=== PATIENT | male | born 1940 | race Caucasian/White ===

== ENCOUNTER → 2017-02-13 | Outpatient (CLI) | payer BC ==
[~2017-02-13] MED LIST: ASPCH81X PO; ASPI-205 PO; ASPI325T45 PO; CALC-323 PO; CALC500C70 PO; ENAL1TAB29 PO; MULT-506 PO; OXYC-57 PO; OXYC1TAB3 PO; WARF2TAB PO; amoxicillin PO
== END | disposition home or self-care (01) ==
LOC: C.RDSM 14:35
PROVIDERS: ATTEND Family Medicine
DX: M25.561 Pain in right knee (principal)

== ENCOUNTER → 2017-03-12 | Outpatient (CLI) | payer BC ==
--- NOTE | 2017-03-12 11:58 | DIAGNOSTIC IMAGING REPORT ---
MRI right knee RIGHT LOWER EXT JOINT WITHOUT CLINICAL HISTORY: RT KNEE PAIN Right pain TECHNIQUE: MRI multi axial acquisition COMPARISON STUDY: None FINDINGS: Severe degenerative change all major joint compartments. Medial compartment shows considerable loss of articular surface. Lateral compartment shows considerable thinning of the articular services. Anterior and posterior cruciate ligaments are intact. Joint effusion is present. Small amount of debris is present within the suprapatellar bursa. There is moderate edematous change of the infrapatellar fat pad. There are findings of mild contusions versus reactive edematous change of the medial femoral condyle and medial tibial plateau. This is seen to a minimal extent laterally. There is near-complete loss of meniscal substance involving the medial joint compartment. There is a small focal tear of the residual mid medial meniscus. Lateral meniscus is unremarkable in signal character. There is minimal maceration of the articular services. Collateral ligaments are intact. IMPRESSION: 1. Generalized degenerative change all major joint compartments. 2. Severe degenerative change medial joint compartment with virtual complete loss of the articular services the medial femoral condyle medial tibial plateau as well as considerable loss of meniscal substance of the medial meniscus. 3. Mild/moderate degenerative changes lateral joint compartment. 4. Moderate joint effusion with findings of mild chondromalacia patella. 5. Small joint effusion with a small amount of contained debris Electronically signed by: Eduardo Mak M.D. 03/12/2017 11:56 AM Dictated Date/Time: 03/12/2017 11:36 AM
== END | disposition home or self-care (01) ==
LOC: C.MRIBC 10:25
PROVIDERS: ATTEND Family Medicine
DX: S83.241A Other tear of medial meniscus, current injury, right knee, initial encounter (principal); M17.11 Unilateral primary osteoarthritis, right knee; X58.XXXA Exposure to other specified factors, initial encounter

== ENCOUNTER → 2017-05-07 | Outpatient (CLI) | payer BC ==
[~2017-05-07] MED LIST changes: -OXYC1TAB3 PO
[2017-05-07 15:41] LABS: HEMATOCRIT 45.3 % (42-52); MEAN CELL VOLUME 88.5 fL (80-100); MEAN CORPUSCULAR HEMOGLOBIN 27.5 pg (25-34); MEAN CORPUSCULAR HGB CONC 31.1 g/dl (32-36); MEAN PLATELET VOLUME 8.7 fL (7.4-10.4); PLATELET COUNT 272 K/uL (130-400); RED BLOOD COUNT 5.12 M/uL (4.7-6.1); WHITE BLOOD COUNT 9.59 K/uL (4.8-10.8)
[2017-05-07 16:15] LABS: ALT/SGPT 17 U/L (12-78); AMYLASE 100 U/L (25-115); AST/SGOT 13 U/L (15-37); BLOOD UREA NITROGEN 25 mg/dl (7-18); BUN/CREATININE RATIO 16.6 (10-20); CARBON DIOXIDE 29 mmol/L (21-32); CHLORIDE 108 mmol/L (98-107); GLUCOSE 124 mg/dl (70-99); SODIUM 143 mmol/L (136-145)
[2017-05-07 16:17] LABS: ALB/GLOB RATIO 0.8 (0.9-2); ALKALINE PHOSPHATASE 60 U/L (45-117)
== END | disposition home or self-care (01) ==
LOC: C.LAB 14:45
PROVIDERS: ATTEND Internal Medicine
DX: R63.0 Anorexia (principal)

== ENCOUNTER → 2017-05-22 | Outpatient (CLI) | payer BC ==
[~2017-05-22] MED LIST changes: +OPTIRAY 320 IV PRN
--- NOTE | 2017-05-22 16:00 | DIAGNOSTIC IMAGING REPORT ---
ABDOMEN AND PELVIS CT WITH IV AND ORAL CONTRAST CT DOSE: 616.97 mGy.cm HISTORY: Pain. Diverticulitis. DIVERTICULITIS TECHNIQUE: Multiaxial CT images of the abdomen and pelvis were performed following the use of intravenous and oral contrast. COMPARISON STUDY: None. FINDINGS: Mild dependent bibasilar atelectasis. Liver enhances uniformly. Several gallstones are present within the gallbladder lumen. Pancreas is unremarkable. 1.5 cm exophytic left renal cyst. 1 cm exophytic right renal cyst. 5.5 cm lower pole left renal cyst. Bowel pattern is remarkable for mild descending and sigmoid diverticulitis. Minimal to very mild pericolonic infiltrative change. No evidence for abscess collection or obstruction. Prostate is enlarged. Bladder is midline. The appendix is normal. IMPRESSION: 1. Mild acute diverticulitis of the descending as well as sigmoid colonic regions. 2. No evidence for abscess collection or obstruction. 3. Bilateral renal cysts. 4. Several small gallstones. 5. Prostatic enlargement. Electronically signed by: Eduardo Mak M.D. 05/22/2017 3:59 PM Dictated Date/Time: 05/22/2017 3:55 PM
== END | disposition home or self-care (01) ==
LOC: C.CTS 15:28
PROVIDERS: ATTEND Internal Medicine Gastroenterology
DX: K57.92 Diverticulitis of intestine, part unspecified, without perforation or abscess without bleeding (principal); N28.1 Cyst of kidney, acquired; N40.0 Benign prostatic hyperplasia without lower urinary tract symptoms

== ENCOUNTER → 2017-06-21 | Outpatient (CLI) | payer BC ==
[~2017-06-21] MED LIST changes: -ASPCH81X PO; -ASPI-205 PO; -OPTIRAY 320 IV PRN
--- NOTE | 2017-06-21 11:14 | DIAGNOSTIC IMAGING REPORT ---
ABD/PELVIS NO IV OR ORAL CONT CT DOSE: 484.32 mGy.cm HISTORY: Pain DIVERTICULITIS TECHNIQUE: Multiaxial CT images of the abdomen and pelvis were performed without contrast. A dose lowering technique was utilized adhering to the principles of ALARA. COMPARISON STUDY: 05/22/2017 FINDINGS: Lung bases are clear. Liver spleen and pancreas remain unremarkable. Several small gallstones are again noted. Kidneys negative for hydronephrosis. There is a nonobstructing lower pole right renal calcification. Renal cystic change has remained stable. Findings of diverticulitis are shown near complete resolution. Mild chronic diverticulosis is currently present present. Prosthetic enlargement persists. Bowel pattern throughout is nonprogressive. IMPRESSION: 1. Improved diverticulitis with mild residual colonic diverticulosis. 2. Several small gallstones. 3. Several renal cysts unchanged. The above report was generated using voice recognition software. It may contain grammatical, syntax or spelling errors. Electronically signed by: Eduardo Mak M.D. 06/21/2017 11:13 AM Dictated Date/Time: 06/21/2017 11:04 AM
== END | disposition home or self-care (01) ==
LOC: C.CTS 10:50
PROVIDERS: ATTEND Colon & Rectal Surgery
DX: K57.92 Diverticulitis of intestine, part unspecified, without perforation or abscess without bleeding (principal); K80.20 Calculus of gallbladder without cholecystitis without obstruction; N28.1 Cyst of kidney, acquired

== ENCOUNTER → 2017-07-25 | Outpatient (CLI) | payer BC, OTHER ==
[~2017-07-25] MED LIST changes: -amoxicillin PO
--- NOTE | 2017-07-25 15:14 | DIAGNOSTIC IMAGING REPORT ---
CHEST 2 VIEWS ROUTINE CLINICAL HISTORY: Preoperative evaluation. COMPARISON STUDY: Chest radiograph February 08, 2016. FINDINGS: There is no pneumothorax or pleural effusion. There is no evidence of pulmonary edema. Linear left basilar opacity is suggestive of atelectasis. Multiple lateral left upper to mid rib fractures are noted. These are mildly displaced and likely acute to subacute. There is no evidence of pulmonary edema. Cardiomediastinal silhouette is normal. IMPRESSION: 1. No acute cardiopulmonary findings. 2. Multiple left lateral fractures which are mildly displaced and likely acute to subacute. No pneumothorax. 3. Linear left basilar opacity suggestive of atelectasis. Electronically signed by: Williams Rosado M.D. 07/25/2017 3:13 PM Dictated Date/Time: 07/25/2017 3:10 PM
== END | disposition home or self-care (01) ==
LOC: C.RDSM 14:22
PROVIDERS: ATTEND Physician Assistant
DX: Z01.818 Encounter for other preprocedural examination (principal); T14.8 Other injury of unspecified body region; X58.XXXA Exposure to other specified factors, initial encounter

== ENCOUNTER → 2017-07-25 | Outpatient (CLI) | payer BC ==
[2017-07-25 15:45] LABS: BASO % 0.3 %; BASO ABS # 0.02 K/uL (0-0.2); COMPLETE YES; EOS % 0.9 %; HEMATOCRIT 48.2 % (42-52); IG% 0.4 %; LYMPH % 18.6 %; LYMPH ABS # 1.43 K/uL (1.2-3.4); MEAN CELL VOLUME 87.5 fL (80-100); MEAN CORPUSCULAR HEMOGLOBIN 27.8 pg (25-34); MEAN CORPUSCULAR HGB CONC 31.7 g/dl (32-36); MEAN PLATELET VOLUME 9.2 fL (7.4-10.4); NEUT % 68.8 %; PLATELET COUNT 237 K/uL (130-400); RED BLOOD COUNT 5.51 M/uL (4.7-6.1)
[2017-07-25 15:56] LABS: INR 0.9 (0.9-1.1); PARTIAL THROMBOPLASTIN RATIO 1.1
[2017-07-25 16:14] LABS: BLOOD UREA NITROGEN 29 mg/dl (7-18); BUN/CREATININE RATIO 20.9 (10-20); CALCIUM 9.2 mg/dl (8.5-10.1); CARBON DIOXIDE 25 mmol/L (21-32); CHLORIDE 107 mmol/L (98-107); GLUCOSE 83 mg/dl (70-99); POTASSIUM 3.9 mmol/L (3.5-5.1); SODIUM 140 mmol/L (136-145)
[2017-07-25 17:01] LABS: URINE APPEARANCE CLEAR (CLEAR); URINE BILIRUBIN NEG (NEG); URINE COLOR YELLOW; URINE EPITHELIAL CELL AUTO 0-5 /lpf (0-5); URINE NITRITE NEG (NEG); UROBILINOGEN NEG (NEG)
[2017-07-25 17:07] LABS: MANUAL MICROSCOPIC REQUIRED? NO; REVIEW REQ? NO
== END | disposition home or self-care (01) ==
LOC: C.LAB1850 14:43
PROVIDERS: ATTEND Physician Assistant
DX: Z01.812 Encounter for preprocedural laboratory examination (principal)

== ENCOUNTER 2017-08-21 06:22 | Inpatient (IN) | payer BC, OTHER ==
[2017-05-31 13:34] VITALS: BMI 26.0
--- NOTE | 2017-05-31 14:04 | PAT Medication Instructions ---
Service Date May 31, 2017. Current Home Medication List Aspirin (Aspirin), 325 MG PO Q8 PRN for Pain Calcium Citrate-Vitamin D (Citracal Maximum), 1 TAB PO QAM Calcium/Vitamin D (Os-Douglas 500 Plus D), 1 TAB PO QAM Enalapril Maleate (Vasotec), 2.5 MG PO BID Multivitamin (Multivitamin), 1 TAB PO QAM [amoxicillin], 1 TAB PO BID Medication Instructions For Your Scheduled Surgery - Instructions to be given by surgeon: Aspirin (Aspirin), 325 MG PO Q8 PRN for Pain - Hold the following medications 24 hours prior to surgery: Enalapril Maleate (Vasotec), 2.5 MG PO BID - Hold the following medications the morning of surgery: Multivitamin (Multivitamin), 1 TAB PO QAM Calcium Citrate-Vitamin D (Citracal Maximum), 1 TAB PO QAM Calcium/Vitamin D (Os-Douglas 500 Plus D), 1 TAB PO QAM Nothing to eat or drink after midnight If you have any questions please call us at [phone] or [phone] or [phone]
[2017-05-31 14:39] LABS: BASO % 0.4 %; BASO ABS # 0.03 K/uL (0-0.2); COMPLETE YES; EOS % 1.7 %; HEMATOCRIT 45.4 % (42-52); IG% 0.5 %; LYMPH % 14.9 %; MEAN CELL VOLUME 87.8 fL (80-100); MEAN CORPUSCULAR HEMOGLOBIN 28.2 pg (25-34); MEAN CORPUSCULAR HGB CONC 32.2 g/dl (32-36); MONO % 9.2 %; NEUT % 73.3 %; PLATELET COUNT 226 K/uL (130-400); RED BLOOD COUNT 5.17 M/uL (4.7-6.1); WHITE BLOOD COUNT 8.06 K/uL (4.8-10.8)
[2017-05-31 14:53] LABS: URINE APPEARANCE CLEAR (CLEAR); URINE BILIRUBIN NEG (NEG); URINE COLOR YELLOW; URINE NITRITE NEG (NEG); URINE PH 5.5 (4.5-7.5); UROBILINOGEN NEG (NEG); ZZUR CULT IF INDIC CLEAN CATCH NO
[2017-05-31 14:59] LABS: PARTIAL THROMBOPLASTIN RATIO 1.1; PROTHROMBIN TIME (PATIENT) 10.2 SECONDS (9.0-12.0)
[2017-05-31 15:07] LABS: MANUAL MICROSCOPIC REQUIRED? NO; REVIEW REQ? NO
[2017-05-31 15:12] LABS: BUN/CREATININE RATIO 17.1 (10-20); CALCIUM 9.6 mg/dl (8.5-10.1); CREATININE 1.8 mg/dl (0.60-1.40); POTASSIUM 4.3 mmol/L (3.5-5.1)
[2017-07-08 08:32] VITALS: BMI 26.0
--- NOTE | 2017-07-30 14:12 | HISTORY & PHYSICAL EXAMINATION ---
DATE OF ADMISSION: 08/21/2017 CHIEF COMPLAINT: Right knee pain. HISTORY OF PRESENT ILLNESS: This 76-year-old white male presents to the office with complaints of right knee pain that has been ongoing for over a year. He had a previous knee surgery approximately [address] Walls. The patient was previously scheduled for knee surgery in June, but had to postpone due to a bout of diverticulitis. Pain has been worse since December or early January of this year. He is a previous runner, who had a significant amount of medial joint line pain. No specific injury. Pain is constant and becomes worse with activity. It is affecting his ADLs. No numbness or tingling. No catching or locking. He has tried conservative care measures including cortisone injections and physical therapy without lasting relief. He elects to proceed with total knee arthroplasty in hopes of alleviating his pain. PAST MEDICAL HISTORY: Significant for hypertension, BPH, osteoarthritis, hiatal hernia, diverticulitis, right bundle branch block, and a history of aortic valve issue. PREVIOUS SURGERIES: Herniorrhaphy, right shoulder surgery, tibia ORIF, right knee surgery over 30 years ago, colonoscopy, and prostate biopsy. ALLERGIES: NKDA. CURRENT MEDICATIONS: Aspirin 81 mg daily, calcium daily, enalapril 2.5 mg p.o. b.i.d., multivitamin daily, and pantoprazole 20 mg p.o. daily. FAMILY HISTORY: Significant for hypertension, lung disease and stroke. SOCIAL HISTORY: No tobacco use, occasional ETOH use. . Retired. REVIEW OF SYSTEMS: Significant for above stated conditions, otherwise unremarkable. PHYSICAL EXAMINATION: GENERAL: Well-developed and well-nourished elderly white male in no acute distress. Sitting on a bed. Alert and oriented. SKIN: Warm and dry with good turgor. No rashes or lesions. No ecchymosis or erythema. HEENT: Normocephalic and atraumatic. Eyes PERRLA, EOMI. Nares patent bilaterally without turbinate enlargement. Oropharynx without erythema or exudate. No lesions noted. Uvula midline. Oral mucosa moist. Fair dentition. Dental caps and fillings are noted. HEART: RRR. No MGR. LUNGS: Clear to auscultation bilaterally. No crackles, rhonchi or wheezing. Good air movement. ABDOMEN: Bowel sounds present x4, soft and nontender. No organomegaly. No masses. MUSCULOSKELETAL: Right knee has no intraarticular effusion. Full terminal extension. Flexion to greater than 100 degrees. Strength is 5/5 with good quad tone. No defect over the patellar tendon or quadriceps tendon. Stable collateral ligaments. Focal pain with palpation over the medial joint line. No lateral joint line discomfort today. No pain in the popliteal fossa with palpation. Mildly antalgic gait. DATA: Radiographic imaging previously obtained of the right knee shows significant narrowing of the medial compartment. Periarticular osteophytes and subchondral sclerosis with subchondral cyst formation is also present. IMPRESSION: Right knee degenerative joint disease. PLAN: Informed written consent for a right total knee arthroplasty will be signed on the day of surgery. Postoperative prescriptions for Percocet and Coumadin will be provided at discharge from the hospital. Anticipate discharge to home with either 2 weeks of home health or direct outpatient PT. He already has a cane. Prescription was provided for a rolling walker. Preoperative lab work and chest x-ray have been ordered. EKG is up to date within 6 months.
[~2017-08-21] VITALS: Ht 175.3 cm; Wt 80.1 kg
[2017-08-21] VITALS (8 sets, daily range): BP systolic 103–160; BP diastolic 63–90; PULSE 65–97; TEMP 36.4–36.9; O2SAT 92–99; Ht 175.3 cm; Wt 80.1 kg
[~2017-08-21 06:22] MED LIST changes: +CEFAZOLIN 2000 MG/60 ML D5W 60 ML IV SCH; +LACTATED RINGER'S 1000ML 1,000 ML IV SCH; +LACTATED RINGER'S 1000ML 500 ML IV ONE; +LACTATED RINGER'S 1000ML IV SCH; -OXYC-57 PO; +ROPIVACAINE 5MG/ML 30 ML 150 MG, BUPIVACAINE/EPINEPHR 0.5% MPF 30 ML, KETOROLAC TROMETH... INFIL SCH; +TRANEXAMIC ACID INJ 1,000 MG in SODIUM CHLORIDE 0.9% 100ML 100 ML IV SCH; -WARF2TAB PO
--- NOTE | 2017-08-21 06:27 | History & Physical Bridge Note ---
H&P Re-Evaluation Bridge Note: I have examined the patient, reviewed the History & Physical and in the interval since the performance of the History & Physical I have noted the following changes of clinical significance:consent obtained. No changes noted
[2017-08-21] MEDS ORDERED: EpINEphrine INJ 1MG/ML AMP 1 MG/ML AMP ONE (06:31)
[2017-08-21] MEDS ORDERED: BUPIVACAINE 0.5 % 5 MG/1 ML PF 10ML VIAL ONE (06:31)
[2017-08-21] MEDS ORDERED: BUPIVACAINE 0.25% 30 ML VIAL ONE (06:31)
[2017-08-21] MEDS ORDERED: MIDAZOLAM HCL 1 MG/ML 2ML VIAL ONE ×2 (07:43→08:05)
[2017-08-21] MEDS ORDERED: ATROPINE SULFATE 0.1 MG/ML 5ML SYR IV PRN (08:45)
[2017-08-21] MEDS ORDERED: ONDANSETRON INJ 2 MG/ML 2 ML VIAL IV PRN ×2 (08:45→11:15)
[2017-08-21] MEDS ORDERED: FENTANYL CITRATE INJ 50 MCG/1 ML 2 ML VIAL IV PRN (08:45)
[2017-08-21] MEDS ORDERED: EpHEDrine SULFATE INJ 50 MG/ML AMP IV PRN (08:45)
[2017-08-21] MEDS ORDERED: FENTANYL CITRATE INJ 50 MCG/1 ML 2 ML VIAL ONE (08:47)
[2017-08-21] MEDS ORDERED: POVIDONE-IODINE OP SOLN 30 ML BTL ONE (09:07)
[2017-08-21] MEDS ORDERED: ORTHO JOINT ANESTHETIC ONE (09:07)
[2017-08-21] MEDS ORDERED: PROPOFOL IV EMULSION 10 MG/ML 20 ML VIAL IV ONE (09:46)
--- NOTE | 2017-08-21 10:57 | [facility] Post Operative Brief Note ---
Immediate Operative Summary Operative Date Aug 21, 2017. Pre-Operative Diagnosis Right Knee Degenerative Joint Disease Post-Operative Diagnosis Right Knee Degenerative Joint Disease Procedure(s) Performed Right Total Knee Arthroplasty Surgeon Dr. Zamorano Audiovisual Technician Surgeon(s) Dr. Billy (Fellow)/ENRIQUE Elaine Estimated Blood Loss 50cc Findings severe djd with flexion contracture Fluids (cc crystalloids) 1500cc Specimens A. Right Knee Bone and Tissue Drains none Anesthesia spinal/obturator block Complication(s) None Disposition Recovery Room / PACU
[2017-08-21] MEDS ORDERED: PHENYLEPHRINE 100MCG/ML 5ML SYR ONE (11:00)
[2017-08-21] MEDS ORDERED: EpHEDrine SULFATE 50MG/5ML SYR ONE (11:00)
[2017-08-21] MEDS ORDERED: MAGNESIUM HYDROXIDE SUSP 30 ML UDC PO PRN (11:15)
[2017-08-21] MEDS ORDERED: ALUMINUM/MAGNESIUM/SIMETH (MAALOX MAX) 30 ML UDC PO PRN (11:15)
[2017-08-21] MEDS ORDERED: ACETAMINOPHEN IV 100 ML IV PRN (11:15)
[2017-08-21] MEDS ORDERED: TAMSULOSIN HCL 0.4 MG CAP PO PRN (11:15)
[2017-08-21] MEDS ORDERED: MoRPHine SULFATE 4 MG/ML 1 ML CARP\\VIAL IV PRN (11:15)
[2017-08-21] MEDS ORDERED: ACETAMINOPHEN 325 MG TAB PO PRN (11:15)
[2017-08-21] MEDS ORDERED: METOCLOPRAMIDE HCL INJ 5 MG/ML 2 ML VIAL IV PRN (11:15)
[2017-08-21] MEDS ORDERED: BISACODYL 10 MG SUPP PR PRN (11:15)
[2017-08-21] MEDS ORDERED: OXYCODONE HCL IR 5 MG TAB (IMMEDIATE RELEASE) PO PRN (11:15)
[2017-08-21] MEDS ORDERED: DiphenhydrAMINE HCL 50 MG/ML VIAL IV PRN (11:15)
--- NOTE | 2017-08-21 11:29 | OPERATIVE REPORT ---
DATE OF OPERATION: 08/21/2017 PREOPERATIVE DIAGNOSIS: Osteoarthritis with flexion varus deformity, right knee. POSTOPERATIVE DIAGNOSIS: Same. OPERATION PERFORMED: Cemented right total knee replacement. SURGEON: Lai Zamorano MD RAILROAD SIGNAL OPERATOR: Wenceslao. SECOND HAND COOPER HELPER: Jayce Hinojosa MD THIRD HAND COOPER HELPER: Delfino Jones PA-C SUMMARY OF IMPLANTS: Size 3 posterior cruciate substituting femur, size 4 rotating tibial platform. Oval domed 3 pegged patella size 41, tibial insert size 3 matching the femur, 10 mm thick posterior cruciate substituting, and 2 bags of Palacos G cement. ESTIMATED BLOOD LOSS: 50 mL. CRYSTALLOID: 1500 mL. PERIOPERATIVE SITUATION: Medically cleared male with intractable knee pain. X-rays and physical exam consistent with varus flexion deformity and significant osteoarthropathy. At this point in time, he has failed conservative management and wants to proceed with treatment. PROCEDURE: The patient appropriately identified, site verified, consent verified, 2 g of Ancef confirmed as being given; the right lower extremity was prepped and draped in usual routine fashion. Tourniquet inflated to 300 mmHg after exsanguination of limb with a rubber Esmarch bandage for a total of about 60 minutes. Midline exposure utilized. Parapatellar arthrotomy performed. Synovectomy completed. Soft tissue releases medially performed. Osteophytes resected. Distal femur resected 14 mm. Proximal tibia resected 4 mm. The extension gap was excellent. The femur was measured to between a 4 and a 3, it was measured 4 cut 3. The flexion gap was excellent. The box cut was then made. The trial femur fit well. The tibia was then subluxated and the tibia broached and reamed to a size 4. Trial reduction carried out with a 10 mm spacers matching the femur size 3 and it was excellent in all ranges including mid range flexion. The patella was then sized to 41, resection made leaving 15 mm and then the seating holes made and the trial tracked well. The Orthomix was then injected into the joint. The joint was then irrigated with Betadine Pulsavac and after the cement mix was ready, the implants cemented into position. After 12 minutes, the tourniquet deflated. After 14 minutes, the knee flexed. Minor cement removal and irrigation occurred with Betadine Pulsavac and then the knee closed over the reduced implant with permanent spacer seated with #1 Ethibond, #1 Vicryl, 2-0 Vicryl and stainless steel clips. Appropriate dressing applied. The patient was then transferred to recovery room in satisfactory condition having tolerated the procedure well. DVT prophylaxis per protocol. I attest to the content of the Intraoperative Record and any orders documented therein. Any exceptions are noted below. MTDD
--- NOTE | 2017-08-21 11:38 | [facility] Operative Report ---
Operative Report Operative Date Aug 21, 2017. Pre-Operative Diagnosis Right Knee Degenerative Joint Disease Post-Operative Diagnosis Right Knee Degenerative Joint Disease Procedure(s) Performed Right Total Knee Arthroplasty Surgeon Dr. Zamorano Educational Program Director Surgeon(s) Dr. Billy (Fellow)/ENRIQUE Elaine Estimated Blood Loss 50cc Findings Right knee DJD Fluids (cc crystalloids) 1500cc Specimens A. Right Knee Bone and Tissue Drains none Complication(s) None Disposition Recovery Room / PACU Implants This 76-year-old white male presented to the office with complaints of intractable right knee pain. He had tried conservative care measures including activity modification, cortisone injections, viscous supplementation injections , oral anti-inflammatories, and oral pain medication without relief. Preoperative imaging was obtained. He elected to proceed with surgical intervention in hopes of alleviating his pain. Description of Procedure Patient was administered a spinal anesthetic and then taken to the operating room where he was given sedation. He was prepped and draped in usual sterile fashion. Please see Dr. Zamorano's operative report for specifics of the procedure. I was present for the entire case from initial patient positioning through final wound closure. Assistance was provided in tissue traction, hemostasis, trial implant placement, final implant placement, and final wound closure. Patient was taken to the recovery room in satisfactory condition. I attest to the content of the Intraoperative Record and any orders documented therein. Any exceptions are noted below.
--- NOTE | 2017-08-21 11:38 | Anesthesiology Progress Note ---
Anesthesia Post Op Note Date & Time Aug 21, 2017 at 11:38 Vital Signs Pain Intensity: 0 Vital Signs Past 12 Hours Date Time Temp Pulse Resp B/P (MAP) Pulse Ox O2 Delivery O2 Flow Rate FiO2 08/21/17 11:25 77 15 119/68 97 Nasal Cannula 2 08/21/17 11:15 74 14 117/61 98 Nasal Cannula 2 08/21/17 11:09 36.7 74 16 114/64 100 Nasal Cannula 2 08/21/17 06:56 36.9 65 18 160/90 96 Room Air Notes Mental Status: alert / awake / arousable, participated in evaluation Pt Amnestic to Procedure: Yes Nausea / Vomiting: adequately controlled Pain: adequately controlled Airway Patency, RR, SpO2: stable & adequate BP & HR: stable & adequate Hydration State: stable & adequate Neuraxial Anesthesia: was administered, sensory block is resolving Anesthetic Complications: no major complications apparent
--- NOTE | 2017-08-21 12:17 | DIAGNOSTIC IMAGING REPORT ---
RIGHT KNEE 1 OR 2 VIEWS ROUTINE CLINICAL HISTORY: AP/LATERAL IN PACU RIGHT KNEE Right COMPARISON: None. DISCUSSION: Anatomic alignment status post total right knee arthroplasty. Good contact between prosthetic and underlying bone. Expected soft tissue postoperative change IMPRESSION: Anatomic alignment status post total right knee arthroplasty. The above report was generated using voice recognition software. It may contain grammatical, syntax or spelling errors. Electronically signed by: Eduardo Mak M.D. 08/21/2017 12:15 PM Dictated Date/Time: 08/21/2017 12:15 PM
[2017-08-21] MEDS ORDERED: D5W AND 1/2NSS + 20MEQ KCL 1,000 ML IV SCH (13:00)
[2017-08-21 13:30] LABS: PROTHROMBIN TIME (PATIENT) 10.5 SECONDS (9.0-12.0)
[2017-08-21] MEDS ORDERED: INFLUENZA VACCINE HIGH DOSE 65+ 0.5 ML SYR IM. ONE (13:45)
[2017-08-21] MEDS ORDERED: INFLUENZA ADMINISTRATION CHARGE ONE (13:45)
[2017-08-21] MEDS: KETOROLAC TROMETHAMINE 15 MG/ML VIAL IV. SCH ×2 (13:49→20:31)
--- NOTE | 2017-08-21 14:06 | PROGRESS NOTE ---
DATE: 08/21/2017 Postop check status post right total knee replacement. The patient is doing well. Denies chest pain, shortness of breath, fever, chills, nausea, vomiting or headache. A spinal block is wearing off. He has some function in his feet. Still has weak thigh. Dressing clean, dry and intact. Postop x-ray looks excellent. ASSESSMENT: Doing well. Continue with care pathway. Coumadin this evening for deep venous thrombosis prophylaxis.
[2017-08-21] MEDS ORDERED: WARFARIN SOD 5 MG TAB PO ONE (16:00)
[2017-08-21] MEDS ORDERED: TRANEXAMIC ACID INJ 1,000 MG in SODIUM CHLORIDE 0.9% 100ML 100 ML IV SCH (16:00)
[2017-08-21] MEDS: FERROUS GLUCONATE 324 MG TAB PO SCH (18:32)
[2017-08-21] MEDS: CEFAZOLIN IV 2,000 MG in DEXTROSE 5% 50ML 50 ML IV SCH (18:32)
[2017-08-21] MEDS: DOCUSATE SODIUM 100 MG CAP PO SCH (20:31)
[2017-08-21] MEDS: ENALAPRIL MALEATE 5 MG TAB PO SCH (20:31)
[2017-08-22] MEDS: CEFAZOLIN IV 2,000 MG in DEXTROSE 5% 50ML 50 ML IV SCH (01:30)
[2017-08-22] MEDS: KETOROLAC TROMETHAMINE 15 MG/ML VIAL IV. SCH ×2 (01:30→07:10)
[2017-08-22 03:06] VITALS: BP 110/64; PULSE 72; TEMP 36.6; O2SAT 95
[2017-08-22 05:51] LABS: HEMATOCRIT 38.8 % (42-52); MEAN CORPUSCULAR HEMOGLOBIN 27.7 pg (25-34); MEAN CORPUSCULAR HGB CONC 31.4 g/dl (32-36); MEAN PLATELET VOLUME 8.9 fL (7.4-10.4); PLATELET COUNT 164 K/uL (130-400); RED BLOOD COUNT 4.41 M/uL (4.7-6.1); WHITE BLOOD COUNT 12.14 K/uL (4.8-10.8)
[2017-08-22 06:01] LABS: PROTHROMBIN TIME (PATIENT) 10.7 SECONDS (9.0-12.0)
[2017-08-22 06:26] LABS: BUN/CREATININE RATIO 17.4 (10-20); CALCIUM 8.2 mg/dl (8.5-10.1); CREATININE 1.7 mg/dl (0.60-1.40)
--- NOTE | 2017-08-22 06:44 | PROGRESS NOTE ---
DATE: 08/22/2017 SUBJECTIVE: Postop day #1 status post right total knee replacement. The patient denies chest pain, shortness of breath, fever, chills, nausea, vomiting or headache. He is in good spirits. He notes his pain is well managed. PHYSICAL EXAMINATION: VITAL SIGNS: Stable. He is afebrile. CHEST: Nontender. ABDOMEN: Nontender. EXTREMITIES: Calves nontender. NEUROLOGIC: Neurovascular check femoral and sciatic nerve is excellent. Can do a straight leg raise. Ankle pumps are strong. Sensation normal. LABORATORY WORK: Excellent. ASSESSMENT: Doing well. We will discharge after PT, OT today. He wants to go to [facility]. Social service assessment. Discharge on 4 mg Coumadin a day. Check INR on Saturday. Keep INR 1.8-2.2 range. MTDD
[2017-08-22] MEDS ORDERED: DEXAMETHASONE INJ 10 MG in SYRINGE 0 ML IV SCH (07:30)
--- NOTE | 2017-08-22 07:34 | DISCHARGE SUMMARY ---
CHIEF COMPLAINT: Right knee pain. HISTORY OF PRESENT ILLNESS: A 76-year-old male admitted for elective right total knee replacement. At this point in time, his hospital course has been uneventful. He is doing well. He tolerated the procedure well. His pain is well managed. PAST MEDICAL HISTORY: Remarkable for hypertension, BPH, osteoarthritis, hiatal hernia, diverticulitis, right bundle branch block, aortic valve disease. PAST SURGICAL HISTORY: Include, herniorrhaphy, right shoulder surgery, tibia ORIF, right knee surgery, colonoscopy and prostate biopsy. ALLERGIES: None. PREADMISSION MEDICATIONS: Include, aspirin 81 mg daily, calcium supplement, enalapril 2.5 mg b.i.d., multivitamins and, pantoprazole 20 mg daily. He will continue all of those and add Coumadin to keep INR 1.8-2.2. We will discharge on 4 mg and check INR on Saturday. FAMILY HISTORY: Remarkable for hypertension, lung disease and stroke. SOCIAL HISTORY: Remarkable for no tobacco or alcohol use. He is , retired. REVIEW OF SYSTEMS: Noncontributory. Denies chest pain, shortness of breath, fever, chills, nausea, vomiting or headache. ASSESSMENT: Doing well status post right total knee replacement. At this point in time, we will discharge him to [facility] following social service assessment urgent this morning. PT, OT urgent. Coumadin per nomogram today. Discharge on 4 mg thereafter. Check INR on Saturday. RAY
[2017-08-22 07:35] VITALS: BP 135/71; PULSE 72; TEMP 36.4; O2SAT 96
--- NOTE | 2017-08-22 08:06 | Anesthesiology Progress Note ---
Anesthesia Post Op Note Date & Time Aug 22, 2017 at 08:06 Vital Signs Pain Intensity: 4.0 Vital Signs Past 12 Hours Date Time Temp Pulse Resp B/P (MAP) Pulse Ox O2 Delivery O2 Flow Rate FiO2 08/22/17 07:42 Room Air 08/22/17 03:06 36.6 72 16 110/64 (79) 95 Room Air 08/21/17 23:09 36.7 90 16 103/63 (76) 93 Room Air Notes Mental Status: alert / awake / arousable, participated in evaluation Pt Amnestic to Procedure: Yes Nausea / Vomiting: adequately controlled Pain: adequately controlled Airway Patency, RR, SpO2: stable & adequate BP & HR: stable & adequate Hydration State: stable & adequate Neuraxial Anesthesia: sensory block resolved Anesthetic Complications: no major complications apparent
[2017-08-22] MEDS: DOCUSATE SODIUM 100 MG CAP PO SCH (08:19)
[2017-08-22] MEDS: ENALAPRIL MALEATE 5 MG TAB PO SCH (08:19)
[2017-08-22] MEDS: FERROUS GLUCONATE 324 MG TAB PO SCH (08:19)
[2017-08-22] MEDS ORDERED: PANTOprazole SOD 40 MG TAB PO SCH (09:00)
[2017-08-22] MEDS ORDERED: MULTIVITAMIN TAB PO SCH (09:00)
--- NOTE | 2017-08-22 10:25 | Discharge Instructions ---
Discharge Instructions Date of Service Aug 21, 2017. Admission Reason for Admission: Right Knee Degenerative Joint Disease Discharge Discharge Diagnosis / Problem: Right knee s/p total knee replacement Discharge Goals Goal(s): Decrease discomfort, Improve function, Increase independence Activity Recommendations Activity Limitations: as noted below Lifting Limitations: gradually increase as tolerated Exercise/Sports Limitations: until after follow-up appointment Shower/Bathe: keep incision dry Driving or Machine Use: No driving until cleared by Dr. Zamorano Weightbearing Status: Right weightbearing (as tolerated) . Instructions / Follow-Up Instructions / Follow-Up New Medicine: * You will likely be taking one or more of these medications: 1. Percocet - Take, as directed, when you need it, every four to six hours to control your pain. 2. Coumadin - Thins your blood to lessen the chance of forming a blood clot. The dose of this is different for each person and is based on your blood tests that are done twice a week. * The most common side effects of pain medicine and iron are nausea and constipation. If nausea or constipation is too much of a problem or if you have any questions about your new medicines or doses, call [facility] at . We will try to help you manage these issues. VERY IMPORTANT TO READ AND REVIEW" Blood Clots and Blood Thinning Medicine: * You are given Coumadin during the immediate post-operative period to lessen the risk of blood clots forming in your legs and/or lungs. Coumadin is usually given for six weeks after surgery. * The prescription is for 2 mg tablets. At discharge, you should understand your dose and take it all at the same time every day, preferably after dinner. * You need to get your blood checked 1 - 2 times per week for six weeks or as directed. * If your dose needs to change, we will call you. Do not take your medication on the day of the blood test until we call you. Pain: * The immediate post-operative period after knee replacement surgery is often quite painful. * You are given a prescription for pain medicine. You should take it, as directed, when you need it, especially before physical therapy and before going to bed. Pain that interferes with sleep is very common and can last several months. * You will likely need pain medicine for the first four to six weeks. It will not stop all of the pain. The pain will lessen and as you feel better, you may change to milder pain medicine such as Tylenol. * The most common side effects of pain medicine are nausea and constipation, so don't take more than you need. Physical Therapy: * You will have physical therapy two or three times each week for four to six weeks after your surgery in order to regain your knee range of motion and to retrain your knee to work properly. * It is just as important to make sure you are getting your knee perfectly straight as it is to regain your knee bend. * Taking a pain pill an hour before therapy can help you have a more productive and comfortable therapy session if needed. Home Exercise: * You were shown a series of exercises (heel props, heel slides, etc.) in the hospital. Do these exercises three to four times each day including the exercises you were shown in physical therapy. Walking: * Get up and walk several times each day. For the first four weeks, try not to stand or walk for more than one hour at a time. If you do stand or walk for more than one hour, you will not hurt anything, but your knee and leg will likely swell. * As you feel comfortable, you may change from the walker or crutches to a cane and then to independent walking. SELF CARE INSTRUCTIONS AFTER TOTAL KNEE REPLACEMENT A. You may need to continue a physical therapy program after discharge from the hospital. There are several options available to you. Your doctor will assist you in selecting the best one for you. 1. An out-patient facility 2 to 3 times a week for therapy or home therapy. 2. Continue working on all exercises taught to you in the hospital. Your goals should be to increase bending of your knee to 90 degrees and beyond and to fully straighten your knee. B. You may progress at your own pace from walking with a walker or crutches to a cane; then to no assistive devices. C. Make walking a part of your daily routine. Be up as much as comfortable with rest periods throughout the day. Rest with leg elevation is very important. Use the ice wrap frequently for the first 3-4 weeks. D. There are no restrictions on activities. You may ride in a car, shop, participate in survey chief and all social activities. E. Wear the long elastic stockings (JODI hose) 20 hours a day for six weeks after surgery. They can be removed several times a day for laundering and for a shower. F. Do not place a pillow behind your knee when resting. A pillow at your ankle is okay. VERY IMPORTANT TO READ AND REVIEW A. Take Coumadin, Aspirin or Lovenox (blood thinning medications) as directed by your doctor. If on Coumadin, have a pro-time (blood test) drawn according to your doctor's instructions. This will tell the doctor how well the Coumadin is thinning your blood. 1. YOU WILL BE GIVEN AN ORDER AT DISCHARGE FOR PT/INR (BLOOD WORK). PLEASE HAVE THIS DONE INSTRUCTED. PLEASE CALL OUR OFFICE AFTER YOUR BLOODWORK IS COMPLETE SO WE CAN TRACK YOUR RESULTS. IF YOU ARE GOING TO OUTPATIENT PHYSICAL THERAPY, YOU WILL NEED TO GO TO OUTPATIENT TESTING TO HAVE IT DRAWN. B. There are a few signs you need to watch for after you are home. Call [facility] if you notice any of the followin. Increased severe knee pain. Some pain is expected especially when you exercise. 2. Increased swelling in your leg or knee; pain or swelling of the calf muscle in either lower leg. 3. Any fluid drainage from the incision. 4. Shortness of breath or chest pain. C. Please call [facility] at if you have any concerns or questions about your operation or recovery. The doctor or his nurse will return your call promptly. D. You must take antibiotics before dental work, bladder, bowel or other surgery. Call the office to obtain a prescription at least 2 days prior to your appointment. * CALL IF INCREASED PAIN, REDNESS, DRAINAGE OR FEVER GREATER THAT 101. * Sutures should be removed 12-14 days after surgery unless you are on chronic steriods, then it will be 14-18 days after surgery. Call your doctor if: * Temperature above 101 degrees F. * Pain not relieved by pain medicine ordered. * Increased drainage or redness from incision. * Notify your doctor with any questions or concerns. Current Hospital Diet Patient's current hospital diet: Regular Diet Discharge Diet Recommended Diet: Regular Diet Procedures Procedures Performed: Right Total Knee Arthroplasty Pending Studies Studies pending at discharge: no Medical Emergencies . Who to Call and When: Medical Emergencies: If at any time you feel your situation is an emergency, please call 911 immediately. . Non-Emergent Contact Non-Emergency issues call your: Primary Care Provider, Surgeon Call Non-Emergent contact if: temperature is above 101, wound has increased drainage, wound has increased redness, wound has increased pain, you have any medication questions . "Provider Documentation" section prepared by Delfino Jones PA-C. . VTE Core Measure Inpt VTE Proph given/why not?: Warfarin (Coumadin), T.E.D. Stockings, SCD's [place] Drug Monitoring Program Search Results: no issues identified
[2017-08-22] MEDS ORDERED: WARF2TAB PO (10:27)
[2017-08-22] MEDS ORDERED: OXYC-57 PO (10:27)
--- NOTE | 2017-08-22 10:34 | Orthopedic Progress Note ---
Orthopedic Progress Note Date of Service Aug 22, 2017. Subjective Post OP Day: 1 Reports: feeling well, pain controlled w PO medications, Denies: complaints, chest pain, SOB, nausea / vomiting, light headedness, calf pain Additional Notes: states he feels well and ready to go home. Objective calves soft nontender, N/V intact, capillary refill less than 2 sec., dressing C /D/I, incision C/D/I, A&O x3, toes mobile, CMS intact No active drainage. Scant drainage on dressings. Date Time Temp Pulse Resp B/P (MAP) Pulse Ox O2 Delivery O2 Flow Rate FiO2 08/22/17 07:42 Room Air 08/22/17 07:35 36.4 72 16 135/71 (92) 96 Room Air 08/22/17 03:06 36.6 72 16 110/64 (79) 95 Room Air 08/21/17 23:09 36.7 90 16 103/63 (76) 93 Room Air 08/21/17 19:27 36.4 97 16 136/83 (100) 92 Room Air 08/21/17 19:20 Room Air 08/21/17 16:00 Nasal Cannula 2.0 08/21/17 15:19 36.6 84 18 137/85 (102) 95 Room Air 08/21/17 14:10 80 16 137/79 (98) 94 Room Air 08/21/17 13:10 76 16 148/88 (108) 99 Nasal Cannula 2.0 08/21/17 12:39 74 16 144/78 (100) 99 Nasal Cannula 2.0 08/21/17 12:10 36.5 72 16 122/71 (88) 95 Nasal Cannula 2.0 08/21/17 12:10 95 Nasal Cannula 2.0 08/21/17 12:10 95 Nasal Cannula 2.0 08/21/17 11:35 36.3 71 19 121/63 97 Nasal Cannula 2 08/21/17 11:25 77 15 119/68 97 Nasal Cannula 2 08/21/17 11:15 74 14 117/61 98 Nasal Cannula 2 08/21/17 11:09 36.7 74 16 114/64 100 Nasal Cannula 2 Laboratory Results 24 Hours: Test 08/21/17 13:01 08/22/17 05:23 Prothromb Time International Ratio 1.0 1.0 Prothrombin Time 10.5 SECONDS 10.7 SECONDS Hematocrit 38.8 % Hemoglobin 12.2 g/dL Assessment & Plan Assessment: RIght knee s/p total knee arthroplasty, post op day 1 Plan: PT/OT today coumadin per nomogram dressing changed this morning-wound looks very good D/C to [facility] today continue conrado knight follow up in office in 2 weeks for staple removal Discharge Planning Discharge Planning: home Pain Management: Percocet DVT Prophylaxis: TEDs, SCDs, Coumadin Therapy: Physical Therapy, Occupational Therapy
[2017-08-22 11:59] VITALS: BP 138/79; PULSE 75; TEMP 36.5; O2SAT 96
== END 2017-08-22 13:22 | DRG 470 ==
LOC: C.ACU 06:22 → C.3E 06:23 → ENRESERV 11:33
PROVIDERS: ADMIT Physical Medicine & Rehabilitation Sports Medicine; ATTEND Physical Medicine & Rehabilitation Sports Medicine
PROC: 0SRC0J9 Replacement of Right Knee Joint with Synthetic Substitute, Cemented, Open Approach (ICD-10-PCS; principal; 2017-08-21 08:45)
DX: M17.11 Unilateral primary osteoarthritis, right knee (principal); M24.561 Contracture, right knee; M21.161 Varus deformity, not elsewhere classified, right knee; I12.9 Hypertensive chronic kidney disease with stage 1 through stage 4 chronic kidney disease, or unspecified chronic kidney disease; N18.3 Chronic kidney disease, stage 3 (moderate); I45.10 Unspecified right bundle-branch block; I35.9 Nonrheumatic aortic valve disorder, unspecified; N40.0 Benign prostatic hyperplasia without lower urinary tract symptoms; Z87.891 Personal history of nicotine dependence; Z23 Encounter for immunization; Z79.2 Long term (current) use of antibiotics; Z79.82 Long term (current) use of aspirin; Z79.899 Other long term (current) drug therapy

== ENCOUNTER → 2017-08-26 | Outpatient (CLI) | payer BC, OTHER ==
[~2017-08-26] MED LIST changes: -ASPI325T45 PO; -CALC500C70 PO; -CEFAZOLIN 2000 MG/60 ML D5W 60 ML IV SCH; -LACTATED RINGER'S 1000ML 1,000 ML IV SCH; -LACTATED RINGER'S 1000ML 500 ML IV ONE; -LACTATED RINGER'S 1000ML IV SCH; +OXYC-57 PO; -ROPIVACAINE 5MG/ML 30 ML 150 MG, BUPIVACAINE/EPINEPHR 0.5% MPF 30 ML, KETOROLAC TROMETH... INFIL SCH; -TRANEXAMIC ACID INJ 1,000 MG in SODIUM CHLORIDE 0.9% 100ML 100 ML IV SCH; +WARF2TAB PO
[2017-08-26 12:35] LABS: INR 1.1 (0.9-1.1); PROTHROMBIN TIME (PATIENT) 12.3 SECONDS (9.0-12.0)
== END ==
LOC: C.LABFOXAE 12:50
PROVIDERS: ATTEND Internal Medicine
DX: Z51.81 Encounter for therapeutic drug level monitoring (principal); Z79.01 Long term (current) use of anticoagulants; Z47.1 Aftercare following joint replacement surgery

== ENCOUNTER → 2017-09-12 | Outpatient (CLI) | payer BC ==
[2017-09-12 09:43] LABS: PROTHROMBIN TIME (PATIENT) 21.6 SECONDS (9.0-12.0)
== END | disposition home or self-care (01) ==
LOC: C.LABFOXMH 09:21
PROVIDERS: ATTEND Physician Assistant
DX: Z96.651 Presence of right artificial knee joint (principal); Z51.81 Encounter for therapeutic drug level monitoring

== ENCOUNTER → 2017-09-23 | Outpatient (CLI) | payer BC ==
[2017-09-23 09:10] LABS: INR 1.2 (0.9-1.1); PROTHROMBIN TIME (PATIENT) 13.4 SECONDS (9.0-12.0)
== END | disposition home or self-care (01) ==
LOC: C.LABFOXMH 08:14
PROVIDERS: ATTEND Physician Assistant
DX: Z96.651 Presence of right artificial knee joint (principal); Z51.81 Encounter for therapeutic drug level monitoring

== ENCOUNTER → 2017-10-07 | Outpatient (CLI) | payer BC | END | disposition home or self-care (01) | LOC: C.RDSM 14:42 | PROVIDERS: ATTEND Physical Medicine & Rehabilitation Sports Medicine | DX: M17.11 Unilateral primary osteoarthritis, right knee (principal) ==

== ENCOUNTER 2018-07-09 13:18 | Emergency (ER) | payer BC ==
[~2018-07-09] VITALS: Ht 175.3 cm; Wt 92.5 kg
[~2018-07-09 13:18] MED LIST changes: -CALC-323 PO; -OXYC-57 PO; -WARF2TAB PO
[2018-07-09 13:26] VITALS: TEMP 36.4; Ht 175.3 cm; Wt 92.5 kg
[2018-07-09 13:34] VITALS: O2SAT 94
[2018-07-09] MEDS ORDERED: CALC-323 PO (13:34)
[2018-07-09] MEDS ORDERED: DIPHTHERIA/TETANUS/PERTUSSIS 0.5 ML SYR/VIAL IM. ONE (14:00)
--- NOTE | 2018-07-09 14:04 | EMERGENCY ROOM VISIT NOTE ---
ED Visit Note First contact with patient: 13:36 I have seen and examined this patient with Gold Lopez and generally agree with the treatment plan as discussed. Problem List Medical Problems: (1) Hypertension Status: Chronic Current/Historical Medications Scheduled Calcium Citrate-Vitamin D (Citracal Maximum), 1 TAB PO QAM Enalapril Maleate (Vasotec), 2.5 MG PO BID Multivitamin (Multivitamin), 1 TAB PO QAM Allergies Coded Allergies: No Known Allergies (Verified , 08/21/17) Vital Signs Date Time Temp Pulse Resp B/P (MAP) Pulse Ox O2 Delivery O2 Flow Rate FiO2 07/09/18 13:34 94 Room Air 07/09/18 13:32 98 07/09/18 13:26 36.4 101 18 140/80 94 Room Air Departure Information Referrals Warren Quintanilla M.D. (PCP) Patient Instructions [facility]
--- NOTE | 2018-07-09 14:28 | DIAGNOSTIC IMAGING REPORT ---
CT SCAN OF THE BRAIN WITHOUT IV CONTRAST CLINICAL HISTORY: Syncope. Fall. Left-sided facial injury. COMPARISON STUDY: No priors. TECHNIQUE: Unenhanced axial CT scan of the brain is performed from the vertex to the skull base. A dose lowering technique was utilized adhering to the principles of ALARA. CT DOSE: 601.98 mGy.cm FINDINGS: Brain parenchyma: There are age-related involutional changes noting moderate subcortical and periventricular microangiopathic change. There is no hemorrhage, mass effect, or evidence of acute territorial ischemia by CT criteria. Glynn-white matter is preserved. No extra-axial fluid collection is seen. Ventricles, sulci, cisterns: Prominent secondary to involutional change. Intracranial vasculature: There is atherosclerotic calcification of the cavernous carotid and vertebral arteries. Calvarium: The skeletal structures are osteopenic. No depressed calvarial fracture is seen. Soft tissues: There is a small left periorbital scalp contusion. Sinuses and mastoids: The visualized paranasal sinuses are clear. The mastoid air cells are well pneumatized. Orbits: The bony orbits are grossly intact. There are bilateral ocular lens implants. IMPRESSION: There is no hemorrhage, mass effect, or evidence of acute territorial ischemia by CT criteria. Electronically signed by: Jony Sandhu M.D. 07/09/2018 2:27 PM Dictated Date/Time: 07/09/2018 2:25 PM
[2018-07-09] MEDS ORDERED: ASPI-232 PO (14:54)
[2018-07-09 15:31] VITALS: BP 150/78; PULSE 94; O2SAT 95
--- NOTE | 2018-07-10 06:17 | EMERGENCY ROOM VISIT NOTE ---
ED Visit Note First contact with patient: 13:36 Chief Complaint: Fall. History of Present Illness: Mr. Naidu is a 77-year-old white male who is brought into the ED via ambulance accompanied by his following a fall. Historically patient reports he has a history of hypertension and vasovagal syndrome. 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 He was sitting outside for the last 4-5 hours. He reports he started feeling lightheaded and fell off a wall he was sitting on an struck his head and face. There is a reported loss of consciousness for up to 1 minute. He reports this is similar to previous episodes of his vasovagal symptoms. There was no report of seizure activity. When he fell he did strike the left side of the face on the ground. In doing so he broke his glasses and sustained a soft tissue injury. After approximate the 1 minute the patient woke up from his loss of consciousness and it was reported he was his normal self. EMS was activated and he was transported to the ED. EMS reports patient was stable and had no acute changes in route. Currently patient reports she is not having any symptoms and he denies headache , dizziness, lightheadedness, visual changes, hearing changes, difficulty speaking, difficulty swallowing, neck pain, chest pain, shortness of breath, palpitations, abdominal pain, nausea, vomiting, thoracic and lumbar back pain, hip pain, upper and lower extremity pain/numbness/tingling/weakness. Review of Systems: As noted above in history of present illness. All body systems were reviewed and found to be negative as noted above. Past Medical History: As previously noted and benign prostatic hypertrophy, osteoarthritis, hiatal hernia, diverticulitis, aortic valve disease, right bundle branch block, status post hemorrhoidectomy, unspecified right shoulder surgery, right knee arthroplasty and unspecified lower leg surgery. Current Medications: Medications Dose Route/Sig Max Daily Dose Days Date Category Aspir-81 (Aspirin) 81 Mg Tab 81 Mg PO DAILY 07/09/18 Reported Citracal Maximum (Calcium Citrate-Vitamin D) 1 Tab Tab 1 Tab PO QAM 05/31/17 Reported Multivitamin (Multivitamins) Tab 1 Tab PO QAM 12/19/15 Reported Vasotec (Enalapril Maleate) 2.5 Mg Tab 2.5 Mg PO BID 12/19/15 Reported Allergies to Medications: Patient denies. Social History: Patient is currently retired; he lives with his and feels safe in his home environment; he denies tobacco use admits to social alcohol use. Physical Examination: Vital Signs: Date Time Temp Pulse Resp B/P (MAP) Pulse Ox O2 Delivery O2 Flow Rate FiO2 07/09/18 15:31 94 20 150/78 95 07/09/18 14:39 94 162/83 100 149/79 104 140/82 07/09/18 14:39 95 18 162/83 95 Room Air 07/09/18 13:34 94 Room Air 07/09/18 13:32 98 07/09/18 13:26 36.4 101 18 140/80 94 Room Air GENERAL: 77-year-old male in no acute distress, nontoxic-appearing, afebrile and hemodynamically stable. NEUROLOGICAL: Awake, alert and oriented to person, place and time. Answering questions appropriately and following commands. Good hand eye coordination. No focal motor or sensory deficits. Cranial nerves II through XII grossly intact. Good short and long-term recall. Normal rapid alternating movements of the hands and fingers. Able to spell and count backwards. SKIN: Warm, dry and pink. Face: Patient has a superficial laceration just inferior to these middle portion of the left eye and slightly superior to the bony orbit. There is no active bleeding. Additionally patient has a skin tear just lateral to the bony orbit of the left eye measuring 2-3 cm. No active bleeding. HEENT: Skull: Atraumatic and normocephalic. No bony deformity, bony crepitus, swelling or ecchymosis. No raccoons eyes or adler signs. No drainage from the ears or the nostril; no hematin pinnae. Face: Soft tissue injuries as noted above. No bony tenderness, swelling or ecchymosis. PERRLA. EOMI without nystagmus. Sclera white and conjunctiva pink. No malocclusion. No intraoral trauma. Airway patent. Speech is normal and clear. Trachea midline. No jugular venous distention. BACK: No tenderness over the bony cervical, thoracic and lumbar spines. No tenderness throughout the paraspinous muscles. No CVA tenderness. THORAX: Lungs sounds are clear to auscultation and equal bilaterally with symmetrical chest wall. No wheezing, rales or rhonchi. No crepitus, tenderness , subcutaneous air or deformities noted. HEART: Regular rate and rhythm. Upper right chest stenotic aortic murmur is present. ABDOMEN: Flat, soft and nontender. Positive bowel sounds in all quadrants. No guarding, rigidity or organomegaly. PELVIS: Stable and nontender to compression and rock. UPPER EXTREMITIES: No gross bony deformity. Moves shoulders, elbows, forearms, wrists and hands well on command and with purpose. No tenderness over these joints. Distal neurovascular statuses are intact and equal bilaterally. LOWER EXTREMITIES: No gross bony deformity. No shortening or malrotation. Moves hips, knees, ankle, and feet well on command and with purpose. No tenderness over these joints. Distal neurovascular statuses are intact and equal bilaterally. ED Course: Patient is assessed as noted above. Patient's medication list was reviewed. An IV lock was initiated and laboratory tests were drawn. EKG: Was read by myself and reviewed with Dr. Boothe; shows normal sinus rhythm with a right bundle branch block. 99 bpm. No acute ischemic changes were noted. This was compared to a previous from 2016 and no acute changes were noted. Head CT: Was reviewed by myself and read by the radiology showing no intracranial abnormalities or skull fractures. Patient's lacerations were cleansed with antibacterial soap and water and his skin tear was stabilized with Steri-Strips. Patient was given an Adacel booster. Patient's case was reviewed with Dr. Boothe; he independently assessed the patient we agreed on diagnostic approach, treatment, disposition and plan. Patient and were educated about today's findings and instructed on his treatment plan; they verbalized understanding and agreement with this plan. Clinical Impression: Syncope. Fall. Facial soft tissue injuries. Decision-Making: Initially my differential diagnosis I considered stroke, vasovagal syncope, arrhythmia, dehydration, pulmonary embolism for the reasons of his fall. And then subsequently I considered intracranial bleed, skull fracture, facial fracture and other causes for his injuries. Disposition: Patient discharged home in stable condition accompanied by his ; prior to departure he was reassessed and continued to report that he was pain and symptom-free. Plan: Patient was encouraged to continue his current medications as prescribed. Patient was encouraged to stay well-hydrated with increased clear fluids. Patient was encouraged that he could rest for the next 48 hours and then resume normal duties as long as he is avoiding the hot weather. Patient was encouraged you 650 mg of acetaminophen every 6 hours as needed for pain. Wound care and signs of infection were discussed with the patient. Patient and are educated on signs of head injuries. Patient was encouraged to avoid alcohol for the next 48 hours. Patient was encouraged to follow-up with his PCP for recheck if no better in 3- 4 days or any signs of infection from his soft tissue injuries. Patient was encouraged return the ED immediately for any signs of head injury, signs of infection or any new/concerning symptoms.
== END 2018-07-09 15:32 | disposition home or self-care (01) ==
LOC: C.EDA 13:18 → EDBD 13:18 → C.EDA 15:32
DX: R55 Syncope and collapse (principal); T14.8XXA Other injury of unspecified body region, initial encounter; W19.XXXA Unspecified fall, initial encounter; N40.0 Benign prostatic hyperplasia without lower urinary tract symptoms; M19.90 Unspecified osteoarthritis, unspecified site; K44.9 Diaphragmatic hernia without obstruction or gangrene; K57.92 Diverticulitis of intestine, part unspecified, without perforation or abscess without bleeding; I38 Endocarditis, valve unspecified; I45.10 Unspecified right bundle-branch block; Z23 Encounter for immunization

== ENCOUNTER 2022-02-01 17:27 | Inpatient (IN) ==
[2022-02-01] MEDS ORDERED: SODIUM CHLORIDE 0.9% 1000ML 1,000 ML IV STA (17:44)
[2022-02-01] MEDS ORDERED: SODIUM CHLORIDE 0.9% 500 ML IV STA (17:44)
--- NOTE | 2022-02-01 17:56 | Emergency Department Note ---
Impression & Plan Acute renal failure, Abdominal pain, suprapubic ED Provider Note INFORMANT: Patient ED PROVIDER(S): Gold Abarca MD CHIEF COMPLAINT: Abnormal labs PLAN: Disposition: Admitted Condition: Good Outpatient prescription management: none Referral: None MEDICAL DECISION MAKING: Because of abnormal labs he had an elevated creatinine as an outpatient. The patient has not been eating or drinking well per the . He had laboratory testing performed here. His elevated creatinine was confirmed. Patient's urinalysis did not reveal any evidence of infection. He underwent CT imaging w hich showed moderate urine in the bladder and some inflammation around the left kidney. Radiology question whether he had a recently passed stone. His potassium was minimally elevated. Overall he was doing well. He was hydrated. A Mathis catheter was placed. He will need further management in the hospital. Consultation was made with Dr. Aquiles Dukes of the [facility] service. Patient was evaluated in the ER for further management. Triage Nursing notes reviewed and agree them. Vital Signs: reviewed and remarkable for borderline hypotension Differential diagnosis: Infection, dehydration, metabolic abnormality, hypo/hyperglycemia, electrolyte disturbance, anemia, hypoxia, cardiac sources, intracerebral event, toxicologic, neurologic, as well as other pathologies. Diagnostics interpreted by me: ECG: none Cardiac Monitoring: Cardiac monitoring ordered by me: The patient was placed on continuous cardiac monitoring and observed. It revealed a normal sinus rhythm at 78 beats per minute without ectopy or evidence of dysrhythmia. Imaging studies: CT scan as noted above. I gave my usual and customary discussion regarding this issue. HPI: The patient is a 81 year old male who presents to the Emergency Room with complaints of abnormal kidney function. This was found today on labs performed at [facility] and revealed a creatinine of 14. Patient's last creatinine was 1.6. The patient also notes the following associated symptoms, suprapubic abdominal pain. The was concerned that he had some transient confusion this afternoon. His appetite and fluid consumption has been off. Patient has been undergoing radiation treatment for prostate cancer. Just finished treatments. The patient has been prescribed tamsulosin for decreased urination. Current pain is rated as 6/10. Pt denies LOC, headache, fevers, chills, diaphoresis, visual changes, neck pain, chest pain, breathing difficulties, nausea, vomiting, back pain, melena, hematochezia, numbness, weakness, lymphadenopathy, rash, or other complaints. ROS: See above HPI for pertinent positives & negatives. A total of 10 systems reviewed and were otherwise negative. PAST MEDICAL HISTORY:See Below , hypertension, prostate cancer PAST SURGICAL HISTORY:See Below, FAMILY HISTORY:See Below SOCIAL HISTORY:See Below, HOME MEDICATIONS:See Below ALLERGIES:See Below VITALS:See Below PHYSICAL EXAMINATION: GENERAL: Awake, tired-appearing, in no distress HENT: Normocephalic, atraumatic. Oropharynx unremarkable. EYES: Mildly pale conjunctiva. Sclera non-icteric. NECK: Inspection normal. Non-tender. Supple. No nuchal rigidity. FROM. No jannette s. RESPIRATORY: Clear to auscultation. No wheezes. No rales. Normal respiratory effort. CARDIAC: Normal rate. Normal rhythm. No murmurs. No rubs. Extremities warm and well perfused. Pulses equal. No JVD. GI: Soft, non-distended. Suprapubic tenderness to palpation. No rebound or guarding. No masses. RECTAL: Deferred. MUSCULOSKELETAL: Atraumatic. Chest examination reveals no tenderness. The back is symmetrical on inspection without obvious abnormality. There is no CVA tenderness to palpation. No joint edema. LOWER EXTREMITIES: Calves are equal size bilaterally and non-tender. No edema. No discoloration. NEURO: Normal sensorium. No sensory or motor deficits noted. SKIN: No rash or jaundice noted. Gold Abarca MD Past Med/Surg History Medical History Diverticulitis Elevated PSA Fall Hypertension Left rib fracture Right knee DJD Surgical History H/O hernia repair History of prostate biopsy History of total right knee replacement Family History Father Hypertension Mother Lung disease COPD Social History Smoking Status: Former smoker Number of Years Since Quit: 50; Hx Alcohol Use: No Hx Substance Use: No Preferred Language: Marshallese Communication Ability: Effective Visual Impairment: No Limitations Hearing Ability: Hard of Hearing Surveillance Systems Analyst Required: No Beliefs That Will Affect Care: None marital status: Current Living Situation: Snf Current Living Situation Comment: kelsey current occupational status: retired Other Information That Helps Us Care for You: No Feels Safe at Home: Yes Safety Concerns: Feels Safe At This Time caffeine: Yes during the past year weight has: remained stable Assistive Devices: Cane Allergies Allergies Allergy/AdvReac Type Severity Reaction Status Date / Time No Known Allergies Allergy Verified 02/01/22 18:22 Home Meds Home Medications Medication Instructions Recorded Confirmed amlodipine 5 mg tablet 5 mg PO DAILY 09/19/21 02/01/22 calcium carbonate 600 mg-vitamin 1 tab PO DAILY 12/18/21 02/01/22 D3 20 mcg (800 unit) tablet (Caltrate with Vitamin D3) doxycycline hyclate 100 mg capsule 100 mg PO BID 02/01/22 02/01/22 enalapril maleate 5 mg tablet 5 mg PO BID 02/01/22 02/01/22 (Vasotec) multivitamin 1 tab PO DAILY 02/01/22 02/01/22 Results & Data (ED) Vital Signs Vital Signs - 24 hr 02/01/22 17:34 02/01/22 18:00 02/01/22 19:00 Temperature 36.3 C L Temperature Source Temporal Artery Scan Pulse Rate 84 Pulse Rate [Apical] 72 Respiratory Rate 18 17 Respiratory Effort / Characteristics Non-Labored Spontaneous Respiratory Depth Normal Blood Pressure 88/54 L Blood Pressure [Right Arm] 111/43 L Blood Pressure Mean 65 Blood Pressure Mean [Right Arm] 65 Blood Pressure Position Sitting Blood Pressure Position [Right Arm] Lying Pulse Oximetry 98 95 Oxygen Delivery Method Room Air Room Air Room Air Sepsis Recent Fever Within 48 Hours No Sepsis New/Unexplained Change in Mental Status N/A Sepsis Action Taken by Nursing No Action Required Laboratory Data Result diagrams: 02/01/22 18:19 02/01/22 20:12 Lab Results 02/01/22 02/01/22 02/01/22 Range/Units 18:19 18:19 18:50 WBC 7.14 (4.8-10.8) K/uL RBC 3.80 L (4.7-6.1) M/uL Hgb 11.0 L (14.0-18.0) g/dL Hct 33.4 L (42-52) % MCV 87.9 (80-100) fL MCH 28.9 (25-34) pg MCHC 32.9 (32-36) g/dL RDW Std Deviation 54.2 H (36.4-46.3) fL RDW Coeff of Blanca 16.8 H (11.5-14.5) % Plt Count 229 (130-400) K/uL MPV 8.7 (7.4-10.4) fL Immature Gran % (Auto) 1.7 % Neut % (Auto) 83.6 % Lymph % (Auto) 8.3 % Foster % (Auto) 5.6 % Eos % (Auto) 0.7 % Baso % (Auto) 0.1 % Neut # (Auto) 5.97 (1.4-6.5) K/uL Lymph # (Auto) 0.59 L (1.2-3.4) K/uL Foster # (Auto) 0.40 (0.11-0.59) K/uL Eos # (Auto) 0.05 (0-0.5) K/uL Baso # (Auto) 0.01 (0-0.2) K/uL Immature Gran # (Auto) 0.12 H (0.00-0.02) K/uL Sodium 134 L (136-145) mmol/L Potassium 5.2 H (3.5-5.1) mmol/L Chloride 101 (98-107) mmol/L Carbon Dioxide 14 L (21-32) mmol/L Anion Gap 19 H (3-11) BUN 140 H (6-23) mg/dl Creatinine 14.48 H* D (0.6-1.4) mg/dl Est Cr Clr Drug Dosing 3.9 ml/min Est GFR ( Amer) 3.2 ml/min Est GFR (Non-Af Amer) 2.7 ml/min BUN/Creatinine Ratio 9.7 L (10-20) Glucose 90 (70-99(Fasting)) mg/dl Lactate (0.4-2.0) mmol/L Calcium 8.4 L (8.5-10.1) mg/dl Total Bilirubin 0.3 (0.2-1.0) mg/dl AST 17 (13-39) U/L ALT 24 (7-52) U/L Alkaline Phosphatase 59 (34-104) U/L Total Protein 7.1 (6.0-8.3) gm/dl Albumin 3.5 (3.4-5.0) gm/dl Globulin 3.6 (2.5-4.0) gm/dl Albumin/Globulin Ratio 1.0 (0.9-2) Lipase 150 H (11-82) U/L Urine Color Urine Appearance (Clear) Urine pH (4.5-7.5) Ur Specific [place] (1.000-1.030) Urine Protein (Negative) Urine Glucose (UA) (Negative) Urine Ketones (Negative) Urine Blood (Negative) Urine Nitrite (Negative) Urine Bilirubin (Negative) Urine Urobilinogen (Negative) Ur Leukocyte Esterase (Negative) Urine WBC (Auto) (0-5) /hpf Urine RBC (Auto) (0-4) /hpf U Hyaline Cast (Auto) (0-5) /lpf U Epithel Cells (Auto) (0-5) /lpf Urine Bacteria (Auto) (Negative) Urine Yeast Ur Random Creatinine mg/dl Ur Random Sodium mmol/L SARS-CoV-2, RNA, NAAT NEGATIVE (NEGATIVE) 02/01/22 02/01/22 02/01/22 Range/Units 19:26 19:26 19:48 WBC (4.8-10.8) K/uL RBC (4.7-6.1) M/uL Hgb (14.0-18.0) g/dL Hct (42-52) % MCV (80-100) fL MCH (25-34) pg MCHC (32-36) g/dL RDW Std Deviation (36.4-46.3) fL RDW Coeff of Blanca (11.5-14.5) % Plt Count (130-400) K/uL MPV (7.4-10.4) fL Immature Gran % (Auto) % Neut % (Auto) % Lymph % (Auto) % Foster % (Auto) % Eos % (Auto) % Baso % (Auto) % Neut # (Auto) (1.4-6.5) K/uL Lymph # (Auto) (1.2-3.4) K/uL Foster # (Auto) (0.11-0.59) K/uL Eos # (Auto) (0-0.5) K/uL Baso # (Auto) (0-0.2) K/uL Immature Gran # (Auto) (0.00-0.02) K/uL Sodium (136-145) mmol/L Potassium (3.5-5.1) mmol/L Chloride (98-107) mmol/L Carbon Dioxide (21-32) mmol/L Anion Gap (3-11) BUN (6-23) mg/dl Creatinine (0.6-1.4) mg/dl Est Cr Clr Drug Dosing ml/min Est GFR ( Amer) ml/min Est GFR (Non-Af Amer) ml/min BUN/Creatinine Ratio (10-20) Glucose (70-99(Fasting)) mg/dl Lactate 0.5 (0.4-2.0) mmol/L Calcium (8.5-10.1) mg/dl Total Bilirubin (0.2-1.0) mg/dl AST (13-39) U/L ALT (7-52) U/L Alkaline Phosphatase (34-104) U/L Total Protein (6.0-8.3) gm/dl Albumin (3.4-5.0) gm/dl Globulin (2.5-4.0) gm/dl Albumin/Globulin Ratio (0.9-2) Lipase (11-82) U/L Urine Color Yellow Urine Appearance Clear (Clear) Urine pH 5.0 (4.5-7.5) Ur Specific [place] 1.014 (1.000-1.030) Urine Protein Trace H (Negative) Urine Glucose (UA) Negative (Negative) Urine Ketones Trace H (Negative) Urine Blood 3+ H (Negative) Urine Nitrite Negative (Negative) Urine Bilirubin Negative (Negative) Urine Urobilinogen Negative (Negative) Ur Leukocyte Esterase Negative (Negative) Urine WBC (Auto) 0 (0-5) /hpf Urine RBC (Auto) >30 H (0-4) /hpf U Hyaline Cast (Auto) 0 (0-5) /lpf U Epithel Cells (Auto) 0-5 (0-5) /lpf Urine Bacteria (Auto) Negative (Negative) Urine Yeast Not Reportable Ur Random Creatinine 114.6 mg/dl Ur Random Sodium 39 mmol/L SARS-CoV-2, RNA, NAAT (NEGATIVE) Administered Medications Sodium Chloride (Nss 1000ml) 1,000 mls @ 125 mls/hr IV .Q8H STA Stop: 02/02/22 01:43 Last Admin: 02/01/22 18:37 Dose: 125 mls/hr Documented by: [id number] Discontinued Medications Sodium Chloride (Nss) 500 mls @ 999 mls/hr IV .Q31M STA Stop: 02/01/22 18:14 Last Infusion: 02/01/22 19:15 Dose: 0 mls/hr Documented by: [id number] Admin: 02/01/22 18:37 Dose: 999 mls/hr Documented by: [id number] Sodium Bicarbonate (Sodium Bicarb 8.4% Inj 50 Meq/50 Ml Syr) 50 meq IV NOW STA Stop: 02/01/22 20:52 Last Admin: 02/01/22 21:29 Dose: 50 meq Documented by: [id number] Imaging Data Radiologist's Impression: Abdomen/Pelvis CT 02/01/22 17:44 CT abd pelvis wo con CLINICAL HISTORY: acute renal failure, Cr 1.4-->14.0 TECHNIQUE: Helical axial images of the abdomen and pelvis were obtained. Automated dose lowering techniques and/or adjustment according to patient size were utilized for this exam. This exam was performed without intravenous contrast. COMPARISON: Comparison is made to CT abdomen pelvis 09/11/2021 FINDINGS: Lower chest: Bibasilar atelectasis versus scarring is seen. Liver: Unremarkable. No focal lesions are seen. Gallbladder and biliary tree: Cholelithiasis is seen without evidence of cholecystitis. No intra- or extrahepatic biliary ductal dilation. Pancreas: Unremarkable, no focal lesions. Spleen: Unremarkable. Adrenals: Unremarkable. Kidneys and ureters: Redemonstration of cysts and bilateral perinephric stranding. Nonobstructive stones are seen. Compared to prior exam, there is distention of the left collecting system and increased stranding. Bladder: Unremarkable. Reproductive organs: Prostatomegaly is seen. Bowel: Diverticulosis is seen without evidence of diverticulitis. The appendix is normal. Small hiatal hernia. Lymph nodes Retroperitoneal: Unremarkable. Mesenteric: Unremarkable. Pelvic: Unremarkable. Peritoneum: Normal. Vessels: Atherosclerotic calcifications are seen. Abdominal wall: Bilateral fat-containing inguinal hernias are seen. Bones: Degenerative changes in the visualized spine. IMPRESSION: There is new increase in stranding about the left kidney with mild calyceal and pelvic dilation. No obstructive stone is seen. This may be seen in recently passed stone, infectious etiology cannot be excluded. ACT 112: Negative or not required by law. Electronically signed by: Josué Stone M.D. 02/01/2022 6:44 PM Discharge Plan Visit Data Chief Complaint: Referred by Doctor Stated Complaint: ABNORMAL KIDNEY FUNCTION, FROM [facility] ED Provider: Gold Abarca Discharge Problem: Acute renal failure, Abdominal pain, suprapubic Patient Disposition: Admitted As Inpatient Discharge Instructions Interventions: ED Discharge Assessment Last Done: 02/01/22 21:45
[2022-02-01 18:26] LABS: Basophils # (auto) 0.01 K/uL (0-0.2); Basophils % (auto) 0.1 %; Eosinophils # (auto) 0.05 K/uL (0-0.5); Eosinophils % (auto) 0.7 %; Hematocrit (blood only) 33.4 % (42-52); Immature Granulocytes # (auto) 0.12 K/uL (0.00-0.02); Immature Granulocytes % (auto) 1.7 %; Lymphocytes # (auto) 0.59 K/uL (1.2-3.4); Lymphocytes % (auto) 8.3 %; Mean Corpuscular Hemoglobin 28.9 pg (25-34); Mean Corpuscular Hgb Conc 32.9 g/dL (32-36); Mean Corpuscular Volume 87.9 fL (80-100); Mean Platelet Volume 8.7 fL (7.4-10.4); Monocytes % (auto) 5.6 %; Neutrophils # (auto) 5.97 K/uL (1.4-6.5); Neutrophils % (auto) 83.6 %; Platelet Count 229 K/uL (130-400); RDW Coefficient of Variation 16.8 % (11.5-14.5); RDW Standard Deviation 54.2 fL (36.4-46.3); White Blood Count 7.14 K/uL (4.8-10.8)
--- NOTE | 2022-02-01 18:45 | CT Scan Report ---
CT abd pelvis wo con CLINICAL HISTORY: acute renal failure, Cr 1.4-->14.0 TECHNIQUE: Helical axial images of the abdomen and pelvis were obtained. Automated dose lowering tech niques and/or adjustment according to patient size were utilized for this exam. This exam was perfor med without intravenous contrast. COMPARISON: Comparison is made to CT abdomen pelvis 09/11/2021 FINDINGS: Lower chest: Bibasilar atelectasis versus scarring is seen. Liver: Unremarkable. No focal lesions are seen. Gallbladder and biliary tree: Cholelithiasis is seen without evidence of cholecystitis. No intra- or extrahepatic biliary ductal dilation. Pancreas: Unremarkable, no focal lesions. Spleen: Unremarkable. Adrenals: Unremarkable. Kidneys and ureters: Redemonstration of cysts and bilateral perinephric stranding. Nonobstructive sto hakeem are seen. Compared to prior exam, there is distention of the left collecting system and increased stranding. Bladder: Unremarkable. Reproductive organs: Prostatomegaly is seen. Bowel: Diverticulosis is seen without evidence of diverticulitis. The appendix is normal. Small hiata l hernia. Lymph nodes Retroperitoneal: Unremarkable. Mesenteric: Unremarkable. Pelvic: Unremarkable. Peritoneum: Normal. Vessels: Atherosclerotic calcifications are seen. Abdominal wall: Bilateral fat-containing inguinal hernias are seen. Bones: Degenerative changes in the visualized spine. IMPRESSION: There is new increase in stranding about the left kidney with mild calyceal and pelvic dilation. No o bstructive stone is seen. This may be seen in recently passed stone, infectious etiology cannot be ex cluded. ACT 112: Negative or not required by law. Electronically signed by: Josué Stone M.D. 02/01/2022 6:44 PM
[2022-02-01 18:58] LABS: Albumin Level 3.5 gm/dl (3.4-5.0); Bilirubin,Total 0.3 mg/dl (0.2-1.0); Calcium 8.4 mg/dl (8.5-10.1); Creatinine Clr Calc Pharmacy 3.9 ml/min; Est GFR (African American) 3.2 ml/min; Est GFR (Non-African American) 2.7 ml/min; Globulin 3.6 gm/dl (2.5-4.0); Potassium 5.2 mmol/L (3.5-5.1); Total Protein 7.1 gm/dl (6.0-8.3)
[2022-02-01 19:07] LABS: BUN Creatinine Ratio 9.7 (10-20)
[2022-02-01 19:41] LABS: Appearance Urine Clear (Clear); Bacteria Urine Automated Negative (Negative); Bilirubin Urine Negative (Negative); Blood Urine 3+ (Negative); Cast Urine Automated 0 /lpf (0-5); Color Urine Yellow; Epithelial Cell Urine Auto 0-5 /lpf (0-5); Glucose Urine UA Negative (Negative); Ketones Urine Trace (Negative); Leukocyte Esterase Urine Negative (Negative); Nitrite Urine Negative (Negative); Protein Urine Trace (Negative); RBC Urine Automated >30 /hpf (0-4); Specific Gravity Urine 1.014 (1.000-1.030); Urobilinogen Urine Negative (Negative); WBC Urine Automated 0 /hpf (0-5)
--- NOTE | 2022-02-01 19:58 | History & Physical Report ---
Date of Service February 01, 2022 Assessment & Plan (1) Acute renal failure: Plan: Mason Naidu is an 81yo male with PMHx significant for prostate cancer and HTN who presented to [facility] on 02/01 after being sent by Kelsey Guajardo for acute renal failure. Acute Renal Failure Cr 14.48 (was 1.6 in 10/2021), with decreased urine output that begin during radiation therapy for prostate cancer. Most likely mixed etiology of prerenal and obstructive 2/2 recent dehydration as well as RTx. FENa 3.7% suggesting possible ATN. Improved urine output since lópez insertion in the ED. No AMS or hypervolemia. - CT A/P with increased left renal stranding/pelvic dilation but no overt hydronephrosis - Cr 14.48 --> 13.57 after 1L NSS bolus and lópez insertion - continue lópez, strict I/Os - will continue with NSS @125cc/hr - Nephrology consulted - appreciate recs - trend BMP in AM High Anion Gap Metabolic Acidosis; Hyperkalemia; Uremia Suspect all of above is due to ARF with associated uremia. Thankfully no signs of AMS as stated earlier. Lactate negative. - AG 19 --> 16 and BUN 140 --> 130 after IVFs - K 5.2 --> 5.4 despite above improvements - will continue mIVFs as stated above and will give NaHCO3 50mEq x1 now as well - trend BMP in AM Hypotension, improving Suspect 2/2 decreased PO intake over last week. - normotensive after IVF bolus - continue mIVFs Microscopic Hematuria Suspect 2/2 prostate cancer and recent RTx. - monitor for gross hematuria in lópez bag CKDIII; Normocytic Anemia Cr 1.6 - 1.8 at previous baseline. Suspect anemia of chronic disease 2/2 CKD. - trend CBC as well as iron studies in AM HTN - hold home meds for now FEN/GI: low-K diet, NSS @125cc/hr DVT Prophylaxis: Lovenox 30mg SQ Q24H (renal dosing) Code Status: full code Disposition: PCU/tele (2) Prostate cancer: (3) High anion gap metabolic acidosis: (4) Hyperkalemia: (5) Normocytic anemia: (6) Microscopic hematuria: (7) Hypotension: History of Present Illness Chief Complaint: referred for elevated creatinine Primary Care Provider: [place] Casandra Naidu is an 81yo male with PMHx significant for prostate cancer and HTN who presented to [facility] on 02/01 after being sent by Kelsey Guajardo for elevated creatinine. Patient reports that he recently finished 2 months of radiation therapy for his prostate cancer - finished ~1 week ago. Reports that he started to have incomplete voiding and minimal urinary output starting ~10 days before conclusion of RTx. 5 days ago (the day after RTx ended) he started to have generalized weakness and decreased appetite with minimal PO intake. Of note he does report being started on Flomax by Radiation Oncologist ~2 weeks ago, after his decreased urine output started. Denies dysuria, increased urinary frequency/urgency, hematuria, suprapubic pain, fever/chills or flank pain. His reports that he has not had any confusion or changes to baseline mental status. Patient denies chest pain, shortness of breath or LE edema. Denies abdominal pain. Denies rash. Denies alcohol/tobacco/drug use. Proficient in all ADLs and able to ambulate on his own. Patient follows with Dr. Burger with [facility] Radiation Oncology. In the ED the patient was initially hypotensive at 88/54 --> improved to 111/43 after 1L NSS bolus. Otherwise afebrile and stable on room air. Laboratory evaluation showed normocytic anemia Hgb 11.0 (was 14.6 in 10/2021), Cr 14.48 (was 1.68 in 10/2021), BUN 140, HCO3 14, AG 19. Lactate 0.5. LFTs WNL. Lipase mildly elevated at 150. UA with 3+ blood and >30 RBCs but negative for nitrite/LE/WBC/bacteria. COVID negative. CT A/P showing chronic bilateral perinephric stranding but with new increase in left kidney stranding with mild calyceal/pelvic dilation. No obstructive stones or signs of hydronephrosis. After IVF bolus, patient was started on NSS @125cc/hr by ED provider. Allergies Allergy/AdvReac Type Severity Reaction Status Date / Time No Known Allergies Allergy Verified 02/01/22 18:22 Home Medications Medication Instructions Recorded Confirmed Type amlodipine 5 mg tablet 5 mg PO DAILY 09/19/21 02/01/22 History calcium carbonate 600 mg-vitamin 1 tab PO DAILY 12/18/21 02/01/22 History D3 20 mcg (800 unit) tablet (Caltrate with Vitamin D3) doxycycline hyclate 100 mg capsule 100 mg PO BID 02/01/22 02/01/22 History enalapril maleate 5 mg tablet 5 mg PO BID 02/01/22 02/01/22 History (Vasotec) multivitamin 1 tab PO DAILY 02/01/22 02/01/22 History Past Med/Surg History Medical History Diverticulitis Elevated PSA Fall Hypertension Left rib fracture Right knee DJD Surgical History H/O hernia repair History of prostate biopsy History of total right knee replacement Family History Father Hypertension Mother Lung disease COPD Social History Smoking Status: Former smoker Number of Years Since Quit: 50; Hx Alcohol Use: No Hx Substance Use: No Preferred Language: Khmer Communication Ability: Effective Visual Impairment: No Limitations Hearing Ability: Hard of Hearing Log Buyer Required: No Beliefs That Will Affect Care: None marital status: Current Living Situation: [facility] Current Living Situation Comment: kelsey current occupational status: retired How many Children do You have: 2 Other Information That Helps Us Care for You: No Feels Safe at Home: Yes Safety Concerns: Feels Safe At This Time caffeine: Yes during the past year weight has: remained stable Assistive Devices: Cane Review of Systems Review of Systems: All systems reviewed & are unremarkable except as noted in HPI & below Physical Exam Physical Exam: General: A&Ox3. NAD. Cooperative. HEENT: Atraumatic, normocephalic. Pulm: CTAB A&P. -wheezes, -rales, -rhonchi. Symmetrical chest rise. No increase work of breathing. No respiratory distress. Cardiac: RRR, -mrg. Radial pulses intact and symmetrical. No LE edema. Abdominal: soft, non-tender, non-distended, BS x 4 Back: no CVA tenderness Skin: warm, dry, no rash Results & Data Results & Data ([facility]) Vital Signs (Past 12 Hours) Vital Signs Temp Pulse Pulse Resp BP BP Pulse Ox 02/01/22 19:00 72 17 111/43 L 95 02/01/22 17:34 36.3 C L 84 18 88/54 L 98 Code Status & VTE Plan Code Status full code - discussed with patient and his VTE Prophylaxis Plan VTE Prophylaxis will be ordered: Yes Supervising Physician Co-Signing Physician Notes Attending addendum: I have physically seen this patient, have supervised the medical residents activities, and agree with the H&P unless as otherwise noted. Assessment and Plan: Acute renal failure- Creatinine 14.48 on admission, with most recent 1.6 on 10/22 Decreased urine output noted at been a radiation therapy for prostate cancer Likely prerenal and postobstructive combination López catheter NSS at 125 mils per hour Serial BMP and magnesium levels Consult nephrology Hypotension- Responding to IV fluid bolus Continue IV fluids as noted Admit to monitored bed Remaining orders and notations as noted Resident Activity Tracking Resident Involvement: Resident Care Provided Care Provided: Adult Hospital Medicine
[2022-02-01 20:00] LABS: Creatinine Urine Random 114.6 mg/dl
[2022-02-01 20:46] LABS: BUN Creatinine Ratio 9.6 (10-20); Calcium 8.9 mg/dl (8.5-10.1); Creatinine Clr Calc Pharmacy 4.1 ml/min; Est GFR (African American) 3.4 ml/min; Potassium 5.4 mmol/L (3.5-5.1)
[2022-02-01] MEDS ORDERED: SODIUM BICARB 8.4% INJ 50 MEQ/50 ML SYR IV STA (20:51)
[2022-02-01] MEDS ORDERED: ACETAMINOPHEN 325 MG TAB PO PRN (22:33)
[2022-02-01] MEDS ORDERED: ENOXAPARIN INJ 30 MG/0.3 ML SYR SQ SCH (22:33)
[2022-02-02] MEDS: SODIUM CHLORIDE 0.9% 1000ML 1,000 ML IV SCH ×2 (05:41→14:00)
[2022-02-02 06:54] LABS: Basophils # (auto) 0.01 K/uL (0-0.2); Basophils % (auto) 0.2 %; Eosinophils # (auto) 0.11 K/uL (0-0.5); Eosinophils % (auto) 2.5 %; Hematocrit (blood only) 32.6 % (42-52); Hemoglobin 10.8 g/dL (14.0-18.0); Immature Granulocytes # (auto) 0.08 K/uL (0.00-0.02); Immature Granulocytes % (auto) 1.9 %; Lymphocytes # (auto) 0.41 K/uL (1.2-3.4); Lymphocytes % (auto) 9.5 %; Mean Corpuscular Hemoglobin 29.4 pg (25-34); Mean Corpuscular Hgb Conc 33.1 g/dL (32-36); Mean Corpuscular Volume 88.8 fL (80-100); Mean Platelet Volume 8.5 fL (7.4-10.4); Monocytes # (auto) 0.38 K/uL (0.11-0.59); Monocytes % (auto) 8.8 %; Neutrophils # (auto) 3.33 K/uL (1.4-6.5); Neutrophils % (auto) 77.1 %; Platelet Count 208 K/uL (130-400); RDW Coefficient of Variation 17.1 % (11.5-14.5); RDW Standard Deviation 55.7 fL (36.4-46.3); Red Blood Count 3.67 M/uL (4.7-6.1); White Blood Count 4.32 K/uL (4.8-10.8)
[2022-02-02 07:30] LABS: BUN Creatinine Ratio 12.4 (10-20); Creatinine Clr Calc Pharmacy 6.8 ml/min; Est GFR (African American) 6.2 ml/min; Est GFR (Non-African American) 5.4 ml/min; Magnesium 2.9 mg/dl (1.7-2.4); Potassium 4.6 mmol/L (3.5-5.1)
--- NOTE | 2022-02-02 07:30 | Hospitalist Progress Note ---
Date of Service February 02, 2022 Assessment & Plan (1) Acute renal failure: Plan: Mason Naidu is an 81yo male with PMHx significant for prostate cancer and HTN who presented to [facility] on 02/01 after being sent by Heriberto Guajardo for acute renal failure. Acute Renal Failure Cr 14.48 (was 1.6 in 10/2021), with decreased urine output that begin during radiation therapy for prostate cancer. Most likely mixed etiology of prerenal and obstructive 2/2 recent dehydration as well as RTx. FENa 3.7% suggesting possible ATN. Improved urine output since lópez insertion in the ED. No AMS or hypervolemia. - CT A/P with increased left renal stranding/pelvic dilation but no overt hydronephrosis - López inserted, started IVF - Cr 14.48 --> 8.28 - continue lópez, strict I/Os - will continue with NSS @125cc/hr - Nephrology consulted: LLOYD consistent with pre and post obstructive etiologies.Some degree of radiation cystitis, no clots noted. Continue lópez and IVF - trend BMP in AM - given improvement over today, downgraded to med/surg High Anion Gap Metabolic Acidosis; Hyperkalemia; Uremia Suspect all of above is due to ARF with associated uremia. Thankfully no signs of AMS as stated earlier. Lactate negative. - AG 19 --> 12 and BUN 140 --> 103 after IVFs - K 5.2 --> 4.6 - will continue mIVFs as stated above , received NaHCO3 50mEq x1 in ED - trend BMP in AM Hypotension, improving Suspect 2/2 decreased PO intake over last week. - normotensive after IVF bolus - continue mIVFs Microscopic Hematuria Suspect 2/2 prostate cancer and recent RTx. - monitor for gross hematuria in lópez bag CKDIII; Normocytic Anemia Cr 1.6 - 1.8 at previous baseline. Suspect anemia of chronic disease 2/2 CKD. - trend CBC as well as iron studies in AM HTN - hold home meds for now FEN/GI: low-K diet, NSS @125cc/hr DVT Prophylaxis: Lovenox 30mg SQ Q24H (renal dosing) Code Status: full code Disposition:med surg (2) Prostate cancer: (3) High anion gap metabolic acidosis: (4) Hyperkalemia: (5) Normocytic anemia: (6) Microscopic hematuria: (7) Hypotension: Admission and Anticipated Discharge Date Admission Date: February 01, 2022 Supervising Physician Co-Signing Physician Notes I personally examined the patient and verified all sotelo points of history and exam, discussed case, and agree with decision making with Dr Calloway feeling OK. discussed dx and plan vitals noted nad heent nc at mmm breathing unlabored no accessory muscles good effort skin no rashes no pallor or icterus neuro no focal deficits ARF - probalby mixed prerenal maybe ATN//obstructive --> continue lópez drainage and hydration, follow otherwise as above Subjective Patient seen at bedside, cam coomfortable cooperative. Patient states he started feeling unwell during his radiation treatment for his prostate cancer, felt weak, later felt 5 days of fatigue anorexia, normal urinary function though possibly less than usual. Incidental PCP appointment found elevated creatinine over 14 sent to ED. Patient denies abd pain fever SOB. He states his appetite is improving, tolerating more PO intake. Patient wants to go home but understands we want his kidney function to improve first. López in place red urine noted. Review of Systems Review of Systems: Negative fever chills Negative headache dizziness Negative chest pain palpitations SOB Negative nausea vomitting diarrhea constipation Negative numbness tingling rash swelling Physical Exam Constitutional: WD/WN, vitals as above Eyes: PERRL, conjunctivae normal, anicteric sclerae ENMT: external ear and nose normal, oropharynx normal Neck: trachea midline, no thyromegaly Respiratory: normal respiratory effort, lungs clear to auscultation Cardiovascular: RRR, no murmur, no edema Chest (Breasts): Chest: normal inspection of chest Gastrointestinal (Abdomen): normal bowel sounds, soft, nontender, no hepatosplenomegaly Skin: no rashes, warm and dry Psychiatric: A+Ox3, euthymic affect Genitourinary: bladder normal to palpation López in place Results & Data Results & Data ([facility]) Vital Signs (Past 12 Hours) Vital Signs Temp Pulse Pulse Resp BP Pulse Ox 02/02/22 03:23 36.8 C 70 18 102/52 L 90 02/01/22 23:25 78 02/01/22 23:14 36.9 C 76 18 95/60 L 95 02/01/22 22:33 36.7 C 81 16 120/60 97 02/01/22 22:03 36.7 C 81 16 120/60 97 02/01/22 21:00 75 16 105/62 97 02/01/22 20:07 75 16 105/45 L 95 Resident Activity Tracking Resident Involvement: Resident Care Provided Care Provided: Adult Hospital Medicine
[2022-02-02] MEDS: CALCIUM 600MG + VIT D 400 IU TAB PO SCH (07:38)
[2022-02-02] MEDS: HEPARIN SOD 5,000 UNIT/0.5 ML VIAL SQ SCH ×2 (07:39→19:36)
[2022-02-02] MEDS ORDERED: SODIUM BICARBONATE 650 MG TAB PO ONE ×2 (10:15→21:19)
--- NOTE | 2022-02-02 12:26 | Nephrology Consultation ---
Date of Consultation February 02, 2022 Assessment & Plan (1) Microscopic hematuria: (2) Normocytic anemia: (3) Hyperkalemia: (4) Acute renal failure: (5) High anion gap metabolic acidosis: (6) Prostate cancer: (7) Hypotension: Baseline creatinine 1.6 mg/dL. LLOYD consistent with pre and post obstructive etiologies. He is now polyuric with villar colored urine in the Mathis bag. I suspect a degree of radiation cystitis contributing to the symptoms. Thankfully, no clots. Renal imaging not concerning for significant obstruction. Mathis should remain intact for now. Document strict I/O's. IVF to encourage a slightly positive fluid balance. If additional fluids are needed once current bag of saline complete, consider transitioning to a balanced solution. For hyperchloremic metabolic acidosis, a dose of PO NaHCO3 was provided this AM. No additional evaluation necessary at this time. Repeat metabolic profile tomorrow AM. Low potassium diet. Continue to hold CODY. May restart amlodipine as needed. Medications are currently appropriately dosed for kidney dysfunction. History of Present Illness Reason for Consultation: LLOYD Requesting Physician: Abdi Mcintosh DO Attending Physician: Abdi Mcintosh DO History of Present Illness Mr. Naidu is an 81 year-old male with a history of prostate cancer and hypertension. He resides at [facility] with his . Mr. Naidu recently completed XRT for prostate cancer. He tolerated treatments well. He denied s ignificant urinary symptoms. He denies any gross hematuria. He reports some hesitancy and frequency. Nocturia approximately 3 times per night which has been stable. He denies a sense of incomplete void. Urine stream has been slightly reduced. Appetite has been poor. And due to persistent nausea following XRT, he has not been eating regular meals. He was referred to [facility] yesterday by his PCP for evaluation of abnormal labs including LLOYD and hyperkalemia. Baseline creatinine had been 1.6 mg/dL. Chandra was admitted with a serum creatinine of 14.4 mg/dL. Immediately following Mathis placement, there was not a significant urine volume but he is now polyuric. IV saline bolus followed by continuous infusion has been provided. Creatinine has trended down to 8 mg/dL this AM. He felt well at the time of my assessment. Renal US demonstrated chronic bilateral perinephric stranding with mild calyceal pelvic dilation. There were no stones or notable hydronephrosis. UA +3 blood, >30 RBC, no WBC. Home antihypertensives including amlodipine and enalapril were held on admission due to low BP and LLOYD. Allergies Allergy/AdvReac Type Severity Reaction Status Date / Time No Known Allergies Allergy Verified 02/01/22 18:22 Home Medications Medication Instructions Recorded Confirmed Type amlodipine 5 mg tablet 5 mg PO DAILY 09/19/21 02/01/22 History calcium carbonate 600 mg-vitamin 1 tab PO DAILY 12/18/21 02/01/22 History D3 20 mcg (800 unit) tablet (Caltrate with Vitamin D3) doxycycline hyclate 100 mg capsule 100 mg PO BID 02/01/22 02/01/22 History enalapril maleate 5 mg tablet 5 mg PO BID 02/01/22 02/01/22 History (Vasotec) multivitamin 1 tab PO DAILY 02/01/22 02/01/22 History Patient History Medical History Diverticulitis Elevated PSA Fall Hypertension Left rib fracture Right knee DJD Surgical History H/O hernia repair History of prostate biopsy History of total right knee replacement Family History Father Hypertension Mother Lung disease COPD Social History Smoking Status: Former smoker Number of Years Since Quit: 50; Hx Alcohol Use: No Hx Substance Use: No Preferred Language: Georgian Communication Ability: Effective Visual Impairment: No Limitations Hearing Ability: Hard of Hearing Supervisor Front Required: No Beliefs That Will Affect Care: None marital status: Current Living Situation: Skilled Nursing Current Living Situation Comment: [facility] current occupational status: retired How many Children do You have: 2 Other Information That Helps Us Care for You: No Feels Safe at Home: Yes Safety Concerns: Feels Safe At This Time caffeine: Yes during the past year weight has: remained stable Assistive Devices: Cane Review of Systems Constitutional: no weight loss, no weight gain and no problem reported Eyes: no problem reported Ear, Nose, Mouth, Throat: no problem reported Respiratory: no problem reported Cardiovascular: no problem reported Gastrointestinal: no problem reported Musculoskeletal: no problem reported Integumentary: no problem reported Neurologic: no problem reported Psychiatric: no problem reported Endocrine: no problem reported Hematologic / Lymphatic: no problem reported Physical Exam Constitutional: well developed; no acute distress Eyes: no scleral abnormality and no corneal abnormality ENMT: Mouth: no oral mucosal abnormality and oral mucous membranes not dry Neck: normal visual inspection and trachea midline Respiratory: normal respiratory effort Auscultation: lungs clear to auscultation bilaterally Cardiovascular: Rate/Rhythm: regular rate Heart Sounds: normal S1 and normal S2 Extremities: no edema Musculoskeletal: Extremities: no cyanosis and no clubbing Skin: normal turgor; no lesions Neurologic: Motor/Sensory: no tremor and no asterixis Psychiatric: Orientation: alert and oriented x 3 Results & Data ([facility]) Vital Signs (Past 12 Hours) Vital Signs Temp Pulse Pulse Resp BP Pulse Ox 02/02/22 09:51 75 02/02/22 08:00 37.0 C 74 16 124/68 97 02/02/22 03:23 36.8 C 70 18 102/52 L 90 Laboratory Results Laboratory Results - last 24 hr 02/01/22 02/01/22 02/01/22 18:19 18:19 18:50 WBC 7.14 RBC 3.80 L Hgb 11.0 L Hct 33.4 L MCV 87.9 MCH 28.9 MCHC 32.9 RDW Std Deviation 54.2 H RDW Coeff of Blanca 16.8 H Plt Count 229 MPV 8.7 Immature Gran % (Auto) 1.7 Neut % (Auto) 83.6 Lymph % (Auto) 8.3 [place] % (Auto) 5.6 Eos % (Auto) 0.7 Baso % (Auto) 0.1 Neut # (Auto) 5.97 Lymph # (Auto) 0.59 L [place] # (Auto) 0.40 Eos # (Auto) 0.05 Baso # (Auto) 0.01 Immature Gran # (Auto) 0.12 H Sodium 134 L Potassium 5.2 H Chloride 101 Carbon Dioxide 14 L Anion Gap 19 H BUN 140 H Creatinine 14.48 H* D Est Cr Clr Drug Dosing 3.9 Est GFR ( Amer) 3.2 Est GFR (Non-Af Amer) 2.7 BUN/Creatinine Ratio 9.7 L Glucose 90 Lactate Calcium 8.4 L Phosphorus Magnesium Iron Unsaturated IBC Transferrin Ferritin Total Bilirubin 0.3 AST 17 ALT 24 Alkaline Phosphatase 59 Total Protein 7.1 Albumin 3.5 Globulin 3.6 Albumin/Globulin Ratio 1.0 Lipase 150 H Urine Color Urine Appearance Urine pH Ur Specific Blackstone Urine Protein Urine Glucose (UA) Urine Ketones Urine Blood Urine Nitrite Urine Bilirubin Urine Urobilinogen Ur Leukocyte Esterase Urine WBC (Auto) Urine RBC (Auto) U Hyaline Cast (Auto) U Epithel Cells (Auto) Urine Bacteria (Auto) Urine Yeast Ur Random Creatinine Ur Random Sodium SARS-CoV-2, RNA, NAAT NEGATIVE 02/01/22 02/01/22 02/01/22 19:26 19:26 19:48 WBC RBC Hgb Hct MCV MCH MCHC RDW Std Deviation RDW Coeff of Blanca Plt Count MPV Immature Gran % (Auto) Neut % (Auto) Lymph % (Auto) [place] % (Auto) Eos % (Auto) Baso % (Auto) Neut # (Auto) Lymph # (Auto) [place] # (Auto) Eos # (Auto) Baso # (Auto) Immature Gran # (Auto) Sodium Potassium Chloride Carbon Dioxide Anion Gap BUN Creatinine Est Cr Clr Drug Dosing Est GFR ( Amer) Est GFR (Non-Af Amer) BUN/Creatinine Ratio Glucose Lactate 0.5 Calcium Phosphorus Magnesium Iron Unsaturated IBC Transferrin Ferritin Total Bilirubin AST ALT Alkaline Phosphatase Total Protein Albumin Globulin Albumin/Globulin Ratio Lipase Urine Color Yellow Urine Appearance Clear Urine pH 5.0 Ur Specific Blackstone 1.014 Urine Protein Trace H Urine Glucose (UA) Negative Urine Ketones Trace H Urine Blood 3+ H Urine Nitrite Negative Urine Bilirubin Negative Urine Urobilinogen Negative Ur Leukocyte Esterase Negative Urine WBC (Auto) 0 Urine RBC (Auto) >30 H U Hyaline Cast (Auto) 0 U Epithel Cells (Auto) 0-5 Urine Bacteria (Auto) Negative Urine Yeast Not Reportable Ur Random Creatinine 114.6 Ur Random Sodium 39 SARS-CoV-2, RNA, NAAT 02/01/22 02/02/22 02/02/22 20:12 06:24 06:24 WBC 4.32 L RBC 3.67 L Hgb 10.8 L Hct 32.6 L MCV 88.8 MCH 29.4 MCHC 33.1 RDW Std Deviation 55.7 H RDW Coeff of Blanca 17.1 H Plt Count 208 MPV 8.5 Immature Gran % (Auto) 1.9 Neut % (Auto) 77.1 Lymph % (Auto) 9.5 [place] % (Auto) 8.8 Eos % (Auto) 2.5 Baso % (Auto) 0.2 Neut # (Auto) 3.33 Lymph # (Auto) 0.41 L [place] # (Auto) 0.38 Eos # (Auto) 0.11 Baso # (Auto) 0.01 Immature Gran # (Auto) 0.08 H Sodium 135 L 140 Potassium 5.4 H 4.6 Chloride 105 111 H Carbon Dioxide 14 L 17 L Anion Gap 16 H 12 H BUN 130 H 103 H D Creatinine 13.57 H* D 8.28 H* D Est Cr Clr Drug Dosing 4.1 6.8 Est GFR ( Amer) 3.4 6.2 Est GFR (Non-Af Amer) 3.0 5.4 BUN/Creatinine Ratio 9.6 L 12.4 Glucose 83 61 L Lactate Calcium 8.9 8.0 L Phosphorus 5.0 H Magnesium 2.9 H Iron 23 L Unsaturated IBC 112 L Transferrin 100 L Ferritin 524.0 H Total Bilirubin AST ALT Alkaline Phosphatase Total Protein Albumin Globulin Albumin/Globulin Ratio Lipase Urine Color Urine Appearance Urine pH Ur Specific Blackstone Urine Protein Urine Glucose (UA) Urine Ketones Urine Blood Urine Nitrite Urine Bilirubin Urine Urobilinogen Ur Leukocyte Esterase Urine WBC (Auto) Urine RBC (Auto) U Hyaline Cast (Auto) U Epithel Cells (Auto) Urine Bacteria (Auto) Urine Yeast Ur Random Creatinine Ur Random Sodium SARS-CoV-2, RNA, NAAT PG Care Time/CCT Total # of Minutes Spent Total Time Spent with Patient: Total time spent is greater than 50% in coordination of care (as documented) at patient's floor/unit and/or counseling patient: Coding Level of Care Code 85189 Inpt Consult Level 4 Diagnoses Microscopic hematuria R31.29 Normocytic anemia D64.9 Hyperkalemia E87.5 Acute renal failure N17.9 High anion gap metabolic acidosis E87.2 Prostate cancer C61 Hypotension I95.9
--- NOTE | 2022-02-02 17:40 | Billing Data ---
Date of Service February 02, 2022 Coding Level of Care Code 60532 Subseq Hosp Care Lvl 3
[2022-02-02] MEDS: NORMOSOL-R 1,000 ML IV SCH (22:10)
--- NOTE | 2022-02-03 05:03 | Billing Data ---
Date of Service February 03, 2022 Coding Level of Care Code 94176 Initial Inpt Care Lvl 3
[2022-02-03 06:27] LABS: Hemoglobin 10.8 g/dL (14.0-18.0); Mean Corpuscular Hemoglobin 29.2 pg (25-34); Mean Corpuscular Hgb Conc 32.7 g/dL (32-36); Mean Corpuscular Volume 89.2 fL (80-100); Mean Platelet Volume 8.3 fL (7.4-10.4); Platelet Count 221 K/uL (130-400); RDW Coefficient of Variation 17.1 % (11.5-14.5); RDW Standard Deviation 56.1 fL (36.4-46.3); White Blood Count 6.93 K/uL (4.8-10.8)
[2022-02-03] MEDS: NORMOSOL-R 1,000 ML IV SCH ×2 (06:29→15:49)
[2022-02-03 06:56] LABS: BUN Creatinine Ratio 17.5 (10-20); Calcium 8.7 mg/dl (8.5-10.1); Creatinine Clr Calc Pharmacy 18.1 ml/min; Est GFR (African American) 20.5 ml/min; Est GFR (Non-African American) 17.7 ml/min; Potassium 4.6 mmol/L (3.5-5.1)
[2022-02-03] MEDS: CALCIUM 600MG + VIT D 400 IU TAB PO SCH (08:42)
[2022-02-03] MEDS: HEPARIN SOD 5,000 UNIT/0.5 ML VIAL SQ SCH ×2 (08:43→20:39)
--- NOTE | 2022-02-03 08:53 | Nephrology Progress Note ---
Date of Service February 03, 2022 Assessment & Plan (1) Acute renal failure: Plan: * LLOYD likely due to BRUCE and dehydration * Cr improved from 14.4 to 3.0 following Mathis catheter insertion and gentle hydration * Volume status and electrolyte balance are acceptable at this time. No acute indication for HD * Will reduce IVF to 75 cc/hr * Monitor PRP (2) High anion gap metabolic acidosis: Plan: * Corrected (3) Prostate cancer: Plan: * 09/21 abd/pelvic CT - marked prostatomegaly w/ evidence of BRUCE, chronic R sided nephrolithiasis * h/o radiation theraphy and androgen deprivation therapy Admission and Anticipated Discharge Date Admission Date: February 01, 2022 Subjective Mr. Naidu was evaluated in his hospital room this morning. His Mathis catheter remains in place draining clear yellow urine. He is net 2700 cc volume negative since admission Review of Systems Constitutional: + weakness; no fever Eyes: no problem reported Ear, Nose, Mouth, Throat: no problem reported Respiratory: no cough and no dyspnea Cardiovascular: no chest pain and no palpitations Gastrointestinal: no abdominal pain and no diarrhea/loose stools Integumentary: no rash Neurologic: no falls, no dizziness and no confusion Physical Exam Constitutional: not in distress Eyes: PERRL, conjunctivae normal, anicteric sclerae ENMT: external ear and nose normal, oropharynx normal Neck: trachea midline, no thyromegaly Respiratory: normal respiratory effort, lungs clear to auscultation Cardiovascular: RRR, no murmur, no edema Gastrointestinal (Abdomen): normal bowel sounds, soft, nontender, no hepatosplenomegaly Skin: no rashes, warm and dry Neurologic: awake; not confused Results & Data ([facility]) Vital Signs (Past 12 Hours) Vital Signs Temp Pulse Resp BP Pulse Ox 02/03/22 07:42 36.8 C 72 16 151/72 H 95 Laboratory Results Laboratory Tests 02/03/22 02/03/22 06:08 06:08 WBC 6.93 Hgb 10.8 L Hct 33.0 L Plt Count 221 Sodium 143 Potassium 4.6 Chloride 114 H Carbon Dioxide 23 BUN 54 H D Creatinine 3.09 H D Glucose 97 PG Care Time/CCT Total # of Minutes Spent Total Time Spent with Patient: Total time spent is greater than 50% in coordination of care (as documented) at patient's floor/unit and/or counseling patient: Coding Level of Care Code 24891 Subseq Hosp Care Lvl 3 Diagnoses Acute renal failure N17.9 High anion gap metabolic acidosis E87.2 Prostate cancer C61
--- NOTE | 2022-02-03 13:35 | Hospitalist Progress Note ---
Date of Service February 03, 2022 Assessment & Plan (1) Acute renal failure: Plan: Mason Naidu is an 81yo male with PMHx significant for prostate cancer and HTN who presented to [facility] on 02/01 after being sent by Heriberto Guajardo for acute renal failure. Acute Renal Failure Cr 14.48 (was 1.6 in 10/2021), with decreased urine output that begin during radiation therapy for prostate cancer. Most likely mixed etiology of prerenal and obstructive 2/2 recent dehydration as well as RTx. FENa 3.7% suggesting possible ATN. Improved urine output since lópez insertion in the ED. No AMS or hypervolemia. 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 Continue lópez and IVF - trend BMP in AM - possible d/c tomorrow, discuss with pt about going home on lópez vs without. High Anion Gap Metabolic Acidosis; resolved Suspect all of above is due to ARF with associated uremia. Thankfully no signs of AMS as stated earlier. Lactate negative. - AG 19 --> 12 --> 6 and BUN 140 --> 103-->54 after IVFs - K 5.2 --> 4.6 - will continue mIVFs as stated above , received NaHCO3 50mEq x1 in ED - trend BMP in AM Hypotension, improving Suspect 2/2 decreased PO intake over last week. - normotensive after IVF bolus - continue mIVFs Microscopic Hematuria Suspect 2/2 prostate cancer and recent RTx. - monitor for gross hematuria in lópez bag CKDIII; Normocytic Anemia Cr 1.6 - 1.8 at previous baseline. Suspect anemia of chronic disease 2/2 CKD. - trend CBC as well as iron studies in AM HTN - hold home meds for now FEN/GI: low-K diet, NSS @75cc/hr DVT Prophylaxis: Lovenox 30mg SQ Q24H (renal dosing) Code Status: full code Disposition:med surg (2) Prostate cancer: (3) High anion gap metabolic acidosis: (4) Hyperkalemia: (5) Normocytic anemia: (6) Microscopic hematuria: (7) Hypotension: Admission and Anticipated Discharge Date Admission Date: February 01, 2022 Supervising Physician Co-Signing Physician Notes I personally examined the patient and verified all sotelo points of history and exam, discussed case, and agree with decision making with Dr Ansari continues to feel well vitals noted nad heent nc at mmm breathing unlabored no accessory muscles good effort skin no rashes no pallor or icterus neuro no focal deficits ARF - probably mixed prerenal/dehydration/obstructive --> continue lópez drainage and hydration, follow. precipitous improvement most c/w obstructive - so probably when able to go home will leave lópez in for short time and have f/u w urology in office later this week otherwise as above Subjective Patient seen at bedside this morning. No acute events reported overnight. López catheter in place and draining clear yellow urine. Patient has no complaints at this time. Review of Systems Review of Systems: All systems reviewed & are unremarkable except as noted in HPI & below Physical Exam Constitutional: WD/WN, vitals as above Eyes: PERRL, conjunctivae normal, anicteric sclerae ENMT: external ear and nose normal, oropharynx normal Neck: trachea midline, no thyromegaly Respiratory: normal respiratory effort, lungs clear to auscultation Cardiovascular: RRR, no murmur, no edema Chest (Breasts): Chest: normal inspection of chest Gastrointestinal (Abdomen): normal bowel sounds, soft, nontender, no he patosplenomegaly Skin: no rashes, warm and dry Psychiatric: A+Ox3, euthymic affect Genitourinary: bladder normal to palpation Results & Data Results & Data ([facility]) Vital Signs (Past 12 Hours) Vital Signs Temp Pulse Resp BP Pulse Ox 02/03/22 07:42 36.8 C 72 16 151/72 H 95
--- NOTE | 2022-02-03 17:31 | Billing Data ---
Date of Service February 03, 2022 Coding Level of Care Code 39487 Subseq Hosp Care Lvl 3
[2022-02-04] MEDS: NORMOSOL-R 1,000 ML IV SCH (05:00)
[2022-02-04 07:25] LABS: Hematocrit (blood only) 32.9 % (42-52); Hemoglobin 10.8 g/dL (14.0-18.0); Mean Corpuscular Hemoglobin 29.6 pg (25-34); Mean Corpuscular Hgb Conc 32.8 g/dL (32-36); Mean Corpuscular Volume 90.1 fL (80-100); Mean Platelet Volume 8.2 fL (7.4-10.4); Platelet Count 190 K/uL (130-400); RDW Coefficient of Variation 17.1 % (11.5-14.5); RDW Standard Deviation 55.9 fL (36.4-46.3); Red Blood Count 3.65 M/uL (4.7-6.1)
[2022-02-04 07:55] VITALS: BP 136/55; PULSE 64; TEMP 98.8; O2SAT 96
[2022-02-04] MEDS: CALCIUM 600MG + VIT D 400 IU TAB PO SCH (08:50)
[2022-02-04] MEDS: HEPARIN SOD 5,000 UNIT/0.5 ML VIAL SQ SCH (08:50)
[2022-02-04 08:56] LABS: BUN Creatinine Ratio 14.2 (10-20); Calcium 7.9 mg/dl (8.5-10.1); Creatinine Clr Calc Pharmacy 18.9 ml/min; Est GFR (African American) 21.6 ml/min; Est GFR (Non-African American) 18.7 ml/min; Potassium 4.3 mmol/L (3.5-5.1)
--- NOTE | 2022-02-04 11:14 | Nephrology Progress Note ---
Date of Service February 04, 2022 Assessment & Plan (1) Acute renal failure: Plan: * LLOYD likely due to BRUCE and dehydration * Cr improved from 14.4 to 2.9 following Mathis catheter insertion and gentle hydration * Volume status and electrolyte balance are acceptable at this time. No acute indication for HD * Will heplock IV * If discharge is considered, recommend keep Mathis in place and arrange follow up with [facility] within 1 week (2) Prostate cancer: Plan: * 09/21 abd/pelvic CT - marked prostatomegaly w/ evidence of BRUCE, chronic R sided nephrolithiasis * h/o radiation theraphy and androgen deprivation therapy Admission and Anticipated Discharge Date Admission Date: February 01, 2022 Subjective Mr. Naidu was evaluated in his hospital room this morning. His Mathis catheter remains in place draining clear yellow urine. He is net 2834 cc volume negative since admission Review of Systems Constitutional: no fever Eyes: no problem reported Ear, Nose, Mouth, Throat: no problem reported Respiratory: no cough and no dyspnea Cardiovascular: no chest pain and no palpitations Gastrointestinal: no abdominal pain and no diarrhea/loose stools Musculoskeletal: no problem reported Integumentary: no rash Neurologic: no falls, no dizziness and no confusion Psychiatric: no problem reported Endocrine: no problem reported Hematologic / Lymphatic: no problem reported Physical Exam Constitutional: not in distress Eyes: PERRL, conjunctivae normal, anicteric sclerae ENMT: external ear and nose normal, oropharynx normal Neck: trachea midline, no thyromegaly Respiratory: normal respiratory effort, lungs clear to auscultation Cardiovascular: RRR, no murmur, no edema Gastrointestinal (Abdomen): normal bowel sounds, soft, nontender, no hepatosplenomegaly Skin: no rashes, warm and dry Neurologic: awake; not confused Results & Data ([facility]) Vital Signs (Past 12 Hours) Vital Signs Temp Pulse Resp BP Pulse Ox 02/04/22 07:54 37.1 C 64 18 136/55 L 96 Laboratory Results Laboratory Tests 02/04/22 02/04/22 07:05 07:05 WBC 4.80 Hgb 10.8 L Hct 32.9 L Plt Count 190 Sodium 139 Potassium 4.3 Chloride 111 H Carbon Dioxide 23 BUN 42 H Creatinine 2.96 H Glucose 86 PG Care Time/CCT Total # of Minutes Spent Total Time Spent with Patient: Total time spent is greater than 50% in coordination of care (as documented) at patient's floor/unit and/or counseling patient: Coding Level of Care Code 07434 Subseq Hosp Care Lvl 3 Diagnoses Acute renal failure N17.9 Prostate cancer C61
--- NOTE | 2022-02-04 14:41 | Discharge Summary ---
Date of Service February 04, 2022 Admission HPI Per Admitting Provider Mason Naidu is an 81yo male with PMHx significant for prostate cancer and HTN who presented to [facility] on 02/01 after being sent by [facility] Guajardo for elevated creatinine. Patient reports that he recently finished 2 months of radiation therapy for his prostate cancer - finished ~1 week ago. Reports that he started to have incomplete voiding and minimal urinary output starting ~10 days before conclusion of RTx. 5 days ago (the day after RTx ended) he started to have generalized weakness and decreased appetite with minimal PO intake. Of note he does report being started on Flomax by Radiation Oncologist ~2 weeks ago, after his decreased urine output started. Denies dysuria, increased urinary frequency/urgency, hematuria, suprapubic pain, fever/chills or flank pain. His reports that he has not had any confusion or changes to baseline mental status. Patient denies chest pain, shortness of breath or LE edema. Denies abdominal pain. Denies rash. Denies alcohol/tobacco/drug use. Proficient in all ADLs and able to ambulate on his own. Patient follows with Dr. Burger with [facility]. In the ED the patient was initially hypotensive at 88/54 --> improved to 111/43 after 1L NSS bolus. Otherwise afebrile and stable on room air. Laboratory evaluation showed normocytic anemia Hgb 11.0 (was 14.6 in 10/2021), Cr 14.48 (was 1.68 in 10/2021), BUN 140, HCO3 14, AG 19. Lactate 0.5. LFTs WNL. Lipase mildly elevated at 150. UA with 3+ blood and >30 RBCs but negative for nitrite/LE/WBC/bacteria. COVID negative. CT A/P showing chronic bilateral perinephric stranding but with new increase in left kidney stranding with mild calyceal/pelvic dilation. No obstructive stones or signs of hydronephrosis. After IVF bolus, patient was started on NSS @125cc/hr by ED provider. Admission Exam Per Admitting Provider General: A&Ox3. NAD. Cooperative. HEENT: Atraumatic, normocephalic. Pulm: CTAB A&P. -wheezes, -rales, -rhonchi. Symmetrical chest rise. No increase work of breathing. No respiratory distress. Cardiac: RRR, -mrg. Radial pulses intact and symmetrical. No LE edema. Abdominal: soft, non-tender, non-distended, BS x 4 Back: no CVA tenderness Skin: warm, dry, no rash Principal Diagnosis Acute renal failure Discharge Exam Constitutional WD/WN, vitals as above Eyes PERRL, conjunctivae normal, anicteric sclerae Neck trachea midline, no thyromegaly Respiratory normal respiratory effort, lungs clear to auscultation Cardiovascular RRR, no murmur, no edema Gastrointestinal (Abdomen) normal bowel sounds, soft, nontender, no hepatosplenomegaly Musculoskeletal Head/Neck/Chest: normocephalic and head atraumatic Skin no rashes, warm and dry Neurologic moves all extremities Psychiatric A+Ox3, euthymic affect Genitourinary López catheter in place Discharge Data Allergies Allergy/AdvReac Type Severity Reaction Status Date / Time No Known Allergies Allergy Verified 02/01/22 18:22 Consultations 02/01/22 19:15 ED Decision to Admit Stat 02/01/22 22:33 Consult Nephrology Routine Ordered Studies 02/01/22 17:44 CT abd pelvis wo con Stat Hospital Course (1) Acute renal failure: Mason Naidu is an 81yo male with PMHx significant for prostate cancer and HTN who presented to [facility] on 02/01 after being sent by [facility] Guajardo for acute renal failure. Acute Renal Failure Cr 14.48 (was 1.6 in 10/2021), with decreased urine output that begin during radiation therapy for prostate cancer. Most likely mixed etiology of prerenal and obstructive 2/2 recent dehydration as well as RTx. FENa 3.7% suggesting possible ATN. Improved urine output since lópez insertion in the ED. No AMS or hypervolemia. 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 Continue lópez and IVF - trend BMP in AM; continuous downtrending in creatinine without any electrolyte abnormalities noted throughout hospitalization. -Discharge home with López catheter. Follow-up with urology for voiding trial. Follow-up with primary care provider within 1 week of discharge High Anion Gap Metabolic Acidosis; resolved Suspect all of above is due to ARF with associated uremia. Thankfully no signs of AMS as stated earlier. Lactate negative. - AG 19 --> 12 --> 6 and BUN 140 --> 103-->54-->42 after IVFs - K 5.2 --> 4.6-->4.3 - Received NaHCO3 50mEq x1 in ED Hypotension, resolved Suspect 2/2 decreased PO intake over last week. - normotensive after IVF bolus - continue mIVFs Microscopic Hematuria Suspect 2/2 prostate cancer and recent RTx. - monitor for gross hematuria in lópez bag CKDIII; Normocytic Anemia Cr 1.6 - 1.8 at previous baseline. Suspect anemia of chronic disease 2/2 CKD. - trend CBC as well as iron studies in AM HTN -Restart amlodipine upon discharge, continue to hold enalapril until follow-up with primary care provider. Code Status: full code Disposition:Discharge to personal usp (2) Prostate cancer: (3) High anion gap metabolic acidosis: (4) Hyperkalemia: (5) Normocytic anemia: (6) Microscopic hematuria: (7) Hypotension: Total Time Total Time Spent Total Time Spent (In Minutes): 30 Discharge Plan Discharge Items Patient Disposition: Personal Snf Reason For Visit: ABNORMAL KIDNEY FUNCTION, FROM [facility] Discharge Diagnosis: Acute renal failure Activity: Per Instructions section Non-emergency contact: Primary Care Provider and Urologist Call non-emergency contact if: you have any medication questions and your symptoms worsen Follow-up/Referrals: Jean-Claude Mcgee DO [Physician] - [facility] Guajardo [Primary Care Provider] - Diet: Regular Addtl Attending Provider Instructions: You were seen in the hospital for acute renal failure secondary to outlet obstruction likely due to your ongoing prostate cancer. There is also component of dehydration that may have led to some damage to your kidneys as well. After you are put on a López catheter and rehydrated appropriately, your kidney function began to return at an appropriate rate. We recommend that when you follow-up with your primary care provider that they perform a basic metabolic panel to recheck your kidney function within 1 week to show improved kidney function. At this time we feel that you are stable for discharge with a López catheter in place with follow-up with the urologist to have further evaluation be done. It has been a pleasure to be a part of your care and we wish you the best in your health in your recovery. Pending Studies at Discharge: No Stand-Alone Forms: My [facility] Tripnary, Smoking Cessation Skilled Items Patient informed of condition?: Yes DNR: No Discharge Level of Care: Other Communicable Disease: No Discharge Prognosis: Stable Lines: None Urinary Catheter: Yes Medications and DC Order Prescriptions: Continued amlodipine 5 mg tablet 5 mg PO DAILY RF: 0 calcium carbonate-vitamin D3 [Caltrate with Vitamin D3] 600 mg-20 mcg (800 unit) tablet 1 tab PO DAILY RF: 0 multivitamin Tablet 1 tab PO DAILY RF: 0 doxycycline hyclate 100 mg Capsule 100 mg PO BID RF: 0 Discontinued enalapril maleate [Vasotec] 5 mg Tablet 5 mg PO BID RF: 0 Discharge Orders: Discharge Order (Routine); Ordered 02/04/22 Ordered By: Parvez Redman/Other Patient Handouts: Acute Kidney Failure Dc, Indwelling Urinary Catheter Dc Admission Data Admit Date/Time: 02/01/22 19:56 Attending Provider: Abdi Mcintosh Admit Provider: Rolo Kim Primary Care Provider: Yovani Guajardo Other Providers: [facility] Guajardo ; Aquiles Dukes ; Liban Vega Other Interventions: Discharge Summary Assessment (RN) Last Done: 02/04/22 13:42 Supervising Physician Co-Signing Physician Notes I personally examined the patient and verified all sotelo points of history and exam, discussed case, and agree with decision making with Dr Ansari continues to feel well wants to go home. nephrology agrees best to have him go home w lópez vitals noted nad heent nc at mmm breathing unlabored no accessory muscles good effort skin no rashes no pallor or icterus neuro no focal deficits ARF - probably mixed prerenal/dehydration/obstructive --> continue lópez drainage and hydration, follow. precipitous improvement most c/w obstructive - so will leave lópez in for short time and have f/u w urology in office later this week. outpt labs as well. stable for home, otherwise as above Resident Activity Tracking Resident Involvement: Resident Care Provided Care Provided: Adult Hospital Medicine
--- NOTE | 2022-02-04 16:25 | Billing Data ---
Date of Service February 04, 2022 Coding Level of Care Code D/C DAY MANAGEMENT <30 MINS
== END 2022-02-04 15:13 | disposition home or self-care (01) | DRG 683 ==
LOC: ED 17:27 → SUATTDRO 19:56 → 2S 19:56 → 3W 02-02 20:34

== ENCOUNTER 2022-04-27 06:24 | Inpatient (IN) ==
[2022-04-27 07:00] LABS: Hematocrit (blood only) 35.5 % (42-52); Hemoglobin 11.5 g/dL (14.0-18.0); Mean Corpuscular Hgb Conc 32.4 g/dL (32-36); Mean Corpuscular Volume 89.4 fL (80-100); Mean Platelet Volume 8.7 fL (7.4-10.4); Platelet Count 213 K/uL (130-400); RDW Standard Deviation 46.3 fL (36.4-46.3); Red Blood Count 3.97 M/uL (4.7-6.1); White Blood Count 24.43 K/uL (4.8-10.8)
[2022-04-27] MEDS: SODIUM CHLORIDE 0.9% 1000ML 1,000 ML IV SCH ×2 (07:00→10:40)
[2022-04-27 07:09] LABS: INR 1.1 (0.9-1.1); Prothrombin Time 11.4 Seconds (9.0-12.0)
--- NOTE | 2022-04-27 07:14 | Emergency Department Note ---
History of Present Illness General Chief complaint: Fall Stated complaint: N/V Time Seen by Provider: 04/27/22 06:36 Source: patient Mode of arrival: EMS History of Present Illness Provider complaint: Fall, weakness This is an 81-year-old male brought in by EMS with at bedside after a fall at home. Patient states he felt weak yesterday and this morning when he tried to stand up to get out of bed he could not and fell to the floor landing on his left side. Patient denies head injury or loss of consciousness. Patient denies any pain. Patient states he feels very weak has had a poor appetite and has likely not been drinking enough water. states he had been previously diagnosed with prostate cancer and underwent radiation over the last several months as well as subsequent surgery to his prostate as well as removal of b ladder stones. She states he also had kidney failure and was admitted at 1 point. He denies any recent change in medications, denies fevers or chills, denies change in urine or stools. He states he did feel nauseated and vomited twice this morning. Patient's stated she did not witness this as she sleeps in a different room. Pt seen during a time of high acuity and national emergency pandemic while wearing PPE. Home Medications Medication Instructions Recorded Confirmed Type amlodipine 5 mg tablet 5 mg PO QAM 09/19/21 04/27/22 History tamsulosin 0.4 mg capsule 0.4 mg PO HS #30 cap 03/29/22 04/27/22 Rx acetaminophen 325 mg tablet 0 mg PO QID PRN 04/27/22 04/27/22 History (Tylenol) leuprolide 7.5 mg (1 month) 7.5 mg SUBCUT ONCE #1 ea 04/27/22 04/27/22 Rx subcutaneous syringe Allergies Allergy/AdvReac Type Severity Reaction Status Date / Time No Known Allergies Allergy Verified 04/27/22 07:25 Past Med/Surg History Medical History Acute renal failure 01/2022, significantly improved with creatinine 1.46 on most recent labs (02/20/22) Diverticulitis Hx Hypertension Kidney stones passed without intervention Prostate cancer s/p radiation treatments Surgical History H/O hernia repair History of colonoscopy History of prostate biopsy History of repair of rotator cuff left History of tooth extraction History of total right knee replacement Hx of bilateral cataract extraction Hx of vasectomy Tibia fracture with repair > left leg as child Family History Father Hypertension Mother Lung disease COPD Social History Smoking Status: Former smoker Number of Years Since Quit: 50; Second Hand Exposure: No; Do You Dip or Chew Tobacco: No; Hx Alcohol Use: No Hx Substance Use: No Preferred Language: Cymraes Communication Ability: Effective Visual Impairment: No Limitations Hearing Ability: Hard of Hearing Kick Plate Installer Required: No Beliefs That Will Affect Care: None marital status: Current Living Situation: Spouse Current Living Situation Comment: [facility] current occupational status: retired How many Children do You have: 2 Other Information That Helps Us Care for You: No Feels Safe at Home: Yes Safety Concerns: Feels Safe At This Time caffeine: Yes during the past year weight has: remained stable Assistive Devices: Cane and Walker Assistive Devices Comment: hearing aids and glasses left at home. Review of Systems A total of 10 systems reviewed and were otherwise negative All systems reviewed & are unremarkable except as noted in HPI & below Physical Exam Vital Signs Vital Signs - 24 hr 04/27/22 06:31 04/27/22 06:36 04/27/22 06:37 Temperature 36.8 C Temperature Source Oral Pulse Rate 102 H 99 H Pulse Rate from SpO2 Sensor 100 H Respiratory Rate 26 H 35 H Blood Pressure 150/67 H 126/72 Blood Pressure Mean 94 90 Pulse Oximetry 90 93 95 Oxygen Delivery Method Room Air Nasal Cannula Oxygen Flow Rate 5 Sepsis Recent Fever Within 48 Hours No Sepsis New/Unexplained Change in Mental Status No Sepsis Action Taken by Nursing No Action Required Oxygen Flow Rate - Titration Pulse Oximetry Post Tiitration 04/27/22 07:00 04/27/22 07:30 04/27/22 08:00 Temperature Temperature Source Pulse Rate 102 H 103 H 103 H Pulse Rate from SpO2 Sensor 102 H Respiratory Rate 27 H 25 H 30 H Blood Pressure 116/67 96/63 L Blood Pressure Mean 83 74 Pulse Oximetry 97 95 94 Oxygen Delivery Method Room Air Oxygen Flow Rate Sepsis Recent Fever Within 48 Hours Sepsis New/Unexplained Change in Mental Status Sepsis Action Taken by Nursing Oxygen Flow Rate - Titration Pulse Oximetry Post Tiitration 04/27/22 08:09 04/27/22 08:30 04/27/22 09:00 Temperature Temperature Source Pulse Rate 99 H 103 H 104 H Pulse Rate from SpO2 Sensor Respiratory Rate 28 H 31 H 32 H Blood Pressure 126/67 125/63 118/68 Blood Pressure Mean 86 83 84 Pulse Oximetry 94 94 Oxygen Delivery Method Room Air Oxygen Flow Rate Sepsis Recent Fever Within 48 Hours Sepsis New/Unexplained Change in Mental Status Sepsis Action Taken by Nursing Oxygen Flow Rate - Titration Pulse Oximetry Post Tiitration 04/27/22 09:30 04/27/22 09:54 04/27/22 10:00 Temperature Temperature Source Pulse Rate 102 H 94 H 106 H Pulse Rate from SpO2 Sensor Respiratory Rate 29 H 28 H 32 H Blood Pressure 141/76 H 151/76 H Blood Pressure Mean 97 101 Pulse Oximetry 91 94 92 Oxygen Delivery Method Oxygen Flow Rate Sepsis Recent Fever Within 48 Hours Sepsis New/Unexplained Change in Mental Status Sepsis Action Taken by Nursing Oxygen Flow Rate - Titration Pulse Oximetry Post Tiitration 04/27/22 10:11 04/27/22 10:39 Temperature Temperature Source Pulse Rate 100 H Pulse Rate from SpO2 Sensor Respiratory Rate 37 H Blood Pressure 151/76 H Blood Pressure Mean 101 Pulse Oximetry 89 L 96 Oxygen Delivery Method Nasal Cannula Nasal Cannula Oxygen Flow Rate 2 Sepsis Recent Fever Within 48 Hours Sepsis New/Unexplained Change in Mental Status Sepsis Action Taken by Nursing Oxygen Flow Rate - Titration 2 Pulse Oximetry Post Tiitration 93 GENERAL: alert, unwell appearing, well nourished, no distress, non-toxic EYE EXAM: normal conjunctiva, PERRL and EOM's grossly intact OROPHARYNX: no exudate, no erythema, lips, buccal mucosa, and tongue normal and mucous membranes are dry NECK: supple, no nuchal rigidity, no adenopathy, non-tender LUNGS: Clear to auscultation. Normal chest wall mechanics, no w/r/r HEART: no murmurs, S1 normal and S2 normal ABDOMEN: abdomen soft, non-tender, normo-active bowel sounds, no masses, no rebound or guarding. BACK: Back is symmetrical on inspection and there is no deformity, no midline tenderness, no CVA tenderness. SKIN: no rashes and no bruising UPPER EXTREMITIES: upper extremities are grossly normal. FROM, nml pulses b/l. LOWER EXTREMITIES: No pitting edema. FROM, nml pulses b/l. NEURO EXAM: Normal sensorium, cranial nerves II-XII grossly intact, normal speech, generalized weakness bilaterally with both upper and lower extremity testing, gross sensation intact. Course Course 07: Oxygen weaned down and now off, sats 96%. Updated pt and on results. 0922: Pt denies pain. oxygen sats holding normally, denies dyspnea, but is tachypneic. 1011: Pt vomited, zofran ordered and given. Updated on UA. Administered Medications Lactated Ringer's (Lr) 1,000 mls @ 125 mls/hr IV .Q8H MICHAEL Stop: 05/27/22 14:17 Last Admin: 04/27/22 14:39 Dose: 125 mls/hr Documented by: [id number] Discontinued Medications Sodium Chloride (Nss 1000ml) 1,000 mls @ 250 mls/hr IV .Q4H MICHAEL Stop: 05/27/22 06:59 Last Infusion: 04/27/22 14:12 Dose: 0 mls/hr Documented by: [id number] Admin: 04/27/22 10:40 Dose: 250 mls/hr Documented by: [id number] Infusion: 04/27/22 10:40 Dose: 250 mls/hr Documented by: [id number] Admin: 04/27/22 07:00 Dose: 250 mls/hr Documented by: [id number] Cefepime HCl (Maxipime) 2,000 mg in 20 mls @ 5 mls/min IV NOW STA; Protocol Stop: 04/27/22 07:47 Last Admin: 04/27/22 08:06 Dose: 5 mls/min Documented by: [id number] Sodium Chloride (Nss 1000ml) 500 mls @ 999 mls/hr IV .Q31M ONE Stop: 04/27/22 08:22 Last Infusion: 04/27/22 08:37 Dose: 0 mls/hr Documented by: [id number] Admin: 04/27/22 08:06 Dose: 999 mls/hr Documented by: [id number] Magnesium Sulfate/Dextrose (Magnesium Sulfate / D5w) 1 gm in 100 mls @ 100 mls/hr IV NOW STA Stop: 04/27/22 09:06 Last Infusion: 04/27/22 09:14 Dose: 0 mls/hr Documented by: [id number] Admin: 04/27/22 08:13 Dose: 100 mls/hr Documented by: [id number] Vancomycin HCl 1,750 mg/ (Sodium Chloride) 535 mls @ 200 mls/hr IV NOW ONE Stop: 04/27/22 13:10 Last Infusion: 04/27/22 13:54 Dose: 0 mls/hr Documented by: [id number] Admin: 04/27/22 10:59 Dose: 200 mls/hr Documented by: [id number] Ondansetron HCl (Ondansetron Inj 2 Mg/Ml 2 Ml Vial) 4 mg IV NOW STA Stop: 04/27/22 09:59 Last Admin: 04/27/22 10:00 Dose: 4 mg Documented by: [id number] Medical Decision Making Differential Diagnosis Differential Diagnosis includes but is not limited to dehydration, stroke, anemia, hypoglycemia, hyponatremia, hypernatremia, urinary tract infection, pneumonia, bronchitis, sepsis, gastroenteritis, additional abdominal pathology, metabolic abnormalities and infections. Medical Records Attestation: I reviewed the patient's medical records. Home Medications Current Medication List: was personally reviewed by me Laboratory Data Attestation: I reviewed the patient's lab results. Result diagrams: 04/27/22 06:50 04/27/22 06:50 Lab Results 04/27/22 04/27/22 04/27/22 Range/Units 06:50 06:50 06:50 WBC 24.43 H (4.8-10.8) K/uL RBC 3.97 L (4.7-6.1) M/uL Hgb 11.5 L (14.0-18.0) g/dL Hct 35.5 L (42-52) % MCV 89.4 (80-100) fL MCH 29.0 (25-34) pg MCHC 32.4 (32-36) g/dL RDW Std Deviation 46.3 (36.4-46.3) fL RDW Coeff of Blanca 14.0 (11.5-14.5) % Plt Count 213 (130-400) K/uL MPV 8.7 (7.4-10.4) fL Immature Gran % (Auto) 2.3 % Neut % (Auto) 91.5 % Lymph % (Auto) 2.4 % [place] % (Auto) 3.7 % Eos % (Auto) 0.0 % Baso % (Auto) 0.1 % Neut # (Auto) 22.36 H (1.4-6.5) K/uL Lymph # (Auto) 0.58 L (1.2-3.4) K/uL [place] # (Auto) 0.91 H (0.11-0.59) K/uL Eos # (Auto) 0.01 (0-0.5) K/uL Baso # (Auto) 0.02 (0-0.2) K/uL Immature Gran # (Auto) 0.55 H (0.00-0.02) K/uL PT 11.4 (9.0-12.0) Seconds INR 1.1 (0.9-1.1) Sodium 135 L (136-145) mmol/L Potassium 3.4 L (3.5-5.1) mmol/L Chloride 105 (98-107) mmol/L Carbon Dioxide 21 (21-32) mmol/L Anion Gap 9 (3-11) BUN 35 H (6-23) mg/dl Creatinine 2.03 H (0.6-1.4) mg/dl Est Cr Clr Drug Dosing 27.6 ml/min Est GFR ( Amer) 34.1 ml/min Est GFR (Non-Af Amer) 29.4 ml/min BUN/Creatinine Ratio 17.2 (10-20) Glucose 132 H (70-99(Fasting)) mg/dl Lactate (0.4-2.0) mmol/L Calcium 8.9 (8.5-10.1) mg/dl Magnesium 1.6 L (1.7-2.4) mg/dl Total Bilirubin 0.8 (0.2-1.0) mg/dl AST 38 (13-39) U/L ALT 20 (7-52) U/L Alkaline Phosphatase 55 (34-104) U/L Troponin I High Sens 17.7 (0-20) pg/ml Total Protein 6.4 (6.0-8.3) gm/dl Albumin 3.5 (3.4-5.0) gm/dl Globulin 2.9 (2.5-4.0) gm/dl Albumin/Globulin Ratio 1.2 (0.9-2) Lipase 29 (11-82) U/L Procalcitonin (0-0.5) ng/ml TSH (0.300-4.500) uIu/ml Urine Color Urine Appearance (Clear) Urine pH (4.5-7.5) Ur Specific [place] (1.000-1.030) Urine Protein (Negative) Urine Glucose (UA) (Negative) Urine Ketones (Negative) Urine Blood (Negative) Urine Nitrite (Negative) Urine Bilirubin (Negative) Urine Urobilinogen (Negative) Ur Leukocyte Esterase (Negative) Urine WBC (Auto) (0-5) /hpf Urine RBC (Auto) (0-4) /hpf U Hyaline Cast (Auto) (0-5) /lpf U Epithel Cells (Auto) (0-5) /lpf Urine Bacteria (Auto) (Negative) SARS-CoV-2, RNA, NAAT (NEGATIVE) 04/27/22 04/27/22 04/27/22 Range/Units 06:50 06:50 06:56 WBC (4.8-10.8) K/uL RBC (4.7-6.1) M/uL Hgb (14.0-18.0) g/dL Hct (42-52) % MCV (80-100) fL MCH (25-34) pg MCHC (32-36) g/dL RDW Std Deviation (36.4-46.3) fL RDW Coeff of Blanca (11.5-14.5) % Plt Count (130-400) K/uL MPV (7.4-10.4) fL Immature Gran % (Auto) % Neut % (Auto) % Lymph % (Auto) % [place] % (Auto) % Eos % (Auto) % Baso % (Auto) % Neut # (Auto) (1.4-6.5) K/uL Lymph # (Auto) (1.2-3.4) K/uL [place] # (Auto) (0.11-0.59) K/uL Eos # (Auto) (0-0.5) K/uL Baso # (Auto) (0-0.2) K/uL Immature Gran # (Auto) (0.00-0.02) K/uL PT (9.0-12.0) Seconds INR (0.9-1.1) Sodium (136-145) mmol/L Potassium (3.5-5.1) mmol/L Chloride (98-107) mmol/L Carbon Dioxide (21-32) mmol/L Anion Gap (3-11) BUN (6-23) mg/dl Creatinine (0.6-1.4) mg/dl Est Cr Clr Drug Dosing ml/min Est GFR ( Amer) ml/min Est GFR (Non-Af Amer) ml/min BUN/Creatinine Ratio (10-20) Glucose (70-99(Fasting)) mg/dl Lactate 1.7 (0.4-2.0) mmol/L Calcium (8.5-10.1) mg/dl Magnesium (1.7-2.4) mg/dl Total Bilirubin (0.2-1.0) mg/dl AST (13-39) U/L ALT (7-52) U/L Alkaline Phosphatase (34-104) U/L Troponin I High Sens (0-20) pg/ml Total Protein (6.0-8.3) gm/dl Albumin (3.4-5.0) gm/dl Globulin (2.5-4.0) gm/dl Albumin/Globulin Ratio (0.9-2) Lipase (11-82) U/L Procalcitonin 37.67 H (0-0.5) ng/ml TSH 1.486 (0.300-4.500) uIu/ml Urine Color Urine Appearance (Clear) Urine pH (4.5-7.5) Ur Specific [place] (1.000-1.030) Urine Protein (Negative) Urine Glucose (UA) (Negative) Urine Ketones (Negative) Urine Blood (Negative) Urine Nitrite (Negative) Urine Bilirubin (Negative) Urine Urobilinogen (Negative) Ur Leukocyte Esterase (Negative) Urine WBC (Auto) (0-5) /hpf Urine RBC (Auto) (0-4) /hpf U Hyaline Cast (Auto) (0-5) /lpf U Epithel Cells (Auto) (0-5) /lpf Urine Bacteria (Auto) (Negative) SARS-CoV-2, RNA, NAAT (NEGATIVE) 04/27/22 04/27/22 Range/Units 08:00 08:46 WBC (4.8-10.8) K/uL RBC (4.7-6.1) M/uL Hgb (14.0-18.0) g/dL Hct (42-52) % MCV (80-100) fL MCH (25-34) pg MCHC (32-36) g/dL RDW Std Deviation (36.4-46.3) fL RDW Coeff of Blanca (11.5-14.5) % Plt Count (130-400) K/uL MPV (7.4-10.4) fL Immature Gran % (Auto) % Neut % (Auto) % Lymph % (Auto) % [place] % (Auto) % Eos % (Auto) % Baso % (Auto) % Neut # (Auto) (1.4-6.5) K/uL Lymph # (Auto) (1.2-3.4) K/uL [place] # (Auto) (0.11-0.59) K/uL Eos # (Auto) (0-0.5) K/uL Baso # (Auto) (0-0.2) K/uL Immature Gran # (Auto) (0.00-0.02) K/uL PT (9.0-12.0) Seconds INR (0.9-1.1) Sodium (136-145) mmol/L Potassium (3.5-5.1) mmol/L Chloride (98-107) mmol/L Carbon Dioxide (21-32) mmol/L Anion Gap (3-11) BUN (6-23) mg/dl Creatinine (0.6-1.4) mg/dl Est Cr Clr Drug Dosing ml/min Est GFR ( Amer) ml/min Est GFR (Non-Af Amer) ml/min BUN/Creatinine Ratio (10-20) Glucose (70-99(Fasting)) mg/dl Lactate (0.4-2.0) mmol/L Calcium (8.5-10.1) mg/dl Magnesium (1.7-2.4) mg/dl Total Bilirubin (0.2-1.0) mg/dl AST (13-39) U/L ALT (7-52) U/L Alkaline Phosphatase (34-104) U/L Troponin I High Sens (0-20) pg/ml Total Protein (6.0-8.3) gm/dl Albumin (3.4-5.0) gm/dl Globulin (2.5-4.0) gm/dl Albumin/Globulin Ratio (0.9-2) Lipase (11-82) U/L Procalcitonin (0-0.5) ng/ml TSH (0.300-4.500) uIu/ml Urine Color Yellow Urine Appearance Cloudy A (Clear) Urine pH 5.5 (4.5-7.5) Ur Specific [place] 1.019 (1.000-1.030) Urine Protein 3+ H (Negative) Urine Glucose (UA) Negative (Negative) Urine Ketones Trace H (Negative) Urine Blood 3+ H (Negative) Urine Nitrite Positive A (Negative) Urine Bilirubin Negative (Negative) Urine Urobilinogen Negative (Negative) Ur Leukocyte Esterase 2+ H (Negative) Urine WBC (Auto) >30 H (0-5) /hpf Urine RBC (Auto) >30 H (0-4) /hpf U Hyaline Cast (Auto) 5-10 H (0-5) /lpf U Epithel Cells (Auto) 5-10 H (0-5) /lpf Urine Bacteria (Auto) 2+ H (Negative) SARS-CoV-2, RNA, NAAT NEGATIVE (NEGATIVE) Imaging Data Radiologist's Impression: Cervical Spine CT 04/27/22 06:50 CT cervical spine wo con CLINICAL HISTORY: Status post fall. Found on floor by . Neck pain. COMPARISON STUDY: No previous studies for comparison. CT DOSE: TECHNIQUE: Standard CT of the Cervical Spine was performed without IV contrast. A dose lowering technique was utilized adhering to the principles of ALARA. FINDINGS: Bones: Bones are osteopenic. There is no evidence for an acute fracture or malalignment. The heights of the vertebral bodies are maintained. The vertebral bodies are in anatomic alignment. The odontoid is intact. Degenerative changes are seen at the atlantoaxial articulation. Disc spaces: Moderate to marked disc space narrowing is present from C3 through C7 with endplate sclerosis and osteophyte formation. Apophyseal joints: Degenerative apophyseal joint disease is also present bilate rally. Soft tissues: The prevertebral soft tissues are within normal limits. IMPRESSION: 1. Osteopenia with no acute osseous pathology. 2. Degenerative disc and degenerative joint disease. ACT 112: Negative or not required by law. Electronically signed by: Raúl Ragland M.D. 04/27/2022 7:34 AM Chest X-Ray 04/27/22 06:50 XR chest 1V portable CLINICAL HISTORY: Status post fall with left hip pain.. Evaluate cardiopulmonary status COMPARISON STUDY: 03/23/2022 TECHNIQUE: 1 view of the chest FINDINGS: Single frontal view of the chest demonstrates the cardiomediastinal silhouette to be within normal limits. There is a decreased inspiratory effort with elevation of the hemidiaphragms and crowding of the bronchovascular markings at the lung bases and centrally. The lungs are clear of alveolar opacities. There is no evidence for pleural effusion. There is no evidence for vascular congestion. There is no acute osseous pathology. IMPRESSION: 1. There is a decreased inspiratory effort with otherwise no acute chest disease. ACT 112: Negative or not required by law. Electronically signed by: Raúl Ragland M.D. 04/27/2022 7:[address] 04/27/22 06:50 CT head/brain wo con CLINICAL HISTORY: Status post fall. Found on floor by . Altered mental status COMPARISON STUDY: 07/09/2018 CT DOSE: 1528.16 mGycm TECHNIQUE: Standard CT of the Brain was performed without IV contrast. A dose lowering technique was utilized adhering to the principles of ALARA. FINDINGS: Extraaxial space: There is no evidence for subdural hematoma. There are no extra-axial fluid collections. Ventricles and cisterns: The ventricles are mildly dilated bilaterally. There is no evidence for midline shift or mass effect. Parenchyma: There is no subarachnoid or intraparenchymal hemorrhage. There is no evidence for an acute infarct or cerebral edema. There is mild cerebral cortical atrophy and decreased attenuation in the periventricular white matter representing remote small vessel disease. There are no gross mass lesions. Osseous structures: There is no evidence for an acute fracture. The visualized paranasal sinuses are clear. The mastoid air cells are clear bilaterally. Soft tissues: There is no evidence for focal soft tissue swelling. IMPRESSION: 1. No acute intracerebral pathology. 2. 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 ACT 112: Negative or not required by law. Electronically signed by: Raúl Ragland M.D. 04/27/2022 7:32 AM Pelvis X-Ray 04/27/22 06:50 XR pelvis 1-2V routine CLINICAL HISTORY: Status post fall with left hip pain. COMPARISON STUDY: No previous studies for comparison. TECHNIQUE: [A single AP radiograph was obtained. FINDINGS: There is no evidence for an acute fracture. There is moderate narrowing left hip joint space and mild narrowing of the right hip joint space with mild secondary degenerative changes present. The SI joints are intact bilaterally. The remaining visualized bones of the pelvis are intact. Moderate to marked degenerative changes are seen involving the lower lumbar spine. No focal soft tissue abnormalities identified. IMPRESSION: 1. No acute abnormality. 2. Osteoarthritis and degenerative changes. ACT 112: Negative or not required by law. Electronically signed by: Raúl Ragland M.D. 04/27/2022 7:38 AM Abdomen/Pelvis CT 04/27/22 09:[address] WITHOUT CONTRAST CT DOSE: 645.07 mGy.cm HISTORY: uti, acute kidney injury, hx stone TECHNIQUE: Multiaxial CT images of the abdomen and pelvis were performed without contrast. A dose lowering technique was utilized adhering to the principles of ALARA. COMPARISON STUDY: Abdomen and pelvis CT 02/01/2022. FINDINGS: Bibasilar linear densities consistent with subsegmental atelectasis. No pneumoperitoneum. No pneumatosis. There are old, healed bilateral rib frac tures. No acute fractures identified. Mild motion artifact. Bilateral inguinal hernias are again noted, right greater than left. The right inguinal hernia contains a small segment of the cecal base. The prostate gland remains enlarged. There is moderate bladder wall thickening with adjacent fat stranding. The bladder is decompressed. No pelvic free fluid or pelvic lymphadenopathy. The unenhanced liver, spleen, adrenal glands,, and pancreas unremarkable. No retroperitoneal lymphadenopathy. Normal caliber abdominal aorta. There are few punctate gallstones. No gallbladder wall thickening. Stable bilateral renal hypodense lesions. These favor cysts. There is a 3 mm stone within the lower pole the right kidney. No left renal calculi. No ureteral calculi. No hydronephrosis. Moderate right perinephric edema has progressed in the interval. The left perinephric edema has improved/resolved. There is also mild right periureteral edema. Suboptimal evaluation for bowel pathology due to the lack of intravenous and oral contrast. However, there is no definite bowel wall thickening or obstruction. Normal appendix. IMPRESSION: 1. Interval development of moderate right perinephric and periureteral edema. This is nonspecific and could be due to a recently passed stone or pyelonephritis. Recommend correlation with urinalysis. 2. Right-sided nephrolithiasis. No ureteral stones. No hydronephrosis. 3. Moderate bladder wall thickening with adjacent fat stranding. This favors a cystitis. 4. No bowel wall thickening or obstruction. 5. Cholelithiasis. 6. Additional findings as described above. ACT 112: Negative or not required by law. Electronically signed by: Alfredo Caldwell M.D. 04/27/2022 10:45 AM ECG Data Attestation: I personally reviewed and interpreted this ECG as follows: Indication: + weakness Rate (beats per minute): 100 Rhythm: + sinus tachycardia ECG Intervals/blocks: + Right Bundle branch block and + Normal QT ECG [place]: + Left axis deviation ECG ST segments: + Nonspecific ST abnormalities MDM Narrative An order was placed for continuous cardiac monitoring. The monitor shows a rate of _105_ with _sinus tachycardia_ rhythm. This is an 81-year-old male who presents due to concern for generalized weakness and a fall out of bed this morning. concerned about dehydration or ev olving infection. Labs drawn and sent and patient started on cautious IV fluid rehydration. Patient found to have significantly elevated WBC count, blood cultures and procalcitonin were added. Lactic acid reassuring. Patient found to have LLOYD with elevated creatinine compared to prior. CT and x-ray imaging reassuring. Patient was initially brought in on oxygen via EMS however was quickly weaned off and maintained on room air until such time as he had recurrent vomiting and desatted. Patient was then replaced on nasal cannula at 2 L/min. It is unclear if patient may have aspirated during this episode of recurrent vomiting. Initially urine collected and did appear to be the source, patient sent for CT of the abdomen pelvis as a precaution due to recent bladder stones and prostate surgery. Patient given IV cefepime, and cultures pending. Patient and kept up-to-date on all results, verbalized understanding, and were in agreement with plan for additional inpatient evaluation and treatment. Patient received 30 ml/kg based on ideal body wt at a slower rate due to concern for LLOYD and hx of severe LLOYD previously. Impression & Plan Sepsis, Acute UTI, LLOYD (acute kidney injury), Generalized weakness, Fall, Dehydration Discharge Plan Visit Data Chief Complaint: Fall Stated Complaint: N/V ED Provider: Anna Diaz Discharge Problem: Sepsis, Acute UTI, LLOYD (acute kidney injury), Generalized weakness, Fall, Dehydration Patient Disposition: Being Evaluated by Hospitalist Discharge Instructions Interventions: ED Discharge Assessment Last Done: 04/27/22 14:21
[2022-04-27 07:17] LABS: Albumin Globulin Ratio 1.2 (0.9-2); Albumin Level 3.5 gm/dl (3.4-5.0); BUN Creatinine Ratio 17.2 (10-20); Bilirubin,Total 0.8 mg/dl (0.2-1.0); Calcium 8.9 mg/dl (8.5-10.1); Creatinine Clr Calc Pharmacy 27.6 ml/min; Est GFR (African American) 34.1 ml/min; Est GFR (Non-African American) 29.4 ml/min; Globulin 2.9 gm/dl (2.5-4.0); Magnesium 1.6 mg/dl (1.7-2.4); Potassium 3.4 mmol/L (3.5-5.1); Total Protein 6.4 gm/dl (6.0-8.3)
[2022-04-27 07:21] LABS: Troponin I High Sensitivity 17.7 pg/ml (0-20)
[2022-04-27 07:23] LABS: Basophils # (auto) 0.02 K/uL (0-0.2); Basophils % (auto) 0.1 %; Eosinophils # (auto) 0.01 K/uL (0-0.5); Immature Granulocytes # (auto) 0.55 K/uL (0.00-0.02); Immature Granulocytes % (auto) 2.3 %; Lymphocytes # (auto) 0.58 K/uL (1.2-3.4); Lymphocytes % (auto) 2.4 %; Monocytes # (auto) 0.91 K/uL (0.11-0.59); Monocytes % (auto) 3.7 %; Neutrophils # (auto) 22.36 K/uL (1.4-6.5); Neutrophils % (auto) 91.5 %
--- NOTE | 2022-04-27 07:33 | CT Scan Report ---
CT head/brain wo con CLINICAL HISTORY: Status post fall. Found on floor by . Altered mental status COMPARISON STUDY: 07/09/2018 CT DOSE: 1528.16 mGycm TECHNIQUE: Standard CT of the Brain was performed without IV contrast. A dose lowering technique was utilized adhering to the principles of ALARA. FINDINGS: Extraaxial space: There is no evidence for subdural hematoma. There are no extra-axial fluid collecti ons. Ventricles and cisterns: The ventricles are mildly dilated bilaterally. There is no evidence for midl ine shift or mass effect. Parenchyma: There is no subarachnoid or intraparenchymal hemorrhage. There is no evidence for an acut e infarct or cerebral edema. There is mild cerebral cortical atrophy and decreased attenuation in the periventricular white matter representing remote small vessel disease. There are no gross mass lesio ns. Osseous structures: There is no evidence for an acute fracture. The visualized paranasal sinuses are clear. The mastoid air cells are clear bilaterally. Soft tissues: There is no evidence for focal soft tissue swelling. IMPRESSION: 1. No acute intracerebral pathology. 2. 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 ACT 112: Negative or not required by law. Electronically signed by: Raúl Ragland M.D. 04/27/2022 7:32 AM
--- NOTE | 2022-04-27 07:36 | CT Scan Report ---
CT cervical spine wo con CLINICAL HISTORY: Status post fall. Found on floor by . Neck pain. COMPARISON STUDY: No previous studies for comparison. CT DOSE: TECHNIQUE: Standard CT of the Cervical Spine was performed without IV contrast. A dose lowering falguni hnique was utilized adhering to the principles of ALARA. FINDINGS: Bones: Bones are osteopenic. There is no evidence for an acute fracture or malalignment. The heights of the vertebral bodies are maintained. The vertebral bodies are in anatomic alignment. The odontoid is intact. Degenerative changes are seen at the atlantoaxial articulation. Disc spaces: Moderate to marked disc space narrowing is present from C3 through C7 with endplate scle rosis and osteophyte formation. Apophyseal joints: Degenerative apophyseal joint disease is also present bilaterally. Soft tissues: The prevertebral soft tissues are within normal limits. IMPRESSION: 1. Osteopenia with no acute osseous pathology. 2. Degenerative disc and degenerative joint disease. ACT 112: Negative or not required by law. Electronically signed by: Raúl Ragland M.D. 04/27/2022 7:34 AM
--- NOTE | 2022-04-27 07:37 | XRay Report ---
XR chest 1V portable CLINICAL HISTORY: Status post fall with left hip pain.. Evaluate cardiopulmonary status COMPARISON STUDY: 03/23/2022 TECHNIQUE: 1 view of the chest FINDINGS: Single frontal view of the chest demonstrates the cardiomediastinal silhouette to be within normal li mits. There is a decreased inspiratory effort with elevation of the hemidiaphragms and crowding of th e bronchovascular markings at the lung bases and centrally. The lungs are clear of alveolar opacities . There is no evidence for pleural effusion. There is no evidence for vascular congestion. There is n o acute osseous pathology. IMPRESSION: 1. There is a decreased inspiratory effort with otherwise no acute chest disease. ACT 112: Negative or not required by law. Electronically signed by: Raúl Ragland M.D. 04/27/2022 7:36 AM
--- NOTE | 2022-04-27 07:39 | XRay Report ---
XR pelvis 1-2V routine CLINICAL HISTORY: Status post fall with left hip pain. COMPARISON STUDY: No previous studies for comparison. TECHNIQUE: [A single AP radiograph was obtained. FINDINGS: There is no evidence for an acute fracture. There is moderate narrowing left hip joint space and mild narrowing of the right hip joint space with mild secondary degenerative changes present. The SI join ts are intact bilaterally. The remaining visualized bones of the pelvis are intact. Moderate to marke d degenerative changes are seen involving the lower lumbar spine. No focal soft tissue abnormalities identified. IMPRESSION: 1. No acute abnormality. 2. Osteoarthritis and degenerative changes. ACT 112: Negative or not required by law. Electronically signed by: Raúl Ragland M.D. 04/27/2022 7:38 AM
[2022-04-27] MEDS ORDERED: CEFEPIME 2,000 MG/20 ML VIAL IV STA (07:44)
[2022-04-27] MEDS ORDERED: SODIUM CHLORIDE 0.9% 1000ML 500 ML IV ONE (07:52)
[2022-04-27] MEDS ORDERED: MAGNESIUM SULFATE / D5W 1 GM/100 ML BAG IV STA (08:07)
[2022-04-27 09:39] LABS: Appearance Urine Cloudy (Clear); Bacteria Urine Automated 2+ (Negative); Bilirubin Urine Negative (Negative); Blood Urine 3+ (Negative); Color Urine Yellow; Glucose Urine UA Negative (Negative); Ketones Urine Trace (Negative); Leukocyte Esterase Urine 2+ (Negative); Nitrite Urine Positive (Negative); Protein Urine 3+ (Negative); RBC Urine Automated >30 /hpf (0-4); Specific Gravity Urine 1.019 (1.000-1.030); Urobilinogen Urine Negative (Negative); WBC Urine Automated >30 /hpf (0-5); pH Urine 5.5 (4.5-7.5)
[2022-04-27] MEDS ORDERED: ONDANSETRON INJ 2 MG/ML 2 ML VIAL IV STA (09:58)
[2022-04-27] MEDS ORDERED: VANCOMYCIN CONSULT ACTIVE PRN ×2 (10:16→14:18)
--- NOTE | 2022-04-27 10:17 | History & Physical Report ---
Date of Service April 27, 2022 Assessment & Plan (1) Acute on chronic kidney failure: Plan: - BUN 35, Cr 2.03, up from baseline 1.6-1.8. - Suspect due to dehydration and pyelonephritis, does have history of obstruction d/t stones, enlarged prostate but CT a/p does not reveal any obstructing stones. TURP with stone removal last month, lópez was in place january - 04/12/22. - Continue flomax. - Hydrate with LRs 125cc/hr. - Normocytic anemia suspected to be d/t CKD. - Follow hgb, renal function on CBC, BMP daily. - orders for post void bladder scan qshift, contact provider for PVR > 500 cc (2) Pyelonephritis: Plan: - Vancomycin and cefepime for initial coverage, blood and urine cultures pending. Previously grew out coag neg staph in March which was resistant to oxacillin. (3) Hypomagnesemia: Plan: - 1.6, replete and recheck in AM. (4) Hypokalemia: Plan: - 3.4 in ED, replete and recheck in AM. (5) Hypertension: Plan: - Continue amlodipine. (6) Prostate cancer: Plan: - s/p radiation, androgen deprivation. - Follows with Dr. Burger (radiation-oncology). Plan: - admit to mede/tele. - SCDs, heparin 5000 units q12 for DVT ppx. - full code. History of Present Illness Chief Complaint: generalized weakness Primary Care Provider: [facility] Mr. Naidu is an 81-year-old male with past medical history significant for prostate cancer, CKD, and hypertension who presents today with generalized weakness. Patient woke up yesterday morning feeling generally unwell and weak, reportedly was up all night urinating however had only been dribbling small amounts of nonbloody urine each time with some discomfort. He has had a poor appetite and reports increased fatigue. This morning he attempted to get out of bed, however was too weak and fell on his left side, denies LOC or pain anywhere from this fall. His found him and called for transport to our ED for further evaluation. Denies fever/chills, AMS, headache, SOB, abdominal pain, or nausea, however did have episode of nonbloody emesis in the ED. Does follow with nephrology and urology, recently had a TURP procedure with stone removal last month, lópez was in place from admission in January - 04/09/22. Had been voiding successfully since lópez was removed up until last evening. Pt borderline tachycardic HR 90s, 89% on RA after episode of emesis so placed on 2L with SpO2 > 95%, hypertensive SBP 150s, afebrile. Labs significant for WBC 24.43, procal 37, BUN 35, Cr 2.03, UA with WBC, bacteria, nitrites, leuk esterase, RBCs, protein. CT A/P with interval development of moderate right perinephric and periureteral edema and right-sided nephrolithiasis. No ureteral stones. No hydronephrosis. Allergies Allergy/AdvReac Type Severity Reaction Status Date / Time No Known Allergies Allergy Verified 04/27/22 07:25 Home Medications Medication Instructions Recorded Confirmed Type amlodipine 5 mg tablet 5 mg PO QAM 09/19/21 04/27/22 History tamsulosin 0.4 mg capsule 0.4 mg PO HS #30 cap 03/29/22 04/27/22 Rx acetaminophen 325 mg tablet 0 mg PO QID PRN 04/27/22 04/27/22 History (Tylenol) leuprolide 7.5 mg (1 month) 7.5 mg SUBCUT ONCE #1 ea 04/27/22 04/27/22 Rx subcutaneous syringe Past Med/Surg History Medical History Acute renal failure 01/2022, significantly improved with creatinine 1.46 on most recent labs (02/20/22) Diverticulitis Hx Hypertension Kidney stones passed without intervention Prostate cancer s/p radiation treatments Surgical History H/O hernia repair History of colonoscopy History of prostate biopsy History of repair of rotator cuff left History of tooth extraction History of total right knee replacement Hx of bilateral cataract extraction Hx of vasectomy Tibia fracture with repair > left leg as child Family History Father Hypertension Mother Lung disease COPD Social History Smoking Status: Former smoker Number of Years Since Quit: 50; Second Hand Exposure: No; Do You Dip or Chew Tobacco: No; Hx Alcohol Use: No Hx Substance Use: No Preferred Language: Libyan Communication Ability: Effective Visual Impairment: No Limitations Hearing Ability: Hard of Hearing Mechanical Handyman Required: No Beliefs That Will Affect Care: None marital status: Current Living Situation: Spouse Current Living Situation Comment: [facility] current occupational status: retired How many Children do You have: 2 Other Information That Helps Us Care for You: No Feels Safe at Home: Yes Safety Concerns: Feels Safe At This Time caffeine: Yes during the past year weight has: remained stable Assistive Devices: Cane and Walker Assistive Devices Comment: hearing aids and glasses left at home. Review of Systems Review of Systems: Constitutional: general weakness, fatigue, anorexia x2 days; No fever/chills, myalgias, night sweats Eyes: No diplopia, no worsening or blurred vision ENT: normal hearing, no trouble swallowing Respiratory: No cough, sputum, dyspnea at rest or on exertion Cardiovascular: No chest pain, tightness or palpitations Abdomen: No pain, nausea, vomiting, diarrhea or constipation : increased frequency with reduced output/retention and mild dysuria, denies hematuria Musculoskeletal: No joint pain, calf pain, swelling Neurologic: No focal weakness, numbness/tingling, or balance problems Psychiatric: No anxiety or depression Skin: No rash or itch Physical Exam 2 Physical Exam: General: awake, alert, no apparent distress Head: Normocephalic, atraumatic ENT: PERRL, EOMI, no pharyngeal exudate, mucous membranes moist Chest: Clear to auscultation, on room air, no adventitious breath sounds Cardiac: Regular rate and rhythm, no murmur, no JVD, normal peripheral pulses, good capillary refill Abdominal: NABS x 4 quadrants, soft, nontender to palpation, no rebound, guarding or tenderness Extremities: Normal inspection, no peripheral edema or erythema, calfs nontender to palpation Psych: Normal mood and affect Neuro: AAO x 3, strength intact bilaterally and rated 5/5, no motor deficits, speech is clear, no peripheral sensory deficits Skin: no rash or erythema Results & Data Results & Data ([facility]) Vital Signs (Past 12 Hours) Vital Signs Temp Pulse Resp BP Pulse Ox 04/27/22 10:11 89 L 04/27/22 10:00 106 H 32 H 151/76 H 92 04/27/22 09:54 94 H 28 H 141/76 H 94 04/27/22 09:30 102 H 29 H 91 04/27/22 09:00 104 H 32 H 118/68 94 04/27/22 08:30 103 H 31 H 125/63 94 04/27/22 08:09 99 H 28 H 126/67 04/27/22 08:00 103 H 30 H 94 04/27/22 07:30 103 H 25 H 96/63 L 95 04/27/22 07:00 102 H 27 H 116/67 97 04/27/22 06:37 99 H 35 H 126/72 95 04/27/22 06:36 93 04/27/22 06:31 36.8 C 102 H 26 H 150/67 H 90 Laboratory Results Abnormal lab results 04/27/22 04/27/22 04/27/22 Range/Units 06:50 06:50 06:50 WBC 24.43 H (4.8-10.8) K/uL RBC 3.97 L (4.7-6.1) M/uL Hgb 11.5 L (14.0-18.0) g/dL Hct 35.5 L (42-52) % Neut # (Auto) 22.36 H (1.4-6.5) K/uL Lymph # (Auto) 0.58 L (1.2-3.4) K/uL [place] # (Auto) 0.91 H (0.11-0.59) K/uL Immature Gran # (Auto) 0.55 H (0.00-0.02) K/uL Sodium 135 L (136-145) mmol/L Potassium 3.4 L (3.5-5.1) mmol/L BUN 35 H (6-23) mg/dl Creatinine 2.03 H (0.6-1.4) mg/dl Glucose 132 H (70-99(Fasting)) mg/dl Magnesium 1.6 L (1.7-2.4) mg/dl Procalcitonin 37.67 H (0-0.5) ng/ml Urine Appearance (Clear) Urine Protein (Negative) Urine Ketones (Negative) Urine Blood (Negative) Urine Nitrite (Negative) Ur Leukocyte Esterase (Negative) Urine WBC (Auto) (0-5) /hpf Urine RBC (Auto) (0-4) /hpf U Hyaline Cast (Auto) (0-5) /lpf U Epithel Cells (Auto) (0-5) /lpf Urine Bacteria (Auto) (Negative) 04/27/22 Range/Units 08:46 WBC (4.8-10.8) K/uL RBC (4.7-6.1) M/uL Hgb (14.0-18.0) g/dL Hct (42-52) % Neut # (Auto) (1.4-6.5) K/uL Lymph # (Auto) (1.2-3.4) K/uL [place] # (Auto) (0.11-0.59) K/uL Immature Gran # (Auto) (0.00-0.02) K/uL Sodium (136-145) mmol/L Potassium (3.5-5.1) mmol/L BUN (6-23) mg/dl Creatinine (0.6-1.4) mg/dl Glucose (70-99(Fasting)) mg/dl Magnesium (1.7-2.4) mg/dl Procalcitonin (0-0.5) ng/ml Urine Appearance Cloudy A (Clear) Urine Protein 3+ H (Negative) Urine Ketones Trace H (Negative) Urine Blood 3+ H (Negative) Urine Nitrite Positive A (Negative) Ur Leukocyte Esterase 2+ H (Negative) Urine WBC (Auto) >30 H (0-5) /hpf Urine RBC (Auto) >30 H (0-4) /hpf U Hyaline Cast (Auto) 5-10 H (0-5) /lpf U Epithel Cells (Auto) 5-10 H (0-5) /lpf Urine Bacteria (Auto) 2+ H (Negative) Diagnostic Findings Cervical Spine CT 04/27/22 06:50 CT cervical spine wo con CLINICAL HISTORY: Status post fall. Found on floor by . Neck pain. COMPARISON STUDY: No previous studies for comparison. CT DOSE: TECHNIQUE: Standard CT of the Cervical Spine was performed without IV contrast. A dose lowering technique was utilized adhering to the principles of ALARA. FINDINGS: Bones: Bones are osteopenic. There is no evidence for an acute fracture or malalignment. The heights of the vertebral bodies are maintained. The vertebral bodies are in anatomic alignment. The odontoid is intact. Degenerative changes are seen at the atlantoaxial articulation. Disc spaces: Moderate to marked disc space narrowing is present from C3 through C7 with endplate sclerosis and osteophyte formation. Apophyseal joints: Degenerative apophyseal joint disease is also present bilaterally. Soft tissues: The prevertebral soft tissues are within normal limits. IMPRESSION: 1. Osteopenia with no acute osseous pathology. 2. Degenerative disc and degenerative joint disease. ACT 112: Negative or not required by law. Electronically signed by: Raúl Ragland M.D. 04/27/2022 7:34 AM Chest X-Ray 04/27/22 06:50 XR chest 1V portable CLINICAL HISTORY: Status post fall with left hip pain.. Evaluate cardiopulmonary status COMPARISON STUDY: 03/23/2022 TECHNIQUE: 1 view of the chest FINDINGS: Single frontal view of the chest demonstrates the cardiomediastinal silhouette to be within normal limits. There is a decreased inspiratory effort with elevation of the hemidiaphragms and crowding of the bronchovascular markings at the lung bases and centrally. The lungs are clear of alveolar opacities. There is no evidence for pleural effusion. There is no evidence for vascular congestion. There is no acute osseous pathology. IMPRESSION: 1. There is a decreased inspiratory effort with otherwise no acute chest disease. ACT 112: Negative or not required by law. Electronically signed by: Raúl Ragland M.D. 04/27/2022 7:[address] 04/27/22 06:50 CT head/brain wo con CLINICAL HISTORY: Status post fall. Found on floor by . Altered mental status COMPARISON STUDY: 07/09/2018 CT DOSE: 1528.16 mGycm TECHNIQUE: Standard CT of the Brain was performed without IV contrast. A dose lowering technique was utilized adhering to the principles of ALARA. FINDINGS: Extraaxial space: There is no evidence for subdural hematoma. There are no extra-axial fluid collections. Ventricles and cisterns: The ventricles are mildly dilated bilaterally. There is no evidence for midline shift or mass effect. Parenchyma: There is no subarachnoid or intraparenchymal hemorrhage. There is no evidence for an acute infarct or cerebral edema. There is mild cerebral cortical atrophy and decreased attenuation in the periventricular white matter representing remote small vessel disease. There are no gross mass lesions. Osseous structures: There is no evidence for an acute fracture. The visualized p aranasal sinuses are clear. The mastoid air cells are clear bilaterally. Soft tissues: There is no evidence for focal soft tissue swelling. IMPRESSION: 1. No acute intracerebral pathology. 2. 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 ACT 112: Negative or not required by law. Electronically signed by: Raúl Ragland M.D. 04/27/2022 7:32 AM Pelvis X-Ray 04/27/22 06:50 XR pelvis 1-2V routine CLINICAL HISTORY: Status post fall with left hip pain. COMPARISON STUDY: No previous studies for comparison. TECHNIQUE: [A single AP radiograph was obtained. FINDINGS: There is no evidence for an acute fracture. There is moderate narrowing left hip joint space and mild narrowing of the right hip joint space with mild secondary degenerative changes present. The SI joints are intact bilaterally. The remaining visualized bones of the pelvis are intact. Moderate to marked degenerative changes are seen involving the lower lumbar spine. No focal soft tissue abnormalities identified. IMPRESSION: 1. No acute abnormality. 2. Osteoarthritis and degenerative changes. ACT 112: Negative or not required by law. Electronically signed by: Raúl Ragland M.D. 04/27/2022 7:38 AM Abdomen/Pelvis CT 04/27/22 09:[address] WITHOUT CONTRAST CT DOSE: 645.07 mGy.cm HISTORY: uti, acute kidney injury, hx stone TECHNIQUE: Multiaxial CT images of the abdomen and pelvis were performed without contrast. A dose lowering technique was utilized adhering to the principles of ALARA. COMPARISON STUDY: Abdomen and pelvis CT 02/01/2022. FINDINGS: Bibasilar linear densities consistent with subsegmental atelectasis. No pneumoperitoneum. No pneumatosis. There are old, healed bilateral rib fractures. No acute fractures identified. Mild motion artifact. Bilateral inguinal hernias are again noted, right greater than left. The right inguinal hernia contains a small segment of the cecal base. The prostate gland remains enlarged. There is moderate bladder wall thickening with adjacent fat stranding. The bladder is decompressed. No pelvic free fluid or pelvic lymphadenopathy. Th e unenhanced liver, spleen, adrenal glands,, and pancreas unremarkable. No retroperitoneal lymphadenopathy. Normal caliber abdominal aorta. There are few punctate gallstones. No gallbladder wall thickening. Stable bilateral renal hypodense lesions. These favor cysts. There is a 3 mm stone within the lower pole the right kidney. No left renal calculi. No ureteral calculi. No hydronephrosis. Moderate right perinephric edema has progressed in the interval. The left perinephric edema has improved/resolved. There is also mild right periureteral edema. Suboptimal evaluation for bowel pathology due to the lack of intravenous and oral contrast. However, there is no definite bowel wall thickening or obstruction. Normal appendix. IMPRESSION: 1. Interval development of moderate right perinephric and periureteral edema. This is nonspecific and could be due to a recently passed stone or pyelonephritis. Recommend correlation with urinalysis. 2. Right-sided nephrolithiasis. No ureteral stones. No hydronephrosis. 3. Moderate bladder wall thickening with adjacent fat stranding. This favors a cystitis. 4. No bowel wall thickening or obstruction. 5. Cholelithiasis. 6. Additional findings as described above. ACT 112: Negative or not required by law. Electronically signed by: Alfredo Caldwell M.D. 04/27/2022 10:45 AM ECG Additional Comments: Normal sinus rhythm Right bundle branch block Left anterior fascicular block Bifascicular block Abnormal ECG When compared with ECG of 23-MAR-2022 08:20 , Criteria for Septal infarct are no longer Present Nonspecific T wave abnormality now evident in Lateral leads. -No ST segment, T wave changes, RBBB/bifascicular block previously see on EKG from March 2022. Code Status & VTE Plan Code Status Full Code. Supervising Physician Co-Signing Physician Notes I personally saw and examined the patient. I verified all sotelo points and agree with Kavitha Cartagena PA-C with the following exceptions and/or additions: 83 year old male admission for fall and weakness. Nausea and vomiting this morning. In the ER diagnosed with sepsis secondary to UTI with right pyelonephritis on imaging. Patient denies any fever or chills or right flank pain. O/E Using accessory muscles, Chest diminished in bases, mild rhonchi anteriorly, no wheezing, HS1+2 regular but tachycardic, Abdo mild suprapubic tenderness, no CVA tenderness A/P UTI sepsis, right sided pyelonephritis - given prior coag neg staph in urine will add vancomycin to cefepime. blood cultures, urine culture, lactate 1.7. Bladder scans q shift PVR. PG Care Time/CCT Total # of Minutes Spent Total Time Spent with Patient: Total time spent is greater than 50% in coordination of care (as documented) at patient's floor/unit and/or counseling patient: Coding Level of Care Code 25893 Initial Inpt Care Lvl 3 Diagnoses Prostate cancer C61 Hypertension I10 Acute on chronic kidney failure N17.9; N18.9 Hypomagnesemia E83.42 Hypokalemia E87.6 Pyelonephritis N12
[2022-04-27] MEDS ORDERED: VANCOMYCIN HCL 1,750 MG in SODIUM CHLORIDE 0.9% 500 ML IV ONE (10:30)
--- NOTE | 2022-04-27 10:47 | CT Scan Report ---
ABDOMEN AND PELVIS CT WITHOUT CONTRAST CT DOSE: 645.07 mGy.cm HISTORY: uti, acute kidney injury, hx stone TECHNIQUE: Multiaxial CT images of the abdomen and pelvis were performed without contrast. A dose lo wering technique was utilized adhering to the principles of ALARA. COMPARISON STUDY: Abdomen and pelvis CT 02/01/2022. FINDINGS: Bibasilar linear densities consistent with subsegmental atelectasis. No pneumoperitoneum. N o pneumatosis. There are old, healed bilateral rib fractures. No acute fractures identified. Mild mot ion artifact. Bilateral inguinal hernias are again noted, right greater than left. The right inguinal hernia contains a small segment of the cecal base. The prostate gland remains enlarged. There is mod erate bladder wall thickening with adjacent fat stranding. The bladder is decompressed. No pelvic juanita e fluid or pelvic lymphadenopathy. The unenhanced liver, spleen, adrenal glands,, and pancreas unrema rkable. No retroperitoneal lymphadenopathy. Normal caliber abdominal aorta. There are few punctate ga llstones. No gallbladder wall thickening. Stable bilateral renal hypodense lesions. These favor cysts . There is a 3 mm stone within the lower pole the right kidney. No left renal calculi. No ureteral ca lculi. No hydronephrosis. Moderate right perinephric edema has progressed in the interval. The left p erinephric edema has improved/resolved. There is also mild right periureteral edema. Suboptimal evalu ation for bowel pathology due to the lack of intravenous and oral contrast. However, there is no defi nite bowel wall thickening or obstruction. Normal appendix. IMPRESSION: 1. Interval development of moderate right perinephric and periureteral edema. This is nonspecific and could be due to a recently passed stone or pyelonephritis. Recommend correlation with urinalysis. 2. Right-sided nephrolithiasis. No ureteral stones. No hydronephrosis. 3. Moderate bladder wall thickening with adjacent fat stranding. This favors a cystitis. 4. No bowel wall thickening or obstruction. 5. Cholelithiasis. 6. Additional findings as described above. ACT 112: Negative or not required by law. Electronically signed by: Alfredo Caldwell M.D. 04/27/2022 10:45 AM
[2022-04-27] MEDS ORDERED: ACETAMINOPHEN 325 MG TAB PO PRN (14:18)
[2022-04-27] MEDS ORDERED: VANCOMYCIN HCL 1,250 MG in SODIUM CHLORIDE 0.9% 500 ML IV SCH (14:18)
[2022-04-27] MEDS ORDERED: LACTATED RINGER'S 1,000 ML IV SCH (14:18)
[2022-04-27] MEDS ORDERED: ONDANSETRON INJ 2 MG/ML 2 ML VIAL IV PRN (14:18)
[2022-04-27] MEDS ORDERED: POLYETHYLENE (MIRALAX) 17 GM PACK PO PRN (14:18)
--- NOTE | 2022-04-27 15:52 | Electrocardiogram Report ---
Test Reason : Blood Pressure : / mmHG Vent. Rate : 100 BPM Atrial Rate : 100 BPM P-R Int : 192 ms QRS Dur : 162 ms QT Int : 378 ms P-R-T Axes : 020 -70 012 degrees QTc Int : 487 ms Normal sinus rhythm Right bundle branch block Left anterior fascicular block Bifascicular block Abnormal ECG When compared with ECG of 23-MAR-2022 08:20, Criteria for Septal infarct are no longer Present Nonspecific T wave abnormality now evident in Lateral leads Confirmed by Boston Conde ([id number]) on 04/27/2022 3:51:43 PM Referred By: REFERRED SELF Confirmed By:Boston Conde
[2022-04-27] MEDS ORDERED: POTASSIUM CHLORIDE CRTAB 20 MEQ TABCR PO ONE (22:00)
[2022-04-27] MEDS: HEPARIN SOD 5,000 UNIT/0.5 ML VIAL SQ SCH (22:11)
[2022-04-27] MEDS: TAMSULOSIN HCL 0.4 MG CAP PO SCH (22:11)
--- NOTE | 2022-04-28 07:21 | XRay Report ---
SINGLE VIEW CHEST CLINICAL HISTORY: Dyspnea FINDINGS: An AP, portable, upright chest radiograph is compared to study dated 04/27/2022. The cardiom ediastinal silhouette is unremarkable. Scarring/atelectasis is noted at both lung bases. The lungs an d pleural spaces are otherwise clear. No pneumothorax is seen. The skeletal structures are osteopenic . There are healed left-sided rib fractures. IMPRESSION: No active disease in the chest. ACT 112: Negative or not required by law. Electronically signed by: Jony Sandhu M.D. 04/28/2022 7:18 AM
[2022-04-28] MEDS: CEFEPIME 1,000 MG in SYRINGE 0 ML IV SCH (08:38)
[2022-04-28] MEDS: amLODIPine BESYLATE 5 MG TAB PO SCH (08:38)
[2022-04-28] MEDS: HEPARIN SOD 5,000 UNIT/0.5 ML VIAL SQ SCH ×2 (08:39→21:00)
[2022-04-28 09:43] LABS: Hematocrit (blood only) 35.3 % (42-52); Hemoglobin 11.2 g/dL (14.0-18.0); Mean Corpuscular Hemoglobin 28.9 pg (25-34); Mean Corpuscular Hgb Conc 31.7 g/dL (32-36); Mean Platelet Volume 9.5 fL (7.4-10.4); Platelet Count 172 K/uL (130-400); RDW Coefficient of Variation 14.9 % (11.5-14.5); RDW Standard Deviation 49.9 fL (36.4-46.3); Red Blood Count 3.88 M/uL (4.7-6.1); White Blood Count 16.48 K/uL (4.8-10.8)
[2022-04-28 10:04] LABS: BUN Creatinine Ratio 17.9 (10-20); Calcium 8.7 mg/dl (8.5-10.1); Creatinine Clr Calc Pharmacy 24.4 ml/min; Est GFR (African American) 29.5 ml/min; Est GFR (Non-African American) 25.4 ml/min; Magnesium 1.9 mg/dl (1.7-2.4)
[2022-04-28 10:06] LABS: Immature Granulocytes # (auto) 0.07 K/uL (0.00-0.02); Immature Granulocytes % (auto) 0.4 %; Lymphocytes # (auto) 0.17 K/uL (1.2-3.4); Monocytes # (auto) 0.47 K/uL (0.11-0.59); Monocytes % (auto) 2.9 %; Neutrophils # (auto) 15.77 K/uL (1.4-6.5); Neutrophils % (auto) 95.7 %
[2022-04-28] MEDS: LACTATED RINGER'S 1,000 ML IV SCH ×2 (11:42→19:42)
[2022-04-28] MEDS ORDERED: POTASSIUM CHLORIDE CRTAB 20 MEQ TABCR PO ONE (11:47)
--- NOTE | 2022-04-28 13:06 | Hospitalist Progress Note ---
Date of Service April 28, 2022 Assessment & Plan (1) Pyelonephritis: Plan: Right sided based on imaging with no obstructing cause on CT. 3mm stone in lower pole of right kidney noted - GNB on blood and urine cultures pending full identification and sensitivities. - Stop vancomycin, continue cefepime (2) Sepsis: Plan: Lactate 1.7 Source pyelonephritis as above WBC and patient mentation improving Present on Admission?: Yes (3) Acute on chronic kidney failure: Plan: - Cr increased overnight. IV fluids stopped overnight due to concern for hypoxia and worsening respiratory status - Suspect due to dehydration and pyelonephritis, does have history of obstruction d/t stones, enlarged prostate but CT a/p does not reveal any obstructing stones. TURP with stone removal last month, lópez was in place january - 04/12/22. - Continue flomax. - Restart LR @ 125ml/hr - orders for post void bladder scan qshift, contact provider for PVR > 500 cc (4) Hypoxia: Plan: Serial CXR negative for pulmonary edema. Restarted fluids as above. Prolonged expiratory phase chronic > 1 year per his . Suspect hypoxia from atelectasis due to sepsis but if unable to wean or may need to consider CT for PE (would avoid with current renal function however) (5) Hypomagnesemia: Plan: Mg level 1.9 today follow 1g Mg sulphate IV supplementation yesterday (6) Hypokalemia: Plan: Resolved with PO KCl 40 meq (7) Hypertension: Plan: - Hold further amlodipine in setting of sepsis and low normal BP (8) Prostate cancer: Plan: - s/p radiation, androgen deprivation. - Follows with Dr. Burger (radiation-oncology). Plan: VTE Prophylaxis - heparin 5000 units SQ BID Diet - heart healthy Disposition - stable for transfer to med/surg Admission and Anticipated Discharge Date Admission Date: April 27, 2022 Subjective Feels he is improved overnight and talking about potentially being discharged. Using a condom catheter. He still feels significantly weak more than his baseline. No fever or chills overnight. Although he has a prolonged expiratory phase he denies feeling short of breath or having any chest pain and feels his breathing is at baseline. Continues to require 2LPM O2. Updated his over the phone. Review of Systems Review of Systems: All systems reviewed & are unremarkable except as noted in Subjective Physical Exam Constitutional: WD/WN, vitals as above Eyes: + anicteric sclerae; normal pupil size Respiratory: + uses accessory muscles and + prolonged expiratory phase Auscultation: lungs clear to auscultation bilaterally Cardiovascular: RRR, no murmur, no edema Gastrointestinal (Abdomen): normal bowel sounds, soft, nontender, no hepatosplenomegaly Skin: no rashes, warm and dry Psychiatric: A+Ox3, euthymic affect Genitourinary: no CVA tenderness Results & Data Results & Data ([facility]) Vital Signs (Past 12 Hours) Vital Signs Temp Pulse Resp BP Pulse Ox 04/28/22 11:32 36.8 C 88 18 120/72 97 04/28/22 07:50 36.8 C 87 20 125/75 92 04/28/22 04:07 37.1 C 106 H 20 129/80 92 PG Care Time/CCT Total # of Minutes Spent Total Time Spent with Patient: Total time spent is greater than 50% in coordination of care (as documented) at patient's floor/unit and/or counseling patient: Coding Level of Care Code 63250 Subseq Hosp Care Lvl 3 Diagnoses Acute on chronic kidney failure N17.9; N18.9 Pyelonephritis N12 Hypomagnesemia E83.42 Hypokalemia E87.6 Hypertension I10 Prostate cancer C61 Hypoxia R09.02 Sepsis A41.9; R65.20; N17.9 Acute renal failure type: unspecified Sepsis acute organ dysfunction status: with acute organ dysfunction Sepsis type: sepsis due to unspecified organism Severe sepsis acute organ dysfunction type: acute renal failure Severe sepsis shock status: without septic shock (1) Sepsis Acute renal failure type: unspecified Sepsis acute organ dysfunction status: with acute organ dysfunction Sepsis type: sepsis due to unspecified organism Severe sepsis acute organ dysfunction type: acute renal failure Severe sepsis shock status: without septic shock Qualified Code(s): A41.9 - Sepsis, unspecified organism; R65.20 - Severe sepsis without septic shock; N17.9 - Acute kidney failure, unspecified
[2022-04-28] MEDS: ALBUT/IPRATROP 3MG/0.5MG NEB 3 ML VIAL NEB SCH ×2 (15:21→19:19)
[2022-04-28] MEDS: TAMSULOSIN HCL 0.4 MG CAP PO SCH (21:00)
[2022-04-29] MEDS: LACTATED RINGER'S 1,000 ML IV SCH ×3 (04:00→18:10)
[2022-04-29] MEDS ORDERED: COUGH DROP (SUGAR FREE) LOZ 24 LOZ/1 BOX BUCCAL STA (04:14)
[2022-04-29] MEDS: ALBUT/IPRATROP 3MG/0.5MG NEB 3 ML VIAL NEB SCH ×3 (07:14→14:56)
[2022-04-29 07:17] LABS: Hematocrit (blood only) 32.7 % (42-52); Hemoglobin 10.6 g/dL (14.0-18.0); Mean Corpuscular Hgb Conc 32.4 g/dL (32-36); Mean Corpuscular Volume 89.6 fL (80-100); Mean Platelet Volume 9.2 fL (7.4-10.4); Platelet Count 147 K/uL (130-400); RDW Coefficient of Variation 14.8 % (11.5-14.5); RDW Standard Deviation 48.7 fL (36.4-46.3); Red Blood Count 3.65 M/uL (4.7-6.1); White Blood Count 10.63 K/uL (4.8-10.8)
[2022-04-29 07:51] LABS: Basophils # (auto) 0.01 K/uL (0-0.2); Basophils % (auto) 0.1 %; Eosinophils # (auto) 0.05 K/uL (0-0.5); Eosinophils % (auto) 0.5 %; Immature Granulocytes # (auto) 0.06 K/uL (0.00-0.02); Immature Granulocytes % (auto) 0.6 %; Lymphocytes # (auto) 0.39 K/uL (1.2-3.4); Lymphocytes % (auto) 3.7 %; Monocytes # (auto) 0.35 K/uL (0.11-0.59); Monocytes % (auto) 3.3 %; Neutrophils # (auto) 9.77 K/uL (1.4-6.5); Neutrophils % (auto) 91.8 %
[2022-04-29 07:52] LABS: BUN Creatinine Ratio 17.9 (10-20); Calcium 8.3 mg/dl (8.5-10.1); Creatinine Clr Calc Pharmacy 28.7 ml/min; Est GFR (African American) 35.8 ml/min; Est GFR (Non-African American) 30.9 ml/min; Potassium 3.7 mmol/L (3.5-5.1)
[2022-04-29] MEDS: CEFEPIME 1,000 MG in SYRINGE 0 ML IV SCH (09:03)
[2022-04-29] MEDS: amLODIPine BESYLATE 5 MG TAB PO SCH (09:03)
[2022-04-29] MEDS: HEPARIN SOD 5,000 UNIT/0.5 ML VIAL SQ SCH ×2 (09:03→20:43)
[2022-04-29] MEDS ORDERED: ALBUT/IPRATROP 3MG/0.5MG NEB 3 ML VIAL NEB PRN (16:51)
--- NOTE | 2022-04-29 19:44 | Hospitalist Progress Note ---
Date of Service April 29, 2022 Assessment & Plan (1) Pyelonephritis: Plan: Right sided based on imaging with no obstructing cause on CT. 3mm stone in lower pole of right kidney noted - Pseudomonas aeruginosa on blood and urine cultures sensitive to ciprofloxacin - given recent urological procedure he may need coverage for prostatitis with 4 weeks of antibiotics therefore will take ESR/CRP/procalcitionin with AM labs and perform prostate exam tomorrow to determine treatment duration (2) Sepsis: Plan: Lactate 1.7 Source pyelonephritis/prostatitis as above WBC and patient mentation improving (3) Acute on chronic kidney failure: Plan: - Cr starting to come down to 1.95, no obstructive cause on CT - Continue flomax (last date May 03) - Continue LR @ 125ml/hr - orders for post void bladder scan qshift, contact provider for PVR > 500 cc (4) Hypoxia: Plan: Serial CXR negative for pulmonary edema. Restarted fluids as above. Prolonged expiratory phase chronic > 1 year per his . Recommend outpatient PFTs however no significant improvement with duonebs here. Weaned to room air today. Continue incentive spirometer. (5) Hypomagnesemia: Plan: Resolved (6) Hypokalemia: Plan: Resolved with PO KCl 40 meq (7) Hypertension: Plan: Continue amlodipine 5mg PO daily (8) Prostate cancer: Plan: - s/p radiation, androgen deprivation. - Follows with Dr. Burger (radiation-oncology). Plan: VTE Prophylaxis - heparin 5000 units SQ BID Diet - regular Disposition - continue med/surg, possible discharge tomorrow pending PT/OT consults as he may need placement Admission and Anticipated Discharge Date Admission Date: April 27, 2022 Subjective Fever 38.9 degrees celsius yesterday evening however he reports not feeling this. Otherwise feeling well. No concerns or questions. Updated his over the phone. Review of Systems Review of Systems: All systems reviewed & are unremarkable except as noted in Subjective Physical Exam Constitutional: WD/WN, vitals as above Respiratory: normal respiratory effort, lungs clear to auscultation Cardiovascular: RRR, no murmur, no edema Gastrointestinal (Abdomen): normal bowel sounds, soft, nontender, no h epatosplenomegaly Psychiatric: A+Ox3, euthymic affect Genitourinary: no CVA tenderness Results & Data Results & Data ([facility]) Vital Signs (Past 12 Hours) Vital Signs Temp Pulse Resp BP Pulse Ox 04/29/22 15:38 36.9 C 100 H 20 133/73 93 04/29/22 14:56 93 H 18 92 04/29/22 11:12 91 H 17 95 PG Care Time/CCT Total # of Minutes Spent Total Time Spent with Patient: Total time spent is greater than 50% in coordination of care (as documented) at patient's floor/unit and/or counseling patient: Coding Level of Care Code 29336 Subseq Hosp Care Lvl 2 Diagnoses Pyelonephritis N12 Sepsis A41.9; R65.20; N17.9 Acute renal failure type: unspecified Sepsis acute organ dysfunction status: with acute organ dysfunction Sepsis type: sepsis due to unspecified organism Severe sepsis acute organ dysfunction type: acute renal failure Severe sepsis shock status: without septic shock Acute on chronic kidney failure N17.9; N18.9 Hypoxia R09.02 Hypomagnesemia E83.42 Hypokalemia E87.6 Hypertension I10 Prostate cancer C61 (1) Sepsis Acute renal failure type: unspecified Sepsis acute organ dysfunction status: with acute organ dysfunction Sepsis type: sepsis due to unspecified organism Severe sepsis acute organ dysfunction type: acute renal failure Severe sepsis shock status: without septic shock Qualified Code(s): A41.9 - Sepsis, unspecified organism; R65.20 - Severe sepsis without septic shock; N17.9 - Acute kidney failure, unspecified
[2022-04-29] MEDS: TAMSULOSIN HCL 0.4 MG CAP PO SCH (20:43)
[2022-04-30] MEDS: LACTATED RINGER'S 1,000 ML IV SCH (03:53)
[2022-04-30 06:07] VITALS: BP 143/70; TEMP 98.4; O2SAT 96
[2022-04-30 07:51] LABS: C Reactive Protein 21.2 mg/dl (0-0.5); Calcium 8.5 mg/dl (8.5-10.1); Creatinine Clr Calc Pharmacy 30.9 ml/min; Est GFR (African American) 39.2 ml/min; Est GFR (Non-African American) 33.8 ml/min; Potassium 3.6 mmol/L (3.5-5.1)
[2022-04-30] MEDS ORDERED: ADVANCED PROBIOTIC 1250 MG CAPSULE PO SCH (09:00)
[2022-04-30] MEDS ORDERED: CIPROFLOXACIN 500 MG TAB PO SCH (09:00)
[2022-04-30] MEDS: HEPARIN SOD 5,000 UNIT/0.5 ML VIAL SQ SCH (09:10)
[2022-04-30] MEDS: amLODIPine BESYLATE 5 MG TAB PO SCH (09:10)
--- NOTE | 2022-04-30 09:42 | XRay Report ---
XR chest 1V portable CLINICAL HISTORY: SOB TECHNIQUE: Single frontal radiograph of the chest was obtained. Comparison: Comparison is made to chest radiograph 04/20/2022 FINDINGS: No lines and tubes are seen. Calcified aortic knob is seen. Faint bibasilar airspace opacities are se en. Lungs are underinflated. No evidence of pleural effusion or pneumothorax. IMPRESSION: Faint bibasilar airspace opacities which may represent atelectasis, pneumonia, and/or aspiration. ACT 112: Negative or not required by law. Electronically signed by: Josué Stone M.D. 04/30/2022 9:41 AM
--- NOTE | 2022-04-30 12:24 | Discharge Summary ---
Date of Service April 30, 2022 Admission HPI Per Admitting Provider Mr. Naidu is an 81-year-old male with past medical history significant for prostate cancer, CKD, and hypertension who presents today with generalized weakness. Patient woke up yesterday morning feeling generally unwell and weak, reportedly was up all night urinating however had only been dribbling small amounts of nonbloody urine each time with some discomfort. He has had a poor appetite and reports increased fatigue. This morning he attempted to get out of bed, however was too weak and fell on his left side, denies LOC or pain anywhere from this fall. His found him and called for transport to our ED for fu rther evaluation. Denies fever/chills, AMS, headache, SOB, abdominal pain, or nausea, however did have episode of nonbloody emesis in the ED. Does follow with nephrology and urology, recently had a TURP procedure with stone removal last month, lópez was in place from admission in January - 04/09/22. Had been voiding successfully since lópez was removed up until last evening. Pt borderline tachycardic HR 90s, 89% on RA after episode of emesis so placed on 2L with SpO2 > 95%, hypertensive SBP 150s, afebrile. Labs significant for WBC 24.43, procal 37, BUN 35, Cr 2.03, UA with WBC, bacteria, nitrites, leuk esterase, RBCs, protein. CT A/P with interval development of moderate right perinephric and periureteral edema and right-sided nephrolithiasis. No ureteral stones. No hydronephrosis. Principal Diagnosis Sepsis Pyelonephritis Possible prostatitis LLOYD Discharge Exam Constitutional WD/WN, vitals as above Eyes + anicteric sclerae; normal pupil size Respiratory normal respiratory effort, lungs clear to auscultation + uses accessory muscles and + prolonged expiratory phase Auscultation: lungs clear to auscultation bilaterally Cardiovascular RRR, no murmur, no edema Gastrointestinal (Abdomen) normal bowel sounds, soft, nontender, no hepatosplenomegaly Skin no rashes, warm and dry Psychiatric A+Ox3, euthymic affect Genitourinary no CVA tenderness Discharge Data Allergies Allergy/AdvReac Type Severity Reaction Status Date / Time No Known Allergies Allergy Verified 04/27/22 07:25 Consultations 04/27/22 10:20 ED Decision to Admit Stat Ordered Studies 04/27/22 06:50 CT cervical spine wo con Stat CT head/brain wo con Stat 04/27/22 09:58 CT abd pelvis wo con Stat Hospital Course (1) Pyelonephritis: You were admitted to [facility] from April 27 - 2021 due to generalized weakness. You were diagnosed with acute kidney injury (LLOYD) and sepsis due to a urinary tract and kidney infection. Initially you were treated with broad spectrum antibiotics. Urine and blood cultures grew pseudomonas aeruginosa sensitive to ciprofloxacin and your antibiotics were switched. Given still significantly elevated procalcitonin and inflammatory markers on discharge, recent urological procedure and prior prostate radiation I suspect that your prostate is also infected and recommend a longer duration of antibiotics for 4 weeks. Please use probiotics containing lactobacillus while on this antibiotics to reduce risk of diarrhea and clostridium difficile infection (call your primary care provider immediately if you start having watery diarrhea). Recommend no high intensity exercise due to increased risk of tendon rupture while on this antibiotic. No obstructive cause of Acute kidney injury was seen on CT. Your kidney test has improved with intravenous fluids and treating the infection. Creatine 1.81 on discharge. (2) Sepsis: (3) Acute on chronic kidney failure: (4) Hypoxia: (5) Hypomagnesemia: (6) Hypokalemia: (7) Hypertension: (8) Prostate cancer: Total Time Total Time Spent Total Time Spent (In Minutes): 40 Discharge Plan Discharge Items Patient Disposition: Home - Home Health Services Reason For Visit: PYELONEPHRITIS Discharge Diagnosis: Sepsis Pyelonephritis (kidney infection), possible prostatitis (prostate infection) Acute kidney injury (LLOYD) from dehydration and infection Activity: Resume your previous activity Non-emergency contact: Primary Care Provider Call non-emergency contact if: you have any medication questions and your symptoms worsen Follow-up/Referrals: Heriberto Guajardo [Primary Care Provider] - Diet: Regular Addtl Attending Provider Instructions: You were admitted to [facility] from April 27 - 2021 due to generalized weakness. You were diagnosed with acute kidney injury (LLOYD) and sepsis due to a urinary tract and kidney infection. Initially you were treated with broad spectrum antibiotics. Urine and blood cultures grew pseudomonas aeruginosa sensitive to ciprofloxacin and your antibiotics were switched. Given still significantly elevated procalcitonin and inflammatory markers on discharge , recent urological procedure and prior prostate radiation I suspect that your prostate is also infected and recommend a longer duration of antibiotics for 4 weeks. Please use probiotics containing lactobacillus while on this antibiotics to reduce risk of diarrhea and clostridium difficile infection (call your primary care provider immediately if you start having watery diarrhea). Recommend no high intensity exercise due to increased risk of tendon rupture while on this antibiotic. No obstructive cause of Acute kidney injury was seen on CT. Your kidney test has improved with intravenous fluids and treating the infection. Creatine 1.81 on discharge. Please follow up with your primary care physician for hospital follow up. Pending Studies at Discharge: No Stand-Alone Forms: [facility], Smoking Cessation Medications and DC Order Prescriptions: New ciprofloxacin HCl 500 mg Tablet 500 mg PO DAILY 25 Days Qty: 25 RF: 0 Advanced Probiotic 625 mg (10 billion cell) Capsule 2 cap PO DAILY 25 Days Qty: 50 RF: 0 Continued leuprolide 7.5 mg (1 month) syringe 7.5 mg subcut ONCE Qty: 1 RF: 0 amlodipine 5 mg tablet 5 mg PO QAM RF: 0 tamsulosin 0.4 mg capsule 0.4 mg PO HS Qty: 30 RF: 0 acetaminophen [Tylenol] 325 mg Tablet 0 mg PO QID PRN (Reason: Pain) RF: 0 Discharge Orders: Discharge Order (Routine); Ordered 04/30/22 Ordered By: Meño Pena Admission Data Admit Date/Time: 04/27/22 11:00 Attending Provider: Meño Pena Admit Provider: Meño Pena Primary Care Provider: Heriberto Guajardo Other Providers: Meño Pena Other Interventions: Discharge Summary Assessment (RN) Last Done: 04/30/22 12:32 Coding Diagnoses Pyelonephritis N12 Sepsis A41.9; R65.20; N17.9 Acute renal failure type: unspecified Sepsis acute organ dysfunction status: with acute organ dysfunction Sepsis type: sepsis due to unspecified organism Severe sepsis acute organ dysfunction type: acute renal failure Severe sepsis shock status: without septic shock Acute on chronic kidney failure N17.9; N18.9 Hypoxia R09.02 Hypomagnesemia E83.42 Hypokalemia E87.6 Hypertension I10 Prostate cancer C61
[2022-04-30 12:34] VITALS: PULSE 106
== END 2022-04-30 13:39 | disposition home health service (06) | DRG 872 ==
LOC: ED 06:24 → EDINP 11:00 → 2N 15:53

== ENCOUNTER 2023-07-11 18:51 | Inpatient (IN) ==
[2023-07-11] MEDS ORDERED: ONDANSETRON INJ 2 MG/ML 2 ML VIAL IV STA (19:25)
--- NOTE | 2023-07-11 19:25 | Emergency Department Note ---
Impression & Plan Acute hypoxemic respiratory failure due to COVID-19, Acute dehydration ED Provider Note NAME: BELKYS Doshi UPCRAFT AGE: 82 SEX: M : 1940 ARRIVES VIA: Ambulance INFORMANT: Patient, ED PROVIDER(S): Drew Jacobs MD CHIEF COMPLAINT: Syncope MEDICAL DECISION MAKING: Patient presents due to concern for syncope that occurred at home and was noted to be hypoxemic and was placed on supplemental nasal cannula 2 L of oxygen. IV was established and blood work is obtained along with a bio fire procalcitonin and blood cultures and chest x-ray. Patient was ordered IV fluids and IV Zofran. Patient also did receive DuoNeb treatment. Patient is COVID-positive. He has required 2 L of supplemental nasal cannula oxygen. Patient was ordered dexamethasone 6 mg IV. I did speak with the on- call hospitalist service and the patient was admitted to the medicine service,. Patient's blood work shows a normal white count mild anemia hemoglobin of 13.8 with a normal platelet count. Patient's creatinine 1.75. Procalcitonin is not elevated. Prior /Outside records reviewed: I reviewed a discharge summary from Dr. Pena from May 2022. The patient does have a known history of prostate CA CKD and hypertension who had been admitted at that time for generalized weakness. Patient unfortunately did have pyelonephritis at that time and was treated. Differential diagnosis: Vasovagal event, dehydration, infection, hypoglycemia, electrolyte abnormalities, cardiac sources, intracerebral event, pulmonary embolism, seizure, toxicologic, neurologic, as well as other pathologies. Diagnostics, as interpreted by me: ECG: Normal sinus rhythm, rate of 88, wide QRS, left axis deviation, right bundle branch block pattern. Cardiac monitoring: An order was placed for continuous cardiac monitoring. The monitor shows a rate of 95 with sinus rhythm. Patient was placed on pulse oximetry Medical decision rules: Curb 65 score Imaging studies: See below I informally reviewed the patient's chest x-ray which does not show obvious lobar infiltrate. HPI: Patient presents due to concern for episode of syncope that occurred prior to arrival. The patient reportedly had gotten up after using the bathroom and upon entering his bedroom he had slumped down out of the bed passing out likely for no greater than a minute the patient has had a prior history of vasovagal syncope. The patient reportedly did have a wet cough that began today and was noted to be 88% on room air was placed on supplemental nasal cannula. Patient has a remote history of smoking about 50 years ago. Patient Nuys any chest pains or shortness of breath and feels that though his p.o. intake is appropriate. Patient does not think that he struck his head. No reported seizure-like activity denies any tongue biting or incontinence PAST MEDICAL HISTORY: See Below PAST SURGICAL HISTORY: See Below SOCIAL HISTORY: See Below HOME MEDICATIONS: See Below ALLERGIES: See Below VITALS: See Below PHYSICAL EXAMINATION: GENERAL: NAD, non-toxic. EYE EXAM: Normal conjunctiva. PERRL, no anisocoria and EOM's grossly intact w/o pain. OROPHARYNX: Moist mucus membranes, grossly normal dentition. NECK: Supple, no nuchal rigidity, no adenopathy, non-tender. No signs of meningismus. FROM of the neck with good chin to chest and neck extension. No str idor. LUNGS: Rhonchi in the left chest normal chest wall mechanics. HEART: NSR, no MRG. ABDOMEN: Abdomen soft, non-tender, no masses, no rebound or guarding. BACK: No CVA TTP. SKIN: No rashes and no bruising. UPPER EXTREMITIES: Upper extremities are grossly normal. LOWER EXTREMITIES: Grossly normal, no edema. NEURO EXAM: A&O x3, cranial nerves II-XII grossly intact, normal speech, moves all 4 extremities. Past Med/Surg History Medical History Acute renal failure 01/2022, significantly improved with creatinine 1.46 on most recent labs (02/20/22) Diverticulitis Hx High anion gap metabolic acidosis Hyperkalemia Hypertension Kidney stones passed without intervention Microscopic hematuria Prostate cancer s/p radiation treatments Surgical History H/O hernia repair History of colonoscopy History of prostate biopsy History of repair of rotator cuff left History of tooth extraction History of total right knee replacement Hx of bilateral cataract extraction Hx of vasectomy Tibia fracture with repair > left leg as child Family History Father Hypertension Mother Lung disease COPD Social History Smoking Status: Former smoker Second Hand Exposure: No; Do You Dip or Chew Tobacco: No; Hx Alcohol Use: No Hx Substance Use: No Preferred Language: Urdu Communication Ability: Effective Visual Impairment: No Limitations Hearing Ability: Hard of Hearing Lead Technician Required: No Beliefs That Will Affect Care: None marital status: Current Living Situation: Spouse Current Living Situation Comment: [facility] current occupational status: retired How many Children do You have: 2 Feels Safe at Home: Yes Diet: regular caffeine: Yes during the past year weight has: remained stable Assistive Devices: Cane, Glasses and Walker Allergies Allergies Allergy/AdvReac Type Severity Reaction Status Date / Time No Known Allergies Allergy Verified 07/11/23 19:20 Home Meds Home Medications Medication Instructions Recorded Confirmed acetaminophen 325 mg tablet 650 mg PO QID PRN Pain 05/24/22 07/11/23 (Tylenol) amlodipine 2.5 mg tablet 2.5 mg PO DAILY 10/31/22 07/11/23 cholecalciferol (vitamin D3) 50 100 mcg PO DAILY 05/01/23 07/11/23 mcg (2,000 unit) capsule psyllium husk 3.4 gram/5.4 gram 1 tbsp PO DAILY 07/11/23 07/11/23 oral powder (Metamucil) Previous Rx's Medication Instructions Recorded ciprofloxacin HCl 500 mg tablet 500 mg PO BID #14 tabs 07/13/23 (Cipro) Results & Data (ED) Vital Signs Vital Signs - 24 hr 07/11/23 19:05 07/11/23 19:00 07/11/23 19:00 Temperature 36.6 C Temperature Source Oral Pulse Rate 89 90 Pulse Rate from SpO2 Sensor Respiratory Rate 20 Respiratory Effort / Characteristics Non-Labored Respiratory Depth Normal Respiratory Pattern Regular Blood Pressure 128/79 Blood Pressure Mean 95 Pulse Oximetry 88 L 94 Oxygen Delivery Method Nasal Cannula Nasal Cannula Oxygen Flow Rate 2 Sepsis Recent Fever Within 48 Hours No Sepsis New/Unexplained Change in Mental Status N/A Sepsis Action Taken by Nursing No Action Required Oxygen Flow Rate - Titration 2 Pulse Oximetry Post Tiitration 94 07/11/23 18:57 07/11/23 19:00 07/11/23 19:25 Temperature Temperature Source Pulse Rate 89 87 91 H Pulse Rate from SpO2 Sensor Respiratory Rate 23 26 H Respiratory Effort / Characteristics Respiratory Depth Respiratory Pattern Blood Pressure Blood Pressure Mean Pulse Oximetry 88 L 94 94 Oxygen Delivery Method Room Air Nasal Cannula Nasal Cannula Oxygen Flow Rate 2 2 Sepsis Recent Fever Within 48 Hours Sepsis New/Unexplained Change in Mental Status Sepsis Action Taken by Nursing Oxygen Flow Rate - Titration Pulse Oximetry Post Tiitration 07/11/23 19:30 07/11/23 19:45 07/11/23 20:00 Temperature Temperature Source Pulse Rate 90 91 H 99 H Pulse Rate from SpO2 Sensor Respiratory Rate 21 19 22 Respiratory Effort / Characteristics Respiratory Depth Respiratory Pattern Blood Pressure 138/74 147/71 H Blood Pressure Mean 95 96 Pulse Oximetry 96 100 99 Oxygen Delivery Method Nasal Cannula Nebulizer Room Air Oxygen Flow Rate 2 Sepsis Recent Fever Within 48 Hours Sepsis New/Unexplained Change in Mental Status Sepsis Action Taken by Nursing Oxygen Flow Rate - Titration Pulse Oximetry Post Tiitration 07/11/23 20:30 07/11/23 21:00 07/11/23 21:30 Temperature Temperature Source Pulse Rate 104 H 106 H 110 H Pulse Rate from SpO2 Sensor Respiratory Rate 21 21 23 Respiratory Effort / Characteristics Respiratory Depth Respiratory Pattern Blood Pressure 133/68 Blood Pressure Mean 89 Pulse Oximetry 91 91 92 Oxygen Delivery Method Room Air Room Air Room Air Oxygen Flow Rate Sepsis Recent Fever Within 48 Hours Sepsis New/Unexplained Change in Mental Status Sepsis Action Taken by Nursing Oxygen Flow Rate - Titration Pulse Oximetry Post Tiitration 07/11/23 22:01 07/11/23 22:30 07/11/23 22:45 Temperature Temperature Source Pulse Rate 110 H 108 H Pulse Rate from SpO2 Sensor Respiratory Rate 17 20 Respiratory Effort / Characteristics Respiratory Depth Respiratory Pattern Blood Pressure 133/77 125/74 Blood Pressure Mean 95 91 Pulse Oximetry 94 91 89 L Oxygen Delivery Method Room Air Room Air Room Air Oxygen Flow Rate Sepsis Recent Fever Within 48 Hours Sepsis New/Unexplained Change in Mental Status Sepsis Action Taken by Nursing Oxygen Flow Rate - Titration Pulse Oximetry Post Tiitration 07/11/23 22:46 07/11/23 23:00 07/11/23 23:06 Temperature Temperature Source Pulse Rate 108 H 108 H Pulse Rate from SpO2 Sensor 108 H Respiratory Rate 25 H Respiratory Effort / Characteristics Respiratory Depth Respiratory Pattern Blood Pressure 138/74 Blood Pressure Mean 95 Pulse Oximetry 94 94 Oxygen Delivery Method Nasal Cannula Oxygen Flow Rate 2 Sepsis Recent Fever Within 48 Hours Sepsis New/Unexplained Change in Mental Status Sepsis Action Taken by Nursing Oxygen Flow Rate - Titration Pulse Oximetry Post Tiitration Home Medications Current Medication List: was personally reviewed by me Laboratory Data Attestation: I reviewed the patient's lab results. 07/11/23 19:03 07/11/23 19:03 Lab Results 07/11/23 07/11/23 07/11/23 Range/Units 19:03 19:03 19:03 WBC 8.19 (4.8-10.8) K/ul RBC 4.72 (4.70-6.10) M/uL Hgb 13.8 L (14.0-18.0) g/dl Hct 41.5 L (42.0-52.0) % MCV 87.9 (80.0-100.0) fL MCH 29.2 (25.0-34.0) pg MCHC 33.3 (32.0-36.0) g/dL RDW Std Deviation 45.3 (36.4-46.3) fL RDW Coeff of Blanca 14.0 (11.5-14.5) % Plt Count 191 (130-400) K/uL MPV 9.3 L (9.4-12.4) fL Immature Gran % (Auto) 0.6 % Neut % (Auto) 80.1 % Lymph % (Auto) 7.4 % Hood % (Auto) 11.0 % Eos % (Auto) 0.5 % Baso % (Auto) 0.4 % Neut # (Auto) 6.56 H (1.40-6.50) K/uL Lymph # (Auto) 0.61 L (1.2-3.4) K/uL Hood # (Auto) 0.90 H (0.11-0.59) K/uL Eos # (Auto) 0.04 (0-0.50) K/uL Baso # (Auto) 0.03 (0-0.2) K/uL Immature Gran # (Auto) 0.05 (0.01-0.20) K/uL Sodium 140 (136-145) mmol/L Potassium 4.0 (3.5-5.1) mmol/L Chloride 107 (98-107) mmol/L Carbon Dioxide 24 (21-32) mmol/L Anion Gap 9 (3-11) BUN 33 H (6-23) mg/dl Creatinine 1.75 H (0.6-1.4) mg/dl Est Cr Clr Drug Dosing 35.3 ml/min Est GFR ( Amer) 40.5 ml/min Est GFR (Non-Af Amer) 35.0 ml/min BUN/Creatinine Ratio 18.9 (10-20) Glucose 134 H (70-99(Fasting)) mg/dl POC Glucose (70-99) mg/dl Calcium 9.3 (8.6-10.3) mg/dl Magnesium 2.2 (1.7-2.4) mg/dl Total Bilirubin 0.4 (0.2-1.0) mg/dl AST 17 (13-39) U/L ALT 12 (7-52) U/L Alkaline Phosphatase 61 (34-104) U/L Troponin I High Sens 6.0 (0-20) pg/ml Total Protein 7.3 (6.0-8.3) gm/dl Albumin 4.1 (3.4-5.0) gm/dl Globulin 3.2 (2.5-4.0) gm/dl Albumin/Globulin Ratio 1.3 (0.9-2) Procalcitonin (0-0.5) ng/ml TSH 3.531 (0.300-4.500) uIu/ml Adenovirus (PCR) (NotDetected) B. pertussis DNA (PCR) (NotDetected) B.parapertussis DNA PCR (NotDetected) C. pneumoniae DNA (PCR) (NotDetected) Coronavirus OC43 (PCR) (NotDetected) Coronavirus HKU1 (PCR) (NotDetected) Coronavirus 229E (PCR) (NotDetected) SARS-CoV-2 (PCR) (NotDetected) Coronavirus NL63 (PCR) (NotDetected) Human Metapneumovir PCR (NotDetected) Influenza Type A (PCR) (NotDetected) Influenza Type B (PCR) (NotDetected) M. pneumoniae (PCR) (NotDetected) Parainfluenza 1 (PCR) (NotDetected) Parainfluenza 2 (PCR) (NotDetected) Parainfluenza 3 (PCR) (NotDetected) Parainfluenza 4 (PCR) (NotDetected) RSV (PCR) (NotDetected) Entero/Rhino (PCR) (NotDetected) 07/11/23 07/11/23 07/11/23 Range/Units 19:03 19:21 19:42 WBC (4.8-10.8) K/ul RBC (4.70-6.10) M/uL Hgb (14.0-18.0) g/dl Hct (42.0-52.0) % MCV (80.0-100.0) fL MCH (25.0-34.0) pg MCHC (32.0-36.0) g/dL RDW Std Deviation (36.4-46.3) fL RDW Coeff of Blanca (11.5-14.5) % Plt Count (130-400) K/uL MPV (9.4-12.4) fL Immature Gran % (Auto) % Neut % (Auto) % Lymph % (Auto) % Hood % (Auto) % Eos % (Auto) % Baso % (Auto) % Neut # (Auto) (1.40-6.50) K/uL Lymph # (Auto) (1.2-3.4) K/uL Hood # (Auto) (0.11-0.59) K/uL Eos # (Auto) (0-0.50) K/uL Baso # (Auto) (0-0.2) K/uL Immature Gran # (Auto) (0.01-0.20) K/uL Sodium (136-145) mmol/L Potassium (3.5-5.1) mmol/L Chloride (98-107) mmol/L Carbon Dioxide (21-32) mmol/L Anion Gap (3-11) BUN (6-23) mg/dl Creatinine (0.6-1.4) mg/dl Est Cr Clr Drug Dosing ml/min Est GFR ( Amer) ml/min Est GFR (Non-Af Amer) ml/min BUN/Creatinine Ratio (10-20) Glucose (70-99(Fasting)) mg/dl POC Glucose 130 H (70-99) mg/dl Calcium (8.6-10.3) mg/dl Magnesium (1.7-2.4) mg/dl Total Bilirubin (0.2-1.0) mg/dl AST (13-39) U/L ALT (7-52) U/L Alkaline Phosphatase (34-104) U/L Troponin I High Sens (0-20) pg/ml Total Protein (6.0-8.3) gm/dl Albumin (3.4-5.0) gm/dl Globulin (2.5-4.0) gm/dl Albumin/Globulin Ratio (0.9-2) Procalcitonin < 0.05 (0-0.5) ng/ml TSH (0.300-4.500) uIu/ml Adenovirus (PCR) Not Detected (NotDetected) B. pertussis DNA (PCR) Not Detected (NotDetected) B.parapertussis DNA PCR Not Detected (NotDetected) C. pneumoniae DNA (PCR) Not Detected (NotDetected) Coronavirus OC43 (PCR) Not Detected (NotDetected) Coronavirus HKU1 (PCR) Not Detected (NotDetected) Coronavirus 229E (PCR) Not Detected (NotDetected) SARS-CoV-2 (PCR) DETECTED A* (NotDetected) Coronavirus NL63 (PCR) Not Detected (NotDetected) Human Metapneumovir PCR Not Detected (NotDetected) Influenza Type A (PCR) Not Detected (NotDetected) Influenza Type B (PCR) Not Detected (NotDetected) M. pneumoniae (PCR) Not Detected (NotDetected) Parainfluenza 1 (PCR) Not Detected (NotDetected) Parainfluenza 2 (PCR) Not Detected (NotDetected) Parainfluenza 3 (PCR) Not Detected (NotDetected) Parainfluenza 4 (PCR) Not Detected (NotDetected) RSV (PCR) Not Detected (NotDetected) Entero/Rhino (PCR) Not Detected (NotDetected) Administered Medications Discontinued Medications Albuterol (Albut/Ipratrop 3mg/0.5mg Neb 3 Ml Vial) 3 ml NEB NOW STA; Protocol Stop: 07/11/23 19:27 Last Admin: 07/11/23 19:36 Dose: 3 ml Documented By: RINKU Amlodipine Besylate (Amlodipine Besylate 5 Mg Tab) 2.5 mg PO DAILY MICHAEL Stop: 08/11/23 08:59 Last Admin: 07/12/23 09:44 Dose: 2.5 mg Documented By: KYLIE Amlodipine Besylate (Amlodipine Besylate 5 Mg Tab) 5 mg PO DAILY MICHAEL Stop: 08/12/23 08:59 Last Admin: 07/13/23 09:18 Dose: 5 mg Documented By: ZOE Dexamethasone Sodium Phosphate (DexamethasonePf 10 Mg/Ml Vial) 6 mg IV NOW ONE Stop: 07/11/23 21:42 Last Admin: 07/11/23 22:01 Dose: 6 mg Documented By: RINKU Enoxaparin Sodium (Enoxaparin Inj 40 Mg/0.4 Ml Syr) 40 mg SQ QAM MICHAEL Stop: 08/11/23 08:59 Last Admin: 07/12/23 08:11 Dose: 40 mg Documented By: KYLIE Enoxaparin Sodium (Enoxaparin Inj 30 Mg/0.3 Ml Syr) 30 mg SQ QAM MICHAEL Stop: 08/12/23 08:59 Last Admin: 07/13/23 09:18 Dose: 30 mg Documented By: ZOE Sodium Chloride (Nss 1000ml) 1,000 mls @ 999 mls/hr IV .[id number] MICHAEL Stop: 07/11/23 20:30 Last Infusion: 07/11/23 21:25 Dose: 0 mls/hr Documented By: Admin: 07/11/23 19:36 Dose: 999 mls/hr Documented By: RINKU Remdesivir 200 mg/ Sodium (Chloride) 250 mls @ 125 mls/hr IV ONE STA; Protocol Stop: 07/12/23 03:20 Last Infusion: 07/12/23 04:13 Dose: 0 mls/hr Documented By: Admin: 07/12/23 02:09 Dose: 125 mls/hr Documented By: MELI Dexamethasone 6 mg/ Syringe 1.5 mls @ 1 mls/min IV DAILY MICHAEL Stop: 08/11/23 08:59 Last Admin: 07/12/23 08:11 Dose: 1 mls/min Documented By: KYLIE Cefepime HCl 1,000 mg/ Syringe 10 mls @ 5 mls/min IV Q12H MICHAEL; Protocol Stop: 07/17/23 20:59 Last Admin: 07/13/23 09:19 Dose: 5 mls/min Documented By: Admin: 07/12/23 22:30 Dose: 5 mls/min Documented By: BIRDGETTE Sodium Chloride (Nss 1000ml) 1,000 mls @ 80 mls/hr IV .[id number] MICHAEL Stop: 08/11/23 08:14 Last Infusion: 07/13/23 12:07 Dose: 0 mls/hr Documented By: Admin: 07/12/23 23:30 Dose: 80 mls/hr Documented By: Infusion: 07/12/23 22:13 Dose: 80 mls/hr Documented By: Admin: 07/12/23 09:43 Dose: 80 mls/hr Documented By: KYLIE Cefepime HCl 2,000 mg/ Syringe 20 mls @ 5 mls/min IV ONE ONE; Protocol Stop: 07/12/23 08:33 Last Admin: 07/12/23 09:43 Dose: 5 mls/min Documented By: KYLIE Ioversol (Ioversol 350 Mg 125ml Prefilled Syringe) 117 ml IV ONCE ONE Stop: 07/12/23 12:35 Last Admin: 07/12/23 12:29 Dose: 117 ml Documented By: JEFF Ondansetron HCl (Ondansetron Inj 2 Mg/Ml 2 Ml Vial) 4 mg IV NOW STA Stop: 07/11/23 19:26 Last Admin: 07/11/23 19:36 Dose: 4 mg Documented By: RINKU Imaging Data Radiologist's Impression: Chest X-Ray 07/11/23 20:57 SINGLE VIEW CHEST CLINICAL HISTORY: Cough. Hypoxia. FINDINGS: An AP, portable, upright chest radiograph is compared to study dated 05/27/2023. The examination is degraded by portable technique and apical lordotic positioning. The cardiomediastinal silhouette is unremarkable noting athe rosclerotic calcification of the thoracic aorta. Chronic interstitial thickening is similar to previous. There is bibasilar scarring/atelectasis. No airspace consolidation or large pleural effusion is identified. No pneumothorax is seen. The skeletal structures are osteopenic. There are chronic/healed left- sided rib fractures. IMPRESSION: No active disease in the chest. ACT 112: Negative or not required by law. Electronically signed by: Jony Sandhu M.D. 07/12/2023 7:10 AM Discharge Plan Visit Data Chief Complaint: Syncope ED Provider: Drew Jacobs Discharge Problem: Acute hypoxemic respiratory failure due to COVID-19, Acute dehydration Patient Disposition: Admitted As Inpatient Discharge Instructions Interventions: ED Discharge Assessment Last Done: 07/11/23 23:40
[2023-07-11] MEDS ORDERED: ALBUT/IPRATROP 3MG/0.5MG NEB 3 ML VIAL NEB STA (19:26)
[2023-07-11] MEDS ORDERED: SODIUM CHLORIDE 0.9% 1000ML 1,000 ML IV SCH (19:30)
[2023-07-11 20:16] LABS: Albumin Level 4.1 gm/dl (3.4-5.0); Basophils # (auto) 0.03 K/uL (0-0.2); Basophils % (auto) 0.4 %; Bilirubin,Total 0.4 mg/dl (0.2-1.0); Calcium 9.3 mg/dl (8.6-10.3); Eosinophils # (auto) 0.04 K/uL (0-0.50); Eosinophils % (auto) 0.5 %; Hematocrit (blood only) 41.5 % (42.0-52.0); Hemoglobin 13.8 g/dl (14.0-18.0); Immature Granulocytes # (auto) 0.05 K/uL (0.01-0.20); Immature Granulocytes % (auto) 0.6 %; Lymphocytes # (auto) 0.61 K/uL (1.2-3.4); Lymphocytes % (auto) 7.4 %; Magnesium 2.2 mg/dl (1.7-2.4); Mean Corpuscular Hemoglobin 29.2 pg (25.0-34.0); Mean Corpuscular Hgb Conc 33.3 g/dL (32.0-36.0); Mean Corpuscular Volume 87.9 fL (80.0-100.0); Mean Platelet Volume 9.3 fL (9.4-12.4); Neutrophils # (auto) 6.56 K/uL (1.40-6.50); Neutrophils % (auto) 80.1 %; Platelet Count 191 K/uL (130-400); RDW Standard Deviation 45.3 fL (36.4-46.3); Red Blood Count 4.72 M/uL (4.70-6.10); White Blood Count 8.19 K/ul (4.8-10.8)
[2023-07-11 20:22] LABS: Albumin Globulin Ratio 1.3 (0.9-2); BUN Creatinine Ratio 18.9 (10-20); Creatinine Clr Calc Pharmacy 35.3 ml/min; Est GFR (African American) 40.5 ml/min; Globulin 3.2 gm/dl (2.5-4.0); Total Protein 7.3 gm/dl (6.0-8.3)
[2023-07-11 20:58] LABS: Adenovirus PCR Not Detected (NotDetected); Bordetella parapertussis PCR Not Detected (NotDetected); Bordetella pertussis PCR Not Detected (NotDetected); Chlamydia pneumoniae PCR Not Detected (NotDetected); Coronavirus 229E PCR Not Detected (NotDetected); Coronavirus HKU1 PCR Not Detected (NotDetected); Coronavirus NL63 PCR Not Detected (NotDetected); Coronavirus OC43PCR Not Detected (NotDetected); Human Metapneumovirus PCR Not Detected (NotDetected); Influenza A PCR Not Detected (NotDetected); Influenza B PCR Not Detected (NotDetected); Mycoplasma pneumoniae PCR Not Detected (NotDetected); Parainfluenza Virus 1 PCR Not Detected (NotDetected); Parainfluenza Virus 2 PCR Not Detected (NotDetected); Parainfluenza Virus 3 PCR Not Detected (NotDetected); Parainfluenza Virus 4 PCR Not Detected (NotDetected); Respiratory Syncytial VirusPCR Not Detected (NotDetected); Rhinovirus/Enterovirus PCR Not Detected (NotDetected)
[2023-07-11] MEDS ORDERED: dexAMETHasone**PF** 10 MG/ML VIAL IV ONE (21:41)
[2023-07-11 21:44] LABS: Coronavirus CoV-2 (COVID19)PCR DETECTED (NotDetected)
--- NOTE | 2023-07-11 22:35 | History & Physical Report ---
Date of Service July 11, 2023 Assessment & Plan (1) COVID-19: Plan: 82yo male with history of HTN presenting with hypoxia secondary to Covid-19 infection, syncopal event prior to arrival. Patient hypoxic on room air at 88% - now improved on supplemental O2 (presently on room air saturating 90%). Patient is fully vaccinated + booster x 2 -Admit to medical with telemetry -Maintain Covid-19 isolation precautions -Continue Dexamethasone 6mg IV daily for Covid-19 infection, hypoxia with SpO2 <94% on room air -Remdesivir per protocol -Lovenox for DVT prophylaxis -Tylenol as needed for pain or fever (2) Syncope: Plan: Patient with history of vasovagal syncope. Possibly vasovagal episode vs hypoxic event in setting of Covid-19. No known active cardiac disease. EKG with bifascicular block, largely unchanged from prior study in March. Troponin is unremarkable -Telemetry monitoring -Treatment of Covid-19 as above (3) Hypertension: Plan: Blood pressure stable. Presently 133/77 -Continue Amlodipine 2.5mg po daily -Monitor F/E/N - Heplock. Electrolytes WNL. Heart healthy diet as tolerated Ppx - Lovenox 40 Code - Full per discussion with patient, at bedside Dispo- Admit to medical with telemetry History of Present Illness Chief Complaint: syncope Primary Care Provider: Heriberto Naidu is a pleasant 82yo male with history of hypertension presenting after a syncopal event at home. Patient reports developing a slight cough today. He was walking back from the bathroom at home this evening and had a syncopal event. He was out for less than one minute. Denies head trauma, chest pain, palpitations, dizziness, focal numbness/tingling/weakness. Patient does have a history of vasovagal syncope and has passed out on multiple occasions in the past. Upon arrival to the ER patient found to be hypoxic at 87-88% on room air. He was placed on supplemental O2. Respiratory Biofire panel resulted POSITIVE for Covid-19 infection. Patient is fully vaccinated with Booster x 2. He had Covid-19 over one year ago. Is uncertain where his exposure came from. Presently with no additional complaints. Denies VILLA, congestion, SOB, chest pain, palpitations, abdominal pain, nausea, vomiting, diarrhea. ER course: Dexamethasone 6mg IV Albuterol 3mL neb Zofran 4mg IV NSS x 1L Allergies Allergy/AdvReac Type Severity Reaction Status Date / Time No Known Allergies Allergy Verified 07/11/23 19:20 Home Medications Medication Instructions Recorded Confirmed Type acetaminophen 325 mg tablet 650 mg PO QID PRN Pain 05/24/22 07/11/23 History (Tylenol) amlodipine 2.5 mg tablet 2.5 mg PO DAILY 10/31/22 07/11/23 History cholecalciferol (vitamin D3) 50 100 mcg PO DAILY 05/01/23 07/11/23 History mcg (2,000 unit) capsule psyllium husk 3.4 gram/5.4 gram 1 tbsp PO DAILY 07/11/23 07/11/23 History oral powder (Metamucil) Past Med/Surg History Medical History Acute renal failure 01/2022, significantly improved with creatinine 1.46 on most recent labs (02/20/22) Diverticulitis Hx High anion gap metabolic acidosis Hyperkalemia Hypertension Kidney stones passed without intervention Microscopic hematuria Prostate cancer s/p radiation treatments Surgical History H/O hernia repair History of colonoscopy History of prostate biopsy History of repair of rotator cuff left History of tooth extraction History of total right knee replacement Hx of bilateral cataract extraction Hx of vasectomy Tibia fracture with repair > left leg as child Family History Father Hypertension Mother Lung disease COPD Social History Smoking Status: Former smoker Second Hand Exposure: No; Do You Dip or Chew Tobacco: No; Hx Alcohol Use: No Hx Substance Use: No Preferred Language: Luxembourgish Communication Ability: Effective Visual Impairment: No Limitations Hearing Ability: Hard of Hearing Communications Tower Climber Required: No Beliefs That Will Affect Care: None marital status: Current Living Situation: Spouse Current Living Situation Comment: [facility] current occupational status: retired How many Children do You have: 2 Feels Safe at Home: Yes Diet: regular caffeine: Yes during the past year weight has: remained stable Assistive Devices: Cane and Walker Review of Systems Review of Systems: All systems reviewed & are unremarkable except as noted in HPI & below Physical Exam 2 Physical Exam: General: patient resting comfortably, NAD, non-toxic in appearance, AA&O x 4 Skin: warm, dry, intact, no rashes or lesions HEENT: NC/AT, PERRL, EOMI, anicteric sclera, conjunctiva without injection, external ear normal to inspection and nontender, nares patent, moist mucus membranes, dentition intact, no oropharyngeal lesions, neck supple, trachea midline, no LAD, no thyromegaly, no JVD Heart: +S1/S2, regular, no m/r/g Lungs: equal air entry bilaterally, no rales/rhonchi/wheezes Abd: +BS, soft, NT/ND, no masses/organomegaly/ascites Ext: warm, 2+ pulses in UE/LE bilaterally, no clubbing/cyanosis or edema Neuro: nonfocal, patient AA&O x 4, speech intact, no facial droop, moving all extremities on command with equal strength 5/5 Results & Data Results & Data Vital Signs (Past 12 Hours) Vital Signs Temp Pulse Resp BP Pulse Ox O2 Del Method O2 Flow Rate 07/11/23 22:01 110 H 17 133/77 94 Room Air 07/11/23 21:30 110 H 23 92 Room Air 07/11/23 21:00 106 H 21 91 Room Air 07/11/23 20:30 104 H 21 133/68 91 Room Air 07/11/23 20:00 99 H 22 147/71 H 99 Room Air 07/11/23 19:45 91 H 19 138/74 100 Nebulizer 07/11/23 19:30 90 21 96 Nasal Cannula 2 07/11/23 19:25 91 H 94 Nasal Cannula 2 07/11/23 19:00 87 26 H 94 Nasal Cannula 2 07/11/23 18:57 89 23 88 L Room Air 07/11/23 19:00 36.6 C 90 20 128/79 94 Nasal Cannula 2 07/11/23 19:00 88 L Nasal Cannula 07/11/23 19:05 89 Laboratory Results Laboratory Results WBC 8.19 K/ul (4.8-10.8) 07/11/23 19:03 RBC 4.72 M/uL (4.70-6.10) 07/11/23 19:03 Hgb 13.8 g/dl (14.0-18.0) L 07/11/23 19:03 Hct 41.5 % (42.0-52.0) L 07/11/23 19:03 MCV 87.9 fL (80.0-100.0) 07/11/23 19: MCH 29.2 pg (25.0-34.0) 07/11/23: MCHC 33.3 g/dL (32.0-36.0) 07/11/23 19: RDW Std Deviation 45.3 fL (36.4-46.3) 07/11/23: RDW Coeff of Blanca 14.0 % (11.5-14.5) 07/11/23: Plt Count 191 K/uL (130-400) 07/11/23: MPV 9.3 fL (9.4-12.4) L 07/11/23: Immature Gran % (Auto) 0.6 % 07/11/23: Neut % (Auto) 80.1 % 07/11/23 19: Lymph % (Auto) 7.4 % 07/11/23 19: [place] % (Auto) 11.0 % 07/11/23 19: Eos % (Auto) 0.5 % 07/11/23 19: Baso % (Auto) 0.4 % 07/11/23 19:03 Neut # (Auto) 6.56 K/uL (1.40-6.50) H 07/11/23 19:03 Lymph # (Auto) 0.61 K/uL (1.2-3.4) L 07/11/23 19: [place] # (Auto) 0.90 K/uL (0.11-0.59) H 07/11/23 19:03 Eos # (Auto) 0.04 K/uL (0-0.50) 07/11/23 19: Baso # (Auto) 0.03 K/uL (0-0.2) 07/11/23 19: Immature Gran # (Auto) 0.05 K/uL (0.01-0.20) 07/11/23 19: Sodium 140 mmol/L (136-145) 07/11/23 19:03 Potassium 4.0 mmol/L (3.5-5.1) 07/11/23 19:03 Chloride 107 mmol/L (98-107) 07/11/23 19:03 Carbon Dioxide 24 mmol/L (21-32) 07/11/23 19:03 Anion Gap 9 (3-11) 07/11/23 19:03 BUN 33 mg/dl (6-23) H 07/11/23 19:03 Creatinine 1.75 mg/dl (0.6-1.4) H 07/11/23 19:03 Est Cr Clr Drug Dosing 35.3 ml/min 07/11/23 19:03 Est GFR ( Amer) 40.5 ml/min 07/11/23 19:03 Est GFR (Non-Af Amer) 35.0 ml/min 07/11/23 19:03 BUN/Creatinine Ratio 18.9 (10-20) 07/11/23 19:03 Glucose 134 mg/dl (70-99(Fasting)) H 07/11/23 19:03 POC Glucose 130 mg/dl (70-99) H 07/11/23 19:21 Calcium 9.3 mg/dl (8.6-10.3) 07/11/23 19:03 Magnesium 2.2 mg/dl (1.7-2.4) 07/11/23 19:03 Total Bilirubin 0.4 mg/dl (0.2-1.0) 07/11/23 19:03 AST 17 U/L (13-39) 07/11/23 19:03 ALT 12 U/L (7-52) 07/11/23 19:03 Alkaline Phosphatase 61 U/L (34-104) 07/11/23 19:03 Troponin I High Sens 6.0 pg/ml (0-20) 07/11/23 19:03 Total Protein 7.3 gm/dl (6.0-8.3) 07/11/23 19:03 Albumin 4.1 gm/dl (3.4-5.0) 07/11/23 19:03 Globulin 3.2 gm/dl (2.5-4.0) 07/11/23 19:03 Albumin/Globulin Ratio 1.3 (0.9-2) 07/11/23 19:03 Procalcitonin < 0.05 ng/ml (0-0.5) 07/11/23 19:03 TSH 3.531 uIu/ml (0.300-4.500) 07/11/23 19:03 Adenovirus (PCR) Not Detected (NotDetected) 07/11/23 19:42 B. pertussis DNA (PCR) Not Detected (NotDetected) 07/11/23 19:42 B.parapertussis DNA PCR Not Detected (NotDetected) 07/11/23 19:42 C. pneumoniae DNA (PCR) Not Detected (NotDetected) 07/11/23 19:42 Coronavirus OC43 (PCR) Not Detected (NotDetected) 07/11/23 19:42 Coronavirus HKU1 (PCR) Not Detected (NotDetected) 07/11/23 19:42 Coronavirus 229E (PCR) Not Detected (NotDetected) 07/11/23 19:42 SARS-CoV-2 (PCR) DETECTED (NotDetected) A* 07/11/23 19:42 Coronavirus NL63 (PCR) Not Detected (NotDetected) 07/11/23 19:42 Human Metapneumovir PCR Not Detected (NotDetected) 07/11/23 19:42 Influenza Type A (PCR) Not Detected (NotDetected) 07/11/23 19:42 Influenza Type B (PCR) Not Detected (NotDetected) 07/11/23 19:42 M. pneumoniae (PCR) Not Detected (NotDetected) 07/11/23 19:42 Parainfluenza 1 (PCR) Not Detected (NotDetected) 07/11/23 19:42 Parainfluenza 2 (PCR) Not Detected (NotDetected) 07/11/23 19:42 Parainfluenza 3 (PCR) Not Detected (NotDetected) 07/11/23 19:42 Parainfluenza 4 (PCR) Not Detected (NotDetected) 07/11/23 19:42 RSV (PCR) Not Detected (NotDetected) 07/11/23 19:42 Entero/Rhino (PCR) Not Detected (NotDetected) 07/11/23 19:42 Diagnostic Findings CXR - per my interpretation - CXR with poor inspiratory effort, no obvious infiltrate PG Care Time/CCT Total # of Minutes Spent Total Time Spent with Patient: Total time spent is greater than 50% in coordination of care (as documented) at patient's floor/unit and/or counseling patient: Coding Level of Care Code 91902 INT INP/OBS CARE 2/55MIN Diagnoses COVID-19 U07.1 Syncope R55 Hypertension I10
[2023-07-12] MEDS ORDERED: ACETAMINOPHEN 325 MG TAB PO PRN (01:18)
[2023-07-12] MEDS ORDERED: ONDANSETRON INJ 2 MG/ML 2 ML VIAL IV PRN (01:18)
[2023-07-12] MEDS ORDERED: ALBUTEROL HFA 8 GM INHALER INH PRN (01:18)
[2023-07-12] MEDS ORDERED: REMDESIVIR 200 MG in SODIUM CHLORIDE 0.9% 210 ML IV STA (01:21)
--- NOTE | 2023-07-12 07:12 | XRay Report ---
SINGLE VIEW CHEST CLINICAL HISTORY: Cough. Hypoxia. FINDINGS: An AP, portable, upright chest radiograph is compared to study dated 05/27/2023. The examina tion is degraded by portable technique and apical lordotic positioning. The cardiomediastinal silhoue tte is unremarkable noting atherosclerotic calcification of the thoracic aorta. Chronic interstitial thickening is similar to previous. There is bibasilar scarring/atelectasis. No airspace consolidatio n or large pleural effusion is identified. No pneumothorax is seen. The skeletal structures are osteo penic. There are chronic/healed left-sided rib fractures. IMPRESSION: No active disease in the chest. ACT 112: Negative or not required by law. Electronically signed by: Jony Sandhu M.D. 07/12/2023 7:10 AM
[2023-07-12 07:39] LABS: Hematocrit (blood only) 39.7 % (42.0-52.0); Hemoglobin 12.8 g/dl (14.0-18.0); Mean Corpuscular Hemoglobin 29.1 pg (25.0-34.0); Mean Corpuscular Hgb Conc 32.2 g/dL (32.0-36.0); Mean Corpuscular Volume 90.2 fL (80.0-100.0); Mean Platelet Volume 9.1 fL (9.4-12.4); Platelet Count 165 K/uL (130-400); RDW Coefficient of Variation 14.3 % (11.5-14.5); White Blood Count 6.72 K/ul (4.8-10.8)
[2023-07-12 08:03] LABS: BUN Creatinine Ratio 17.4 (10-20); Calcium 9.1 mg/dl (8.6-10.3); Creatinine Clr Calc Pharmacy 29.9 ml/min; Est GFR (African American) 38.2 ml/min; Est GFR (Non-African American) 32.9 ml/min; Potassium 4.5 mmol/L (3.5-5.1)
--- NOTE | 2023-07-12 08:26 | Electrocardiogram Report ---
Test Reason : Blood Pressure : / mmHG Vent. Rate : 088 BPM Atrial Rate : 088 BPM P-R Int : 196 ms QRS Dur : 154 ms QT Int : 424 ms P-R-T Axes : 014 -82 044 degrees QTc Int : 513 ms Normal sinus rhythm Right bundle branch block Left anterior fascicular block Bifascicular block Abnormal ECG When compared with ECG of 18-MAR-2023 16:32, Nonspecific T wave abnormality has replaced inverted T waves in Inferior leads Confirmed by Cesar Marinelli ([id number]) on 07/12/2023 8:26:42 AM Referred By: REFERRED SELF Confirmed By:Dhiraj Marinelli
[2023-07-12] MEDS ORDERED: CEFEPIME 2,000 MG in SYRINGE 0 ML IV ONE (08:30)
[2023-07-12 08:44] LABS: Appearance Urine Clear (Clear); Bacteria Urine Automated 1+ (Negative); Bilirubin Urine Negative (Negative); Blood Urine 2+ (Negative); Color Urine Yellow; Epithelial Cell Urine Auto 0-5 /lpf (0-5); Glucose Urine UA Negative (Negative); Ketones Urine Negative (Negative); Leukocyte Esterase Urine 2+ (Negative); Nitrite Urine Negative (Negative); Protein Urine 1+ (Negative); RBC Urine Automated 0-4 /hpf (0-4); Specific Gravity Urine 1.018 (1.000-1.030); Urobilinogen Urine Negative (Negative); WBC Urine Automated >30 /hpf (0-5); pH Urine 5.5 (4.5-7.5)
[2023-07-12] MEDS ORDERED: amLODIPine BESYLATE 5 MG TAB PO SCH (09:00)
[2023-07-12] MEDS ORDERED: dexAMETHasone 6 MG in SYRINGE 0 ML IV SCH (09:00)
[2023-07-12] MEDS ORDERED: DEXAMETHASONE SOD INJ 4 MG/ML VIAL IV SCH (09:00)
[2023-07-12] MEDS ORDERED: ENOXAPARIN INJ 40 MG/0.4 ML SYR SQ SCH (09:00)
[2023-07-12] MEDS: SODIUM CHLORIDE 0.9% 1000ML 1,000 ML IV SCH ×2 (09:43→23:30)
[2023-07-12 10:21] LABS: D Dimer 1050 ug/L FEU (0-500)
[2023-07-12] MEDS ORDERED: IOVERSOL 350 MG 125mL Prefilled Syringe IV ONE (12:34)
--- NOTE | 2023-07-12 13:02 | CT Scan Report ---
CT ANGIOGRAM OF THE CHEST CLINICAL HISTORY: Hypoxia. Elevated d-dimer. Covid. COMPARISON STUDY: Chest x-ray dated 07/11/2023 TECHNIQUE: Following the IV administration of 117 cc of Optiray 320, CT angiogram of the chest was pe rformed from the upper abdomen to the thoracic inlet utilizing the pulmonary embolus protocol. Images are reviewed in the axial, sagittal, and coronal planes. 3-D MIPS images are created and assessed. I V contrast was administered without complication. A dose lowering technique was utilized adhering to the principles of ALARA. FINDINGS: Thyroid: Imaged portions of the thyroid gland are normal in size and attenuation. Thoracic aorta: There is atherosclerotic calcification of the thoracic aorta, which is normal in shirley marcelina and demonstrates standard 3-vessel arch anatomy. No dissection is seen. Pulmonary vasculature: The pulmonary trunk is normal in caliber. There are no filling defects identif ied in main, lobar, or segmental pulmonary branches to suggest pulmonary embolus. Heart: The heart is mildly enlarged and without pericardial effusion. The coronary arteries are dense ly calcified. Lungs and pleural spaces: Mild emphysematous change is noted. The trachea and central airways are shania ar. No airspace consolidation or pleural effusion is identified. The suprarenal spine are seen throug hout both lungs, greatest at the lung bases. Mediastinum: There is no mediastinal lymphadenopathy. Kailyn: Clear. Axillae: There is no axillary lymphadenopathy. Upper abdomen: There are calcified gallstones. Partially visualized upper abdominal viscera is otherw ise within normal limits. Skeletal structures: The skeletal structures are osteopenic. No lytic or blastic bony lesions are see n. Degenerative change is noted in the shoulders and thoracic spine. There are chronic/healed left-si ded rib fractures. IMPRESSION: 1. There is no evidence of pulmonary embolus in the main, lobar, or segmental pulmonary arteries. 2. There is no airspace consolidation or pleural effusion. 3. Mild cardiomegaly and mild emphysema. 4. Cholelithiasis. 5. Additional findings as above. ACT 112: Negative or not required by law. Electronically signed by: Jony Sandhu M.D. 07/12/2023 1:01 PM
--- NOTE | 2023-07-12 14:23 | Hospitalist Progress Note ---
Date of Service July 12, 2023 Assessment & Plan (1) COVID-19: Plan: Nasal swab positive but no symptoms of viral infection. He agrees to discontinuation of dexamethasone and remdesivir. Unfortunately, I cannot discontinue the isolation precautions that were established on admission. (2) Hypoxia: Plan: Uncertain if this is chronic or acute. Chest x-ray is clear. Chest CTA negative for PE. Will wean oxygen off as tolerated (3) Syncope: Plan: Appears to be vasovagal. He had this in the past. Continue IV fluids for now. Telemetry. (4) Hypertension: Plan: Stable. Continue current medical management Plan Eventual discharge to home soon. Admission and Anticipated Discharge Date Admission Date: July 11, 2023 Subjective Alert and oriented. No evidence of acute viral illness. He states he had a syncopal episode while in the bathroom which has occurred in the past. Unfortunately, the ED is continuing to do nasal swabs COVID testing on asymptomatic patients. His was positive. He agrees to discontinuation of remdesivir and dexamethasone. Chest x-ray is clear. I am not sure why he is requiring oxygen. Chest CTA negative for PE. He may have a UTI. Urine analysis was obtained and appears dirty. He now is on cefepime due to his history of Pseudomonas in the past. Urine cultures and blood cultures are ordered. He is on IV fluids. Review of Systems Review of Systems: Constitutional-no fever or chills ENT-no blurred vision, no double vision, no epistaxis, no sore throat Respiratory-no cough, no wheezing, no shortness of breath Cardiac-no palpitations, no chest pain, no syncope GI-no nausea, vomiting, diarrhea, melena, hematochezia -no urinary retention, no urinary incontinence, no dysuria, no hematuria Musculoskeletal-no joint pain, no muscle tenderness Skin-no bruising, no rashes, no pruritus Neuro-no isolated weakness, no paresthesia Psych-no depression, no anxiety Physical Exam Physical Exam: General-alert and oriented x3, no fevers, no chills HEENT-head atraumatic and normocephalic, pupils equal and reactive to light, extraocular muscles intact Neck-no lymphadenopathy or thyromegaly, trachea midline Chest-clear to auscultation percussion. No rales wheezing or rhonchi Cardiac-regular rate and rhythm, normal S1 and S2 Abdomen-normal bowel sounds, nontender, no hepatosplenomegaly Extremities-no cyanosis, clubbing, or edema Neuro-cranial nerves II through XII intact, motor and sensory function within normal limits, strength symmetrical , no focal deficits Psych-normal affect, normal mood Results & Data Results & Data Vital Signs (Past 12 Hours) Vital Signs Temp Pulse Resp BP Pulse Ox O2 Del Method O2 Flow Rate 07/12/23 11:50 36.6 C 89 19 170/78 H 96 Nasal Cannula 2 07/12/23 10:53 Nasal Cannula 2 07/12/23 08:04 36.6 C 87 18 146/78 H 95 Nasal Cannula 2 Laboratory Results 07/12/23 06:59 07/12/23 06:59 PG Care Time/CCT Total # of Minutes Spent Total Time Spent with Patient: Total time spent is greater than 50% in coordination of care (as documented) at patient's floor/unit and/or counseling patient: Coding Level of Care Code 66311 SUB INP/OBS CARE 3/50MIN Diagnoses COVID-19 U07.1 Hypoxia R09.02 Syncope R55 Hypertension I10
[2023-07-12] MEDS ORDERED: REMDESIVIR 100 MG in SODIUM CHLORIDE 0.9% 230 ML IV SCH (20:00)
[2023-07-12] MEDS: CEFEPIME 1,000 MG in SYRINGE 0 ML IV SCH (22:30)
[2023-07-13 03:22] VITALS: O2SAT 95
[2023-07-13 07:33] LABS: Basophils # (auto) 0.01 K/uL (0-0.2); Basophils % (auto) 0.1 %; Hematocrit (blood only) 36.9 % (42.0-52.0); Hemoglobin 12.3 g/dl (14.0-18.0); Immature Granulocytes # (auto) 0.04 K/uL (0.01-0.20); Immature Granulocytes % (auto) 0.5 %; Lymphocytes # (auto) 0.51 K/uL (1.2-3.4); Lymphocytes % (auto) 6.1 %; Mean Corpuscular Hemoglobin 29.4 pg (25.0-34.0); Mean Corpuscular Hgb Conc 33.3 g/dL (32.0-36.0); Mean Corpuscular Volume 88.1 fL (80.0-100.0); Mean Platelet Volume 9.1 fL (9.4-12.4); Monocytes # (auto) 0.79 K/uL (0.11-0.59); Monocytes % (auto) 9.4 %; Neutrophils # (auto) 7.05 K/uL (1.40-6.50); Neutrophils % (auto) 83.9 %; Platelet Count 154 K/uL (130-400); RDW Coefficient of Variation 14.3 % (11.5-14.5); Red Blood Count 4.19 M/uL (4.70-6.10)
[2023-07-13 07:46] LABS: BUN Creatinine Ratio 18.6 (10-20); Calcium 8.8 mg/dl (8.6-10.3); Creatinine Clr Calc Pharmacy 28.3 ml/min; Est GFR (African American) 35.8 ml/min; Est GFR (Non-African American) 30.9 ml/min; Potassium 4.2 mmol/L (3.5-5.1)
[2023-07-13 08:18] VITALS: TEMP 97.9
[2023-07-13] MEDS ORDERED: amLODIPine BESYLATE 5 MG TAB PO SCH (09:00)
[2023-07-13] MEDS ORDERED: ENOXAPARIN INJ 30 MG/0.3 ML SYR SQ SCH (09:00)
[2023-07-13] MEDS: CEFEPIME 1,000 MG in SYRINGE 0 ML IV SCH (09:19)
[2023-07-13 11:08] VITALS: BP 153/76; PULSE 68
--- NOTE | 2023-07-13 12:22 | Discharge Summary ---
Date of Service July 13, 2023 Admission HPI Per Admitting Provider Lizzie Naidu is a pleasant 82yo male with history of hypertension presenting after a syncopal event at home. Patient reports developing a slight cough today. He was walking back from the bathroom at home this evening and had a syncopal event. He was out for less than one minute. Denies head trauma, chest pain, palpitations, dizziness, focal numbness/tingling/weakness. Patient does have a history of vasovagal syncope and has passed out on multiple occasions in the past. Upon arrival to the ER patient found to be hypoxic at 87-88% on room air. He was placed on supplemental O2. Respiratory Biofire panel resulted POSITIVE for Covid-19 infection. Patient is fully vaccinated with Booster x 2. He had Covid-19 over one year ago. Is uncertain where his exposure came from. Presently with no additional complaints. Denies VILLA, congestion, SOB, chest pain, palpitations, abdominal pain, nausea, vomiting, diarrhea. ER course: Dexamethasone 6mg IV Albuterol 3mL neb Zofran 4mg IV NSS x 1L Principal Diagnosis Syncope, recurrent Pseudomonas UTI, COVID positivity on nasal swab without systemic viral illness Discharge Exam General-alert and oriented x3, no fevers, no chills HEENT-head atraumatic and normocephalic, pupils equal and reactive to light, extraocular muscles intact Neck-no lymphadenopathy or thyromegaly, trachea midline Chest-clear to auscultation percussion. No rales wheezing or rhonchi Cardiac-regular rate and rhythm, normal S1 and S2 Abdomen-normal bowel sounds, nontender, no hepatosplenomegaly Extremities-no cyanosis, clubbing, or edema Neuro-cranial nerves II through XII intact, motor and sensory function within normal limits, strength symmetrical , no focal deficits Psych-normal affect, normal mood Discharge Data Allergies Allergy/AdvReac Type Severity Reaction Status Date / Time No Known Allergies Allergy Verified 07/11/23 19:20 Consultations 07/11/23 22:12 ED Decision to Admit Stat Ordered Studies 07/12/23 11:26 CT angio chest PE protocol Stat Hospital Course (1) COVID-19: Nasal swab positive but no symptoms of viral infection. He agreed to discontinuation of dexamethasone and remdesivir. Unfortunately, I cannot discontinue the isolation precautions that were established on admission. (2) Pseudomonas urinary tract infection: Treated with intravenous cefepime while hospitalized. He will be discharged home on oral Cipro (3) Hypoxia: Uncertain etiology or accuracy of initial measurements. Chest x-ray is clear. Chest CTA negative for PE. Oxygen has been weaned off. He is now on room air (4) Syncope: Appears to be vasovagal. He had this in the past. Treated while hospitalized with IV fluids for now. Telemetry. (5) Hypertension: Stable. Continue current medical management Plan Home todayJuly 13 Total Time Total Time Spent Total Time Spent (In Minutes): 45-minute Discharge Plan Discharge Items Patient Disposition: Home - Self-Care Reason For Visit: COVID-19, HYPOXIA Discharge Diagnosis: Recurrent Pseudomonas UTI, syncope, transient hypoxia of uncertain etiology or accuracy, COVID nasal swab positivity without systemic viral illness Activity: Resume your previous activity Non-emergency contact: Primary Care Provider Call non-emergency contact if: your symptoms worsen Follow-up/Referrals: Heriberto Guajarod [Primary Care Provider] - Diet: Regular and Heart Healthy Addtl Attending Provider Instructions: Take Cipro 500 mg twice a day for 1 week Pending Studies at Discharge: No Stand-Alone Forms: [employer], Smoking Cessation Medications and DC Order Prescriptions: New ciprofloxacin HCl [Cipro] 500 mg tablet 500 mg PO BID Qty: 14 0RF Continued amlodipine 2.5 mg tablet 2.5 mg PO DAILY cholecalciferol (vitamin D3) 50 mcg (2,000 unit) capsule 100 mcg PO DAILY acetaminophen [Tylenol] 325 mg tablet 650 mg PO QID PRN (Reason: Pain) Metamucil 3.4 gram/5.4 gram Powder 1 tbsp PO DAILY Rx Instructions: mix into at least 8 oz of water or juice before administering Discharge Orders: Discharge Order (Routine); Ordered 07/13/23 Ordered By: Jason Mix Admission Data Admit Date/Time: 07/11/23 22:20 Attending Provider: Jason Mix Admit Provider: Berta Aguilera Primary Care Provider: Heriberto Guajardo Other Providers: Berta Aguilera Coding Level of Care Code 30128 INP/OBS DISCH >30 MIN Diagnoses COVID-19 U07.1 Pseudomonas urinary tract infection N39.0; B96.5 Hypoxia R09.02 Syncope R55 Hypertension I10
== END 2023-07-13 12:44 | disposition home or self-care (01) | DRG 689 ==
LOC: ED 18:51 → 2W 22:20 → SUATTDRO 22:20 → 2W 23:40

== ENCOUNTER 2023-10-11 15:30 | Inpatient (IN) ==
--- NOTE | 2023-10-11 16:31 | XRay Report ---
SINGLE VIEW CHEST CLINICAL HISTORY: Atypical chest pain. FINDINGS: A PA chest radiograph is compared to study dated 07/11/2023 and correlated with chest CT lola ed 07/12/2023. The cardiomediastinal silhouette is top normal for projection. There is bibasilar scarr ing/atelectasis. No airspace consolidation or large pleural effusion is identified. No pneumothorax i s seen. The skeletal structures are osteopenic. There are chronic/healed left-sided rib fractures. IMPRESSION: No acute cardiopulmonary abnormality is identified. ACT 112: Negative or not required by law. Electronically signed by: Jony Sandhu M.D. 10/11/2023 4:29 PM
[2023-10-11] MEDS ORDERED: SODIUM CHLORIDE 0.9% 500 ML IV SCH (17:15)
[2023-10-11] MEDS ORDERED: SODIUM CHLORIDE 0.9% 1,000 ML IV SCH ×2 (17:15→21:58)
[2023-10-11] MEDS ORDERED: CEFEPIME 2,000 MG/20 ML VIAL IV STA (17:16)
[2023-10-11 17:20] LABS: Hematocrit (blood only) 44.6 % (42.0-52.0); Hemoglobin 14.1 g/dl (14.0-18.0); Mean Corpuscular Hemoglobin 28.1 pg (25.0-34.0); Mean Corpuscular Hgb Conc 31.6 g/dL (32.0-36.0); Mean Platelet Volume 8.9 fL (9.4-12.4); Platelet Count 149 K/uL (130-400); RDW Coefficient of Variation 14.8 % (11.5-14.5); RDW Standard Deviation 48.6 fL (36.4-46.3); Red Blood Count 5.01 M/uL (4.70-6.10); White Blood Count 11.87 K/ul (4.8-10.8)
[2023-10-11 17:38] LABS: Alanine Aminotransferase 11 U/L (7-52); Albumin Globulin Ratio 1.2 (0.9-2); Albumin Level 4.2 gm/dl (3.4-5.0); Alkaline Phosphatase 67 U/L (34-104); Anion Gap 11 (3-11); Aspartate Aminotransferase 16 U/L (13-39); BUN Creatinine Ratio 17.3 (10-20); Bilirubin,Total 0.7 mg/dl (0.2-1.0); Blood Urea Nitrogen 31 mg/dl (6-23); Calcium 9.7 mg/dl (8.6-10.3); Carbon Dioxide 22 mmol/L (21-32); Chloride 106 mmol/L (98-107); Est GFR (African American) 39.2 ml/min; Est GFR (Non-African American) 33.8 ml/min; Globulin 3.4 gm/dl (2.5-4.0); Glucose 109 mg/dl (70-99(Fasting)); Magnesium 2.1 mg/dl (1.7-2.4); Potassium 3.9 mmol/L (3.5-5.1); Sodium 139 mmol/L (136-145); Total Protein 7.6 gm/dl (6.0-8.3)
[2023-10-11 17:43] LABS: Basophils # (auto) 0.02 K/uL (0.00-0.20); Basophils % (auto) 0.2 %; Immature Granulocytes # (auto) 0.07 K/uL (0.01-0.20); Immature Granulocytes % (auto) 0.6 %; Lymphocytes # (auto) 0.22 K/uL (1.20-3.40); Lymphocytes % (auto) 1.9 %; Monocytes # (auto) 0.67 K/uL (0.11-0.59); Monocytes % (auto) 5.6 %; Neutrophils # (auto) 10.89 K/uL (1.40-6.50); Neutrophils % (auto) 91.7 %
[2023-10-11 17:44] LABS: Troponin I High Sensitivity 11.8 pg/ml (0-20)
[2023-10-11 17:46] LABS: Partial Thromboplastin Time 28.9 Seconds (21.0-31.0); Prothrombin Time 10.5 Seconds (9.0-12.0)
[2023-10-11 17:59] LABS: Thyroid Stimulating Hormone 0.745 uIu/ml (0.300-4.500)
[2023-10-11] MEDS ORDERED: ALBUT/IPRATROP 3MG/0.5MG NEB 3 ML VIAL NEB STA (18:29)
[2023-10-11 18:53] LABS: Appearance Urine Turbid (Clear); Bacteria Urine Automated 4+ (Negative); Bilirubin Urine Negative (Negative); Blood Urine 3+ (Negative); Color Urine Yellow; Glucose Urine UA Negative (Negative); Ketones Urine 1+ (Negative); Leukocyte Esterase Urine 3+ (Negative); Nitrite Urine Positive (Negative); Protein Urine 2+ (Negative); RBC Urine Automated >30 /hpf (0-4); Specific Gravity Urine 1.019 (1.000-1.030); Urobilinogen Urine Negative (Negative); WBC Urine Automated >30 /hpf (0-5)
[2023-10-11] MEDS ORDERED: methylPREDNISolone 60 MG in SYRINGE 1 ML IV STA (18:53)
[2023-10-11] MEDS ORDERED: METOPROLOL TARTRATE 1 MG/ML VIAL IV STA (18:53)
[2023-10-11] MEDS ORDERED: LORazepam 1 MG/1 ML SYR ED Inj Use IV STA (18:53)
[2023-10-11] MEDS ORDERED: ONDANSETRON INJ 2 MG/ML 2 ML VIAL ONE (19:05)
[2023-10-11] MEDS ORDERED: ondansetron HCL 6 MG in DEXTROSE 5% 50 ML IV STA (19:09)
--- NOTE | 2023-10-11 19:42 | History & Physical Report ---
Date of Service October 11, 2023 Assessment & Plan (1) UTI (urinary tract infection): Plan: Clinically, patient denies dysuria or burning with urination, but endorses increased urinary frequency Increased confusion, per UA positive on arrival; +3 leukocyte Estrace, +3 blood, +2 protein, +4 bacteria Leukocytosis at 11.87 with neutrophil predominance Lactate WNL at 1.3 Urine culture on 09/16/2023 grew E. coli sensitive to cefepime Continue cefepime 2000 mg IV q8h AM CBC, BMP (2) Dyspnea: Plan: Acute onset while in the ED One episode of vomiting on day of admission 10/11 at 1300 Procalcitonin elevated at 5.30 COVID-negative Troponin WNL at 11.8 Blood cultures pending CXR NAF Concern for aspiration PNA Cefepime for empiric coverage Supplemental oxygen as needed to maintain SPO2 >94% Continuous pulse oximetry Continuous telemetry monitoring Aspiration precautions; elevate HOB Zofran 4 mg IV q6h as needed for nausea; QTc 482 DuoNeb 3 mL q4h as needed for dyspnea MRSA swab pending (3) Hypertension: Plan: Tachycardia with elevated blood pressure 160/100s in the ED Lopressor 5 mg IV given in the ED Continue amlodipine Lopressor 5 mg IV as needed for BP >180/120 (4) Generalized weakness: Plan: Patient reports that he could not get out of bed in the morning of 10/11 PT/OT consulted Plan Disposition: Admit to PCU telemetry Full code Regular diet (aspiration precautions) VTE PPx: Heparin 5000u SQ q12h History of Present Illness Chief Complaint: Weakness Primary Care Provider: [facility] Noted is an 83-year-old male with PMH of prostate cancer, bladder outlet obstruction, Pseudomonas UTI, and COVID-19 in July 2023 with acute hypoxic respiratory failure. He presented to the ED from [facility] for UTI and respiratory difficulties. Generalized weakness started this morning, when patient reported he could not get out of bed. Patient uses a cane/walker at baseline. Patient had an episode of vomiting around 1330 this morning. Per (Lydia) he also exhibited some confusion. called ambulance at 1430. He developed dyspnea while in the ED. No at home O2 use. Patient endorses increased urinary frequency (ongoing due to prostate cancer). ED course: IVF, cefepime 2000 mg, DuoNeb 3 mL, Ativan 0.5 mg, Lopressor 5 mg IV, Solu- Medrol, and Zofran ROS: Patient endorses productive fatigue, productive cough (clear), SOB, nausea, and vomiting Patient denies fever, chill, sweating, joint ache, VILLA, dizziness, chest pain, chest palpitations, abdominal pain, burning with urination, blood in urine/stool, or numbness/tingling/swelling/pain in your legs. Patient denies PMH of DVT/PE, FL, CVA, or diabetes Social Hx: Smoked tobacco pipe, but quit 40y ago; not a current smoker No alcohol use Allergies Allergy/AdvReac Type Severity Reaction Status Date / Time No Known Allergies Allergy Verified 10/11/23 19:32 Home Medications Medication Instructions Recorded Confirmed Type acetaminophen 325 mg tablet 650 mg PO QID PRN Pain 05/24/22 10/11/23 History (Tylenol) amlodipine 2.5 mg tablet 2.5 mg PO DAILY 10/31/22 10/11/23 History cholecalciferol (vitamin D3) 50 100 mcg PO DAILY 05/01/23 10/11/23 History mcg (2,000 unit) capsule psyllium husk 3.4 gram/5.4 gram 1 tbsp PO DAILY 07/11/23 10/11/23 History oral powder (Metamucil) Past Med/Surg History Medical History (Updated 10/11/23 @ 20:45 by Alfredo Mortensen PA-C) Generalized weakness Hypertension Kidney stones passed without intervention Prostate cancer s/p radiation treatments Microscopic hematuria Hyperkalemia High anion gap metabolic acidosis Acute renal failure 01/2022, significantly improved with creatinine 1.46 on most recent labs (02/20/22) Diverticulitis Hx Surgical History Tibia fracture with repair > left leg as child History of repair of rotator cuff left Hx of vasectomy History of colonoscopy History of tooth extraction Hx of bilateral cataract extraction History of total right knee replacement H/O hernia repair History of prostate biopsy Family History Father Hypertension Mother Lung disease Social History Smoking Status: Former smoker Tobacco Type: Cigarettes Second Hand Exposure: No; Do You Dip or Chew Tobacco: No; Tobacco Cessation Education Requested by Patient: No Hx Alcohol Use: No Hx Substance Use: No Preferred Language: Armenian Communication Ability: Effective Visual Impairment: No Limitations Hearing Ability: Hard of Hearing Purse Seiner Required: No Beliefs That Will Affect Care: None marital status: Current Living Situation: Spouse Current Living Situation Comment: Lives at home with current occupational status: retired How many Children do You have: 2 Other Information That Helps Us Care for You: No Feels Safe at Home: Yes Safety Concerns: Feels Safe At This Time Diet: regular caffeine: Yes during the past year weight has: remained stable Assistive Devices: Cane and Walker Review of Systems Review of Systems: See HPI above Physical Exam Physical Exam: General: no acute distress; lethargic; non-toxic appearing; cooperative; SPO2 94% on 4L NC HEENT: normocephalic, atraumatic; no scleral icterus; PERRLA w/ EOMs intact; dry mucus membrane; vision and hearing intact Neck: supple; no JVD; no lymphadenopathy; trachea midline Skin: warm, dry without signs of tenting; no cyanosis; no rashes, bruising, lesions, or erythema noted CV: chest wall NTP; RRR; S1/S2 normal; no murmurs/rubs/gallops; pulses intact and symmetric at radial, DP, and PT Lungs: no acute respiratory distress; symmetrical chest wall expansion; clear breath sounds across all lung manzanares w/o adventitious sounds; no wheezing ABD: Soft, NTP; BS present; no rebound/guarding; no ascites; no distention; negative CVA tenderness MSK: no tics or fasciculations; no edema noted in the LEs b/l; 2/5 strength in LEs b/l; 3/5 commissary agent strength b/l Neuro: A&Ox2 -not oriented to time/month; flat affect; mumbles; one-word responses to questions; no focal deficits; sensation grossly intact in LEs b/l Results & Data Results & Data Vital Signs (Past 12 Hours) Vital Signs Temp Pulse Pulse Resp BP BP Pulse Ox 10/11/23 19:30 101 H 160/100 H 10/11/23 19:21 37.2 C 101 H 34 H 163/100 H 93 10/11/23 19:05 128 H 161/109 H 10/11/23 19:00 138 H 40 H 10/11/23 17:20 97 H 10/11/23 17:20 95 H 22 95 10/11/23 17:20 95 H 18 145/86 H 95 10/11/23 17:20 94 10/11/23 15:37 36.7 C 107 H 18 136/89 97 O2 Del Method O2 Flow Rate 10/11/23 19:30 10/11/23 19:21 Nasal Cannula 4 10/11/23 19:05 10/11/23 19:00 10/11/23 17:20 10/11/23 17:20 Room Air 10/11/23 17:20 Room Air 10/11/23 17:20 Room Air 10/11/23 15:37 Nasal Cannula 2 Laboratory Results Abnormal lab results 10/11/23 10/11/23 10/11/23 Range/Units 16:54 17:00 18:40 WBC 11.87 H (4.8-10.8) K/ul MCHC 31.6 L (32.0-36.0) g/dL RDW Std Deviation 48.6 H (36.4-46.3) fL RDW Coeff of Blanca 14.8 H (11.5-14.5) % MPV 8.9 L (9.4-12.4) fL Neut # (Auto) 10.89 H (1.40-6.50) K/uL Lymph # (Auto) 0.22 L (1.20-3.40) K/uL [place] # (Auto) 0.67 H (0.11-0.59) K/uL BUN 31 H (6-23) mg/dl Creatinine 1.79 H (0.6-1.4) mg/dl Glucose 109 H (70-99(Fasting)) mg/dl Procalcitonin 5.30 H (0-0.5) ng/ml Urine Appearance Turbid A (Clear) Urine Protein 2+ H (Negative) Urine Ketones 1+ H (Negative) Urine Blood 3+ H (Negative) Urine Nitrite Positive A (Negative) Ur Leukocyte Esterase 3+ H (Negative) Urine WBC (Auto) >30 H (0-5) /hpf Urine RBC (Auto) >30 H (0-4) /hpf U Epithel Cells (Auto) 10-20 H (0-5) /lpf Urine Bacteria (Auto) 4+ H (Negative) Diagnostic Findings Chest X-Ray 10/11/23 15:42 SINGLE VIEW CHEST CLINICAL HISTORY: Atypical chest pain. FINDINGS: A PA chest radiograph is compared to study dated 07/11/2023 and correlated with chest CT dated 07/12/2023. The cardiomediastinal silhouette is top normal for projection. There is bibasilar scarring/atelectasis. No airspace consolidation or large pleural effusion is identified. No pneumothorax is seen. The skeletal structures are osteopenic. There are chronic/healed left-sided rib fractures. IMPRESSION: No acute cardiopulmonary abnormality is identified. ACT 112: Negative or not required by law. Electronically signed by: Jony Sandhu M.D. 10/11/2023 4:29 PM Code Status & VTE Plan Code Status Full code VTE Prophylaxis Plan VTE Prophylaxis will be ordered: Yes Supervising Physician Co-Signing Physician Notes Attending addendum: I have physically seen this patient, have supervised the TICO's activities, and agree with the H&P unless as otherwise noted. Assessment and Plan: Recurrent urinary tract infection- Recent organisms including Pseudomonas and E. coli Follow urine culture and sensitivity Cefepime 2 g IV every 12 hours has been responsive in the past Repeat CBC with differential and basic metabolic panel in a.m. Confusion- Likely associated UTI and mild dehydration in the setting of general debilitation May be an element of aspiration pneumonia after episode of vomiting earlier in the day, and declining oxygen while in ED Presumptive mild aspiration pneumonia- Cefepime IV as above Duonebs every 4 hours as needed Oxygenation had decreased to the low 90s, but improved again after initial treatment MRSA swab PG Care Time/CCT Total # of Minutes Spent Total Time Spent with Patient: Total time spent is greater than 50% in coordination of care (as documented) at patient's floor/unit and/or counseling patient: Coding [place] [address] INT INP/OBS CARE 2/55MIN Patient Type Established Medical Decision Making Moderate Complexity Diagnoses UTI (urinary tract infection) N39.0 Dyspnea R06.00 Hypertension I10 Generalized weakness R53.1
[2023-10-11] MEDS ORDERED: ACETAMINOPHEN 325 MG TAB PO PRN (21:58)
[2023-10-11] MEDS ORDERED: METOPROLOL TARTRATE 1 MG/ML VIAL IV PRN (21:58)
[2023-10-11] MEDS ORDERED: NITROGLYCERIN SL 0.4 MG/TAB TAB SL PRN (21:58)
[2023-10-11] MEDS ORDERED: ALBUT/IPRATROP 3MG/0.5MG NEB 3 ML VIAL NEB PRN (21:58)
[2023-10-11] MEDS: HEPARIN SOD 5,000 UNIT/0.5 ML VIAL SQ SCH (22:31)
[2023-10-12] MEDS ORDERED: ONDANSETRON INJ 2 MG/ML 2 ML VIAL IV PRN (01:00)
[2023-10-12] MEDS: CEFEPIME 2,000 MG in SYRINGE 0 ML IV SCH ×2 (05:32→17:28)
--- NOTE | 2023-10-12 07:22 | XRay Report ---
XR chest 1V portable CLINICAL HISTORY: stridor COMPARISON STUDY: Chest CT July 12, 2023. Chest radiograph October 11, 2023 at 4:10 PM. FINDINGS: Low lung volumes are noted. There is no pneumothorax or pleural effusion. Bibasilar opaciti es favor atelectasis. No consolidation to suggest pneumonia. There is no evidence for pulmonary edema . Cardiomediastinal silhouette is stable. IMPRESSION: No acute cardiopulmonary findings. ACT 112: Negative or not required by law. Electronically signed by: Williams Rosado M.D. 10/12/2023 7:20 AM
[2023-10-12 07:36] LABS: Hematocrit (blood only) 38.7 % (42.0-52.0); Hemoglobin 12.2 g/dl (14.0-18.0); Mean Corpuscular Hgb Conc 31.5 g/dL (32.0-36.0); Mean Corpuscular Volume 88.8 fL (80.0-100.0); Mean Platelet Volume 9.3 fL (9.4-12.4); Platelet Count 128 K/uL (130-400); RDW Coefficient of Variation 14.8 % (11.5-14.5); RDW Standard Deviation 48.6 fL (36.4-46.3); Red Blood Count 4.36 M/uL (4.70-6.10); White Blood Count 10.34 K/ul (4.8-10.8)
[2023-10-12 07:44] LABS: BUN Creatinine Ratio 18.1 (10-20); Calcium 8.9 mg/dl (8.6-10.3); Creatinine Clr Calc Pharmacy 33.3 ml/min; Est GFR (African American) 39.7 ml/min; Est GFR (Non-African American) 34.3 ml/min; Potassium 4.4 mmol/L (3.5-5.1)
[2023-10-12] MEDS: PSYLLIUM or GUAR GUM FIBER POWDER PACKET PO SCH (08:12)
[2023-10-12] MEDS: HEPARIN SOD 5,000 UNIT/0.5 ML VIAL SQ SCH ×2 (08:12→21:06)
[2023-10-12] MEDS: amLODIPine BESYLATE 5 MG TAB PO SCH (08:12)
[2023-10-12 08:14] LABS: A calco-baum cmplx NotReported Not Detected (NotDetected); Bact fragilis Not Reported Not Detected (NotDetected); C auris Not Reported Not Detected (NotDetected); CTX-M Resistant Gene Not Detected (NotDetected); Calbicans Not Reported Not Detected (NotDetected); Candida glabrata Not Reported Not Detected (NotDetected); Candida krusei Not Reported Not Detected (NotDetected); Cneoformans/gatti Not Reported Not Detected (NotDetected); Cparapsilosis Not Reported Not Detected (NotDetected); E cloacae compx Not Reported Not Detected (NotDetected); Efaecalis Not Reported Not Detected (NotDetected); Efaecium Not Reported Not Detected (NotDetected); Enterobacterales DETECTED (NotDetected); Enterobacterales Not Reported DETECTED (NotDetected); Escherichia coli Not Reported DETECTED (NotDetected); H influenzae Not Reported Not Detected (NotDetected); IMP Resistant Gene Not Detected (NotDetected); K aerogenes Not Reported Not Detected (NotDetected); KPC Resistant Gene Not Detected (NotDetected); Koxytoca Not Reported Not Detected (NotDetected); Kpneumoniae grp Not Reported Not Detected (NotDetected); Lmonocyt Not Reported Not Detected (NotDetected); N meningitidis Not Reported Not Detected (NotDetected); NDM Resistant Gene Not Detected (NotDetected); OXA 48 Like Resistant Gene Not Detected (NotDetected); P aeruginosa Not Reported Not Detected (NotDetected); Proteus spp Not Reported Not Detected (NotDetected); Salmonella spp Not Reported Not Detected (NotDetected); Smarcescens Not Reported Not Detected (NotDetected); Staph lugdunensis Not Reported Not Detected (NotDetected); Staph spp. Not Reported Not Detected (NotDetected); Staphaureus Not Reported Not Detected (NotDetected); Staphepi Not Reported Not Detected (NotDetected); Stenmaltophilia Not Reported Not Detected (NotDetected); Strep agal(GrpB) Not Reported Not Detected (NotDetected); Strep pneum Not Reported Not Detected (NotDetected); Strep pyog (GrpA) Not Reported Not Detected (NotDetected); Strep spp Not Reported Not Detected (NotDetected); VIM Resistant Gene Not Detected (NotDetected); mcr-1 Colistin Resistant Gene Not Detected (NotDetected)
[2023-10-12 08:19] LABS: Basophils # (auto) 0.01 K/uL (0.00-0.20); Basophils % (auto) 0.1 %; Immature Granulocytes # (auto) 0.06 K/uL (0.01-0.20); Immature Granulocytes % (auto) 0.6 %; Lymphocytes # (auto) 0.27 K/uL (1.20-3.40); Lymphocytes % (auto) 2.6 %; Monocytes # (auto) 0.19 K/uL (0.11-0.59); Monocytes % (auto) 1.8 %; Neutrophils # (auto) 9.81 K/uL (1.40-6.50); Neutrophils % (auto) 94.9 %; RBC Morphology Unremarkable
--- NOTE | 2023-10-12 16:42 | XRay Report ---
XR chest 2V PA/lateral CLINICAL HISTORY: RLL crackles COMPARISON STUDY: Chest CT July 12, 2023. Chest radiograph October 11, 2023. FINDINGS: Lung volumes are normal. There is no pneumothorax or pleural effusion. Linear bibasilar den sities represent atelectasis or scarring. There is no consolidation to suggest pneumonia. There is no evidence for pulmonary edema. Cardiomediastinal silhouette is normal. IMPRESSION: No acute cardiopulmonary findings. ACT 112: Negative or not required by law. Electronically signed by: Williams Rosado M.D. 10/12/2023 4:41 PM
--- NOTE | 2023-10-12 20:41 | Hospitalist Progress Note ---
Date of Service October 12, 2023 Assessment & Plan (1) E coli bacteremia: Plan: 1 out of 4 admission blood cx's + for e.coli fortunately remains hemodynamically stable source - likely urinary tract other source could be biliary (has gallstones on prior CT) but I doubt such follow all cultures cont cefepime (2) UTI (urinary tract infection): Plan: likely that urine cx will grow e.coli in light of + blood cultures for e.coli had e.coli UTI earlier in September 2023 cont cefepime await final cultures (3) Dyspnea: Plan: Acute onset while in the ED Etiology?? no respiratory symptoms today but still with NC O2 requirement I repeated a cxr today - no infiltrates if dyspnea continues or he has ongoing O2 requirement --> CTA chest r/o PE in light of prostate cancer (4) Hypertension: Plan: controlled cont norvasc low-dose (5) Generalized weakness: Plan: 2nd to #1 PT, OT evals (6) Prostate cancer: Plan: s/p radiation therapy for such this year (7) Kidney stones: Plan: CT a/p in 08/2023 with 1 solitary stone -- > right-sided if any clinical worsening repeat imaging study to ensure this stone has not moved into the ureter (8) Thrombocytopenia: Plan: likely 2nd to #1 cbc am (9) DVT prophylaxis: Plan: heparin 5000 BID (10) BPH loc w urin obs/LUTS: Plan: uncertain why he is not on alpha aureliano or 5alpha reductase inhibitor for latter - likely due to prostate ca for alpha aureliano - BPs too low or dizziness?? will have to review outpatient urology notes recent CT a/p in late August very enlarged prostate gland of note - pt had e.coli grow out on urine cx in September I presume his UTI will be due to e.coli again thus - prostatitis?? Plan updated extensively by phone this evening Admission and Anticipated Discharge Date Admission Date: October 11, 2023 Subjective notified by staff this am that 1 out of 4 admission blood cx's turned + for Gram Negative Barrett Biofire panel + for e.coli no resistance noted on Biofire during the visit patient resting in bed watching the [employer] foot ball game he feels better than yesterday denies any cough or dyspnea denies any back pain, flank pain or abd pain no nausea or emesis has urinary incontinence staff have tried a [place] cath without success (keeps sliding off) eating decently today tele overnight wnl Review of Systems Review of Systems: gen - no fevers or chills cv - no chest pain or orthopnea pulm - no dyspnea GI - no abd pain - no dysuria Physical Exam Physical Exam: gen - looks good, NAD, very pleasant, no confusion mouth - MMM neck - no JVD heart - RRR, s1 s2 lungs - scant focal rales R base; still requiring NC O2; no wheeze; no increased work of breathing abd - soft, NT, ND, BS+, no HSM musculo - no flank tenderness b/l ext - no edema, pulses 2+ b/l psych - a/o x 3 Results & Data Results & Data Vital Signs (Past 12 Hours) Vital Signs Temp Pulse Pulse Resp BP Pulse Ox O2 Del Method 10/12/23 17:20 36.4 C L 66 18 130/69 97 Room Air 10/12/23 16:45 81 10/12/23 12:31 36.6 C 66 18 130/69 97 Nasal Cannula O2 Flow Rate 10/12/23 17:20 10/12/23 16:45 10/12/23 12:31 3 Laboratory Results Laboratory Results - last 24 hr 10/11/23 10/12/23 10/12/23 17:49 06:42 Unknown WBC 10.34 RBC 4.36 L Hgb 12.2 L Hct 38.7 L MCV 88.8 MCH 28.0 MCHC 31.5 L RDW Std Deviation 48.6 H RDW Coeff of Blanca 14.8 H Plt Count 128 L MPV 9.3 L Immature Gran % (Auto) 0.6 Neut % (Auto) 94.9 Lymph % (Auto) 2.6 [place] % (Auto) 1.8 Eos % (Auto) 0.0 Baso % (Auto) 0.1 Neut # (Auto) 9.81 H Lymph # (Auto) 0.27 L [place] # (Auto) 0.19 Eos # (Auto) 0.00 Baso # (Auto) 0.01 Immature Gran # (Auto) 0.06 RBC Morphology Unremarkable Sodium 140 Potassium 4.4 Chloride 111 H Carbon Dioxide 22 Anion Gap 7 BUN 32 H Creatinine 1.77 H Est Cr Clr Drug Dosing 33.3 Est GFR ( Amer) 39.7 Est GFR (Non-Af Amer) 34.3 BUN/Creatinine Ratio 18.1 Glucose 153 H Calcium 8.9 Nasal Screen MRSA (PCR) Negative Enterobacterales (PCR) DETECTED A E. coli (PCR) DETECTED A mcr-1 Colistin Res Gene PCR Not Detected blaIMP Car res Gene PCR Not Detected KPC-Carbap Res Gene PCR Not Detected blaNDM Car Res Gene PCR Not Detected OXA-48 Carbapenem Resis Gene (PCR) Not Detected blaVIM Car Res Gene PCR Not Detected CTX-M Gene Resistance (PCR) Not Detected Bld Cult ID Panel PCR See PCR Comment Diagnostic Findings Chest X-Ray 10/11/23 18:55 XR chest 1V portable CLINICAL HISTORY: stridor COMPARISON STUDY: Chest CT July 12, 2023. Chest radiograph October 11, 2023 at 4:10 PM. FINDINGS: Low lung volumes are noted. There is no pneumothorax or pleural effusion. Bibasilar opacities favor atelectasis. No consolidation to suggest pneumonia. There is no evidence for pulmonary edema. Cardiomediastinal silhouette is stable. IMPRESSION: No acute cardiopulmonary findings. ACT 112: Negative or not required by law. Electronically signed by: Williams Rosado M.D. 10/12/2023 7:20 AM Chest X-Ray 10/12/23 15:13 XR chest 2V PA/lateral CLINICAL HISTORY: RLL crackles COMPARISON STUDY: Chest CT July 12, 2023. Chest radiograph October 11, 2023. FINDINGS: Lung volumes are normal. There is no pneumothorax or pleural effusion. Linear bibasilar densities represent atelectasis or scarring. There is no consolidation to suggest pneumonia. There is no evidence for pulmonary edema. Cardiomediastinal silhouette is normal. IMPRESSION: No acute cardiopulmonary findings. ACT 112: Negative or not required by law. Electronically signed by: Williams Rosado M.D. 10/12/2023 4:41 PM PG Care Time/CCT Total # of Minutes Spent Total Time Spent with Patient: Total time spent is greater than 50% in coordination of care (as documented) at patient's floor/unit and/or counseling patient: Coding Level of Care Code 36977 SUB INP/OBS CARE 3/50MIN Diagnoses E coli bacteremia R78.81; B96.20 UTI (urinary tract infection) N39.0 Dyspnea R06.00 Hypertension I10 Generalized weakness R53.1 Prostate cancer C61 Kidney stones N20.0 Thrombocytopenia D69.6 DVT prophylaxis Z29.9 BPH loc w urin obs/LUTS N40.1
[2023-10-13 05:19] LABS: Basophils # (auto) 0.02 K/uL (0.00-0.20); Basophils % (auto) 0.2 %; Eosinophils # (auto) 0.07 K/uL (0.00-0.50); Eosinophils % (auto) 0.7 %; Hematocrit (blood only) 36.1 % (42.0-52.0); Hemoglobin 11.5 g/dl (14.0-18.0); Immature Granulocytes # (auto) 0.07 K/uL (0.01-0.20); Immature Granulocytes % (auto) 0.7 %; Lymphocytes # (auto) 0.63 K/uL (1.20-3.40); Lymphocytes % (auto) 6.2 %; Mean Corpuscular Hgb Conc 31.9 g/dL (32.0-36.0); Mean Platelet Volume 9.3 fL (9.4-12.4); Monocytes % (auto) 9.8 %; Neutrophils # (auto) 8.42 K/uL (1.40-6.50); Neutrophils % (auto) 82.4 %; Platelet Count 138 K/uL (130-400); RDW Standard Deviation 48.3 fL (36.4-46.3); White Blood Count 10.21 K/ul (4.8-10.8)
[2023-10-13] MEDS: CEFEPIME 2,000 MG in SYRINGE 0 ML IV SCH ×2 (05:28→17:23)
[2023-10-13 05:31] LABS: BUN Creatinine Ratio 26.7 (10-20); Calcium 8.6 mg/dl (8.6-10.3); Creatinine Clr Calc Pharmacy 33.5 ml/min; Est GFR (Non-African American) 34.5 ml/min; Potassium 4.1 mmol/L (3.5-5.1)
[2023-10-13] MEDS: PSYLLIUM or GUAR GUM FIBER POWDER PACKET PO SCH (07:41)
[2023-10-13] MEDS: HEPARIN SOD 5,000 UNIT/0.5 ML VIAL SQ SCH ×2 (07:41→20:24)
[2023-10-13] MEDS: amLODIPine BESYLATE 5 MG TAB PO SCH (07:41)
--- NOTE | 2023-10-13 19:30 | Electrocardiogram Report ---
Test Reason : Blood Pressure : / mmHG Vent. Rate : 103 BPM Atrial Rate : 103 BPM P-R Int : 194 ms QRS Dur : 148 ms QT Int : 368 ms P-R-T Axes : 042 -85 032 degrees QTc Int : 482 ms Sinus tachycardia Left axis deviation Right bundle branch block Abnormal ECG When compared with ECG of 11-JUL-2023 18:56, No significant change Confirmed by Kendrick Basurto ([id number]) on 10/13/2023 7:30:22 PM Referred By: Heriberto Guajardo Confirmed By:Kendrick Basurto
--- NOTE | 2023-10-13 19:35 | Electrocardiogram Report ---
Test Reason : Blood Pressure : / mmHG Vent. Rate : 114 BPM Atrial Rate : 114 BPM P-R Int : 182 ms QRS Dur : 144 ms QT Int : 334 ms P-R-T Axes : 012 269 031 degrees QTc Int : 460 ms Sinus tachycardia Right bundle branch block Abnormal ECG When compared with ECG of 11-OCT-2023 16:52, (unconfirmed) No significant change was found Confirmed by Kendrick Basurto ([id number]) on 10/13/2023 7:35:36 PM Referred By: Heriberto Guajardo Confirmed By:Kendrick Basurto
--- NOTE | 2023-10-13 20:49 | Hospitalist Progress Note ---
Date of Service October 13, 2023 Assessment & Plan (1) E coli bacteremia: Plan: now 2 out of 4 admission blood cx's + for e.coli fortunately remains hemodynamically stable source - likely urinary tract despite the contaminated urine cx (u/a highly suggestive of UTI, and had urine cx in September that showed e.coli) other source could be biliary (has gallstones on prior CT) but I doubt such - no symptoms to suggest acute cholecystitis follow all cultures cont cefepime narrow when able (2) UTI (urinary tract infection): Plan: see #1 above had e.coli UTI earlier in September 2023 cont cefepime (3) Dyspnea: Plan: Acute onset while in the ED Etiology?? no respiratory symptoms today repeat cxr yesterday - no infiltrates he is off O2 and lung exam is clear today (4) Hypertension: Plan: cont norvasc low-dose (5) Generalized weakness: Plan: 2nd to #1 PT, OT evals appreciated cleared for home - may need home PT/OT, however (6) Prostate cancer: Plan: s/p radiation therapy for such earlier this year (7) Kidney stones: Plan: CT a/p in 08/2023 with 1 solitary stone -- > right-sided if any clinical worsening repeat imaging study to ensure this stone has not moved into the ureter (8) Thrombocytopenia: Plan: likely 2nd to #1 improving, level nearly normal today repeat cbc in 48 hours (9) DVT prophylaxis: Plan: heparin 5000 BID (10) BPH loc w urin obs/LUTS: Plan: uncertain why he is not on alpha aureliano or 5alpha reductase inhibitor for latter - likely due to prostate ca for alpha aureliano - BPs too low or dizziness?? will have to review outpatient urology notes recent CT a/p in late August very enlarged prostate gland of note - pt had e.coli grow out on urine cx in September suspect that although urine cx this admission grew contaminants he probably still has ecoli in urinary tract thus - prostatitis?? Plan updated extensively by phone yesterday evening progressing nicely Admission and Anticipated Discharge Date Admission Date: October 11, 2023 Subjective tele wnl overnight he feels well eating/drinking OK worked with PT/OT - cleared for home with he asks when he can leave the hospital no new complaints Review of Systems Review of Systems: gen - feels well; no fevers, no chills cv - no chest pain, no orthopnea pulm - no dyspnea, no cough GI - no diarrhea; no N/V Physical Exam Physical Exam: gen - looks great, NAD mouth - MMM neck - no JVD heart - RRR, s1 s2, no murmur lungs - CTA b/l; no rales appreciated today abd - soft, NT, ND, BS+, no HSM musculo - no flank tenderness b/l ext - no edema, pulses 2+ b/l psych - a/o x 3 Results & Data Results & Data Vital Signs (Past 12 Hours) Vital Signs Temp Pulse Pulse Resp BP Pulse Ox O2 Del Method 10/13/23 20:24 36.4 C L 77 16 160/82 H 95 Room Air 10/13/23 15:34 83 10/13/23 15:03 76 16 123/69 95 Room Air 10/13/23 11:09 36.6 C 70 16 126/74 95 Room Air Laboratory Results Laboratory Results - last 24 hr 10/13/23 04:55 WBC 10.21 RBC 4.10 L Hgb 11.5 L Hct 36.1 L MCV 88.0 MCH 28.0 MCHC 31.9 L RDW Std Deviation 48.3 H RDW Coeff of Blanca 15.0 H Plt Count 138 MPV 9.3 L Immature Gran % (Auto) 0.7 Neut % (Auto) 82.4 Lymph % (Auto) 6.2 [place] % (Auto) 9.8 Eos % (Auto) 0.7 Baso % (Auto) 0.2 Neut # (Auto) 8.42 H Lymph # (Auto) 0.63 L [place] # (Auto) 1.00 H Eos # (Auto) 0.07 Baso # (Auto) 0.02 Immature Gran # (Auto) 0.07 Sodium 139 Potassium 4.1 Chloride 111 H Carbon Dioxide 23 Anion Gap 5 BUN 47 H Creatinine 1.76 H Est Cr Clr Drug Dosing 33.5 Est GFR ( Amer) 40.0 Est GFR (Non-Af Amer) 34.5 BUN/Creatinine Ratio 26.7 H Glucose 103 H Calcium 8.6 Diagnostic Findings 2/ admission blood cx's + for e.coli urine cx- final- "contamination" PG Care Time/CCT Total # of Minutes Spent Total Time Spent with Patient: Total time spent is greater than 50% in coordination of care (as documented) at patient's floor/unit and/or counseling patient: Coding Level of Care Code 92818 SUB INP/OBS CARE MIN Diagnoses E coli bacteremia R78.81; B96.20 UTI (urinary tract infection) N39.0 Dyspnea R06.00 Hypertension I10 Generalized weakness R53.1 Prostate cancer C61 Kidney stones N20.0 Thrombocytopenia D69.6 DVT prophylaxis Z29.9 BPH loc w urin obs/LUTS N40.1
--- NOTE | 2023-10-13 22:55 | Emergency Department Note ---
Impression & Plan Acute kidney injury, Chest pain at rest ED Provider Note CHIEF COMPLAINT: Weakness, vomiting, dizzy HISTORY OF PRESENT ILLNESS: This 83-year-old male patient with past medical history of BPH, hypertension, UTI, COVID-19, recurrent Pseudomonas UTI presents to the emergency department with complaints of vomiting and dizziness. He describes the room is spinning and this makes him very nauseated. Patient denies any change in his medication regimen. He denies any falls or head injuries. Patient is having some shortness of breath. He denies any fevers. He is concerned about some foul-smelling urine. He does have a history of UTI REVIEW OF SYSTEMS: A review of systems was performed with positives and pertinent negatives listed in the history of present illness. 10 systems were reviewed and are otherwise negative. ALLERGIES: see below MEDICATIONS: see below PMH: see below SOCIAL HISTORY: see below DDx: viral etiology, pneumonia, heart failure, electrolyte abnormality, UTI among others PHYSICAL EXAM: Vital signs reviewed. General: Well-appearing 83-year-old male, in no significant distress. HEENT: No scleral icterus, PERRLA, neck supple. Atraumatic. Cardiovascular: Regular rate but tachycardic no extra sounds. Pulmonary: Clear to auscultation bilaterally, normal work of breathing. Abdomen: Soft, nontender, nondistended, positive bowel sounds. Musculoskeletal: Atraumatic, no peripheral edema. Neurologic: Patient awake alert and oriented x 3, speech is clear Skin: Warm, dry, no rash EMERGENCY DEPARTMENT COURSE/MDM: this patient was evaluated and appeared to be in no significant distress. IV access was obtained and laboratory work was drawn. The patient was placed on the crusher and binder operator noted to be in a sinus tachycardia. IV fluids were initiated and the patient was given 5 mg of IV metoprolol. Patient was also given 2 g of IV cefepime and a DuoNeb treatment. findings were taken and consideration discussed with the patient at the bedside. He will be evaluated by the hospitalist service for observation and further management. MONITORING: An order for cardiac monitoring was placed and the patient is noted to be in a rapid atrial flutter at 138 beats per minute. RADIOLOGY: to my interpretation reveals no evidence of focal lung consolidation or failure. Otherwise defer to radiology's overread EKG: to my interpretation reveals sinus tachycardia at 114 bpm. Right bundle branch block. QTc of 460. No PVC, no PAC. When compared to previous dated October 11, 2023, no significant change DISPOSITION: Admission Past Med/Surg History Medical History Generalized weakness Hypertension Kidney stones passed without intervention Prostate cancer s/p radiation treatments Microscopic hematuria Hyperkalemia High anion gap metabolic acidosis Acute renal failure 01/2022, significantly improved with creatinine 1.46 on most recent labs (02/20/22) Diverticulitis Hx Surgical History Tibia fracture with repair > left leg as child History of repair of rotator cuff left Hx of vasectomy History of colonoscopy History of tooth extraction Hx of bilateral cataract extraction History of total right knee replacement H/O hernia repair History of prostate biopsy Family History Father Hypertension Mother Lung disease COPD Social History Smoking Status: Former smoker Tobacco Type: Cigarettes Second Hand Exposure: No; Do You Dip or Chew Tobacco: No; Hx Alcohol Use: No Hx Substance Use: No Preferred Language: Maltese Communication Ability: Effective Visual Impairment: No Limitations Hearing Ability: Hard of Hearing 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 Required: No Beliefs That Will Affect Care: None marital status: Current Living Situation: Spouse Current Living Situation Comment: Lives at home with current occupational status: retired How many Children do You have: 2 Feels Safe at Home: Yes Diet: regular caffeine: Yes during the past year weight has: remained stable Assistive Devices: Cane and Walker Allergies Allergies Allergy/AdvReac Type Severity Reaction Status Date / Time No Known Allergies Allergy Verified 10/11/23 19:32 Home Meds Home Medications Medication Instructions Recorded Confirmed acetaminophen 325 mg tablet 650 mg PO QID PRN Pain 05/24/22 10/11/23 (Tylenol) amlodipine 2.5 mg tablet 2.5 mg PO DAILY 10/31/22 10/11/23 cholecalciferol (vitamin D3) 50 100 mcg PO DAILY 05/01/23 10/11/23 mcg (2,000 unit) capsule psyllium husk 3.4 gram/5.4 gram 1 tbsp PO DAILY 08/10/23 11/10/23 oral powder (Metamucil) Previous Rx's Medication Instructions Recorded cefdinir 300 mg capsule 300 mg PO BID 10 days #20 caps 10/15/23 tamsulosin 0.4 mg capsule 0.4 mg PO QAM #30 caps 10/15/23 Results & Data (ED) Home Medications Current Medication List: was personally reviewed by me Laboratory Data Attestation: I reviewed the patient's lab results. 10/15/23 03:34 10/15/23 03:34 Lab Results 10/11/23 10/11/23 10/11/23 Range/Units 16:54 17:00 17:49 WBC 11.87 H (4.8-10.8) K/ul RBC 5.01 (4.70-6.10) M/uL Hgb 14.1 (14.0-18.0) g/dl Hct 44.6 (42.0-52.0) % MCV 89.0 (80.0-100.0) fL MCH 28.1 (25.0-34.0) pg MCHC 31.6 L (32.0-36.0) g/dL RDW Std Deviation 48.6 H (36.4-46.3) fL RDW Coeff of Blanca 14.8 H (11.5-14.5) % Plt Count 149 (130-400) K/uL MPV 8.9 L (9.4-12.4) fL Immature Gran % (Auto) 0.6 % Neut % (Auto) 91.7 % Lymph % (Auto) 1.9 % Payne % (Auto) 5.6 % Eos % (Auto) 0.0 % Baso % (Auto) 0.2 % Neut # (Auto) 10.89 H (1.40-6.50) K/uL Lymph # (Auto) 0.22 L (1.20-3.40) K/uL Payne # (Auto) 0.67 H (0.11-0.59) K/uL Eos # (Auto) 0.00 (0.00-0.50) K/uL Baso # (Auto) 0.02 (0.00-0.20) K/uL Immature Gran # (Auto) 0.07 (0.01-0.20) K/uL PT 10.5 (9.0-12.0) Seconds INR 1.0 (0.9-1.1) APTT 28.9 (21.0-31.0) Seconds PTT Ratio 1.0 Sodium 139 (136-145) mmol/L Potassium 3.9 (3.5-5.1) mmol/L Chloride 106 (98-107) mmol/L Carbon Dioxide 22 (21-32) mmol/L Anion Gap 11 (3-11) BUN 31 H (6-23) mg/dl Creatinine 1.79 H (0.6-1.4) mg/dl Est Cr Clr Drug Dosing Not Reportable Est GFR ( Amer) 39.2 ml/min Est GFR (Non-Af Amer) 33.8 ml/min BUN/Creatinine Ratio 17.3 (10-20) Glucose 109 H (70-99(Fasting)) mg/dl Lactate 1.3 (0.4-2.0) mmol/L Calcium 9.7 (8.6-10.3) mg/dl Magnesium 2.1 (1.7-2.4) mg/dl Total Bilirubin 0.7 (0.2-1.0) mg/dl AST 16 (13-39) U/L ALT 11 (7-52) U/L Alkaline Phosphatase 67 (34-104) U/L Troponin I High Sens 11.8 (0-20) pg/ml Total Protein 7.6 (6.0-8.3) gm/dl Albumin 4.2 (3.4-5.0) gm/dl Globulin 3.4 (2.5-4.0) gm/dl Albumin/Globulin Ratio 1.2 (0.9-2) Procalcitonin 5.30 H (0-0.5) ng/ml TSH 0.745 (0.300-4.500) uIu/ml Urine Color Urine Appearance (Clear) Urine pH (4.5-7.5) Ur Specific [place] (1.000-1.030) Urine Protein (Negative) Urine Glucose (UA) (Negative) Urine Ketones (Negative) Urine Blood (Negative) Urine Nitrite (Negative) Urine Bilirubin (Negative) Urine Urobilinogen (Negative) Ur Leukocyte Esterase (Negative) Urine WBC (Auto) (0-5) /hpf Urine RBC (Auto) (0-4) /hpf U Hyaline Cast (Auto) (0-5) /lpf U Epithel Cells (Auto) (0-5) /lpf Urine Bacteria (Auto) (Negative) SARS-CoV-2 (PCR) NEGATIVE (Negative) Enterobacterales (PCR) DETECTED A (NotDetected) E. coli (PCR) DETECTED A (NotDetected) mcr-1 Colistin Res Gene PCR Not Detected (NotDetected) blaIMP Car res Gene PCR Not Detected (NotDetected) KPC-Carbap Res Gene PCR Not Detected (NotDetected) blaNDM Car Res Gene PCR Not Detected (NotDetected) OXA-48 Carbapenem Resis Gene (PCR) Not Detected (NotDetected) blaVIM Car Res Gene PCR Not Detected (NotDetected) CTX-M Gene Resistance (PCR) Not Detected (NotDetected) Bld Cult ID Panel PCR See PCR Comment (NotDetected) 10/11/23 Range/Units 18:40 WBC (4.8-10.8) K/ul RBC (4.70-6.10) M/uL Hgb (14.0-18.0) g/dl Hct (42.0-52.0) % MCV (80.0-100.0) fL MCH (25.0-34.0) pg MCHC (32.0-36.0) g/dL RDW Std Deviation (36.4-46.3) fL RDW Coeff of Blanca (11.5-14.5) % Plt Count (130-400) K/uL MPV (9.4-12.4) fL Immature Gran % (Auto) % Neut % (Auto) % Lymph % (Auto) % Payne % (Auto) % Eos % (Auto) % Baso % (Auto) % Neut # (Auto) (1.40-6.50) K/uL Lymph # (Auto) (1.20-3.40) K/uL Payne # (Auto) (0.11-0.59) K/uL Eos # (Auto) (0.00-0.50) K/uL Baso # (Auto) (0.00-0.20) K/uL Immature Gran # (Auto) (0.01-0.20) K/uL PT (9.0-12.0) Seconds INR (0.9-1.1) APTT (21.0-31.0) Seconds PTT Ratio Sodium (136-145) mmol/L Potassium (3.5-5.1) mmol/L Chloride (98-107) mmol/L Carbon Dioxide (21-32) mmol/L Anion Gap (3-11) BUN (6-23) mg/dl Creatinine (0.6-1.4) mg/dl Est Cr Clr Drug Dosing Est GFR ( Amer) ml/min Est GFR (Non-Af Amer) ml/min BUN/Creatinine Ratio (10-20) Glucose (70-99(Fasting)) mg/dl Lactate (0.4-2.0) mmol/L Calcium (8.6-10.3) mg/dl Magnesium (1.7-2.4) mg/dl Total Bilirubin (0.2-1.0) mg/dl AST (13-39) U/L ALT (7-52) U/L Alkaline Phosphatase (34-104) U/L Troponin I High Sens (0-20) pg/ml Total Protein (6.0-8.3) gm/dl Albumin (3.4-5.0) gm/dl Globulin (2.5-4.0) gm/dl Albumin/Globulin Ratio (0.9-2) Procalcitonin (0-0.5) ng/ml TSH (0.300-4.500) uIu/ml Urine Color Yellow Urine Appearance Turbid A (Clear) Urine pH 6.0 (4.5-7.5) Ur Specific [place] 1.019 (1.000-1.030) Urine Protein 2+ H (Negative) Urine Glucose (UA) Negative (Negative) Urine Ketones 1+ H (Negative) Urine Blood 3+ H (Negative) Urine Nitrite Positive A (Negative) Urine Bilirubin Negative (Negative) Urine Urobilinogen Negative (Negative) Ur Leukocyte Esterase 3+ H (Negative) Urine WBC (Auto) >30 H (0-5) /hpf Urine RBC (Auto) >30 H (0-4) /hpf U Hyaline Cast (Auto) 1-5 (0-5) /lpf U Epithel Cells (Auto) 10-20 H (0-5) /lpf Urine Bacteria (Auto) 4+ H (Negative) SARS-CoV-2 (PCR) (Negative) Enterobacterales (PCR) (NotDetected) E. coli (PCR) (NotDetected) mcr-1 Colistin Res Gene PCR (NotDetected) blaIMP Car res Gene PCR (NotDetected) KPC-Carbap Res Gene PCR (NotDetected) blaNDM Car Res Gene PCR (NotDetected) OXA-48 Carbapenem Resis Gene (PCR) (NotDetected) blaVIM Car Res Gene PCR (NotDetected) CTX-M Gene Resistance (PCR) (NotDetected) Bld Cult ID Panel PCR (NotDetected) Administered Medications Discontinued Medications Albuterol (Albut/Ipratrop 3mg/0.5mg Neb 3 Ml Vial) 3 ml NEB NOW STA; Protocol Stop: 10/11/23 18:30 Last Admin: 10/11/23 18:41 Dose: 3 ml Documented By: CELESTE Amlodipine Besylate (Amlodipine Besylate 5 Mg Tab) 2.5 mg PO DAILY MICHAEL Stop: 11/11/23 08:59 Last Admin: 10/15/23 07:59 Dose: 2.5 mg Documented By: Admin: 10/14/23 08:08 Dose: 2.5 mg Documented By: Admin: 10/13/23 07:41 Dose: 2.5 mg Documented By: Admin: 10/12/23 08:12 Dose: 2.5 mg Documented By: MANA Heparin Sodium (Porcine) (Heparin Sod 5,000 Unit/0.5 Ml Vial) 5,000 units SQ Q12 MICHAEL Stop: 11/10/23 21:57 Last Admin: 10/15/23 07:59 Dose: 5,000 units Documented By: Admin: 10/14/23 21:09 Dose: 5,000 units Documented By: [facility] Admin: 10/14/23 08:08 Dose: 5,000 units Documented By: Admin: 10/13/23 20:24 Dose: 5,000 units Documented By: [facility] Admin: 10/13/23 07:41 Dose: 5,000 units Documented By: Admin: 10/12/23 21:06 Dose: 5,000 units Documented By: [facility] Admin: 10/12/23 08:12 Dose: 5,000 units Documented By: Admin: 10/11/23 22:31 Dose: 5,000 units Documented By: MILLA Sodium Chloride (Nss) 1,000 mls @ 125 mls/hr IV .Q8H MICHAEL Stop: 10/12/23 01:14 Last Infusion: 10/11/23 22:32 Dose: Infused Documented By: Admin: 10/11/23 19:09 Dose: 125 mls/hr Documented By: GILBERTO Sodium Chloride (Nss) 500 mls @ 999 mls/hr IV .Q31M MICHAEL Stop: 10/11/23 17:45 Last Infusion: 10/11/23 18:48 Dose: Infused Documented By: Admin: 10/11/23 18:11 Dose: 999 mls/hr Documented By: CELESTE Cefepime HCl (Maxipime) 2,000 mg in 20 mls @ 5 mls/min IV NOW STA; Protocol Stop: 10/11/23 17:19 Last Admin: 10/11/23 18:11 Dose: 5 mls/min Documented By: CELESTE Methylprednisolone 60 mg/ (Syringe) 1.96 mls @ 1.5 mls/min IV NOW STA Stop: 10/11/23 18:54 Last Admin: 10/11/23 19:05 Dose: 1.5 mls/min Documented By: GILBERTO Ondansetron HCl 6 mg/ Dextrose 53 mls @ 200 mls/hr IV NOW STA Stop: 10/11/23 19:24 Last Admin: 10/11/23 21:31 Dose: Not Given Documented By: CELESTE Sodium Chloride (Nss) 1,000 mls @ 80 mls/hr IV .[id number] MICHAEL Stop: 10/12/23 10:27 Last Infusion: 10/12/23 10:31 Dose: Infused Documented By: Admin: 10/11/23 22:31 Dose: 80 mls/hr Documented By: MILLA Cefepime HCl 2,000 mg/ Syringe 20 mls @ 5 mls/min IV Q12H MICHAEL; Protocol Stop: 10/22/23 05:59 Last Admin: 10/14/23 05:08 Dose: 5 mls/min Documented By: Admin: 10/13/23 17:23 Dose: 5 mls/min Documented By: Admin: 10/13/23 05:28 Dose: 5 mls/min Documented By: Admin: 10/12/23 17:28 Dose: 5 mls/min Documented By: Admin: 10/12/23 05:32 Dose: 5 mls/min Documented By: MILLA Ceftriaxone Sodium 2,000 mg/ (Dextrose) 50 mls @ 100 mls/hr IV DAILY@1200 [facility] Stop: 10/28/23 13:59 Last Infusion: 10/15/23 11:57 Dose: Infused Documented By: Admin: 10/15/23 11:25 Dose: 100 mls/hr Documented By: Infusion: 10/14/23 16:27 Dose: Infused Documented By: Admin: 10/14/23 15:23 Dose: 100 mls/hr Documented By: BROWN Lorazepam (Lorazepam 1 Mg/1 Ml Syr Ed Inj Use) 0.5 mg IV ONE STA Stop: 10/11/23 18:54 Last Admin: 10/11/23 19:05 Dose: 0.5 mg Documented By: GILBERTO Methylprednisolone (Methylprednisolone 40 Mg/Ml Vial) Confirm Administered Dose 80 mg .ROUTE .STK-MED ONE Stop: 10/11/23 19:04 Last Admin: 10/11/23 19:09 Dose: Not Given Documented By: GILBERTO Metoprolol Tartrate (Metoprolol Tartrate 1 Mg/Ml Vial) 5 mg IV NOW STA Stop: 10/11/23 18:54 Last Admin: 10/11/23 19:05 Dose: 5 mg Documented By: GILBERTO Ondansetron HCl (Ondansetron Inj 2 Mg/Ml 2 Ml Vial) Confirm Administered Dose 4 mg .ROUTE .STK-MED ONE Stop: 10/11/23 19:06 Last Admin: 10/11/23 19:09 Dose: 4 mg Documented By: GILBERTO Psyllium Hydrophilic Mucilloid (Psyllium Or Guar Gum Fiber Powder Packet) 1 pkt PO DAILY [facility] Stop: 11/11/23 08:59 Last Admin: 10/15/23 07:59 Dose: 1 pkt Documented By: Admin: 10/14/23 08:08 Dose: 1 pkt Documented By: Admin: 10/13/23 07:41 Dose: 1 pkt Documented By: Admin: 10/12/23 08:12 Dose: 1 pkt Documented By: MANA Tamsulosin HCl (Tamsulosin Hcl 0.4 Mg Cap) 0.4 mg PO NOW ONE Stop: 10/14/23 10:25 Last Admin: 10/14/23 12:03 Dose: 0.4 mg Documented By: MANA Tamsulosin HCl (Tamsulosin Hcl 0.4 Mg Cap) 0.4 mg PO [facility] Stop: 11/14/23 08:59 Last Admin: 10/15/23 08:57 Dose: 0.4 mg Documented By: MANA Imaging Data Radiologist's Impression: Chest X-Ray 10/11/23 15:42 SINGLE VIEW CHEST CLINICAL HISTORY: Atypical chest pain. FINDINGS: A PA chest radiograph is compared to study dated 07/11/2023 and correlated with chest CT dated 07/12/2023. The cardiomediastinal silhouette is top normal for projection. There is bibasilar scarring/atelectasis. No airspace consolidation or large pleural effusion is identified. No pneumothorax is seen. The skeletal structures are osteopenic. There are chronic/healed left-sided rib fractures. IMPRESSION: No acute cardiopulmonary abnormality is identified. ACT 112: Negative or not required by law. Electronically signed by: Jony Sandhu M.D. 10/11/2023 4:29 PM Chest X-Ray 10/11/23 18:55 XR chest 1V portable CLINICAL HISTORY: stridor COMPARISON STUDY: Chest CT July 12, 2023. Chest radiograph October 11, 2023 at 4:10 PM. FINDINGS: Low lung volumes are noted. There is no pneumothorax or pleural effusion. Bibasilar opacities favor atelectasis. No consolidation to suggest pneumonia. There is no evidence for pulmonary edema. Cardiomediastinal silhouette is stable. IMPRESSION: No acute cardiopulmonary findings. ACT 112: Negative or not required by law. Electronically signed by: Williams Rosado M.D. 10/12/2023 7:20 AM Discharge Plan Visit Data Chief Complaint: Weakness Stated Complaint: WEAKNESS ED Provider: Shea Lay Discharge Problem: Acute kidney injury, Chest pain at rest Patient Disposition: Admitted As Inpatient Discharge Instructions Interventions: ED Discharge Assessment Last Done: 10/11/23 21:31
[2023-10-14] MEDS: CEFEPIME 2,000 MG in SYRINGE 0 ML IV SCH (05:08)
[2023-10-14 06:36] LABS: BUN Creatinine Ratio 21.2 (10-20); Calcium 8.4 mg/dl (8.6-10.3); Creatinine Clr Calc Pharmacy 29.4 ml/min; Est GFR (African American) 37.9 ml/min; Est GFR (Non-African American) 32.7 ml/min
[2023-10-14] MEDS: PSYLLIUM or GUAR GUM FIBER POWDER PACKET PO SCH (08:08)
[2023-10-14] MEDS: HEPARIN SOD 5,000 UNIT/0.5 ML VIAL SQ SCH ×2 (08:08→21:09)
[2023-10-14] MEDS: amLODIPine BESYLATE 5 MG TAB PO SCH (08:08)
[2023-10-14] MEDS ORDERED: ERTAPENEM SODIUM 1,000 MG in SYRINGE 0 ML IV SCH (10:15)
[2023-10-14] MEDS ORDERED: TAMSULOSIN HCL 0.4 MG CAP PO ONE (10:24)
[2023-10-14] MEDS: cefTRIAXone SODIUM 2,000 MG in DEXTROSE 5 % MINI-B 50 ML IV SCH (15:23)
--- NOTE | 2023-10-14 22:03 | Hospitalist Progress Note ---
Date of Service October 14, 2023 Assessment & Plan (1) E coli bacteremia: Plan: 2 out of 4 admission blood cx's + for e.coli fortunately remains hemodynamically stable source - likely urinary tract despite the contaminated urine cx (u/a highly suggestive of UTI, and had urine cx in September that showed e.coli) other source could be biliary (has gallstones on prior CT) but I doubt such - no symptoms to suggest acute cholecystitis the sensitivity pattern on the e.coli from the blood cultures and the sensitivity pattern on the e.coli from the UTI in September are very similar - again evidence that the urinary tract is the source at this point can narrow abx -- d/c cefepime, change to IV rocephin 2gm daily - complete 14 days of IV therapy starting with day #1 of his hospital stay thus, today is day #4 of effective abx therapy unfortunately there is not really an oral option to treat his bacteremia repeat blood cx's taken today for test of cure (2) UTI (urinary tract infection): Plan: see #1 above had e.coli UTI earlier in September 2023 records show he had a 10-day course of PO augmentin for the ecoli UTI in September does patient have prostatitis hence the recurrent infection?? plan: consider 4 week course of abx treatment for possible prostatitis --> 2 weeks of IV therapy as in #1 above, then perhaps 2 weeks of oral abx beyond that (augmentin?) consider ID consultation for their opinion check a PSA today -- if elevated beyond baseline this may be even more evidence of prostatitis (3) Dyspnea: Plan: Acute onset while in the ED at presentation Etiology?? resolved without intervention multiple cxr's without infiltrates o2 sats in room air are normal lung exam is normal (4) Hypertension: Plan: cont norvasc low-dose flomax for BPH will also help HTN (5) Generalized weakness: Plan: 2nd to #1 PT, OT evals appreciated cleared for home - may need home PT/OT, however (6) Prostate cancer: Plan: s/p radiation therapy for such earlier this year (7) Kidney stones: Plan: CT a/p in 08/2023 with 1 solitary stone -- > right-sided if any clinical worsening repeat imaging study to ensure this stone has not moved into the ureter he has denied back pain, abd pain, and flank pain his entire stay (8) Thrombocytopenia: Plan: likely 2nd to #1 improving repeat cbc in am (9) DVT prophylaxis: Plan: heparin 5000 BID (10) BPH loc w urin obs/LUTS: Plan: previously took flomax in the past 07/2022 office visit with urology - he was trialed off flomax and has been off since recent CT a/p in late August showed very enlarged prostate gland in light of recurrent UTIs and known BPHwill place back on flomax once daily of note - pt had e.coli grow out on urine cx in September suspect that although urine cx this admission grew contaminants he probably still has had ongoing ecoli in the urinary tract thus - prostatitis?? see above re: treatment plan Plan updated extensively by phone over the weekend progressing nicely consider ID consult on 10/15 discuss plan of care w/ social work as he will need IV therapy for the bacteremia Admission and Anticipated Discharge Date Admission Date: October 11, 2023 Subjective tele overnight wnl pt feeling well no complaints no pain any location has urinary frequency at baseline but no change in such denies diarrhea denies dysuria or bladder pain no dyspnea or cough Review of Systems Review of Systems: gen - no fevers or chills cv - no chest pain or orthopnea pulm - no dyspnea or wheezing GI - no n/v Physical Exam Physical Exam: gen - looks great, NAD, laying in bed watching TV mouth - MMM neck - no JVD heart - RRR, s1 s2, no murmur lungs - CTA b/l; scant rales bases only abd - soft, NT, ND, BS+, no HSM musculo - no flank tenderness b/l ext - no edema, pulses 2+ b/l psych - awake, alert - slight confusion at times - asks same questions repeatedly Results & Data Results & Data Vital Signs (Past 12 Hours) Vital Signs Temp Pulse Pulse Resp BP Pulse Ox O2 Del Method 10/14/23 19:30 36.8 C 91 H 18 143/87 H 95 Room Air 10/14/23 16:59 36.6 C 80 16 164/83 H 97 Room Air 10/14/23 16:22 64 10/14/23 12:28 36.4 C L 85 16 145/80 H 94 Room Air 10/14/23 11:00 64 10/14/23 11:00 Room Air Laboratory Results Laboratory Results - last 24 hr 10/14/23 10/14/23 06:02 11:07 Sodium 139 Potassium 4.0 Chloride 110 H Carbon Dioxide 24 Anion Gap 5 BUN 39 H Creatinine 1.84 H Est Cr Clr Drug Dosing 29.4 Est GFR ( Amer) 37.9 Est GFR (Non-Af Amer) 32.7 BUN/Creatinine Ratio 21.2 H Glucose 97 Calcium 8.4 L Prostate Specific Ag 0.015 Diagnostic Findings Microbiology 10/11/23 17:41 Blood Aerobic Blood Culture - Preliminary Escherichia coli 10/11/23 17:41 Blood Anaerobic Blood Culture - Preliminary No growth in Anaerobic bottle after 48 hours. 10/11/23 17:49 Blood Aerobic Blood Culture - Preliminary No growth in Aerobic bottle after 48 hours. 10/11/23 17:49 Blood Anaerobic Blood Culture - Preliminary Escherichia coli 10/11/23 18:40 Urine,Clean Catch Urine Culture - Final More than three types of organisms present, all high counts. Repeat collection recommended. No further identifications or sensitivities to follow. PG Care Time/CCT Total # of Minutes Spent Total Time Spent with Patient: Total time spent is greater than 50% in coordination of care (as documented) at patient's floor/unit and/or counseling patient: Coding Level of Care Code 58830 SUB INP/OBS CARE 2/35MIN Diagnoses E coli bacteremia R78.81; B96.20 UTI (urinary tract infection) N39.0 Dyspnea R06.00 Hypertension I10 Generalized weakness R53.1 Prostate cancer C61 Kidney stones N20.0 Thrombocytopenia D69.6 DVT prophylaxis Z29.9 BPH loc w urin obs/LUTS N40.1
[2023-10-15 04:46] LABS: Calcium 9.2 mg/dl (8.6-10.3); Creatinine Clr Calc Pharmacy 32.1 ml/min; Est GFR (African American) 42.3 ml/min; Est GFR (Non-African American) 36.5 ml/min
[2023-10-15 05:13] LABS: Hematocrit (blood only) 38.8 % (42.0-52.0); Hemoglobin 12.3 g/dl (14.0-18.0); Mean Corpuscular Hemoglobin 27.9 pg (25.0-34.0); Mean Corpuscular Hgb Conc 31.7 g/dL (32.0-36.0); Mean Platelet Volume 9.3 fL (9.4-12.4); Platelet Count 183 K/uL (130-400); RDW Coefficient of Variation 14.6 % (11.5-14.5); RDW Standard Deviation 47.4 fL (36.4-46.3); Red Blood Count 4.41 M/uL (4.70-6.10); White Blood Count 5.74 K/ul (4.8-10.8)
--- NOTE | 2023-10-15 07:54 | Hospitalist Progress Note ---
Date of Service October 15, 2023 Assessment & Plan (1) E coli bacteremia: Plan: 2 out of 4 admission blood cx's + for e.coli fortunately remains hemodynamically stable source - likely urinary tract despite the contaminated urine cx (u/a highly suggestive of UTI, and had urine cx in September that showed e.coli) other source could be biliary (has gallstones on prior CT) but I doubt such - no symptoms to suggest acute cholecystitis the sensitivity pattern on the e.coli from the blood cultures and the sensitivity pattern on the e.coli from the UTI in September are very similar - again evidence that the urinary tract is the source at this point can narrow abx -- d/c cefepime, change to IV rocephin 2gm daily - complete 14 days of IV therapy starting with day #1 of his hospital stay last dose 10/25/23 unfortunately there is not really an oral option to treat his bacteremia repeat blood cx's taken today for test of cure psa is normal thus less suggestive for prostatis, h/o prostate ca treated with radiation initial generalized weakness, likely metabolic encephalopathy, now resolved (2) Dyspnea: Plan: Acute onset while in the ED at presentation now resolved (3) Hypertension: Plan: cont norvasc low-dose flomax for BPH will also help HTN (4) Thrombocytopenia: Plan: resolved (5) DVT prophylaxis: Plan: heparin 5000 BID Admission and Anticipated Discharge Date Admission Date: October 11, 2023 Results & Data Results & Data Vital Signs (Past 12 Hours) Vital Signs Temp Pulse Pulse Resp BP Pulse Ox O2 Del Method 10/15/23 07:32 70 10/15/23 04:08 97.7 F 75 16 144/78 H 94 Room Air 10/14/23 23:35 97.3 F L 75 16 147/76 H 96 Room Air 10/14/23 21:59 85 10/14/23 20:00 Room Air PG Care Time/CCT Total # of Minutes Spent Total Time Spent with Patient: Total time spent is greater than 50% in coordination of care (as documented) at patient's floor/unit and/or counseling patient: Coding Diagnoses E coli bacteremia R78.81; B96.20 Dyspnea R06.00 Hypertension I10 Thrombocytopenia D69.6 DVT prophylaxis Z29.9
[2023-10-15] MEDS: amLODIPine BESYLATE 5 MG TAB PO SCH (07:59)
[2023-10-15] MEDS: PSYLLIUM or GUAR GUM FIBER POWDER PACKET PO SCH (07:59)
[2023-10-15] MEDS: HEPARIN SOD 5,000 UNIT/0.5 ML VIAL SQ SCH (07:59)
[2023-10-15] MEDS ORDERED: TAMSULOSIN HCL 0.4 MG CAP PO SCH (09:00)
[2023-10-15] MEDS: cefTRIAXone SODIUM 2,000 MG in DEXTROSE 5 % MINI-B 50 ML IV SCH (11:25)
[2023-10-15 12:43] VITALS: RESP 17; TEMP 97.3; O2SAT 95
[2023-10-15 14:52] VITALS: BP 143/87; PULSE 75
--- NOTE | 2023-10-15 18:53 | Discharge Summary ---
Date of Service October 15, 2023 Admission HPI Per Admitting Provider Noted is an 83-year-old male with PMH of prostate cancer, bladder outlet obstruction, Pseudomonas UTI, and COVID-19 in July 2023 with acute hypoxic respiratory failure. He presented to the ED from [facility] for UTI and respiratory difficulties. Generalized weakness started this morning, when patient reported he could not get out of bed. Patient uses a cane/walker at baseline. Patient had an episode of vomiting around 1330 this morning. Per (Lydia) he also exhibited some confusion. called ambulance at 1430. He developed dyspnea while in the ED. No at home O2 use. Patient endorses i ncreased urinary frequency (ongoing due to prostate cancer). ED course: IVF, cefepime 2000 mg, DuoNeb 3 mL, Ativan 0.5 mg, Lopressor 5 mg IV, Solu- Medrol, and Zofran ROS: Patient endorses productive fatigue, productive cough (clear), SOB, nausea, and vomiting Patient denies fever, chill, sweating, joint ache, VILLA, dizziness, chest pain, chest palpitations, abdominal pain, burning with urination, blood in urine/stool, or numbness/tingling/swelling/pain in your legs. Patient denies PMH of DVT/PE, AK, CVA, or diabetes Social Hx: Smoked tobacco pipe, but quit 40y ago; not a current smoker No alcohol use Principal Diagnosis e coli bacteremia from urinary source BPH with LUTS Discharge Exam awake and alert cardiac exam is regular lungs are clear Discharge Data Allergies Allergy/AdvReac Type Severity Reaction Status Date / Time No Known Allergies Allergy Verified 10/11/23 19:32 Consultations 10/11/23 19:10 ED Decision to Admit Stat Hospital Course (1) E coli bacteremia: 2 out of 4 admission blood cx's + for e.coli fortunately remains hemodynamically stable source - likely urinary tract despite the contaminated urine cx (u/a highly suggestive of UTI, and had urine cx in September that showed e.coli) other source could be biliary (has gallstones on prior CT) but I doubt such - no symptoms to suggest acute cholecystitis the sensitivity pattern on the e.coli from the blood cultures and the sensitivity pattern on the e.coli from the UTI in September are very similar - again evidence that the urinary tract is the source at this point can narrow abx -- d/c cefepime, change to po Cefdinir 300 mg bid - complete 14 days of therapy starting with day #1 of his hospital stay last dose 10/25/23 repeat blood cx's taken 10/14/23 negative to date for test of cure psa is normal thus less suggestive for prostatis, h/o prostate ca treated with radiation , d/c on flomax initial generalized weakness, likely metabolic encephalopathy, now resolved (2) Dyspnea: Acute onset while in the ED at presentation now resolved (3) Hypertension: cont norvasc low-dose flomax for BPH will also help HTN (4) Thrombocytopenia: resolved Total Time Total Time Spent Total Time Spent (In Minutes): it required greater than 30 minutes to prepare this patient for discharge Discharge Plan Discharge Items Patient Disposition: Home - Self-Care Reason For Visit: WEAKNESS, DYSPNEA, UTI Discharge Diagnosis: E coli urinary tract infection with blood cultures showing bacteria with 2 weeks of antibiotics Activity: Resume your previous activity Non-emergency contact: Primary Care Provider Call non-emergency contact if: your symptoms worsen Follow-up/Referrals: Heriberto Guajardo [Primary Care Provider] - Diet: Regular Addtl Attending Provider Instructions: please be sure to have full bladder emptying, keep dry follow up with Primary care and have a urine recheck after antibiotics complete Pending Studies at Discharge: No Stand-Alone Forms: My [facility] [place] [employer] Website, Smoking Cessation Medications and DC Order Prescriptions: New tamsulosin 0.4 mg Capsule 0.4 mg PO QAM Qty: 30 4RF cefdinir 300 mg capsule 300 mg PO BID 10 Days Qty: 20 0RF Continued amlodipine 2.5 mg tablet 2.5 mg PO DAILY cholecalciferol (vitamin D3) 50 mcg (2,000 unit) capsule 100 mcg PO DAILY acetaminophen [Tylenol] 325 mg tablet 650 mg PO QID PRN (Reason: Pain) Metamucil 3.4 gram/5.4 gram Powder 1 tbsp PO DAILY Rx Instructions: mix into at least 8 oz of water or juice before administering Discharge Orders: Discharge Order (Routine); Ordered 10/15/23 Ordered By: Ishmael Du Admission Data Admit Date/Time: 10/11/23 20:40 Attending Provider: Ishmael Du Admit Provider: Aquiles Dukes Primary Care Provider: Heriberto Guajardo Other Providers: Aquiles Dukes Other Interventions: Discharge Summary Assessment (RN) Last Done: 10/15/23 14:52 Coding Level of Care Code 10339 INP/OBS DISCH >30 MIN Diagnoses E coli bacteremia R78.81; B96.20 Dyspnea R06.00 Hypertension I10 Thrombocytopenia D69.6
== END 2023-10-15 15:53 | disposition home or self-care (01) | DRG 689 ==
LOC: ED 15:30 → SUATTDRO 20:40 → 4W 20:40
DX: B96.20 Unspecified Escherichia coli [E. coli] as the cause of diseases classified elsewhere; J69.0 Pneumonitis due to inhalation of food and vomit; N39.0 Urinary tract infection, site not specified; R78.81 Bacteremia; Z85.46 Personal history of malignant neoplasm of prostate; I10 Essential (primary) hypertension; Z79.899 Other long term (current) drug therapy; N13.9 Obstructive and reflux uropathy, unspecified; Z87.891 Personal history of nicotine dependence; N40.1 Benign prostatic hyperplasia with lower urinary tract symptoms

== ENCOUNTER 2023-10-22 17:19 | Inpatient (IN) ==
--- NOTE | 2023-10-22 17:38 | Emergency Department Note ---
Impression & Plan UTI (urinary tract infection), Generalized weakness, Acute dehydration ED Provider Note NAME: BELKYS Doshi UPCRAFT AGE: 83 SEX: M : 1940 ARRIVES VIA: Ambulance INFORMANT: Patient, ED PROVIDER(S): Drew Jacobs MD CHIEF COMPLAINT: Weak, fatigue MEDICAL DECISION MAKING: Patient presents for feeling weak and fatigued in the setting of possible infection as the patient was recently admitted for bacteremia discharged on antibiotics but feels similar to when he initially presented prior to his antibiotics. Patient's blood work shows a white count of 13 with a slight anemia hemoglobin of 13.5 with normal platelet count. Kidney function with creatinine 2. Lactate of 2.6. Pro-Douglas is not elevated. Given the patient's tachycardia leukocytosis and recent bacteremia do believe the patient would benefit from admission at this time. I did speak with the on-call hospitalist Dr. Bill the patient was admitted to the medicine service. Discussion w/ other healthcare providers: Dr. Bill inpatient medicine service Prior /Outside records reviewed: I reviewed a urology visit from July 29, [address] Mcgee. Patient does have a history of prostate cancer and bladder outlet obstruction. Patient has had a prior TURP. Patient is also had androgen deprivation and radiation therapy. Differential diagnosis: Dehydration, UTI, pneumonia, metabolic derangment, electrolyte abnormalities, hypovolemia, anemia, cellulitis among others were considered. Diagnostics, as interpreted by me: ECG: Sinus tachycardia, rate of 108, wide QRS, right bundle bundle daxa block pattern. Left axis deviation. No significant change for comparison October 11, 2023. Cardiac monitoring: An order was placed for continuous cardiac monitoring. The monitor shows a rate of 112 with tachycardic and regular rhythm. Patient was placed on pulse oximetry Medical decision rules: None Imaging studies: I informally interpreted the patient's chest x-ray which does not show obvious pneumothorax with formal report to follow. HPI: Patient presents due to concern for weakness and fatigue in the setting of a recent bacteremia. The patient was admitted for recent sepsis and E. coli in the blood. Patient believes that he was discharged on antibiotics is unsure what he is taking. Patient states that he feels very similar to when he had to be admitted the last time. The patient was unable to get up and walk prior to arrival and did present via EMS for [facility]. The patient denies any cough or congestion no abdominal pain the patient denies any vomiting. PAST MEDICAL HISTORY: See Below PAST SURGICAL HISTORY: See Below SOCIAL HISTORY: See Below HOME MEDICATIONS: See Below ALLERGIES: See Below VITALS: See Below PHYSICAL EXAMINATION: GENERAL: NAD, non-toxic. Wearing glasses. EYE EXAM: Normal conjunctiva. PERRL, no anisocoria and EOM's grossly intact w/o pain. OROPHARYNX: Moist mucus membranes, grossly normal dentition. NECK: Supple, no nuchal rigidity, no adenopathy, non-tender. No signs of meningismus. FROM of the neck with good chin to chest and neck extension. No stridor. LUNGS: Clear to auscultation. Normal chest wall mechanics. HEART: NSR, no MRG. ABDOMEN: Abdomen soft, non-tender, no masses, no rebound or guarding. BACK: No CVA TTP. SKIN: No rashes and no bruising. UPPER EXTREMITIES: Upper extremities are grossly normal. LOWER EXTREMITIES: Grossly normal, no edema. NEURO EXAM: A&O x3, cranial nerves II-XII grossly intact, normal speech, moves all 4 extremities. Past Med/Surg History Medical History Vomiting Generalized weakness Hypertension Kidney stones passed without intervention Prostate cancer s/p radiation treatments Microscopic hematuria Hyperkalemia High anion gap metabolic acidosis Acute renal failure 01/2022, significantly improved with creatinine 1.46 on most recent labs (02/20/22) Diverticulitis Hx Surgical History Tibia fracture with repair > left leg as child History of repair of rotator cuff left Hx of vasectomy History of colonoscopy History of tooth extraction Hx of bilateral cataract extraction History of total right knee replacement H/O hernia repair History of prostate biopsy Family History Father Hypertension Mother Lung disease COPD Social History Smoking Status: Never smoker Tobacco Type: Cigarettes Second Hand Exposure: No; Do You Dip or Chew Tobacco: No; Hx Alcohol Use: Yes Alcohol type: beer Hx Substance Use: No Preferred Language: Guamanian Communication Ability: Effective Visual Impairment: No Limitations Hearing Ability: Hard of Hearing 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 Required: No Beliefs That Will Affect Care: None marital status: Current Living Situation: Spouse Current Living Situation Comment: kelsey current occupational status: retired How many Children do You have: 2 Feels Safe at Home: Yes Safety Concerns: Feels Safe At This Time Diet: regular caffeine: Yes during the past year weight has: remained stable Assistive Devices: Cane and Walker Allergies Allergies Allergy/AdvReac Type Severity Reaction Status Date / Time No Known Allergies Allergy Verified 10/22/23 17:56 Home Meds Home Medications Medication Instructions Recorded Confirmed amlodipine 2.5 mg tablet 2.5 mg PO DAILY 10/31/22 10/22/23 cholecalciferol (vitamin D3) 50 50 mcg PO DAILY 05/01/23 10/22/23 mcg (2,000 unit) capsule Previous Rx's Medication Instructions Recorded cefdinir 300 mg capsule 300 mg PO BID 10 days #20 caps 10/15/23 tamsulosin 0.4 mg capsule 0.4 mg PO QAM #30 caps 10/15/23 Results & Data (ED) Vital Signs Vital Signs - 24 hr 10/22/23 17:16 10/22/23 17:27 10/22/23 17:28 Temperature 37.0 C Temperature Source Oral Pulse Rate 103 H Pulse Rate [Apical] 107 H Respiratory Rate 20 21 Respiratory Effort / Characteristics Non-Labored Spontaneous Non-Labored Spontaneous Respiratory Depth Normal Normal Blood Pressure 158/85 H Blood Pressure [Right Arm] 158/85 H Blood Pressure Mean 109 Blood Pressure Mean [Right Arm] 109 Pulse Oximetry 94 Oxygen Delivery Method Room Air Room Air Sepsis Recent Fever Within 48 Hours No Sepsis New/Unexplained Change in Mental Status No Sepsis Action Taken by Nursing No Action Required 10/22/23 17:32 10/22/23 17:32 Temperature Temperature Source Pulse Rate 102 H 105 H Pulse Rate [Apical] Respiratory Rate Respiratory Effort / Characteristics Respiratory Depth Blood Pressure Blood Pressure [Right Arm] Blood Pressure Mean Blood Pressure Mean [Right Arm] Pulse Oximetry 94 Oxygen Delivery Method Room Air Sepsis Recent Fever Within 48 Hours Sepsis New/Unexplained Change in Mental Status Sepsis Action Taken by Retirement Medications Current Medication List: was personally reviewed by me Laboratory Data Attestation: I reviewed the patient's lab results. 10/28/23 09:38 10/28/23 09:38 Lab Results 10/22/23 10/22/23 10/22/23 Range/Units 17:28 18:10 19:06 WBC 13.90 H (4.8-10.8) K/ul RBC 4.81 (4.70-6.10) M/uL Hgb 13.5 L (14.0-18.0) g/dl Hct 43.4 (42.0-52.0) % MCV 90.2 (80.0-100.0) fL MCH 28.1 (25.0-34.0) pg MCHC 31.1 L (32.0-36.0) g/dL RDW Std Deviation 50.6 H (36.4-46.3) fL RDW Coeff of Blanca 15.2 H (11.5-14.5) % Plt Count 208 (130-400) K/uL MPV 8.6 L (9.4-12.4) fL Immature Gran % (Auto) 0.9 % Neut % (Auto) 90.8 % Lymph % (Auto) 2.7 % [place] % (Auto) 5.4 % Eos % (Auto) 0.1 % Baso % (Auto) 0.1 % Neut # (Auto) 12.62 H (1.40-6.50) K/uL Lymph # (Auto) 0.37 L (1.20-3.40) K/uL [place] # (Auto) 0.75 H (0.11-0.59) K/uL Eos # (Auto) 0.01 (0.00-0.50) K/uL Baso # (Auto) 0.02 (0.00-0.20) K/uL Immature Gran # (Auto) 0.13 (0.01-0.20) K/uL PT 10.8 (9.0-12.0) Seconds INR 1.0 (0.9-1.1) APTT 26.0 (21.0-31.0) Seconds PTT Ratio 0.9 Sodium 139 (136-145) mmol/L Potassium 4.3 (3.5-5.1) mmol/L Chloride 106 (98-107) mmol/L Carbon Dioxide 24 (21-32) mmol/L Anion Gap 9 (3-11) BUN 31 H (6-23) mg/dl Creatinine 2.05 H (0.6-1.4) mg/dl Est Cr Clr Drug Dosing 29.3 ml/min Est GFR ( Amer) 33.2 ml/min Est GFR (Non-Af Amer) 28.7 ml/min BUN/Creatinine Ratio 15.1 (10-20) Glucose 123 H (70-99(Fasting)) mg/dl Lactate 2.6 H* (0.4-2.0) mmol/L Calcium 9.9 (8.6-10.3) mg/dl Magnesium 2.0 (1.7-2.4) mg/dl Total Bilirubin 0.6 (0.2-1.0) mg/dl AST 15 (13-39) U/L ALT 13 (7-52) U/L Alkaline Phosphatase 67 (34-104) U/L Troponin I High Sens 7.7 (0-20) pg/ml Total Protein 7.5 (6.0-8.3) gm/dl Albumin 4.3 (3.4-5.0) gm/dl Globulin 3.2 (2.5-4.0) gm/dl Albumin/Globulin Ratio 1.3 (0.9-2) Procalcitonin 0.20 (0-0.5) ng/ml Urine Color Yellow Urine Appearance Cloudy A (Clear) Urine pH 5.5 (4.5-7.5) Ur Specific [place] 1.016 (1.000-1.030) Urine Protein 2+ H (Negative) Urine Glucose (UA) Negative (Negative) Urine Ketones Trace H (Negative) Urine Blood 2+ H (Negative) Urine Nitrite Positive A (Negative) Urine Bilirubin Negative (Negative) Urine Urobilinogen Negative (Negative) Ur Leukocyte Esterase 2+ H (Negative) Urine WBC (Auto) >30 H (0-5) /hpf Urine RBC (Auto) 10-30 H (0-4) /hpf U Hyaline Cast (Auto) 1-5 (0-5) /lpf U Epithel Cells (Auto) 5-10 H (0-5) /lpf Urine Bacteria (Auto) Negative (Negative) Nasal Screen MRSA (PCR) (Negative) Adenovirus (PCR) (NotDetected) B. pertussis DNA (PCR) (NotDetected) B.parapertussis DNA PCR (NotDetected) C. pneumoniae DNA (PCR) (NotDetected) Coronavirus OC43 (PCR) (NotDetected) Coronavirus HKU1 (PCR) (NotDetected) Coronavirus 229E (PCR) (NotDetected) SARS-CoV-2 (PCR) (NotDetected) Coronavirus NL63 (PCR) (NotDetected) Human Metapneumovir PCR (NotDetected) Influenza Type A (PCR) (NotDetected) Influenza Type B (PCR) (NotDetected) M. pneumoniae (PCR) (NotDetected) Parainfluenza 1 (PCR) (NotDetected) Parainfluenza 2 (PCR) (NotDetected) Parainfluenza 3 (PCR) (NotDetected) Parainfluenza 4 (PCR) (NotDetected) RSV (PCR) (NotDetected) Entero/Rhino (PCR) (NotDetected) 10/22/23 10/22/23 Range/Units 19:22 20:23 WBC (4.8-10.8) K/ul RBC (4.70-6.10) M/uL Hgb (14.0-18.0) g/dl Hct (42.0-52.0) % MCV (80.0-100.0) fL MCH (25.0-34.0) pg MCHC (32.0-36.0) g/dL RDW Std Deviation (36.4-46.3) fL RDW Coeff of Blanca (11.5-14.5) % Plt Count (130-400) K/uL MPV (9.4-12.4) fL Immature Gran % (Auto) % Neut % (Auto) % Lymph % (Auto) % [place] % (Auto) % Eos % (Auto) % Baso % (Auto) % Neut # (Auto) (1.40-6.50) K/uL Lymph # (Auto) (1.20-3.40) K/uL [place] # (Auto) (0.11-0.59) K/uL Eos # (Auto) (0.00-0.50) K/uL Baso # (Auto) (0.00-0.20) K/uL Immature Gran # (Auto) (0.01-0.20) K/uL PT (9.0-12.0) Seconds INR (0.9-1.1) APTT (21.0-31.0) Seconds PTT Ratio Sodium (136-145) mmol/L Potassium (3.5-5.1) mmol/L Chloride (98-107) mmol/L Carbon Dioxide (21-32) mmol/L Anion Gap (3-11) BUN (6-23) mg/dl Creatinine (0.6-1.4) mg/dl Est Cr Clr Drug Dosing ml/min Est GFR ( Amer) ml/min Est GFR (Non-Af Amer) ml/min BUN/Creatinine Ratio (10-20) Glucose (70-99(Fasting)) mg/dl Lactate 0.9 (0.4-2.0) mmol/L Calcium (8.6-10.3) mg/dl Magnesium (1.7-2.4) mg/dl Total Bilirubin (0.2-1.0) mg/dl AST (13-39) U/L ALT (7-52) U/L Alkaline Phosphatase (34-104) U/L Troponin I High Sens (0-20) pg/ml Total Protein (6.0-8.3) gm/dl Albumin (3.4-5.0) gm/dl Globulin (2.5-4.0) gm/dl Albumin/Globulin Ratio (0.9-2) Procalcitonin (0-0.5) ng/ml Urine Color Urine Appearance (Clear) Urine pH (4.5-7.5) Ur Specific [place] (1.000-1.030) Urine Protein (Negative) Urine Glucose (UA) (Negative) Urine Ketones (Negative) Urine Blood (Negative) Urine Nitrite (Negative) Urine Bilirubin (Negative) Urine Urobilinogen (Negative) Ur Leukocyte Esterase (Negative) Urine WBC (Auto) (0-5) /hpf Urine RBC (Auto) (0-4) /hpf U Hyaline Cast (Auto) (0-5) /lpf U Epithel Cells (Auto) (0-5) /lpf Urine Bacteria (Auto) (Negative) Nasal Screen MRSA (PCR) Negative (Negative) Adenovirus (PCR) Not Detected (NotDetected) B. pertussis DNA (PCR) Not Detected (NotDetected) B.parapertussis DNA PCR Not Detected (NotDetected) C. pneumoniae DNA (PCR) Not Detected (NotDetected) Coronavirus OC43 (PCR) Not Detected (NotDetected) Coronavirus HKU1 (PCR) Not Detected (NotDetected) Coronavirus 229E (PCR) Not Detected (NotDetected) SARS-CoV-2 (PCR) Not Detected (NotDetected) Coronavirus NL63 (PCR) Not Detected (NotDetected) Human Metapneumovir PCR Not Detected (NotDetected) Influenza Type A (PCR) Not Detected (NotDetected) Influenza Type B (PCR) Not Detected (NotDetected) M. pneumoniae (PCR) Not Detected (NotDetected) Parainfluenza 1 (PCR) Not Detected (NotDetected) Parainfluenza 2 (PCR) Not Detected (NotDetected) Parainfluenza 3 (PCR) Not Detected (NotDetected) Parainfluenza 4 (PCR) Not Detected (NotDetected) RSV (PCR) Not Detected (NotDetected) Entero/Rhino (PCR) Not Detected (NotDetected) Administered Medications Amlodipine Besylate (Amlodipine Besylate 5 Mg Tab) 2.5 mg PO DAILY MICHAEL Stop: 11/22/23 08:59 Last Admin: 10/29/23 08:51 Dose: 2.5 mg Documented By: Admin: 10/28/23 08:12 Dose: 2.5 mg Documented By: Admin: 10/27/23 09:38 Dose: 2.5 mg Documented By: Admin: 10/26/23 08:06 Dose: 2.5 mg Documented By: Admin: 10/25/23 08:41 Dose: 2.5 mg Documented By: Admin: 10/24/23 08:55 Dose: 2.5 mg Documented By: Admin: 10/23/23 09:45 Dose: 2.5 mg Documented By: FLASH Famotidine 20 mg/ Syringe 5 mls @ 2.5 mls/min IV Q12H MICHAEL Stop: 11/22/23 08:59 Last Admin: 10/29/23 08:53 Dose: 2.5 mls/min Documented By: Admin: 10/28/23 21:08 Dose: 2.5 mls/min Documented By: Admin: 10/28/23 08:13 Dose: 2.5 mls/min Documented By: Admin: 10/27/23 21:13 Dose: 2.5 mls/min Documented By: Admin: 10/27/23 09:38 Dose: 2.5 mls/min Documented By: Admin: 10/26/23 21:06 Dose: 2.5 mls/min Documented By: Admin: 10/26/23 08:17 Dose: 2.5 mls/min Documented By: Admin: 10/25/23 21:20 Dose: 2.5 mls/min Documented By: Admin: 10/25/23 08:41 Dose: 2.5 mls/min Documented By: Admin: 10/24/23 20:10 Dose: 2.5 mls/min Documented By: Admin: 10/24/23 08:55 Dose: 2.5 mls/min Documented By: Admin: 10/23/23 21:42 Dose: 2.5 mls/min Documented By: Admin: 10/23/23 09:45 Dose: 2.5 mls/min Documented By: FLASH Piperacillin Sod/Tazobactam (Sod 4.5 gm/ Dextrose) 100 mls @ 25 mls/hr IV Q8H [facility]; Protocol Stop: 11/04/23 21:59 Last Admin: 10/29/23 13:40 Dose: 25 mls/hr Documented By: Infusion: 10/29/23 09:27 Dose: Infused Documented By: Admin: 10/29/23 05:25 Dose: 25 mls/hr Documented By: Infusion: 10/29/23 01:38 Dose: Infused Documented By: Admin: 10/28/23 21:09 Dose: 25 mls/hr Documented By: Infusion: 10/28/23 18:02 Dose: Infused Documented By: Admin: 10/28/23 14:02 Dose: 25 mls/hr Documented By: Infusion: 10/28/23 10:58 Dose: Infused Documented By: Admin: 10/28/23 06:33 Dose: 25 mls/hr Documented By: Infusion: 10/28/23 02:28 Dose: Infused Documented By: Infusion: 10/27/23 23:11 Dose: 25 mls/hr Documented By: Infusion: 10/27/23 22:26 Dose: 0 mls/hr Documented By: Admin: 10/27/23 21:13 Dose: 25 mls/hr Documented By: Infusion: 10/27/23 18:11 Dose: Infused Documented By: Admin: 10/27/23 13:53 Dose: 25 mls/hr Documented By: Infusion: 10/27/23 09:16 Dose: Infused Documented By: Admin: 10/27/23 05:15 Dose: 25 mls/hr Documented By: Infusion: 10/27/23 02:48 Dose: Infused Documented By: Admin: 10/26/23 22:42 Dose: 25 mls/hr Documented By: Infusion: 10/26/23 17:31 Dose: Infused Documented By: Admin: 10/26/23 13:30 Dose: 25 mls/hr Documented By: Infusion: 10/26/23 09:23 Dose: Infused Documented By: Admin: 10/26/23 05:15 Dose: 25 mls/hr Documented By: Infusion: 10/26/23 01:32 Dose: Infused Documented By: Admin: 10/25/23 21:20 Dose: 25 mls/hr Documented By: SANTOS Tamsulosin HCl (Tamsulosin Hcl 0.4 Mg Cap) 0.4 mg PO QPM MICHAEL Stop: 11/22/23 20:59 Last Admin: 10/28/23 21:06 Dose: 0.4 mg Documented By: K Admin: 10/27/23 21:12 Dose: 0.4 mg Documented By: Admin: 10/26/23 21:01 Dose: 0.4 mg Documented By: Admin: 10/25/23 21:20 Dose: 0.4 mg Documented By: Admin: 10/24/23 20:10 Dose: 0.4 mg Documented By: Admin: 10/23/23 21:42 Dose: 0.4 mg Documented By: CLR Discontinued Medications Heparin Sodium (Porcine) (Heparin Sod 5,000 Unit/0.5 Ml Vial) 5,000 units SQ Q12 MICHAEL Stop: 11/22/23 08:59 Last Admin: 10/28/23 08:12 Dose: 5,000 units Documented By: Admin: 10/27/23 21:12 Dose: 5,000 units Documented By: Admin: 10/27/23 10:37 Dose: 5,000 units Documented By: AARolo Admin: 10/26/23 21:03 Dose: 5,000 units Documented By: Admin: 10/26/23 08:07 Dose: 5,000 units Documented By: Admin: 10/25/23 21:21 Dose: 5,000 units Documented By: Admin: 10/25/23 08:41 Dose: 5,000 units Documented By: Admin: 10/24/23 20:10 Dose: 5,000 units Documented By: Admin: 10/24/23 08:57 Dose: 5,000 units Documented By: Admin: 10/23/23 21:42 Dose: 5,000 units Documented By: Admin: 10/23/23 09:45 Dose: 5,000 units Documented By: FLASH Sodium Chloride (Nss) 1,000 mls @ 999 mls/hr IV .Q1H1M MICHAEL Stop: 10/22/23 19:45 Last Infusion: 10/22/23 20:20 Dose: Infused Documented By: Admin: 10/22/23 19:19 Dose: 999 mls/hr Documented By: Infusion: 10/22/23 19:01 Dose: Infused Documented By: Admin: 10/22/23 18:00 Dose: 999 mls/hr Documented By: AZRA Piperacillin Sod/Tazobactam Sod (Zosyn) 4.5 gm in 100 mls @ 200 mls/hr IV NOW ONE Stop: 10/22/23 18:15 Last Infusion: 10/22/23 18:59 Dose: Infused Documented By: Admin: 10/22/23 18:29 Dose: 200 mls/hr Documented By: AZRA Piperacillin Sod/Tazobactam (Sod 4.5 gm/ Dextrose) 100 mls @ 25 mls/hr IV Q8H MICHAEL; Protocol Stop: 10/25/23 01:59 Last Infusion: 10/24/23 21:34 Dose: Infused Documented By: Admin: 10/24/23 17:34 Dose: 25 mls/hr Documented By: Infusion: 10/24/23 14:41 Dose: Infused Documented By: Admin: 10/24/23 10:39 Dose: 25 mls/hr Documented By: JLMacey Infusion: 10/24/23 06:44 Dose: Infused Documented By: Admin: 10/24/23 02:25 Dose: 25 mls/hr Documented By: Infusion: 10/23/23 22:21 Dose: Infused Documented By: Admin: 10/23/23 18:18 Dose: 25 mls/hr Documented By: Infusion: 10/23/23 14:01 Dose: Infused Documented By: Admin: 10/23/23 09:45 Dose: 25 mls/hr Documented By: Infusion: 10/23/23 06:43 Dose: Infused Documented By: Admin: 10/23/23 02:03 Dose: 25 mls/hr Documented By: NETTE Lactated Ringer's (Lr) 1,000 mls @ 80 mls/hr IV .[id number] MICHAEL Stop: 10/23/23 18:29 Last Infusion: 10/23/23 18:23 Dose: Infused Documented By: Infusion: 10/23/23 13:45 Dose: 80 mls/hr Documented By: Infusion: 10/23/23 09:50 Dose: 0 mls/hr Documented By: Admin: 10/23/23 06:53 Dose: 80 mls/hr Documented By: RINKU Piperacillin Sod/Tazobactam (Sod 4.5 gm/ Dextrose) 100 mls @ 200 mls/hr IV ONE ONE; Protocol Stop: 10/25/23 16:59 Last Infusion: 10/25/23 17:40 Dose: Infused Documented By: Admin: 10/25/23 17:10 Dose: 200 mls/hr Documented By: DEANNA Ondansetron HCl (Ondansetron Inj 2 Mg/Ml 2 Ml Vial) 4 mg IV NOW STA Stop: 10/22/23 17:47 Last Admin: 10/22/23 22:27 Dose: Not Given Documented By: NETTE Discharge Plan Visit Data Chief Complaint: Weakness Stated Complaint: WEAKNESS ED Provider: Drew Jacobs Discharge Problem: UTI (urinary tract infection), Generalized weakness, Acute dehydration Patient Disposition: Admitted As Inpatient Discharge Instructions Interventions: ED Discharge Assessment Last Done: 10/23/23 00:04 Discharge Problem: UTI (urinary tract infection) Qualifiers: Urinary tract infection type: site unspecified
[2023-10-22 17:45] LABS: Hematocrit (blood only) 43.4 % (42.0-52.0); Hemoglobin 13.5 g/dl (14.0-18.0); Mean Corpuscular Hemoglobin 28.1 pg (25.0-34.0); Mean Corpuscular Hgb Conc 31.1 g/dL (32.0-36.0); Mean Corpuscular Volume 90.2 fL (80.0-100.0); Mean Platelet Volume 8.6 fL (9.4-12.4); Platelet Count 208 K/uL (130-400); RDW Coefficient of Variation 15.2 % (11.5-14.5); RDW Standard Deviation 50.6 fL (36.4-46.3); Red Blood Count 4.81 M/uL (4.70-6.10)
[2023-10-22] MEDS ORDERED: ONDANSETRON INJ 2 MG/ML 2 ML VIAL IV STA (17:46)
[2023-10-22] MEDS ORDERED: PIPERACILLIN/TAZOBACTAM 4.5 GM/100 ML BAG IV ONE (17:46)
[2023-10-22] MEDS: SODIUM CHLORIDE 0.9% 1,000 ML IV SCH ×2 (18:00→19:19)
[2023-10-22 18:05] LABS: Basophils # (auto) 0.02 K/uL (0.00-0.20); Basophils % (auto) 0.1 %; Eosinophils # (auto) 0.01 K/uL (0.00-0.50); Eosinophils % (auto) 0.1 %; Immature Granulocytes # (auto) 0.13 K/uL (0.01-0.20); Immature Granulocytes % (auto) 0.9 %; Lymphocytes # (auto) 0.37 K/uL (1.20-3.40); Lymphocytes % (auto) 2.7 %; Monocytes # (auto) 0.75 K/uL (0.11-0.59); Monocytes % (auto) 5.4 %; Neutrophils # (auto) 12.62 K/uL (1.40-6.50); Neutrophils % (auto) 90.8 %
[2023-10-22 18:08] LABS: Albumin Globulin Ratio 1.3 (0.9-2); Albumin Level 4.3 gm/dl (3.4-5.0); BUN Creatinine Ratio 15.1 (10-20); Bilirubin,Total 0.6 mg/dl (0.2-1.0); Calcium 9.9 mg/dl (8.6-10.3); Creatinine Clr Calc Pharmacy 29.3 ml/min; Est GFR (African American) 33.2 ml/min; Est GFR (Non-African American) 28.7 ml/min; Globulin 3.2 gm/dl (2.5-4.0); Potassium 4.3 mmol/L (3.5-5.1); Total Protein 7.5 gm/dl (6.0-8.3)
[2023-10-22 18:15] LABS: Troponin I High Sensitivity 7.7 pg/ml (0-20)
[2023-10-22 18:34] LABS: Partial Thromboplastin Ratio 0.9; Prothrombin Time 10.8 Seconds (9.0-12.0)
--- NOTE | 2023-10-22 18:58 | XRay Report ---
XR chest 1V portable HISTORY: Sepsis COMPARISON: Chest 10/12/2023. FINDINGS: No pneumothorax. Low lung volumes. Patchy left basilar densities have slightly progressed. Possible trace left pleural effusion. No evidence for pulmonary edema. The heart is mildly enlarged. HEALED LEFT-SIDED RIB FRACTURES AGAIN NOTED. IMPRESSION: 1. Patchy left basilar densities have slightly progressed. This may represent atelectasis or developi ng pneumonia. 2. Possible trace left pleural effusion. 3. Stable cardiomegaly. ACT 112: Negative or not required by law. Electronically signed by: Alfredo Caldwell M.D. 10/22/2023 6:56 PM
[2023-10-22 19:28] LABS: Appearance Urine Cloudy (Clear); Bacteria Urine Automated Negative (Negative); Bilirubin Urine Negative (Negative); Blood Urine 2+ (Negative); Color Urine Yellow; Glucose Urine UA Negative (Negative); Ketones Urine Trace (Negative); Leukocyte Esterase Urine 2+ (Negative); Nitrite Urine Positive (Negative); Protein Urine 2+ (Negative); Specific Gravity Urine 1.016 (1.000-1.030); Urobilinogen Urine Negative (Negative); WBC Urine Automated >30 /hpf (0-5); pH Urine 5.5 (4.5-7.5)
--- NOTE | 2023-10-22 19:45 | History & Physical Report ---
Date of Service October 22, 2023 Assessment & Plan (1) Lower extremity weakness: Plan: Fell onto his knees while using walker to get off of urinal the afternoon of 10/22 Ambulates with a walker at baseline Recent [facility] admission 10/11-10/15 for E. coli bacteremia, UTI Elevated leukocytosis at 13.90 with neutrophil predominance BioFire negative Nasal MRSA screen negative Lactate 2.6 --> 0.9 Continue gentle rehydration with LR Fall precautions Continuous telemetry monitoring in the setting of presyncopal episode following micturition PT/OT consulted A.m. CBC, BMP (2) Vomiting: Plan: Recurrent episodes of vomiting, with last being in the ED on 10/22 CXR revealed patchy left basilar densities concerning for developing pneumonia Concern for aspiration PNA Patient denies SOB, but exhibits inspiratory stridor on physical exam Continue Zosyn 4.5g IV q8h Aspiration precautions Speech therapy eval placed (3) UTI (urinary tract infection): Plan: UA positive on arrival Patient reports he has been taking his cefdinir 300 mg p.o. twice daily as prescribed on discharge on 10/15 Patient with chronic prostatitis; not sure if this is a failure of outpatient treatment Will hold cefdinir for now Zosyn (as above) (4) Bladder outlet obstruction: Plan: Patient exhibits urinary incontinence Discharged on tamsulosin during last admission Switched tamsulosin 0.4mg p.o. QAM --> QPM May be contributing to his presyncopal micturition (5) Prostate cancer: Plan: S/p radiation therapy earlier this year Plan [facility] Full code Regular diet (aspiration precautions) VTE PPx: Heparin 5000u SQ q12h History of Present Illness Chief Complaint: Weakness Primary Care Provider: [facility] "Mason" is an 83-year-old male with PMH of prostate cancer, bladder outlet obstruction, Pseudomonas UTI, and COVID-19 in July 2023 with acute hypoxic respiratory failure. He presented to the ED from [facility] for lower extremity weakness and ambulatory dysfunction. Recent hospital admission at [facility] from 10/11-10/15 for E. coli bacteremia, UTI; discharged on cefdinir 300 mg p.o. twice daily x10 days, as well as tamsulosin 0.4 mg QAM. Patient fell to knees and could not get up at on 10/22; while using walker. No head strike. No LOC. No tripping. No dizziness or lightheadedness beforehand. Patient was on his way out of the bathroom at the time. Patient reports that he did not injure his knees. He reports that he has been taking cefdinir as prescribed since discharge. He denies any pain at time of admission. A&Ox3. Mild tachycardia at 100 bpm, tachypnea at 28 rpm. ED course: Zosyn 4.5g IV Zofran 4 mg IV IVF ROS: Patient denies fever, chills, sweats, VILLA, dizziness, lightheadedness, CP, SOB, abdominal pain, N/V/D, burning with urination, urinary s/s, blood in the urine/stool, back pain, saddle anesthesia, or numbness/tingling/swelling/pain in legs. Allergies Allergy/AdvReac Type Severity Reaction Status Date / Time No Known Allergies Allergy Verified 10/22/23 17:56 Home Medications Medication Instructions Recorded Confirmed Type amlodipine 2.5 mg tablet 2.5 mg PO DAILY 10/31/22 10/22/23 History cholecalciferol (vitamin D3) 50 50 mcg PO DAILY 05/01/23 10/22/23 History mcg (2,000 unit) capsule cefdinir 300 mg capsule 300 mg PO BID 10 days #20 caps 10/15/23 10/22/23 Rx tamsulosin 0.4 mg capsule 0.4 mg PO QAM #30 caps 10/15/23 10/22/23 Rx Past Med/Surg History Medical History (Updated 10/22/23 @ 21:06 by Alfredo Mortensen PA-C) Vomiting Generalized weakness Hypertension Kidney stones passed without intervention Prostate cancer s/p radiation treatments Microscopic hematuria Hyperkalemia High anion gap metabolic acidosis Acute renal failure 01/2022, significantly improved with creatinine 1.46 on most recent labs (02/20/22) Diverticulitis Hx Surgical History Tibia fracture with repair > left leg as child History of repair of rotator cuff left Hx of vasectomy History of colonoscopy History of tooth extraction Hx of bilateral cataract extraction History of total right knee replacement H/O hernia repair History of prostate biopsy Family History Father Hypertension Mother Lung disease COPD Social History Smoking Status: Never smoker Tobacco Type: Cigarettes Second Hand Exposure: No; Do You Dip or Chew Tobacco: No; Hx Alcohol Use: Yes Alcohol type: beer Hx Substance Use: No Preferred Language: Kenyan Communication Ability: Effective Visual Impairment: No Limitations Hearing Ability: Hard of Hearing Book Publisher Required: No Beliefs That Will Affect Care: None marital status: Current Living Situation: Spouse Current Living Situation Comment: [email or web address] current occupational status: retired How many Children do You have: 2 Feels Safe at Home: Yes Safety Concerns: Feels Safe At This Time Diet: regular caffeine: Yes during the past year weight has: remained stable Assistive Devices: Cane, Glasses, Hearing Aid - Bilateral and Walker Review of Systems Review of Systems: See HPI above Physical Exam Physical Exam: General: no acute distress; non-toxic appearing; cooperative HEENT: normocephalic, atraumatic; no scleral icterus; PERRLA w/ EOMs intact; moist mucus membrane; vision and hearing grossly intact Neck: supple; no JVD; no lymphadenopathy; trachea midline Skin: warm, dry without signs of tenting; no cyanosis; no rashes, bruising, lesions, or erythema noted CV: chest wall NTP; RRR; S1/S2 normal; no murmurs/rubs/gallops; pulses intact and symmetric at radial, DP, and PT Lungs: inspiratory stridor; symmetrical chest wall expansion; clear breath sounds across all lung manzanares w/o adventitious sounds; no wheezing ABD: Soft, NTP; BS present; no rebound/guarding; no ascites; no distention : Urinary incontinence; no external signs of infection, drainage MSK: no tics or fasciculations; no edema noted in the LEs b/l; no scrapes or abrasions on knees B/L Neuro: A&Ox3; normal mood and affect; fluent speech; no focal deficits; sensation grossly intact in the LEs B/L Results & Data Results & Data Vital Signs (Past 12 Hours) Vital Signs Temp Pulse Pulse Resp BP BP Pulse Ox 10/22/23 18:30 105 H 23 176/84 H 95 10/22/23 18:15 104 H 23 153/83 H 93 11/21/23 17:57 93 10/22/23 17:32 105 H 10/22/23 17:32 102 H 94 10/22/23 17:28 107 H 21 158/85 H 94 10/22/23 17:27 10/22/23 17:16 37.0 C 103 H 20 158/85 H O2 Del Method 10/22/23 18:30 Room Air 10/22/23 18:15 Room Air 10/22/23 17:57 Room Air 10/22/23 17:32 10/22/23 17:32 Room Air 10/22/23 17:28 Room Air 10/22/23 17:27 Room Air 10/22/23 17:16 Laboratory Results Abnormal lab results 10/22/23 10/22/23 10/22/23 Range/Units 17:28 18:10 19:06 WBC 13.90 H (4.8-10.8) K/ul Hgb 13.5 L (14.0-18.0) g/dl MCHC 31.1 L (32.0-36.0) g/dL RDW Std Deviation 50.6 H (36.4-46.3) fL RDW Coeff of Blanca 15.2 H (11.5-14.5) % MPV 8.6 L (9.4-12.4) fL Neut # (Auto) 12.62 H (1.40-6.50) K/uL Lymph # (Auto) 0.37 L (1.20-3.40) K/uL [place] # (Auto) 0.75 H (0.11-0.59) K/uL BUN 31 H (6-23) mg/dl Creatinine 2.05 H (0.6-1.4) mg/dl Glucose 123 H (70-99(Fasting)) mg/dl Lactate 2.6 H* (0.4-2.0) mmol/L Urine Appearance Cloudy A (Clear) Urine Protein 2+ H (Negative) Urine Ketones Trace H (Negative) Urine Blood 2+ H (Negative) Urine Nitrite Positive A (Negative) Ur Leukocyte Esterase 2+ H (Negative) Urine WBC (Auto) >30 H (0-5) /hpf Urine RBC (Auto) 10-30 H (0-4) /hpf U Epithel Cells (Auto) 5-10 H (0-5) /lpf Diagnostic Findings Chest X-Ray 10/22/23 17:44 XR chest 1V portable HISTORY: Sepsis COMPARISON: Chest 10/12/2023. FINDINGS: No pneumothorax. Low lung volumes. Patchy left basilar densities have slightly progressed. Possible trace left pleural effusion. No evidence for pulmonary edema. The heart is mildly enlarged. HEALED LEFT-SIDED RIB FRACTURES AGAIN NOTED. IMPRESSION: 1. Patchy left basilar densities have slightly progressed. This may represent atelectasis or developing pneumonia. 2. Possible trace left pleural effusion. 3. Stable cardiomegaly. ACT 112: Negative or not required by law. Electronically signed by: Alfredo Caldwell M.D. 10/22/2023 6:56 PM Code Status & VTE Plan Code Status Full code VTE Prophylaxis Plan VTE Prophylaxis will be ordered: Yes Supervising Physician Co-Signing Physician Notes Generalized weakness- Patient was noted to fall to his knees after getting off the commode following urination. In the emergency department this evening, he has no complaints. He typically walks with a walker at baseline Multiple contributing factors including but not limited to: Recurrent urinary tract infection, persistent urinary tract infection, micturition near syncope, dehydration, progressive debilitation, tamsulosin a.m. dosing, others E. coli bacteremia/UTI/BPH with LUTS- Patient was most recently admitted to [facility] from 10/11-10/15/2023 on cefepime IV. He was then discharged on cefdinir 300 mg p.o. twice daily for 2 weeks, which she reports taking as directed. Not likely an issue with resistance or failure of outpatient treatment Likely a function of progressive debilitation, inconsistent absorption of oral antibiotic Continue Zosyn 4.5 g IV every 8 hours begun in the ED He also received normal saline 1 L from the ED Placed on LR at 80 mL/h Repeat laboratories CBC with differential and renal function panel in the a.m. Will change tamsulosin to at bedtime, and if has persistent urine tract symptoms, could increase the dosing to 0.8 at a later time Nausea and vomiting without abdominal pain- Unclear etiology, may be intolerance of oral cefdinir Changing to Zosyn IV as noted Zofran 4 mg IV every 6 hours as needed Famotidine 20 mg IV every 12 hours Left lower lobe infiltrate- Noted to be worsening on this chest x-ray compared to previous admission Concern regarding possible aspiration MRSA swab Zosyn IV as noted above Speech evaluation PG Care Time/CCT Total # of Minutes Spent Total Time Spent with Patient: Total time spent is greater than 50% in coordination of care (as documented) at patient's floor/unit and/or counseling patient: Coding [place] [address] INT INP/OBS CARE 2/55MIN Patient Type Established Medical Decision Making Moderate Complexity Diagnoses Lower extremity weakness R29.898 Vomiting R11.10 UTI (urinary tract infection) N39.0 Bladder outlet obstruction N32.0 Prostate cancer C61
[2023-10-22 20:35] LABS: Adenovirus PCR Not Detected (NotDetected); Bordetella parapertussis PCR Not Detected (NotDetected); Bordetella pertussis PCR Not Detected (NotDetected); Chlamydia pneumoniae PCR Not Detected (NotDetected); Coronavirus 229E PCR Not Detected (NotDetected); Coronavirus CoV-2 (COVID19)PCR Not Detected (NotDetected); Coronavirus HKU1 PCR Not Detected (NotDetected); Coronavirus NL63 PCR Not Detected (NotDetected); Coronavirus OC43PCR Not Detected (NotDetected); Human Metapneumovirus PCR Not Detected (NotDetected); Influenza A PCR Not Detected (NotDetected); Influenza B PCR Not Detected (NotDetected); Mycoplasma pneumoniae PCR Not Detected (NotDetected); Parainfluenza Virus 1 PCR Not Detected (NotDetected); Parainfluenza Virus 2 PCR Not Detected (NotDetected); Parainfluenza Virus 3 PCR Not Detected (NotDetected); Parainfluenza Virus 4 PCR Not Detected (NotDetected); Respiratory Syncytial VirusPCR Not Detected (NotDetected); Rhinovirus/Enterovirus PCR Not Detected (NotDetected)
[2023-10-23] MEDS ORDERED: ACETAMINOPHEN 325 MG TAB PO PRN ×2 (00:05)
[2023-10-23] MEDS: PIPERACILLIN/TAZOBACTAM 4.5 GM in DEXTROSE 5% MINI-B 100 ML IV SCH ×3 (02:03→18:18)
[2023-10-23] MEDS ORDERED: LACTATED RINGER'S 1,000 ML IV SCH (06:00)
[2023-10-23] MEDS: amLODIPine BESYLATE 5 MG TAB PO SCH (09:45)
[2023-10-23] MEDS: HEPARIN SOD 5,000 UNIT/0.5 ML VIAL SQ SCH ×2 (09:45→21:42)
[2023-10-23] MEDS: FAMOTIDINE 20 MG in SYRINGE 3 ML IV SCH ×2 (09:45→21:42)
[2023-10-23 11:18] LABS: BUN Creatinine Ratio 14.4 (10-20); Calcium 8.4 mg/dl (8.6-10.3); Creatinine Clr Calc Pharmacy 34.5 ml/min; Est GFR (African American) 40.5 ml/min; Potassium 4.1 mmol/L (3.5-5.1)
[2023-10-23 11:35] LABS: Hematocrit (blood only) 37.1 % (42.0-52.0); Hemoglobin 11.5 g/dl (14.0-18.0); Mean Corpuscular Hemoglobin 27.9 pg (25.0-34.0); Mean Platelet Volume 9.3 fL (9.4-12.4); Platelet Count 154 K/uL (130-400); RDW Coefficient of Variation 15.1 % (11.5-14.5); RDW Standard Deviation 50.2 fL (36.4-46.3); Red Blood Count 4.12 M/uL (4.70-6.10); White Blood Count 7.86 K/ul (4.8-10.8)
[2023-10-23 11:49] LABS: Basophils # (auto) 0.02 K/uL (0.00-0.20); Basophils % (auto) 0.3 %; Immature Granulocytes # (auto) 0.05 K/uL (0.01-0.20); Immature Granulocytes % (auto) 0.6 %; Lymphocytes # (auto) 0.24 K/uL (1.20-3.40); Lymphocytes % (auto) 3.1 %; Monocytes # (auto) 0.36 K/uL (0.11-0.59); Monocytes % (auto) 4.6 %; Neutrophils # (auto) 7.19 K/uL (1.40-6.50); Neutrophils % (auto) 91.4 %
--- NOTE | 2023-10-23 16:49 | Hospitalist Progress Note ---
Date of Service October 23, 2023 Assessment & Plan (1) Sepsis: Plan: Sepsis due to aspiration pneumonia and/or UTI Here with leukocytosis, elevated lactate, tachycardia, nausea/vomiting, LLOYD, and found to have UTI as well as LLL PNA With recent admission for E. coli UTI and bacteremia and a h/o Pseudomonas UTI and bacteremia BioFire negative Nasal MRSA screen negative Improving today. GNR in Ur cx, BCxs NGTD Vitals stable, LLOYD resolved, nausea resolved. With some hypoxia with exertion -check CT abd/pelvis given recurrent UTIs despite being on po cefdinir prior to admission and with a h/o kidney stones -bladder scan to make sure minimal PVR as h/o prostate CA and with incontinence- could be retaining urine -continue IV ZOsyn for now to cover for PNA and UTI -follow Ur cx, BCxs -ok to dc IVFs as is ana po and lactate normal, vitals normal -follow CBC, BMP (2) UTI (urinary tract infection): Plan: UA positive on arrival Patient reports he has been taking his cefdinir 300 mg p.o. twice daily as prescribed on discharge on 10/15 Will hold cefdinir for now Zosyn follow cxs check CT abd/pel (3) Pneumonia: Plan: LLL PNA and hypoxia, after vomiting may be aspiration PNS Seen by SPeech and no issues with swallowing so is an isolated event May be HCAP Gram neg PNA given recent admission MRSA swab neg, continue ZOsyn SUpplemental O2 to keep POx> 90% Follow CXR to resolution of infltrate (4) Lower extremity weakness: Plan: Fell onto his knees while using walker to get off of toilet the afternoon of 10/22 Ambulates with a walker at baseline Continuous telemetry monitoring in the setting of presyncopal episode following micturition PT/OT consulted (5) Acute kidney injury: Plan: 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 QAM --> QPM -check bladder scan qshift (8) Prostate cancer: Plan: S/p radiation therapy earlier this year (9) Acute respiratory failure with hypoxia: Plan: as above, from PNA (10) Hypertension: Plan: BPs controlled continue home amlodipine Plan Disposition: continued stay MedSurg telemetry, PT/OT evals, likely needs rehab at [facility] VTE PPx: Heparin 5000u SQ q12h Called and left message on 10/23 Admission and Anticipated Discharge Date Admission Date: October 22, 2023 Subjective Pt feeling a little better. 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 Denies SOB or cough. Denies abdominal pain or nausea. Is still very weak and having some intermittent urinary incontinence. Physical Exam Constitutional: WD/WN, vitals as above ENMT: external ear and nose normal, oropharynx normal Neck: trachea midline, no thyromegaly Respiratory: normal respiratory effort, lungs clear to auscultation Cardiovascular: RRR, no murmur, no edema Chest (Breasts): Chest: normal inspection of chest Gastrointestinal (Abdomen): normal bowel sounds, soft, nontender, no hepatosplenomegaly Musculoskeletal: Extremities: extremities normal to inspection; no cyanosis and no clubbing Skin: no rashes, warm and dry Neurologic: moves all extremities and awake; no focal motor deficits Psychiatric: A+Ox3, euthymic affect Lymphatic: no lymphedema Results & Data Results & Data Vital Signs (Past 12 Hours) Vital Signs Temp Pulse Pulse Resp BP BP Pulse Ox 10/23/23 15:43 10/23/23 11:00 36.9 C 85 16 148/78 H 92 10/23/23 08:19 36.7 C 88 18 150/86 H 93 10/23/23 08:05 88 10/23/23 06:00 86 19 149/83 H 93 10/23/23 05:30 87 20 147/64 H 94 10/23/23 05:00 85 22 149/78 H 94 Pulse Ox Pulse Ox O2 Del Method O2 Flow Rate O2 Flow Rate 10/23/23 15:43 96 82 L 0 0 10/23/23 11:00 Room Air 10/23/23 08:19 Room Air 10/23/23 08:05 10/23/23 06:00 Room Air 10/23/23 05:30 Room Air 10/23/23 05:00 Room Air Laboratory Results CBC, CMP, lactate, Ur cx and Blood cxs reviewed PG Care Time/CCT Total # of Minutes Spent Total Time Spent with Patient: Total time spent is greater than 50% in coordination of care (as documented) at patient's floor/unit and/or counseling patient: Coding Level of Care Code 44106 SUB INP/OBS CARE 3/50MIN Diagnoses Sepsis A41.9 UTI (urinary tract infection) N39.0 Pneumonia J18.9 Lower extremity weakness R29.898 Acute kidney injury N17.9 Vomiting R11.10 Bladder outlet obstruction N32.0 Prostate cancer C61 Acute respiratory failure with hypoxia J96.01 Hypertension I10
--- NOTE | 2023-10-23 18:50 | CT Scan Report ---
CT SCAN OF THE ABDOMEN AND PELVIS WITHOUT IV CONTRAST CLINICAL HISTORY: Urinary tract infection. Sepsis. COMPARISON STUDY: Abdominal CT dated 08/29/2023. TECHNIQUE: CT scan of the abdomen and pelvis is performed from the lung bases to the proximal femora. Images are reviewed in the axial, sagittal, and coronal planes. IV contrast was not administered for this examination. A dose lowering technique was utilized adhering to the principles of ALARA. CT DOSE: 1282.62 mGy.cm FINDINGS: Lung bases: The heart is top normal in size and without pericardial effusion. The coronary arteries a re densely calcified. The lung bases are clear noting bibasilar scarring/atelectasis. There is a smal l hiatal hernia. Liver: The unenhanced liver is normal in size, contour, and attenuation. There is no intrahepatic mitchell iary ductal dilatation. Gallbladder: There are calcified gallstones without CT evidence of acute cholecystitis. Spleen: Normal in size and attenuation. Pancreas: The unenhanced pancreas is mildly atrophic and grossly unremarkable. Adrenal glands: Unremarkable. Kidneys: The unenhanced kidneys demonstrate cortical atrophy and are without hydronephrosis. There ar e at least 2 nonobstructing right renal calculi which measure up to 4 mm. No left or calculi are iden tified and no ureteral stone is seen. Bilateral renal cysts measuring up to 6.3 cm Abdominal vasculature: The abdominal aorta is normal in course and caliber noting moderate to advance d atherosclerotic calcification. Bowel: There is advanced colonic diverticulosis without CT evidence of acute diverticulitis. No bowel obstruction is seen. A segment of the cecum is located within a right inguinal hernia. No bowel obst ruction is identified. The appendix is well-visualized and normal. Peritoneum: There is no intraperitoneal free air or abdominal ascites. Lymphadenopathy: None. Pelvic viscera: The prostate gland is enlarged and heterogeneous. A large central filling defect sugg ests previous TURP. There is periprostatic infiltration. A metallic fiducial is noted in the right as pect of the prostate. The bladder wall is thickened and there is significant pericystic inflammation. A urachal remnant is suggested at the bladder dome. There are tiny bladder calculi. There are bilate ral fat-containing inguinal hernias, right larger than left. A sigmoid colon protrudes in the right g roin hernia. Skeletal structures: The skeletal structures are osteopenic. There is moderate lumbosacral spondylosi s. No lytic or blastic lesions are seen. Degenerative changes noted in the sacroiliac joints. An insu fficiency fracture of the left sacral ala is unchanged. Sclerotic changes noted at the pubic symphysi s. IMPRESSION: 1. Findings suggest cystitis/prostatitis. Correlate with clinical findings and urinalysis. 2. There are tiny bladder calculi. 3. Right-sided nephrolithiasis. No ureteral stone is seen. 4. Cholelithiasis. 5. Advanced colonic diverticulosis without CT evidence of acute diverticulitis. 6. Bilateral groin hernias, right larger than left. The right inguinal hernia contains a segment of t he cecum. 7. Additional findings as above. ACT 112: Negative or not required by law. Electronically signed by: Jony Sandhu M.D. 10/23/2023 6:48 PM
[2023-10-23] MEDS: TAMSULOSIN HCL 0.4 MG CAP PO SCH (21:42)
[2023-10-24] MEDS: PIPERACILLIN/TAZOBACTAM 4.5 GM in DEXTROSE 5% MINI-B 100 ML IV SCH ×3 (02:25→17:34)
--- NOTE | 2023-10-24 07:04 | Electrocardiogram Report ---
Test Reason : Blood Pressure : / mmHG Vent. Rate : 108 BPM Atrial Rate : 108 BPM P-R Int : 186 ms QRS Dur : 146 ms QT Int : 354 ms P-R-T Axes : 020 -77 018 degrees QTc Int : 474 ms Sinus tachycardia Right bundle branch block Left anterior fascicular block Bifascicular block Abnormal ECG When compared with ECG of 11-OCT-2023 18:58, No significant change was found Confirmed by Alonzo Quiros ([id number]) on 10/24/2023 7:04:42 AM Referred By: Heriberto Guajardo Confirmed By:Alonzo Quiros
[2023-10-24 08:21] LABS: Basophils # (auto) 0.03 K/uL (0.00-0.20); Basophils % (auto) 0.4 %; Eosinophils # (auto) 0.06 K/uL (0.00-0.50); Eosinophils % (auto) 0.8 %; Hematocrit (blood only) 35.8 % (42.0-52.0); Hemoglobin 11.7 g/dl (14.0-18.0); Immature Granulocytes # (auto) 0.05 K/uL (0.01-0.20); Immature Granulocytes % (auto) 0.7 %; Lymphocytes # (auto) 0.42 K/uL (1.20-3.40); Lymphocytes % (auto) 5.8 %; Mean Corpuscular Hemoglobin 28.3 pg (25.0-34.0); Mean Corpuscular Hgb Conc 32.7 g/dL (32.0-36.0); Mean Corpuscular Volume 86.7 fL (80.0-100.0); Monocytes # (auto) 0.64 K/uL (0.11-0.59); Monocytes % (auto) 8.8 %; Neutrophils # (auto) 6.07 K/uL (1.40-6.50); Neutrophils % (auto) 83.5 %; Platelet Count 143 K/uL (130-400); RDW Coefficient of Variation 15.1 % (11.5-14.5); RDW Standard Deviation 48.3 fL (36.4-46.3); Red Blood Count 4.13 M/uL (4.70-6.10); White Blood Count 7.27 K/ul (4.8-10.8)
[2023-10-24 08:43] LABS: BUN Creatinine Ratio 10.9 (10-20); Calcium 8.7 mg/dl (8.6-10.3); Creatinine Clr Calc Pharmacy 29.7 ml/min; Est GFR (African American) 33.8 ml/min; Est GFR (Non-African American) 29.2 ml/min; Magnesium 1.9 mg/dl (1.7-2.4); Potassium 3.9 mmol/L (3.5-5.1)
[2023-10-24] MEDS: FAMOTIDINE 20 MG in SYRINGE 3 ML IV SCH ×2 (08:55→20:10)
[2023-10-24] MEDS: amLODIPine BESYLATE 5 MG TAB PO SCH (08:55)
[2023-10-24] MEDS: HEPARIN SOD 5,000 UNIT/0.5 ML VIAL SQ SCH ×2 (08:57→20:10)
--- NOTE | 2023-10-24 08:57 | Hospitalist Progress Note ---
Date of Service October 24, 2023 Assessment & Plan (1) Sepsis: Plan: Sepsis due to pseudomonas uti, poa Here with leukocytosis, elevated lactate, tachycardia, nausea/vomiting, LLOYD, and found to have UTI as well as LLL PNA With recent admission for E. 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 Continue bladder calculi. 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 MRSA swab neg, continue ZOsyn not titrated to room air Follow CXR to resolution of infltrate in a few weeks (3) Lower extremity weakness: Plan: PT/OT consulted recommend subacute rehab looking for [facility] for similar discharge (4) Acute kidney injury: Plan: resolved CKD 3 (5) Prostate cancer: Plan: S/p radiation therapy earlier this year (6) Hypertension: Plan: BPs controlled continue home amlodipine Plan Disposition: continued stay MedSurg telemetry, 5 gives some description of post bathroom dizziness or lightheadedness will continue to monitor for additional 24 hours PT/OT evjuliocesar, likely needs rehab at [facility] VTE PPx: Heparin 5000u SQ q12h Admission and Anticipated Discharge Date Admission Date: October 22, 2023 Subjective pt is feeling back to normal at bedside and was updated Pt has no cough, no change in urine outpt or color Physical Exam Physical Exam: pts lungs are clear abd is soft and non tender cardiac is regular Results & Data Results & Data Vital Signs (Past 12 Hours) Vital Signs Temp Pulse Pulse Resp BP BP Pulse Ox 10/24/23 07:56 98.4 F 78 18 134/77 94 10/24/23 06:01 78 10/24/23 02:40 99.1 F 84 18 160/78 H 94 11/22/23 22:03 99.7 F H 79 16 125/61 94 10/23/23 22:01 78 10/23/23 21:45 O2 Del Method 10/24/23 07:56 Room Air 10/24/23 06:01 10/24/23 02:40 Room Air 10/23/23 22:03 Room Air 10/23/23 22:01 10/23/23 21:45 Room Air Laboratory Results review cbc review prp PG Care Time/CCT Total # of Minutes Spent Total Time Spent with Patient: Total time spent is greater than 50% in coordination of care (as documented) at patient's floor/unit and/or counseling patient: Coding Level of Care Code 08683 SUB INP/OBS CARE 3/50MIN Diagnoses Sepsis A41.9 Pneumonia J18.9 Lower extremity weakness R29.898 Acute kidney injury N17.9 Prostate cancer C61 Hypertension I10
[2023-10-24] MEDS: TAMSULOSIN HCL 0.4 MG CAP PO SCH (20:10)
[2023-10-25] MEDS: HEPARIN SOD 5,000 UNIT/0.5 ML VIAL SQ SCH ×3 (07:32→21:21)
[2023-10-25] MEDS: amLODIPine BESYLATE 5 MG TAB PO SCH (08:41)
[2023-10-25] MEDS: FAMOTIDINE 20 MG in SYRINGE 3 ML IV SCH ×2 (08:41→21:20)
--- NOTE | 2023-10-25 16:14 | Hospitalist Progress Note ---
Date of Service October 25, 2023 Assessment & Plan (1) Sepsis: Plan: Sepsis due to pseudomonas uti, poa Here with leukocytosis, elevated lactate, tachycardia, nausea/vomiting, LLOYD, and found to have UTI as well as LLL possible infiltrate however does not have clinical symptoms of PNA With recent admission for E. 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 Continue bladder calculi. Right-sided nephrolithiasis cholelithiasis no acute diverticulitis but diverticulosis seen -continue IV ZOsyn for now to cover for PNA and UTI, case management is coordinating [facility] for extended antibiotic coverage will need us guided cc (2) Pneumonia: Plan: LLL PNA and hypoxia, after vomiting may be aspiration PNS Seen by SPeech and no issues with swallowing so is an isolated event MRSA swab neg, continue ZOsyn for uti poa not titrated to room air Follow CXR to resolution of imaging changes in one month (3) Lower extremity weakness: Plan: PT/OT consulted recommend subacute rehab looking for [facility] for similar discharge (4) Acute kidney injury: Plan: resolved CKD 3 (5) Prostate cancer: Plan: S/p radiation therapy earlier this year (6) Hypertension: Plan: BPs controlled continue home amlodipine Plan downgrade to medical PT/OT evals, likely needs rehab at [facility] PPx: Heparin 5000u SQ q12h Admission and Anticipated Discharge Date Admission Date: October 22, 2023 Subjective pt is feeling back to normal at bedside and was updated Pt has no cough, no change in urine outpt or color pt states he wants to go home, PT feels needs subacute rehab Physical Exam Physical Exam: pts lungs are clear abd is soft and non tender cardiac is regular Results & Data Results & Data Vital Signs (Past 12 Hours) Vital Signs Temp Pulse Pulse Resp BP Pulse Ox O2 Del Method 10/25/23 15:22 98.6 F 73 16 124/70 98 Room Air 10/25/23 11:31 97.9 F 91 H 16 115/73 94 Room Air 10/25/23 07:56 97.5 F L 80 16 154/86 H 96 Room Air 10/25/23 07:28 Room Air 10/25/23 06:00 73 PG Care Time/CCT Total # of Minutes Spent Total Time Spent with Patient: Total time spent is greater than 50% in coordination of care (as documented) at patient's floor/unit and/or counseling patient: Coding Level of Care Code 57357 SUB INP/OBS CARE 2/35MIN Diagnoses Sepsis A41.9 Pneumonia J18.9 Lower extremity weakness R29.898 Acute kidney injury N17.9 Prostate cancer C61 Hypertension I10
[2023-10-25] MEDS ORDERED: PIPERACILLIN/TAZOBACTAM 4.5 GM in DEXTROSE 5% MINI-B 100 ML IV ONE (16:30)
[2023-10-25] MEDS: TAMSULOSIN HCL 0.4 MG CAP PO SCH (21:20)
[2023-10-25] MEDS: PIPERACILLIN/TAZOBACTAM 4.5 GM in DEXTROSE 5% MINI-B 100 ML IV SCH (21:20)
[2023-10-26] MEDS: PIPERACILLIN/TAZOBACTAM 4.5 GM in DEXTROSE 5% MINI-B 100 ML IV SCH ×3 (05:15→22:42)
[2023-10-26 07:57] LABS: Hematocrit (blood only) 36.9 % (42.0-52.0); Hemoglobin 11.6 g/dl (14.0-18.0); Mean Corpuscular Hemoglobin 27.8 pg (25.0-34.0); Mean Corpuscular Hgb Conc 31.4 g/dL (32.0-36.0); Mean Corpuscular Volume 88.5 fL (80.0-100.0); Mean Platelet Volume 9.2 fL (9.4-12.4); Platelet Count 134 K/uL (130-400); RDW Coefficient of Variation 14.8 % (11.5-14.5); RDW Standard Deviation 47.8 fL (36.4-46.3); Red Blood Count 4.17 M/uL (4.70-6.10); White Blood Count 3.69 K/ul (4.8-10.8)
[2023-10-26] MEDS: amLODIPine BESYLATE 5 MG TAB PO SCH (08:06)
[2023-10-26] MEDS: HEPARIN SOD 5,000 UNIT/0.5 ML VIAL SQ SCH ×2 (08:07→21:03)
[2023-10-26 08:09] LABS: BUN Creatinine Ratio 10.4 (10-20); Calcium 8.8 mg/dl (8.6-10.3); Creatinine Clr Calc Pharmacy 26.7 ml/min; Est GFR (African American) 33.8 ml/min; Est GFR (Non-African American) 29.2 ml/min; Potassium 3.8 mmol/L (3.5-5.1)
[2023-10-26] MEDS: FAMOTIDINE 20 MG in SYRINGE 3 ML IV SCH ×2 (08:17→21:06)
--- NOTE | 2023-10-26 16:04 | Hospitalist Progress Note ---
Date of Service October 26, 2023 Assessment & Plan (1) Sepsis: Plan: Sepsis due to pseudomonas uti, poa Here with leukocytosis, elevated lactate, tachycardia, nausea/vomiting, LLOYD, and found to have UTI as well as LLL possible infiltrate however does not have clinical symptoms of PNA With recent admission for E. 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 Continue bladder calculi. Right-sided nephrolithiasis cholelithiasis no acute diverticulitis but diverticulosis seen -continue IV ZOsyn for now to cover for PNA and UTI, case management is coordinating [facility] for extended antibiotic coverage will need us guided cc (2) Pneumonia: Plan: LLL PNA and hypoxia, after vomiting may be aspiration PNS Seen by SPeech and no issues with swallowing so is an isolated event MRSA swab neg, continue ZOsyn for uti poa not titrated to room air Follow CXR to resolution of imaging changes in one month (3) Lower extremity weakness: Plan: PT/OT consulted recommend subacute rehab (4) Acute kidney injury: Plan: resolved CKD 3 (5) Prostate cancer: Plan: S/p radiation therapy earlier this year (6) Hypertension: Plan: BPs controlled continue home amlodipine Plan downgrade to medical PT/OT evals, likely needs rehab at [facility] PPx: Heparin 5000u SQ q12h Admission and Anticipated Discharge Date Admission Date: October 22, 2023 Subjective Patient feels well. Denies chest pain or shortness of breath. Review of Systems Review of Systems: All systems reviewed & are unremarkable except as noted in Subjective Physical Exam Physical Exam: General: Awake, conversant Heart: S1, S2/regular rate and rhythm, no murmur rubs or gallops Lungs: Clear to auscultation bilaterally. Normal effort Abdomen: Soft/nontender/nondistended. No hepatosplenomegaly Extremities: No clubbing/cyanosis. No edema Behavior: Appropriate, cooperative Results & Data Results & Data Vital Signs (Past 12 Hours) Vital Signs Temp Pulse Resp BP Pulse Ox O2 Del Method 10/26/23 08:06 36.4 C L 74 16 146/74 H 95 Room Air 10/26/23 07:30 Room Air PG Care Time/CCT Total # of Minutes Spent Total Time Spent with Patient: Total time spent is greater than 50% in coordination of care (as documented) at patient's floor/unit and/or counseling patient: Coding Level of Care Code 27139 SUB INP/OBS CARE 2/35MIN Diagnoses Sepsis A41.9 Pneumonia J18.9 Lower extremity weakness R29.898 Acute kidney injury N17.9 Prostate cancer C61 Hypertension I10
[2023-10-26] MEDS: TAMSULOSIN HCL 0.4 MG CAP PO SCH (21:01)
[2023-10-27] MEDS: PIPERACILLIN/TAZOBACTAM 4.5 GM in DEXTROSE 5% MINI-B 100 ML IV SCH ×3 (05:15→21:13)
[2023-10-27] MEDS: FAMOTIDINE 20 MG in SYRINGE 3 ML IV SCH ×2 (09:38→21:13)
[2023-10-27] MEDS: amLODIPine BESYLATE 5 MG TAB PO SCH (09:38)
[2023-10-27] MEDS: HEPARIN SOD 5,000 UNIT/0.5 ML VIAL SQ SCH ×2 (10:37→21:12)
--- NOTE | 2023-10-27 16:10 | Hospitalist Progress Note ---
Date of Service October 27, 2023 Assessment & Plan (1) Sepsis: Plan: Sepsis due to pseudomonas uti, poa Here with leukocytosis, elevated lactate, tachycardia, nausea/vomiting, LLOYD, and found to have UTI as well as LLL possible infiltrate however does not have clinical symptoms of PNA With recent admission for E. 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 Continue bladder calculi. Right-sided nephrolithiasis cholelithiasis no acute diverticulitis but diverticulosis seen -continue IV ZOsyn for now to cover for PNA and UTI, case management is coordinating with snf for extended antibiotic coverage will need us guided cc (2) Pneumonia: Plan: LLL PNA and hypoxia, after vomiting may be aspiration PNS Seen by SPeech and no issues with swallowing so is an isolated event MRSA swab neg, continue ZOsyn for uti poa not titrated to room air Follow CXR to resolution of imaging changes in one month (3) Lower extremity weakness: Plan: PT/OT consulted recommend subacute rehab (4) Acute kidney injury: Plan: resolved CKD 3 (5) Prostate cancer: Plan: S/p radiation therapy earlier this year (6) Hypertension: Plan: BPs controlled continue home amlodipine Plan downgrade to medical PT/OT evals, likely needs rehab at [facility] PPx: Heparin 5000u SQ q12h Admission and Anticipated Discharge Date Admission Date: October 22, 2023 Subjective patient feels well. Denies chest pain or shortness of breath. Review of Systems Review of Systems: All systems reviewed & are unremarkable except as noted in Subjective Physical Exam Physical Exam: General: Awake, conversant Heart: S1, S2/regular rate and rhythm, no murmur rubs or gallops Lungs: Clear to auscultation bilaterally. Normal effort Abdomen: Soft/nontender/nondistended. No hepatosplenomegaly Extremities: No clubbing/cyanosis. No edema Behavior: Appropriate, cooperative Results & Data Results & Data Vital Signs (Past 12 Hours) Vital Signs Temp Pulse Resp BP BP Pulse Ox O2 Del Method 10/27/23 15:13 36.7 C 83 18 116/68 96 Room Air 10/27/23 07:30 Room Air 10/27/23 07:29 36.3 C L 65 16 113/67 95 Room Air PG Care Time/CCT Total # of Minutes Spent Total Time Spent with Patient: Total time spent is greater than 50% in coordination of care (as documented) at patient's floor/unit and/or counseling patient: Coding Level of Care Code 52163 SUB INP/OBS CARE 2/35MIN Diagnoses Sepsis A41.9 Pneumonia J18.9 Lower extremity weakness R29.898 Acute kidney injury N17.9 Prostate cancer C61 Hypertension I10
[2023-10-27] MEDS: TAMSULOSIN HCL 0.4 MG CAP PO SCH (21:12)
[2023-10-28] MEDS: PIPERACILLIN/TAZOBACTAM 4.5 GM in DEXTROSE 5% MINI-B 100 ML IV SCH ×3 (06:33→21:09)
[2023-10-28] MEDS: amLODIPine BESYLATE 5 MG TAB PO SCH (08:12)
[2023-10-28] MEDS: HEPARIN SOD 5,000 UNIT/0.5 ML VIAL SQ SCH (08:12)
[2023-10-28] MEDS: FAMOTIDINE 20 MG in SYRINGE 3 ML IV SCH ×2 (08:13→21:08)
[2023-10-28 10:01] LABS: Hematocrit (blood only) 36.6 % (42.0-52.0); Hemoglobin 11.8 g/dl (14.0-18.0); Mean Corpuscular Hgb Conc 32.2 g/dL (32.0-36.0); Mean Corpuscular Volume 86.7 fL (80.0-100.0); Mean Platelet Volume 8.8 fL (9.4-12.4); Platelet Count 146 K/uL (130-400); RDW Coefficient of Variation 14.7 % (11.5-14.5); RDW Standard Deviation 46.5 fL (36.4-46.3); Red Blood Count 4.22 M/uL (4.70-6.10); White Blood Count 4.55 K/ul (4.8-10.8)
[2023-10-28 10:20] LABS: BUN Creatinine Ratio 11.5 (10-20); Calcium 9.1 mg/dl (8.6-10.3); Creatinine Clr Calc Pharmacy 28.3 ml/min; Est GFR (African American) 36.2 ml/min; Est GFR (Non-African American) 31.2 ml/min; Potassium 3.9 mmol/L (3.5-5.1)
--- NOTE | 2023-10-28 15:26 | Infectious Disease Consult ---
Date of Consultation October 28, 2023 Assessment & Plan (1) Pseudomonas urinary tract infection: (2) BPH loc w urin obs/LUTS: (3) Prostatitis: (4) History of prostate cancer: Luis Wilder" Upcrluis is an 83-year-old man with history of prostate cancer, bladder outlet obstruction, history of Pseudomonas UTI, BPH with LUTS, recent E. coli UTI with bacteremia 10/11/23, COVID-19 in July 2023, who presents on 10/22/23 with weakness, found to have UCx + Pseudomonas with CT A/P c/f cystitis and prostatitis. ID is consulted for Pseudomonas UTI/prostatitis. The patient did not report clear symptoms of acute prostatitis though does have BPH with chronic LUTS. Also note a history of multiple prior UCx +PsA though his most recent bacteremia was with E. coli. Given the patients structural prostate issues (hx of XRT) and imaging c/w prostatitis, would treat with an extended (28-day) course. Pt also with small bladder calculi and R-sided nephrolithiasis. Would also consider urology evaluation given pts hematuria. His PsA is susceptible to levofloxacin (only intermediate to cipro) but given the long course of antibiotics, and concerns about QTc monitoring, would favor pip-tazo to complete the 4-week course. Note that 10/24 QTc 474, though this in setting of RBBB. Of note: if considering the use of levofloxacin, given his QTc >450, would recommend daily QTc monitoring for the first 72 hours after levofloxacin, and consider weekly EKG while on therapy. Will recommend to complete the 28-day course with pip-tazo, which he has tolerated in the hospital. ID Problem List: 1.Pseudomonas UTI with prostatitis 2.History of recurrent urinary tract infections 3.History of prostate cancer 4.Suspected aspiration pneumonia, improved 5.History of E. coli bacteremia Recommendations: - Continue pip-tazo 4.5 g IV Q8H (renally dosed) to complete 28-day course (10/22/23-11/19/23)please reevaluate dosing if changes in renal function - Lab monitoring while on antibiotics: weekly CBC w/ diff, weekly CMP, ESR, CRP - Recommend outpatient ID follow-up if able - Consider urology evaluation given hematuria Plan discussed with hospitalist. Thank you for letting ID participate in the care of this patient. ID will sign off at this time. If questions, please contact the [facility] call center at [phone]. Beverly Maher MD, MHS Infectious Diseases [facility] direct line: [phone] Consultation Information Consultation was provided via telemedicine using two-way real-time interactive telecommunication between the patient and the telemedicine provider. For the duration of the visit, the provider was performing the assessment from a different facility than the patient. This includesuse of bluetooth stethoscope forauscultationperformed by the telepresenter that the telemedicine provider can hear if described in the physical exam. Rope Maker contact information: Please call [facility] Call Center [phone]. (Phone Number For Physician Use Only) After establishing a telemedicine visit, patient was: Patient was verified with two unique identifiers, Patient/authorized rep acknowledged consent and understanding and Gave permission to continue telehealth session Time Spent with Patient: Initial => 75 min History of Present Illness Reason for Consultation: Pseudomonas UTI, prostatitis Attending Physician: Prabhjot Do MD History of Present Illness Koffi Naidu (Lee) is an 83-year-old man with history of prostate cancer, bladder outlet obstruction, history of Pseudomonas UTI, BPH with LUTS, recent E. coli UTI with bacteremia 10/11/23, COVID-19 in July 2023, who presents on 10/22/23 with weakness, found to have UCx + Pseudomonas with CT A/P c/f cystitis and prostatitis. ID is consulted for Pseudomonas UTI/prostatitis. He was recently admitted to [facility] 10/11-10/15 for E. coli UTI c/b E. coli bacteremia, discharged on cefdinir 300 mg PO BID for a 10-day course. He was still on this antibiotic leading up to this admission. The patient fell to his knees at home on 10/22 while walking out of the bathroom, and was unable to get up. He tells me that he did not have any urinary symptoms, and that weakness was his only symptom. No fevers, chills, sweats, cough, chest pain, shortness of breath, abdominal pain, n/d, numbness/tingling, rashes, joint pain or back pain. He denies any pain in his perineum, any issues with stooling; no pain with defecation. He does not have a chronic indwelling urinary catheter. He presented to the ED on 10/22/23. TMax 37.6. He was found to have WBC 14. 10/22 UA +nitrites, 2+ LE, >30 WBCs, 10-30 RBCs, 5-10 epis. UCx grew Pseudomonas aeruginosa. BCx NGTD. He has been receiving pip-tazo while inpatient. CT A/P suggestive of cystitis/prostatitis, with small bladder calculi and R-sided nephrolithiasis. 10/22 CXR with patchy L basilar densities c/f atelectasis vs. pna, trace L pleural effusion. He did have episodes of vomiting including in the ED and thus there was concern for aspiration and possilbly aspiration pna. He has been satting well on room air. Patient initially said that he is not sure if feels any differently since admission. He later said that he feels good and wants to go home. Of note, he had hematuria later on 10/28. Allergies Allergy/AdvReac Type Severity Reaction Status Date / Time No Known Allergies Allergy Verified 10/22/23 17:56 Home Medications Medication Instructions Recorded Confirmed Type amlodipine 2.5 mg tablet 2.5 mg PO DAILY 10/31/22 10/22/23 History cholecalciferol (vitamin D3) 50 50 mcg PO DAILY 05/01/23 10/22/23 History mcg (2,000 unit) capsule cefdinir 300 mg capsule 300 mg PO BID 10 days #20 caps 10/15/23 10/22/23 Rx tamsulosin 0.4 mg capsule 0.4 mg PO QAM #30 caps 10/15/23 10/22/23 Rx Patient History Medical History (Updated 10/28/23 @ 15:52 by Beverly Maher MD) Vomiting Generalized weakness Hypertension Kidney stones passed without intervention Prostate cancer s/p radiation treatments Microscopic hematuria Hyperkalemia High anion gap metabolic acidosis Acute renal failure 01/2022, significantly improved with creatinine 1.46 on most recent labs (02/20/22) Diverticulitis Hx Surgical History Tibia fracture with repair > left leg as child History of repair of rotator cuff left Hx of vasectomy History of colonoscopy History of tooth extraction Hx of bilateral cataract extraction History of total right knee replacement H/O hernia repair History of prostate biopsy Family History Father Hypertension Mother Lung disease COPD Social History Smoking Status: Never smoker Tobacco Type: Cigarettes Second Hand Exposure: No; Do You Dip or Chew Tobacco: No; Hx Alcohol Use: Yes Alcohol type: beer Hx Substance Use: No Preferred Language: Maori Communication Ability: Effective Visual Impairment: No Limitations Hearing Ability: Hard of Hearing Printer Maintainer Required: No Beliefs That Will Affect Care: None marital status: Current Living Situation: Spouse Current Living Situation Comment: [facility] current occupational status: retired How many Children do You have: 2 Feels Safe at Home: Yes Safety Concerns: Feels Safe At This Time Diet: regular caffeine: Yes during the past year weight has: remained stable Assistive Devices: Cane and Walker Physical Exam Physical Exam: Exam obtained with aid of in-person telepresenter. General: Well-appearing, no acute distress HEENT: Conjunctivae non-injected, sclerae anicteric, MMM, OP clear. CV: RRR, normal S1/S2; no murmurs, rubs, or gallops. Resp: CTAB; no wheezes, rales, or rhonchi. Respirations nonlabored. Abd: Soft, nontender, nondistended. No masses or organomegaly. Back: No tenderness to palpation along spine, no CVA tenderness Ext: Warm and well-perfused, no edema. No joint warmth or effusions noted. Skin: No rashes or lesions. Neuro: Alert & interactive. Grossly non-focal. Psych: Pleasant, appropriate. Results & Data Vital Signs (Past 12 Hours) Vital Signs Temp Pulse Resp BP Pulse Ox O2 Del Method 10/28/23 15:04 36.7 C 81 16 143/76 H 97 Room Air 10/28/23 09:30 Room Air 10/28/23 07:57 36.3 C L 65 16 143/75 H 94 Room Air Diagnostic Findings Diagnostics: 10/22 CXR 1. Patchy left basilar densities have slightly progressed. This may represent atelectasis or developing pneumonia. 2. Possible trace left pleural effusion. 3. Stable cardiomegaly. 10/23 CT A/P 1. Findings suggest cystitis/prostatitis. Correlate with clinical findings and urinalysis. 2. There are tiny bladder calculi. 3. Right-sided nephrolithiasis. No ureteral stone is seen. 4. Cholelithiasis. 5. Advanced colonic diverticulosis without CT evidence of acute diverticulitis. 6. Bilateral groin hernias, right larger than left. The right inguinal hernia contains a segment of the cecum. 7. Additional findings as above. Micro Summary: 10/22 UCx 80k PsA (I-cipro, S-levo) 10/22 UA +nitrites, 2+ LE, >30 WBCs, 10-30 RBCs, 5-10 epis 10/22 BCx x2 NG 10/22 MRSA PCR neg 10/22 respiratory PCR panel neg Prior 10/14 BCx x2 NG 10/11 Cx mixed 10/11 BCx x2 E. coli 09/16 UCx E. coli -- 08/28 UCx: PsA 07/12 UCx: PsA 05/24 UCx: PsA Antibiotic Summary: pip-tazo (10/22-present) cefdinir METHODS EXAMINER
--- NOTE | 2023-10-28 17:04 | Hospitalist Progress Note ---
Date of Service October 28, 2023 Assessment & Plan (1) Sepsis: Plan: Sepsis due to pseudomonas uti, poa Here with leukocytosis, elevated lactate, tachycardia, nausea/vomiting, LLOYD, and found to have UTI as well as LLL possible infiltrate however does not have clinical symptoms of PNA With recent admission for E. 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 Continue bladder calculi. Right-sided nephrolithiasis cholelithiasis no acute diverticulitis but diverticulosis seen -continue IV ZOsyn for now to cover for PNA and UTI, case management is coordinating with snf for extended antibiotic coverage will need us guided cc Will discharge the patient on IV Zosyn for 4 weeks. Lab monitoring while on antibiotics: weekly CBC w/ diff, weekly CMP, ESR, CRP Ordered PICC line (2) Pneumonia: Plan: LLL PNA and hypoxia, after vomiting may be aspiration PNS Seen by SPeech and no issues with swallowing so is an isolated event MRSA swab neg, continue ZOsyn for uti poa not titrated to room air Follow CXR to resolution of imaging changes in one month (3) Lower extremity weakness: Plan: PT/OT consulted recommend subacute rehab (4) Acute kidney injury: Plan: resolved CKD 3 (5) Prostate cancer: Plan: S/p radiation therapy earlier this year Patient had an episode of hematuria today. He says that he has had episodes in the past Discontinued heparin subcu prophylactic dose (6) Hypertension: Plan: BPs controlled continue home amlodipine Plan PT/OT evals, likely needs rehab at [facility] PPx: discontinue heparin due to hematuria Admission and Anticipated Discharge Date Admission Date: October 22, 2023 Subjective patient feels well. He had an episode of hematuria. He says that he has had hematuria off-and-on at home. This episode was not unusual for him. Denies chest pain or shortness of breath. Review of Systems Review of Systems: All systems reviewed & are unremarkable except as noted in Subjective Physical Exam Physical Exam: General: Awake, conversant Heart: S1, S2/regular rate and rhythm, no murmur rubs or gallops Lungs: Clear to auscultation bilaterally. Normal effort Abdomen: Soft/nontender/nondistended. No hepatosplenomegaly Extremities: No clubbing/cyanosis. No edema Behavior: Appropriate, cooperative Results & Data Results & Data Vital Signs (Past 12 Hours) Vital Signs Temp Pulse Resp BP Pulse Ox O2 Del Method 10/28/23 15:04 36.7 C 81 16 143/76 H 97 Room Air 10/28/23 09:30 Room Air 10/28/23 07:57 36.3 C L 65 16 143/75 H 94 Room Air Laboratory Results Abnormal lab results 10/28/23 Range/Units 09:38 WBC 4.55 L (4.8-10.8) K/ul RBC 4.22 L (4.70-6.10) M/uL Hgb 11.8 L (14.0-18.0) g/dl Hct 36.6 L (42.0-52.0) % RDW Std Deviation 46.5 H (36.4-46.3) fL RDW Coeff of Blanca 14.7 H (11.5-14.5) % MPV 8.8 L (9.4-12.4) fL Chloride 109 H (98-107) mmol/L Creatinine 1.91 H (0.6-1.4) mg/dl Glucose 126 H (70-99(Fasting)) mg/dl PG Care Time/CCT Total # of Minutes Spent Total Time Spent with Patient: Total time spent is greater than 50% in coordination of care (as documented) at patient's floor/unit and/or counseling patient: Coding Level of Care Code 71384 SUB INP/OBS CARE 2/35MIN Diagnoses Sepsis A41.9 Pneumonia J18.9 Lower extremity weakness R29.898 Acute kidney injury N17.9 Prostate cancer C61 Hypertension I10
[2023-10-28] MEDS: TAMSULOSIN HCL 0.4 MG CAP PO SCH (21:06)
[2023-10-29] MEDS: PIPERACILLIN/TAZOBACTAM 4.5 GM in DEXTROSE 5% MINI-B 100 ML IV SCH ×3 (05:25→20:05)
[2023-10-29] MEDS: amLODIPine BESYLATE 5 MG TAB PO SCH (08:51)
[2023-10-29] MEDS: FAMOTIDINE 20 MG in SYRINGE 3 ML IV SCH ×2 (08:53→20:05)
--- NOTE | 2023-10-29 16:00 | XRay Report ---
XR chest 1V portable HISTORY: 83 years-old Male Check PICC line placement status post placement of a right-sided PICC COMPARISON: 10/22/2023 TECHNIQUE: AP view of the chest FINDINGS: Cardiac silhouette is mildly enlarged. Right-sided PICC distal tip terminating within the expected lo cation of the upper SVC. No pneumothorax, large pleural effusion or pulmonary edema. Chronic blunting of the costophrenic angles. Bones appear grossly intact with healed chronic left-sided rib fractures . IMPRESSION: Status post placement of a right-sided PICC. No pneumothorax. ACT 112: Negative or not required by law. The above report was generated using voice recognition software. It may contain grammatical, syntax o r spelling errors. Electronically signed by: Yemi Rosenbaum M.D. 10/29/2023 3:59 PM
--- NOTE | 2023-10-29 16:41 | Hospitalist Progress Note ---
Date of Service October 29, 2023 Assessment & Plan (1) Sepsis: Plan: Sepsis due to pseudomonas uti, poa Here with leukocytosis, elevated lactate, tachycardia, nausea/vomiting, LLOYD, and found to have UTI as well as LLL possible infiltrate however does not have clinical symptoms of PNA With recent admission for E. 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 Continue bladder calculi. Right-sided nephrolithiasis cholelithiasis no acute diverticulitis but diverticulosis seen -continue IV ZOsyn for now to cover for PNA and UTI, case management is coordinating with snf for extended antibiotic coverage will need us guided cc Will discharge the patient on IV Zosyn for 4 weeks. Lab monitoring while on antibiotics: weekly CBC w/ diff, weekly CMP, ESR, CRP Ordered PICC line (2) Pneumonia: Plan: LLL PNA and hypoxia, after vomiting may be aspiration PNS Seen by SPeech and no issues with swallowing so is an isolated event MRSA swab neg, continue ZOsyn for uti poa not titrated to room air Follow CXR to resolution of imaging changes in one month (3) Lower extremity weakness: Plan: PT/OT consulted recommend subacute rehab (4) Acute kidney injury: Plan: resolved CKD 3 (5) Prostate cancer: Plan: S/p radiation therapy earlier this year Patient had an episode of hematuria today. He says that he has had episodes in the past Discontinued heparin subcu prophylactic dose (6) Hypertension: Plan: BPs controlled continue home amlodipine Plan PT/OT evals, likely needs rehab at [facility] VTE PPx: discontinue heparin due to hematuria Likely discharge tomorrow at noon Admission and Anticipated Discharge Date Admission Date: October 22, 2023 Subjective Patient feels well. Denies chest pain or shortness of breath. Review of Systems Review of Systems: All systems reviewed & are unremarkable except as noted in Subjective Physical Exam Physical Exam: General: Awake, conversant Heart: S1, S2/regular rate and rhythm, no murmur rubs or gallops Lungs: Clear to auscultation bilaterally. Normal effort Abdomen: Soft/nontender/nondistended. No hepatosplenomegaly Extremities: No clubbing/cyanosis. No edema Behavior: Appropriate, cooperative Results & Data Results & Data Vital Signs (Past 12 Hours) Vital Signs Temp Pulse Resp BP Pulse Ox O2 Del Method 10/29/23 15:12 36.4 C L 87 18 146/84 H 95 Room Air 10/29/23 07:50 36.6 C 75 20 131/67 95 Room Air PG Care Time/CCT Total # of Minutes Spent Total Time Spent with Patient: Total time spent is greater than 50% in coordination of care (as documented) at patient's floor/unit and/or counseling patient: Coding Level of Care Code 80633 SUB INP/OBS CARE 2/35MIN Diagnoses Sepsis A41.9 Pneumonia J18.9 Lower extremity weakness R29.898 Acute kidney injury N17.9 Prostate cancer C61 Hypertension I10
[2023-10-29] MEDS: TAMSULOSIN HCL 0.4 MG CAP PO SCH (20:05)
[2023-10-30] MEDS: PIPERACILLIN/TAZOBACTAM 4.5 GM in DEXTROSE 5% MINI-B 100 ML IV SCH ×3 (06:04→21:21)
[2023-10-30 07:33] LABS: Hematocrit (blood only) 39.9 % (42.0-52.0); Hemoglobin 12.4 g/dl (14.0-18.0); Mean Corpuscular Hemoglobin 27.8 pg (25.0-34.0); Mean Corpuscular Hgb Conc 31.1 g/dL (32.0-36.0); Mean Corpuscular Volume 89.5 fL (80.0-100.0); Mean Platelet Volume 8.9 fL (9.4-12.4); Platelet Count 181 K/uL (130-400); RDW Standard Deviation 49.2 fL (36.4-46.3); Red Blood Count 4.46 M/uL (4.70-6.10); White Blood Count 9.46 K/ul (4.8-10.8)
[2023-10-30 08:00] LABS: BUN Creatinine Ratio 10.6 (10-20); Creatinine Clr Calc Pharmacy 24.8 ml/min; Est GFR (African American) 30.9 ml/min; Est GFR (Non-African American) 26.6 ml/min; Potassium 3.7 mmol/L (3.5-5.1)
[2023-10-30] MEDS: amLODIPine BESYLATE 5 MG TAB PO SCH (08:16)
[2023-10-30] MEDS: FAMOTIDINE 20 MG in SYRINGE 3 ML IV SCH ×2 (08:17→21:21)
[2023-10-30] MEDS ORDERED: SODIUM CHLORIDE 0.9% 1,000 ML IV ONE (10:42)
--- NOTE | 2023-10-30 14:39 | Hospitalist Progress Note ---
Date of Service October 30, 2023 Assessment & Plan (1) Sepsis: Plan: Sepsis due to pseudomonas uti, poa Here with leukocytosis, elevated lactate, tachycardia, nausea/vomiting, LLOYD, and found to have UTI as well as LLL possible infiltrate however does not have clinical symptoms of PNA With recent admission for E. 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 Continue bladder calculi. Right-sided nephrolithiasis cholelithiasis no acute diverticulitis but diverticulosis seen -continue IV ZOsyn for now to cover for PNA and UTI, case management is coordinating with snf for extended antibiotic coverage will need us guided cc Will discharge the patient on IV Zosyn for 4 weeks. Lab monitoring while on antibiotics: weekly CBC w/ diff, weekly CMP, ESR, CRP PICC line in place (2) Pneumonia: Plan: LLL PNA and hypoxia, after vomiting may be aspiration PNS Seen by SPeech and no issues with swallowing so is an isolated event MRSA swab neg, continue ZOsyn for uti poa not titrated to room air Follow CXR to resolution of imaging changes in one month (3) Lower extremity weakness: Plan: PT/OT consulted recommend subacute rehab (4) Acute kidney injury: Plan: resolved CKD 3 (5) Prostate cancer: Plan: S/p radiation therapy earlier this year Patient had an episode of hematuria today. He says that he has had episodes in the past Discontinued heparin subcu prophylactic dose (6) Hypertension: Plan: BPs controlled continue home amlodipine (7) Vasovagal syncope: Plan: Most likely secondary to straining for bowel movement Orthostatic vital signs negative Patient received 1 L fluid bolus Will recheck orthostatic vital signs tomorrow Plan PT/OT evals, likely needs rehab at [facility] VTE PPx: discontinue heparin due to hematuria Likely discharge tomorrow if orthostatic vital signs negative Admission and Anticipated Discharge Date Admission Date: October 22, 2023 Subjective Patient had an episode of syncope when he was on the toilet. He had a bowel movement, felt dizzy and then nearly passed out. A code purple was called. The patient was brought to his bed and when he was laid down, he was awake and alert and talkative. Per his , the patient has a history of vasovagal syncope Review of Systems Review of Systems: All systems reviewed & are unremarkable except as noted in Subjective Physical Exam Physical Exam: General: Awake, conversant Heart: S1, S2/regular rate and rhythm, no murmur rubs or gallops Lungs: Clear to auscultation bilaterally. Normal effort Abdomen: Soft/nontender/nondistended. No hepatosplenomegaly Extremities: No clubbing/cyanosis. No edema Behavior: Appropriate, cooperative Results & Data Results & Data Vital Signs (Past 12 Hours) Vital Signs Temp Pulse Resp BP Pulse Ox O2 Del Method O2 Flow Rate 10/30/23 14:07 36.5 C 86 20 137/75 97 Nasal Cannula 10/30/23 13:00 36.8 C 88 20 126/75 97 Nasal Cannula 2 10/30/23 12:00 36.6 C 90 20 127/70 95 Nasal Cannula 2 10/30/23 10:30 36 C L 83 22 138/73 99 Nasal Cannula 2 10/30/23 08:06 36.4 C L 81 18 124/66 96 Room Air Laboratory Results Abnormal lab results 10/30/23 10/30/23 10/30/23 Range/Units 07:08 10:31 10:40 RBC 4.46 L (4.70-6.10) M/uL Hgb 12.4 L (14.0-18.0) g/dl Hct 39.9 L (42.0-52.0) % MCHC 31.1 L (32.0-36.0) g/dL RDW Std Deviation 49.2 H (36.4-46.3) fL RDW Coeff of Blanca 15.0 H (11.5-14.5) % MPV 8.9 L (9.4-12.4) fL Chloride 108 H (98-107) mmol/L Creatinine 2.18 H (0.6-1.4) mg/dl Glucose 102 H (70-99(Fasting)) mg/dl POC Glucose 115 H (70-99) mg/dl Lactate 2.4 H* (0.4-2.0) mmol/L Diagnostic Findings Chest X-Ray 10/29/23 14:10 XR chest 1V portable HISTORY: 83 years-old Male Check PICC line placement status post placement of a right-sided PICC COMPARISON: 10/22/2023 TECHNIQUE: AP view of the chest FINDINGS: Cardiac silhouette is mildly enlarged. Right-sided PICC distal tip terminating within the expected location of the upper SVC. No pneumothorax, large pleural effusion or pulmonary edema. Chronic blunting of the costophrenic angles. Bones appear grossly intact with healed chronic left-sided rib fractures. IMPRESSION: Status post placement of a right-sided PICC. No pneumothorax. ACT 112: Negative or not required by law. The above report was generated using voice recognition software. It may contain grammatical, syntax or spelling errors. Electronically signed by: Yemi Rosenbaum M.D. 10/29/2023 3:59 PM PG Care Time/CCT Total # of Minutes Spent Total Time Spent with Patient: Total time spent is greater than 50% in coordination of care (as documented) at patient's floor/unit and/or counseling patient: Coding Level of Care Code 16592 SUB INP/OBS CARE 2/35MIN Diagnoses Sepsis A41.9 Pneumonia J18.9 Lower extremity weakness R29.898 Acute kidney injury N17.9 Prostate cancer C61 Hypertension I10 Vasovagal syncope R55
[2023-10-30] MEDS: TAMSULOSIN HCL 0.4 MG CAP PO SCH (20:31)
[2023-10-31] MEDS: PIPERACILLIN/TAZOBACTAM 4.5 GM in DEXTROSE 5% MINI-B 100 ML IV SCH (05:44)
[2023-10-31] MEDS: amLODIPine BESYLATE 5 MG TAB PO SCH (07:54)
[2023-10-31] MEDS: FAMOTIDINE 20 MG in SYRINGE 3 ML IV SCH (07:55)
[2023-10-31 08:03] VITALS: BP 117/68; PULSE 70; RESP 18; TEMP 98.2; O2SAT 96
--- NOTE | 2023-10-31 11:49 | Discharge Summary ---
Date of Service October 31, 2023 Admission HPI Per Admitting Provider Koffi Wilder" is an 83-year-old male with PMH of prostate cancer, bladder outlet obstruction, Pseudomonas UTI, and COVID-19 in July 2023 with acute hypoxic respiratory failure. He presented to the ED from [facility] for lower extremity weakness and ambulatory dysfunction. Recent hospital admission at [facility] from 10/11-10/15 for E. coli bacteremia, UTI; discharged on cefdinir 300 mg p.o. twice daily x10 days, as well as tamsulosin 0.4 mg QAM. Patient fell to knees and could not get up at on 10/22; while using walker. No head strike. No LOC. No tripping. No dizziness or lightheadedness beforehand. Patient was on his way out of the bathroom at the time. Patient reports that he did not injure his knees. He reports that he has been taking cefdinir as prescribed since discharge. He denies any pain at time of admission. A&Ox3. Mild tachycardia at 100 bpm, tachypnea at 28 rpm. ED course: Zosyn 4.5g IV Zofran 4 mg IV IVF ROS: Patient denies fever, chills, sweats, VILLA, dizziness, lightheadedness, CP, SOB, abdominal pain, N/V/D, burning with urination, urinary s/s, blood in the urine/stool, back pain, saddle anesthesia, or numbness/tingling/swelling/pain in legs. Admission Exam Per Admitting Provider General: no acute distress; non-toxic appearing; cooperative HEENT: normocephalic, atraumatic; no scleral icterus; PERRLA w/ EOMs intact; moist mucus membrane; vision and hearing grossly intact Neck: supple; no JVD; no lymphadenopathy; trachea midline Skin: warm, dry without signs of tenting; no cyanosis; no rashes, bruising, lesions, or erythema noted CV: chest wall NTP; RRR; S1/S2 normal; no murmurs/rubs/gallops; pulses intact and symmetric at radial, DP, and PT Lungs: inspiratory stridor; symmetrical chest wall expansion; clear breath sounds across all lung manzanares w/o adventitious sounds; no wheezing ABD: Soft, NTP; BS present; no rebound/guarding; no ascites; no distention : Urinary incontinence; no external signs of infection, drainage MSK: no tics or fasciculations; no edema noted in the LEs b/l; no scrapes or abrasions on knees B/L Neuro: A&Ox3; normal mood and affect; fluent speech; no focal deficits; sensation grossly intact in the LEs B/L Principal Diagnosis Sepsis due to Pseudomonas UTI Acute Pseudomonas prostatitis Ambulatory dysfunction requiring rehab Acute kidney injury on CKD stage III. Resolved Vasovagal syncope due to straining during bowel movement Discharge Exam General: Awake, conversant Heart: S1, S2/regular rate and rhythm, no murmur rubs or gallops Lungs: Clear to auscultation bilaterally. Normal effort Abdomen: Soft/nontender/nondistended. No hepatosplenomegaly Extremities: No clubbing/cyanosis. No edema Behavior: Appropriate, cooperative Discharge Data Allergies Allergy/AdvReac Type Severity Reaction Status Date / Time No Known Allergies Allergy Verified 10/22/23 17:56 Consultations 10/22/23 18:35 ED Decision to Admit Stat 10/27/23 08:28 Consult Infectious Diseases Routine Ordered Studies 10/23/23 16:56 CT abd pelvis wo con Urgent Hospital Course (1) Sepsis: Sepsis due to pseudomonas uti, poa Here with leukocytosis, elevated lactate, tachycardia, nausea/vomiting, LLOYD, and found to have UTI as well as LLL possible infiltrate however does not have clinical symptoms of PNA With recent admission for E. 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 Continue bladder calculi. Right-sided nephrolithiasis cholelithiasis no acute diverticulitis but diverticulosis seen -continue IV ZOsyn for now to cover for PNA and UTI, Will discharge the patient on IV Zosyn for 4 weeks. Lab monitoring while on antibiotics: weekly CBC w/ diff, weekly CMP, ESR, CRP PICC line in place (2) Pneumonia: LLL PNA and hypoxia, after vomiting may be aspiration PNS Seen by SPeech and no issues with swallowing so is an isolated event MRSA swab neg, continue ZOsyn for uti poa not titrated to room air Follow CXR to resolution of imaging changes in one month (3) Lower extremity weakness: PT/OT consulted recommend subacute rehab (4) Acute kidney injury: resolved CKD 3 (5) Prostate cancer: S/p radiation therapy earlier this year Patient had an episode of hematuria today. He says that he has had episodes in the past Discontinued heparin subcu prophylactic dose (6) Hypertension: BPs controlled continue home amlodipine (7) Vasovagal syncope: Most likely secondary to straining for bowel movement Orthostatic vital signs negative Patient received 1 L fluid bolus orthostatic vital signs negative Plan discharged to nursing home facility Total Time Total Time Spent Total Time Spent (In Minutes): 35 Discharge Plan Discharge Items Patient Disposition: Transfer [facility] Reason For Visit: WEAKNESS Discharge Diagnosis: Sepsis due to Pseudomonas UTI Acute Pseudomonas prostatitis Ambulatory dysfunction requiring rehab Acute kidney injury on CKD stage III. Resolved Activity: Resume your previous activity Non-emergency contact: Primary Care Provider Call non-emergency contact if: you have any medication questions and your symptoms worsen Follow-up/Referrals: Heriberto Guajardo [Primary Care Provider] - Diet: Heart Healthy Addtl Attending Provider Instructions: Patient is being discharged on IV Zosyn to complete a 4-week course. Lab monitoring while on antibiotics: Weekly CBC with differential, weekly CMP, ESR, CRP Pending Studies at Discharge: No Stand-Alone Forms: My [facility] Skilled Items Patient informed of condition?: Yes DNR: No Discharge Level of Care: Skilled Communicable Disease: No Discharge Prognosis: Stable Lines: PICC Urinary Catheter: No Medications and DC Order Prescriptions: New Zosyn in dextrose (iso-osm) 4.5 gram/100 mL piggyback 4.5 g IV Q8H 21 Days Continued amlodipine 2.5 mg tablet 2.5 mg PO DAILY cholecalciferol (vitamin D3) 50 mcg (2,000 unit) capsule 50 mcg PO DAILY tamsulosin 0.4 mg Capsule 0.4 mg PO QAM Qty: 30 4RF Discontinued cefdinir 300 mg capsule 300 mg PO BID 10 Days Qty: 20 0RF Rx Instructions: STARTED 10/15/23 FOR 10 DAYS. Discharge Orders: Discharge Order (Routine); Ordered 10/31/23 Ordered By: Prabhjot Do Admission Data Admit Date/Time: 10/22/23 21:03 Attending Provider: Prabhjot Do Admit Provider: Aquiles Dukes Primary Care Provider: Heriberto Guajardo Other Providers: Aquiles Dukes; Shannan Marie; Lalito Balderrama; Mery Malik; Nico Rubalcava; Trudy Sanabria; Laura Underwood; Khushboo Rubio; Roxy Guerrero; Peyton Irizarry; Beverly Maher Other Interventions: Discharge Summary Assessment (RN) Last Done: 10/31/23 12:43 Coding Level of Care Code 04009 INP/OBS DISCH >30 MIN Diagnoses Sepsis A41.9 Pneumonia J18.9 Lower extremity weakness R29.898 Acute kidney injury N17.9 Prostate cancer C61 Hypertension I10 Vasovagal syncope R55
--- NOTE | 2023-10-31 13:58 | Electrocardiogram Report ---
Test Reason : Blood Pressure : / mmHG Vent. Rate : 086 BPM Atrial Rate : 086 BPM P-R Int : 202 ms QRS Dur : 158 ms QT Int : 424 ms P-R-T Axes : 022 -73 042 degrees QTc Int : 507 ms Normal sinus rhythm 1st degree AV block Right bundle branch block Left anterior fascicular block Bifascicular block Abnormal ECG When compared with ECG of 22-OCT-2023 17:30, No significant change was found Confirmed by Cesar Marinelli ([id number]) on 10/31/2023 1:57:34 PM Referred By: [facility] Confirmed By:Dhiraj Marinelli
--- NOTE | 2023-11-04 13:26 | Coding Query ---
To promote full compliance with coding requirements relating to patient care, provider participation is requested in all cases of guest services assistant uncertainty. Please assist us with the question(s) below: Coding Question(s): The diagnosis below was documented in the 10/23 Progress Note, then subsequently fell off all further documentation. Please indicate if it is still a possible diagnosis or ruled out. Physician's Response(s): ACUTE RESPIRATORY FAILURE WITH HYPOXIA ( x ) Diagnosed and POA ( ) Diagnosed and not POA ( ) Ruled out ( ) Other (please specify) MTDD
== END 2023-10-31 15:30 | DRG 871 ==
LOC: EDINP 17:19 → ED 17:19 → OBSVTOIN 20:47 → SUATTDRO 20:47 → 2N 10-23 00:04 → 3W 10-25 23:51

== ENCOUNTER 2023-11-15 11:43 | Inpatient (IN) ==
--- NOTE | 2023-11-15 11:48 | Emergency Department Note ---
Impression & Plan LLOYD (acute kidney injury), Weakness, UTI (urinary tract infection) ED Provider Note NAME: BELKYS Doshi UPCRAFT AGE: 83 SEX: M : 1940 ARRIVES VIA: Ambulance INFORMANT: Patient ED PROVIDER(S): Abdi Sanchez DO CHIEF COMPLAINT: LLOYD HPI: Patient is an 83-year-old male who presents to the ER referred in from [facility]. He was recently admitted and treated for sepsis secondary to UTI. He is currently on IV Zosyn. He denies any headache or change in vision. No chest pain or shortness of breath. No back pain. No dysuria, urgency, or frequency. He notes has been eating and drinking less. He does feel weak. No other complaints. ADDITIONAL HISTORY OBTAINED: Per HPI Chronic Medical/Social Conditions Affecting Care: Per HPI PAST MEDICAL HISTORY:See Below PAST SURGICAL HISTORY:See Below FAMILY HISTORY:See Below SOCIAL HISTORY:See Below HOME MEDICATIONS:See Below ALLERGIES:See Below VITALS:See Below PHYSICAL EXAMINATION: GENERAL: Sitting up in bed, alert, well appearing, well nourished, no distress, non-toxic EYE EXAM: normal conjunctiva. OROPHARYNX: mucous membranes are moist NECK: supple, no nuchal rigidity, no adenopathy, non-tender LUNGS: Clear to auscultation. Normal chest wall mechanics HEART: no murmurs, S1 normal and S2 normal ABDOMEN: abdomen soft, non-tender, normo-active bowel sounds, no masses, no rebound or guarding. UPPER EXTREMITIES: upper extremities are grossly normal. LOWER EXTREMITIES: No pitting edema. NEURO EXAM: Normal sensorium, cranial nerves II-XII grossly intact, normal speech, no gross weakness of arms, no gross weakness of legs. MEDICAL DECISION MAKING: Patient is an 83-year-old male who presents the ER for elevated creatinine. IV was established blood work was obtained. Has no complaints at this time. Currently on IV Zosyn. Labs showed no significant leukocytosis. Mild anemia at 11.6. BMP with a creatinine of 4.4 up from baseline of 2. LFTs bilirubin was unremarkable. Lipase was normal. UA is consistent with UTI. Currently on Zosyn. Ultrasound was fairly unremarkable. Chest x-ray showed no focal infiltrate. Patient was updated bedside. Discussed with Dr. Meño Pena and admitted for further workup. Consults/Care Managements Discussions: Per [facility] Triage Nursing notes reviewed. Limited review of prior medical records performed Vital Signs: reviewed and remarkable for no significant abnormalities Differential diagnosis: Infection, dehydration, metabolic abnormality, hypo/hyperglycemia, electrolyte disturbance, anemia, hypoxia, cardiac sources, intracerebral event, toxicologic, neurologic, as well as other pathologies. ER treatment provided: See below Diagnostics interpreted by me include EKG and cardiac monitoring as listed below: -Cardiac Monitoring: An order was placed for continuous cardiac monitoring. The monitor shows a rate of 90 with sinus rhythm. -ECG: none -Laboratory studies:Interpreted by me as stated above in MDM and shown below. Imaging studies: Xrays: As interpreted by me: Portable AP upright 1 view of the chest shows no focal infiltrate CTs show: none US: Renal ultrasound was fairly unremarkable Procedures:none Critical Care: None Past Med/Surg History Medical History Vomiting Generalized weakness Hypertension Kidney stones Prostate cancer Microscopic hematuria Hyperkalemia High anion gap metabolic acidosis Acute renal failure Diverticulitis Surgical History Tibia fracture History of repair of rotator cuff Hx of vasectomy History of colonoscopy History of tooth extraction Hx of bilateral cataract extraction History of total right knee replacement H/O hernia repair History of prostate biopsy Family History Father Hypertension Mother Lung disease Social History Smoking Status: Former smoker Tobacco Type: Cigarettes Second Hand Exposure: No; Do You Dip or Chew Tobacco: No; Hx Alcohol Use: No Hx Substance Use: No Preferred Language: Tanzanian Communication Ability: Effective Visual Impairment: No Limitations Hearing Ability: Hard of Hearing Dealer Card Room Required: No Beliefs That Will Affect Care: None marital status: Current Living Situation: Spouse Current Living Situation Comment: with [facility]ep[facility] living [facility] current occupational status: retired How many Children do You have: 2 Feels Safe at Home: Yes Safety Concerns: Feels Safe At This Time Diet: regular caffeine: Yes during the past year weight has: remained stable Assistive Devices: Cane and Wheelchair Allergies Allergies Allergy/AdvReac Type Severity Reaction Status Date / Time No Known Allergies Allergy Verified 11/15/23 13:12 Home Meds Home Medications Medication Instructions Recorded Confirmed amlodipine 2.5 mg tablet 2.5 mg PO DAILY 10/31/22 11/15/23 cholecalciferol (vitamin D3) 50 50 mcg PO DAILY 05/01/23 11/15/23 mcg (2,000 unit) capsule Saccharomyces boulardii 250 mg 250 mg PO QAM 11/15/23 11/15/23 capsule (Florastor) acetaminophen 325 mg tablet 650 mg PO Q4H PRN PAIN/FEVER 11/15/23 11/15/23 (Tylenol) ondansetron HCl 4 mg tablet 4 mg PO Q12H PRN NAUSEA/VOMITING 11/15/23 11/15/23 sodium chloride 0.9 % (flush) 10 ml IV Q8H 11/15/23 11/15/23 tamsulosin 0.4 mg capsule 0.4 mg PO QPM 11/15/23 11/15/23 Previous Rx's Medication Instructions Recorded piperacillin-tazobactam 4.5 4.5 g (112.5 mL) IV Q8H 3 weeks 10/30/23 gram/100 mL dextrose(iso-osm) IV piggyback (Zosyn) Results & Data (ED) Vital Signs Vital Signs - 24 hr 11/15/23 11:50 11/15/23 11:50 11/15/23 12:06 Temperature 36.7 C Temperature Source Oral Pulse Rate 75 75 74 Pulse Rate from SpO2 Sensor 74 Pulse Rhythm Regular Respiratory Rate 18 18 15 Respiratory Effort / Characteristics Non-Labored Spontaneous Respiratory Depth Normal Blood Pressure 140/79 Blood Pressure Mean 99 Pulse Oximetry 97 97 95 Oxygen Delivery Method Room Air Room Air Sepsis Recent Fever Within 48 Hours No Sepsis New/Unexplained Change in Mental Status N/A Sepsis Action Taken by Nursing No Action Required 11/15/23 12:07 Temperature Temperature Source Pulse Rate 74 Pulse Rate from SpO2 Sensor Pulse Rhythm Respiratory Rate Respiratory Effort / Characteristics Respiratory Depth Blood Pressure Blood Pressure Mean Pulse Oximetry Oxygen Delivery Method Sepsis Recent Fever Within 48 Hours Sepsis New/Unexplained Change in Mental Status Sepsis Action Taken by Nursing Laboratory Data 11/15/23 11:55 11/15/23 11:55 Lab Results 11/15/23 Range/Units 11:55 WBC 12.01 H (4.8-10.8) K/ul RBC 4.19 L (4.70-6.10) M/uL Hgb 11.6 L (14.0-18.0) g/dl Hct 37.6 L (42.0-52.0) % MCV 89.7 (80.0-100.0) fL MCH 27.7 (25.0-34.0) pg MCHC 30.9 L (32.0-36.0) g/dL RDW Std Deviation 52.9 H (36.4-46.3) fL RDW Coeff of Blanca 16.1 H (11.5-14.5) % Plt Count 194 (130-400) K/uL MPV 9.2 L (9.4-12.4) fL Immature Gran % (Auto) 1.4 % Neut % (Auto) 84.8 % Lymph % (Auto) 4.7 % Laurens % (Auto) 7.7 % Eos % (Auto) 0.8 % Baso % (Auto) 0.6 % Neut # (Auto) 10.18 H (1.40-6.50) K/uL Lymph # (Auto) 0.57 L (1.20-3.40) K/uL Laurens # (Auto) 0.92 H (0.11-0.59) K/uL Eos # (Auto) 0.10 (0.00-0.50) K/uL Baso # (Auto) 0.07 (0.00-0.20) K/uL Immature Gran # (Auto) 0.17 (0.01-0.20) K/uL Echinocytes 1+ Sodium 142 (136-145) mmol/L Potassium 3.5 (3.5-5.1) mmol/L Chloride 110 H (98-107) mmol/L Carbon Dioxide 22 (21-32) mmol/L Anion Gap 10 (3-11) BUN 39 H (6-23) mg/dl Creatinine 4.42 H D (0.6-1.4) mg/dl Est Cr Clr Drug Dosing 13.3 ml/min Est GFR ( Amer) 13.1 ml/min Est GFR (Non-Af Amer) 11.3 ml/min BUN/Creatinine Ratio 8.8 L (10-20) Glucose 80 (70-99(Fasting)) mg/dl Calcium 8.5 L (8.6-10.3) mg/dl Total Bilirubin 0.5 (0.2-1.0) mg/dl AST 14 (13-39) U/L ALT 14 (7-52) U/L Alkaline Phosphatase 36 (34-104) U/L Total Protein 5.8 L (6.0-8.3) gm/dl Albumin 3.3 L (3.4-5.0) gm/dl Globulin 2.5 (2.5-4.0) gm/dl Albumin/Globulin Ratio 1.3 (0.9-2) Lipase 68 (11-82) U/L Administered Medications Lactated Ringer's (Lr) 1,000 mls @ 180 mls/hr IV .Q5H34M MICHAEL Stop: 11/16/23 07:45 Last Infusion: 11/15/23 17:57 Dose: 180 mls/hr Documented By: Admin: 11/15/23 13:33 Dose: 100 mls/hr Documented By: DEBBIE Discontinued Medications Sodium Chloride (Nss) 1,000 mls @ 999 mls/hr IV .Q1H1M ONE Stop: 11/15/23 12:49 Last Infusion: 11/15/23 17:46 Dose: Infused Documented By: Infusion: 11/15/23 12:51 Dose: 0 mls/hr Documented By: Admin: 11/15/23 12:08 Dose: 999 mls/hr Documented By: VALERY Piperacillin Sod/Tazobactam (Sod 4.5 gm/ Dextrose) 100 mls @ 25 mls/hr IV Q12H [facility]; Protocol Stop: 11/25/23 00:00 Last Admin: 11/15/23 17:46 Dose: Not Given Documented By: Admin: 11/15/23 17:45 Dose: Not Given Documented By: QUANG Imaging Data Radiologist's Impression: Renal Ultrasound 11/15/23 11:49 ULTRASOUND KIDNEYS AND BLADDER CLINICAL HISTORY: Acute renal insufficiency. COMPARISON STUDY: Abdominal CT dated 10/23/2023. TECHNIQUE: Real-time, grayscale, and color flow sonography of the kidneys and bladder is performed. Images are reviewed in the transverse and longitudinal planes. FINDINGS: Kidneys: The kidneys demonstrated cortical atrophy. Echotexture there is increased indicating medical renal disease. The right kidney measures 9.8 x 5.1 x 4.9 cm and the left kidney measures 10.3 x 5.5 x 4.9 cm. There is no hydronephrosis. No shadowing renal calculi are identified. Bilateral renal cysts are similar to previous and measure up to 7.6 cm. There is no sonographic evidence of solid renal mass lesion. No perinephric fluid is identified. Bladder: The prostate gland is enlarged and heterogeneous noting median lobe hypertrophy. The bladder wall is thickened/trabeculated indicating chronic outlet obstruction. Only the left ureteral jet was seen. IMPRESSION: 1. The kidneys are atrophic and echogenic indicative of medical renal disease. 2. No hydronephrosis. 3. Prostatomegaly with evidence of chronic bladder outlet obstruction. ACT 112: Negative or not required by law. Electronically signed by: Jony Sandhu M.D. 11/15/2023 1:41 PM Liver Ultrasound 11/15/23 12:39 ABDOMINAL ULTRASOUND, RIGHT UPPER QUADRANT HISTORY: RUQ abd pain, + taylor's sign. COMPARISON: Abdomen and pelvis CT 10/21/2023. FINDINGS: Pancreas: Obscured by overlying bowel gas. Liver: The liver is echogenic consistent with fatty change. Gallbladder: There are small stones seen at the neck of the gallbladder. No gallbladder wall thickening. Negative sonographic Taylor sign. CBD: 3 mm. Right kidney: No hydronephrosis. IMPRESSION: 1. Cholelithiasis. No gallbladder wall thickening. 2. Mild hepatic steatosis. ACT 112: Negative or not required by law. Electronically signed by: Alfredo Caldwell M.D. 11/15/2023 2:11 PM Chest X-Ray 11/15/23 12:42 SINGLE VIEW CHEST CLINICAL HISTORY: Fall. Dyspnea. Right-sided chest wall pain. FINDINGS: An AP, portable, upright chest radiograph is compared to study dated 10/29/2023. Correlation is made with chest CT dated 07/12/2023. The examination is degraded by portable technique and apical lordotic positioning. A right PICC line has been removed. The heart is enlarged noting atherosclerotic calcification of the thoracic aorta. The pulmonary vasculature is not congested. Chronic interstitial thickening similar to previous. There is bibasilar scarring/atelectasis. No airspace consolidation or large pleural effusion is identified. No pneumothorax is seen. The skeletal structures are osteopenic. There are chronic/healed left-sided rib fractures. IMPRESSION: Cardiomegaly with no acute cardiopulmonary abnormality. ACT 112: Negative or not required by law. Electronically signed by: Jony Sandhu M.D. 11/15/2023 2:03 PM Discharge Plan Visit Data Chief Complaint: Abnormal Labs/Diagnostic Testing Stated Complaint: ABNORMAL LABS ED Provider: Abdi Sanchez Discharge Problem: LLOYD (acute kidney injury), Weakness, UTI (urinary tract infection) Patient Disposition: Admitted As Inpatient Discharge Instructions Interventions: ED Discharge Assessment Last Done: 11/15/23 16:53 Discharge Problem: UTI (urinary tract infection) Qualifiers: Urinary tract infection type: site unspecified Hematuria presence: with hematuria Qualified Code(s): N39.0 - Urinary tract infection, site not specified
[2023-11-15] MEDS ORDERED: SODIUM CHLORIDE 0.9% 1,000 ML IV ONE (11:49)
--- NOTE | 2023-11-15 12:06 | History & Physical Report ---
Date of Service November 15, 2023 Assessment & Plan (1) Acute kidney injury superimposed on CKD: Plan: -Admit to med/tele -Currently stable -Was sent to the ED from [facility] unit after he was noted to have a Cr of 4.91 this am -Baseline appears closer to 1.6 -Patient has a known hx of blader outlet obstruction after radiation therapy for prostate cancer -Currently on Zsoyn via PICC for known Prostatitis and Pseudomonas UTI -At this time the differential is broad, while he has a hx of bladder outlet obstruction he is only retaining 280 cc of Urine when we bladder scanned him in the ED. He has had poor oral intake over the past 2-3 days, but doesd not appear significantly dehydrated on exam. CT of the abd/pelvis on last admission noted 2 non-obstructing right renal calculi without ureteral stones, these could possibly have moved and could be causing obstruction. He has been experiencing hematuria since last admission per his , could be intra-renal issue. And patient is currently on Zosyn, unsure if this is causing renal damage at this time -Per review of his MAR, his last dose of Flomax was last night, he is not on chronic medication that consistently causes nephrotoxicity -S/P 700 mL NSS in the ED. Will hold NSS and give 1L LR on admission with his recent hx of poor oral intake -US renal/bladder ordered in the ED, yet to be obtained. -Will also add on RUQ US with RUQ pain -If unable to provide urine sample in the next hour will have his nurse obtain UA via straight cath -If no obstruction noted on Renal/bladder US will consult nephrology for assistance -Hold chemical DVT PPX for now with ongoing hematuria -NPO until imaging is back -AM CBC, CMP, mag (2) Prostatitis: Plan: -Diagnosed last admission -Has been on Zosyn via PICC; ID recommends continued treatment with an end date of 11/19 -Will plan on continuing Zosyn for now, if no other obvious causes of his LLOYD will speak with Nephrology about changing abx -Will FU on repeat UA once obtained (3) Hematuria: Plan: -Patient has been experiencing hematuria since last admission -Hgb was stable on am CBC prior to admission, will follow repeat when resulted -Not on anticoagulation, hemodynamically stable -Will follow UA when obtained and imaging ordered on admission -If any concerns will consult Nephrology/Urology as needed (4) RUQ pain: Plan: -Patient with RUQ pain on palpation with possible + Taylor's signs -No abd pain at rest, no nausea/vomiting, LFT's are WNL -Will obtain RUQ US along with renal/bladder US ordered by the ED -Follow am CMP (5) Fall: Plan: -Patient fell forward, off his toilet last night when leaning forward to inspect possible blood on the floor -Denies CP, palpitations, SOB, neurologic symptoms prior to or after his fall -Did not hit his head or lost consciousness, no acute pain from his fall -Will obtain CXR with RUQ/right lower chest pain for further evaluation -Will obtain ECG (6) Bladder outlet obstruction: Plan: -Continue flomax (7) Hypertension: Plan: -Stable -Conitnue amlodipine Plan The patient was discussed with Dr. Pena at the time of the admission History of Present Illness Chief Complaint: Abnormal outpatient labs Koffi Wilder" is an 83-year-old male with PMH of prostate cancer S/P radiation therapy, bladder outlet obstruction, recurrent Pseudomonas UTI, and HTN who presented to the [facility] ED on 11/15 after he was noted to have a Cr of 4.91 on outpatient labs today. He remained stable in the ED. Repeat labs were significant for a cr of 4.42 (baseline appears near 1.6), BUN of 39, chloride of 110. Prior to admission the patient was given approximately 700 mL NSS before it was stopped by the admitting team. At the time of the exam the patient was sitting in bed in no acute distress with his sitting bedside, history was obtained from both. The patient was discharged to the Skilled Care section of [facility] after last admission due to his PICC line and Zosyn therapy. His states that over the past 2-3 days he has had a decreased appetite. Last night he was on the toilet and tried to lean forward to inspect what he thought was blood on the ground. He lost his balance and fell forward. He denies hitting his head or losing consciousness. He denies any pain after the fall and was able to stand with the assistance of staff at [facility]. They deny recent fever, chills, chest pain, SOB, cough, abd pain at rest, nausea, vomiting, dysuria, hematuria, difficulty stopping/starting his urine stream, diarrhea, melena, bloody BM's, and LE swelling. His notes that the patient has been experiencing hemat[facility] They are scheduled to follow up with Urology outpatient next week. We discussed code status, the patient has a POLST form stating DNR/DNI. The patient and his confirm these are his wishes. His would be him medical decision maker if he is unable to make decisions himself. The patient was recent admitted to [facility] from 10/22-10/31 for LLOYD on CKD, sepsis due to Pseudomonas UTI, and vasovagal episode. His urine grew Pseudomonas resistant to Cipro but otherwise sensitive; blood cultures remained negative. CT of the abd/pelvis showed findings consistent with cystitis/prostatitis. Infectious disease was consulted and recommended PICC placement with continued Zosyn with an end date of 11/19/23. The patient was thought to have had an aspiration event as he was hypoxic after an episode of vomiting and CXR showing a left basilar patchy density. He was evaluated by SURVEY INTERVIEWER who cleared him for a normal diet. He was covered for aspiration pneumonia with Zosyn. Please refer to Dr. Pena's attestation for any changes to the treatment plan Allergies Allergy/AdvReac Type Severity Reaction Status Date / Time No Known Allergies Allergy Verified 11/15/23 13:12 Home Medications Medication Instructions Recorded Confirmed Type amlodipine 2.5 mg tablet 2.5 mg PO DAILY 10/31/22 11/15/23 History cholecalciferol (vitamin D3) 50 50 mcg PO DAILY 05/01/23 11/15/23 History mcg (2,000 unit) capsule piperacillin-tazobactam 4.5 4.5 g (112.5 mL) IV Q8H 3 weeks 10/30/23 11/15/23 Rx gram/100 mL dextrose(iso-osm) IV piggyback (Zosyn) Saccharomyces boulardii 250 mg 250 mg PO QAM 11/15/23 11/15/23 History capsule (Florastor) acetaminophen 325 mg tablet 650 mg PO Q4H PRN PAIN/FEVER 11/15/23 11/15/23 History (Tylenol) ondansetron HCl 4 mg tablet 4 mg PO Q12H PRN NAUSEA/VOMITING 11/15/23 11/15/23 History sodium chloride 0.9 % (flush) 10 ml IV Q8H 11/15/23 11/15/23 History tamsulosin 0.4 mg capsule 0.4 mg PO QPM 11/15/23 11/15/23 History Past Med/Surg History Medical History Vomiting Generalized weakness Hypertension Kidney stones passed without intervention Prostate cancer s/p radiation treatments Microscopic hematuria Hyperkalemia High anion gap metabolic acidosis Acute renal failure 01/2022, significantly improved with creatinine 1.46 on most recent labs (02/20/22) Diverticulitis Hx Surgical History Tibia fracture with repair > left leg as child History of repair of rotator cuff left Hx of vasectomy History of colonoscopy History of tooth extraction Hx of bilateral cataract extraction History of total right knee replacement H/O hernia repair History of prostate biopsy Family History Father Hypertension Mother Lung disease COPD Social History Smoking Status: Former smoker Tobacco Type: Cigarettes Second Hand Exposure: No; Do You Dip or Chew Tobacco: No; Hx Alcohol Use: No Hx Substance Use: No Preferred Language: [place] Islander Communication Ability: Effective Visual Impairment: No Limitations Hearing Ability: Hard of Hearing Facility Specialist Required: No Beliefs That Will Affect Care: None marital status: Current Living Situation: Spouse Current Living Situation Comment: with indepent living [facility] current occupational status: retired How many Children do You have: 2 Feels Safe at Home: Yes Safety Concerns: Feels Safe At This Time Diet: regular caffeine: Yes during the past year weight has: remained stable Assistive Devices: Cane and Walker Physical Exam Physical Exam: Physical Exam: General: In no acute distress, stated age, well-nourished, non-toxic appearing HEENT: Normocephalic, atraumatic, no scleral icterus, pupils around round, symmetrical, and reactive to light, moist mucus membranes, trachea midline, no thyromegaly Chest/Pulm: No respiratory distress, symmetrical chest expansion, clear breath sounds throughout Cardiac: RRR, no murmurs noted Abdomen: Negative for ascites and bruising, normoactive bowel sounds, soft, tender to palpation in the RUQ with increased pain on palpation during deep inspiration, otherwise non-tender and without rebound tenderness : Negative CVA tenderness BL Musculoskeletal: Symmetrical and without signs of acute trauma, upper and lower extremities with full ROM, no atrophy, spasticity, or flaccidity Extremities: Radial, dorsalis pedis, and posterior tibial pulses are intact and symmetrical, no edema noted in the BL LE's Skin: Warm, dry, no rashes , lesions, or scars noted Neuro: Alert and oriented to person, place, month, year, and president, no focal defects, no tremors noted Psych: No acute distress, calm and cooperative during the exam Results & Data Results & Data Vital Signs (Past 12 Hours) Vital Signs Temp Pulse Resp BP Pulse Ox O2 Del Method 11/15/23 11:50 75 18 97 Room Air 11/15/23 11:50 36.7 C 75 18 140/79 97 Room Air Laboratory Results Abnormal lab results 11/15/23 Range/Units 11:55 Chloride 110 H (98-107) mmol/L BUN 39 H (6-23) mg/dl Creatinine 4.42 H D (0.6-1.4) mg/dl BUN/Creatinine Ratio 8.8 L (10-20) Calcium 8.5 L (8.6-10.3) mg/dl Total Protein 5.8 L (6.0-8.3) gm/dl Albumin 3.3 L (3.4-5.0) gm/dl ECG Additional Comments: Will obtain at the time of the admission Code Status & VTE Plan Code Status DNR/DNI VTE Prophylaxis Plan VTE Prophylaxis will be ordered: Yes Supervising Physician Co-Signing Physician Notes I personally saw and examined the patient. I verified all sotelo points and agree with Liban Hunt PA-C with the following exceptions and/or additions: 83-year-old male presents to the ER due to increased creatinine on outpatient labs. Recent diagnosis of Pseudomonas prostatitis for which he has currently on IV Zosyn. O/E PG Care Time/CCT Total # of Minutes Spent Total Time Spent with Patient: Total time spent is greater than 50% in coordination of care (as documented) at patient's floor/unit and/or counseling patient: Coding [place] [address] INT INP/OBS CARE MIN Patient Type Established Medical Decision Making Moderate Complexity Diagnoses Acute kidney injury superimposed on CKD N17.9; N18.9 Prostatitis N41.9 Hematuria R31.9 RUQ pain R10.11 Fall W19.XXXA Bladder outlet obstruction N32.0 Hypertension I10
[2023-11-15 12:41] LABS: Albumin Globulin Ratio 1.3 (0.9-2); Albumin Level 3.3 gm/dl (3.4-5.0); BUN Creatinine Ratio 8.8 (10-20); Bilirubin,Total 0.5 mg/dl (0.2-1.0); Calcium 8.5 mg/dl (8.6-10.3); Creatinine Clr Calc Pharmacy 13.3 ml/min; Est GFR (African American) 13.1 ml/min; Est GFR (Non-African American) 11.3 ml/min; Globulin 2.5 gm/dl (2.5-4.0); Potassium 3.5 mmol/L (3.5-5.1); Total Protein 5.8 gm/dl (6.0-8.3)
[2023-11-15 13:26] LABS: Hematocrit (blood only) 37.6 % (42.0-52.0); Hemoglobin 11.6 g/dl (14.0-18.0); Mean Corpuscular Hemoglobin 27.7 pg (25.0-34.0); Mean Corpuscular Hgb Conc 30.9 g/dL (32.0-36.0); Mean Corpuscular Volume 89.7 fL (80.0-100.0); Mean Platelet Volume 9.2 fL (9.4-12.4); Platelet Count 194 K/uL (130-400); RDW Coefficient of Variation 16.1 % (11.5-14.5); RDW Standard Deviation 52.9 fL (36.4-46.3); Red Blood Count 4.19 M/uL (4.70-6.10); White Blood Count 12.01 K/ul (4.8-10.8)
[2023-11-15 13:27] LABS: Basophils # (auto) 0.07 K/uL (0.00-0.20); Basophils % (auto) 0.6 %; Echinocytes 1+; Eosinophils % (auto) 0.8 %; Immature Granulocytes # (auto) 0.17 K/uL (0.01-0.20); Immature Granulocytes % (auto) 1.4 %; Lymphocytes # (auto) 0.57 K/uL (1.20-3.40); Lymphocytes % (auto) 4.7 %; Monocytes # (auto) 0.92 K/uL (0.11-0.59); Monocytes % (auto) 7.7 %; Neutrophils # (auto) 10.18 K/uL (1.40-6.50); Neutrophils % (auto) 84.8 %
[2023-11-15] MEDS: LACTATED RINGER'S 1,000 ML IV SCH ×2 (13:33→22:43)
--- NOTE | 2023-11-15 13:42 | Ultrasound Report ---
ULTRASOUND KIDNEYS AND BLADDER CLINICAL HISTORY: Acute renal insufficiency. COMPARISON STUDY: Abdominal CT dated 10/23/2023. TECHNIQUE: Real-time, grayscale, and color flow sonography of the kidneys and bladder is performed. I mages are reviewed in the transverse and longitudinal planes. FINDINGS: Kidneys: The kidneys demonstrated cortical atrophy. Echotexture there is increased indicating medical renal disease. The right kidney measures 9.8 x 5.1 x 4.9 cm and the left kidney measures 10.3 x 5.5 x 4.9 cm. There is no hydronephrosis. No shadowing renal calculi are identified. Bilateral renal cys ts are similar to previous and measure up to 7.6 cm. There is no sonographic evidence of solid renal mass lesion. No perinephric fluid is identified. Bladder: The prostate gland is enlarged and heterogeneous noting median lobe hypertrophy. The bladder wall is thickened/trabeculated indicating chronic outlet obstruction. Only the left ureteral jet was seen. IMPRESSION: 1. The kidneys are atrophic and echogenic indicative of medical renal disease. 2. No hydronephrosis. 3. Prostatomegaly with evidence of chronic bladder outlet obstruction. ACT 112: Negative or not required by law. Electronically signed by: Jony Sandhu M.D. 11/15/2023 1:41 PM
--- NOTE | 2023-11-15 14:04 | XRay Report ---
SINGLE VIEW CHEST CLINICAL HISTORY: Fall. Dyspnea. Right-sided chest wall pain. FINDINGS: An AP, portable, upright chest radiograph is compared to study dated 10/29/2023. Correlatio n is made with chest CT dated 07/12/2023. The examination is degraded by portable technique and apical lordotic positioning. A right PICC line has been removed. The heart is enlarged noting atherosclerot ic calcification of the thoracic aorta. The pulmonary vasculature is not congested. Chronic interstit ial thickening similar to previous. There is bibasilar scarring/atelectasis. No airspace consolidatio n or large pleural effusion is identified. No pneumothorax is seen. The skeletal structures are osteo penic. There are chronic/healed left-sided rib fractures. IMPRESSION: Cardiomegaly with no acute cardiopulmonary abnormality. ACT 112: Negative or not required by law. Electronically signed by: Jony Sandhu M.D. 11/15/2023 2:03 PM
--- NOTE | 2023-11-15 14:13 | Ultrasound Report ---
ABDOMINAL ULTRASOUND, RIGHT UPPER QUADRANT HISTORY: RUQ abd pain, + taylor's sign. COMPARISON: Abdomen and pelvis CT 10/21/2023. FINDINGS: Pancreas: Obscured by overlying bowel gas. Liver: The liver is echogenic consistent with fatty change. Gallbladder: There are small stones seen at the neck of the gallbladder. No gallbladder wall thickeni ng. Negative sonographic Taylor sign. CBD: 3 mm. Right kidney: No hydronephrosis. IMPRESSION: 1. Cholelithiasis. No gallbladder wall thickening. 2. Mild hepatic steatosis. ACT 112: Negative or not required by law. Electronically signed by: Alfredo Caldwell M.D. 11/15/2023 2:11 PM
[2023-11-15 14:51] LABS: Appearance Urine Cloudy (Clear); Bacteria Urine Automated Negative (Negative); Bilirubin Urine Negative (Negative); Blood Urine 3+ (Negative); Color Urine Yellow; Glucose Urine UA Negative (Negative); Ketones Urine Negative (Negative); Leukocyte Esterase Urine 1+ (Negative); Nitrite Urine Negative (Negative); Protein Urine 2+ (Negative); Urobilinogen Urine Negative (Negative); WBC Urine Automated >30 /hpf (0-5); pH Urine 5.5 (4.5-7.5)
--- NOTE | 2023-11-15 17:31 | CT Scan Report ---
ABDOMEN AND PELVIS CT WITHOUT CONTRAST CT DOSE: 1259.51 mGy.cm HISTORY: LLOYD, US-R ureteral jet no visual ?obstruction/ston TECHNIQUE: Multiaxial CT images of the abdomen and pelvis were performed without contrast. A dose lo wering technique was utilized adhering to the principles of ALARA. COMPARISON STUDY: Abdomen and pelvis CT 10/23/2023. FINDINGS: There is mild chronic interstitial thickening again noted at the lung bases. No pneumoperit oneum. No pneumatosis. Chronic insufficiency fracture within the left sacrum again noted. No acute fr actures. Small left and moderate right fat-containing inguinal hernias, unchanged. Cholelithiasis. No gallbladder wall thickening. The unenhanced liver, pancreas, spleen, and adrenal glands are within n ormal limits. Normal caliber abdominal aorta with moderate calcified plaque. No retroperitoneal lymph adenopathy. Right-sided nephrolithiasis. No ureteral stones. No hydronephrosis. There is a punctate s tone within the bladder. Bilateral renal hypodense lesions are again noted. These are incompletely ch aracters on this noncontrast study but favor cysts. No pelvic free fluid. Bladder wall thickening. Th e punctate stone within the bladder. The prostate gland is enlarged. Evidence for prior TURP procedur e. Colonic diverticulosis. No evidence for acute diverticulitis. There is mild pericolonic fat strand ing seen throughout the colon with thickening of the proximal colon most pronounced within the cecum. Findings suggest a nonspecific pancolitis. This favors an infectious or inflammatory process. Normal appendix. The fat stranding adjacent to the bladder is also progressed. 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 There is also vasogenic stranding around the prostate, unchanged. Mild latisha cral edema has progressed. No dilated loops of bowel to suggest an obstruction. IMPRESSION: 1. There is mild pericolonic fat stranding seen throughout the colon with thickening of the proximal colon most pronounced within the cecum. Findings suggest a nonspecific pancolitis. This favors an inf ectious or inflammatory process. 2. Bladder wall thickening with adjacent edema/fat stranding. This is also fat stranding surrounding the enlarged prostate gland. Findings suggest a cystitis/prostatitis. This has slightly progressed. 3. Right-sided nephrolithiasis. No hydronephrosis. 4. Punctate bladder calculi again noted. 5. Cholelithiasis. 6. Additional findings as described above. ACT 112: Negative or not required by law. Electronically signed by: Alfredo Caldwell M.D. 11/15/2023 5:29 PM
[2023-11-15] MEDS: PIPERACILLIN/TAZOBACTAM 4.5 GM in DEXTROSE 5% MINI-B 100 ML IV SCH ×3 (17:45→23:26)
[2023-11-15] MEDS ORDERED: PIPERACILLIN/TAZOBACTAM 4.5 GM in DEXTROSE 5% MINI-B 100 ML IV ONE (18:00)
[2023-11-16 06:17] LABS: Basophils # (auto) 0.06 K/uL (0.00-0.20); Basophils % (auto) 0.7 %; Eosinophils # (auto) 0.22 K/uL (0.00-0.50); Eosinophils % (auto) 2.7 %; Hematocrit (blood only) 33.5 % (42.0-52.0); Hemoglobin 10.5 g/dl (14.0-18.0); Immature Granulocytes # (auto) 0.13 K/uL (0.01-0.20); Immature Granulocytes % (auto) 1.6 %; Lymphocytes % (auto) 4.9 %; Mean Corpuscular Hgb Conc 31.3 g/dL (32.0-36.0); Mean Corpuscular Volume 89.3 fL (80.0-100.0); Mean Platelet Volume 9.1 fL (9.4-12.4); Monocytes # (auto) 0.82 K/uL (0.11-0.59); Neutrophils # (auto) 6.58 K/uL (1.40-6.50); Neutrophils % (auto) 80.1 %; Platelet Count 196 K/uL (130-400); RDW Coefficient of Variation 15.9 % (11.5-14.5); RDW Standard Deviation 52.6 fL (36.4-46.3); Red Blood Count 3.75 M/uL (4.70-6.10); White Blood Count 8.21 K/ul (4.8-10.8)
[2023-11-16 06:36] LABS: Albumin Globulin Ratio 1.2 (0.9-2); Albumin Level 2.8 gm/dl (3.4-5.0); BUN Creatinine Ratio 10.8 (10-20); Bilirubin,Total 0.4 mg/dl (0.2-1.0); Calcium 8.1 mg/dl (8.6-10.3); Creatinine Clr Calc Pharmacy 16.7 ml/min; Est GFR (African American) 19.1 ml/min; Est GFR (Non-African American) 16.5 ml/min; Globulin 2.3 gm/dl (2.5-4.0); Magnesium 1.9 mg/dl (1.7-2.4); Potassium 3.4 mmol/L (3.5-5.1); Total Protein 5.1 gm/dl (6.0-8.3)
[2023-11-16] MEDS: TAMSULOSIN HCL 0.4 MG CAP PO SCH (08:30)
--- NOTE | 2023-11-16 08:36 | Nephrology Consultation ---
Date of Consultation November 16, 2023 Assessment & Plan (1) LLOYD (acute kidney injury): * LLOYD/CKD likely due to dehydration. Imaging is negative for hydronephrosis. Patient is passing urine on his own. Urine microscopy reveals hematuria and pyuria c/w recent diagnosis of prostatitis * Creatinine is trending down following IV hydration, electrolyte balance is acceptable. No acute indication for HD at this time * Encourage oral hydration, monitor PRP, check FeNa (2) Chronic kidney disease with active medical management without dialysis, stage 3 (moderate): * CKD stage G3b/A3 (moderate impairment). Baseline Cr has been 1.8-2.0 w/ EGFR 30.9 cc/min. 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 Encourage oral hydration (4) Pseudomonas urinary tract infection: * Prostatitis. Remains on IV Zosyn and Tamsulosin therapy History of Present Illness Reason for Consultation: LLOYD/CKD Attending Physician: Prabhjot Do MD History of Present Illness Mr. Naidu is an 83 year old white male who is seen at the request of the [facility] for evaluation of LLOYD/CKD. Information for the HPI is obtained from direct patient interview and review of the EMR. HPI is summarized as follows: Mr. Naidu has CKD stage G3b/A3 (moderate impairment). Baseline Cr has been 1.8-2.0 w/ EGFR 30.9 cc/min. 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 Mr. Naidu's primary [place] is Dr. Vega. Mr. Naidu's medical history is also significant for HTN, prostate cancer, h/o BRUCE complicated by LLOYD (Cr 14 02/01/22) following radiation therapy, COVID pneumonia. Mr. Mason was last hospitalized 10/22/23-10/31/23 due to Pseudomonas prostatitis w/ sepsis and a LLL PNA (aspiration). He was discharged back to [facility] with a PICC line and orders for a 4 week course of IV Zosyn. Weekly CMP, ESR and CRP were being monitored. Yesterday laboratory studies revealed Cr 4.9 and Mr. Naidu was taken to [facility] for reevaluation. 11/15/23 renal UD revealed R kidney 9.8 cm, L kidney 10.3 cm. No stone, mass or hydronephrosis. Prostate was again noted to be enlarged w/ evidence of chronic BRUCE. CXR revealed CMG but no evidence of CHF or airspace consolidation. Abdominal CT without contrast revealed mild pancolitis. Mr. Naidu received 700 cc saline infusion. Creatinine has improved from 4.91 down to 3.24 this am. I&O's have not been recorded. Allergies Allergy/AdvReac Type Severity Reaction Status Date / Time No Known Allergies Allergy Verified 11/15/23 13:12 Home Medications Medication Instructions Recorded Confirmed Type amlodipine 2.5 mg tablet 2.5 mg PO DAILY 10/31/22 11/15/23 History cholecalciferol (vitamin D3) 50 50 mcg PO DAILY 05/01/23 11/15/23 History mcg (2,000 unit) capsule piperacillin-tazobactam 4.5 4.5 g (112.5 mL) IV Q8H 3 weeks 10/30/23 11/15/23 Rx gram/100 mL dextrose(iso-osm) IV piggyback (Zosyn) Saccharomyces boulardii 250 mg 250 mg PO QAM 11/15/23 11/15/23 History capsule (Florastor) acetaminophen 325 mg tablet 650 mg PO Q4H PRN PAIN/FEVER 11/15/23 11/15/23 History (Tylenol) ondansetron HCl 4 mg tablet 4 mg PO Q12H PRN NAUSEA/VOMITING 11/15/23 11/15/23 History sodium chloride 0.9 % (flush) 10 ml IV Q8H 11/15/23 11/15/23 History tamsulosin 0.4 mg capsule 0.4 mg PO QPM 11/15/23 11/15/23 History Patient History Medical History Vomiting Generalized weakness Hypertension Kidney stones passed without intervention Prostate cancer s/p radiation treatments Microscopic hematuria Hyperkalemia High anion gap metabolic acidosis Acute renal failure 01/2022, significantly improved with creatinine 1.46 on most recent labs (02/20/22) Diverticulitis Hx Surgical History Tibia fracture with repair > left leg as child History of repair of rotator cuff left Hx of vasectomy History of colonoscopy History of tooth extraction Hx of bilateral cataract extraction History of total right knee replacement H/O hernia repair History of prostate biopsy Family History Father Hypertension Mother Lung disease COPD Social History Smoking Status: Former smoker Tobacco Type: Cigarettes Second Hand Exposure: No; Do You Dip or Chew Tobacco: No; Hx Alcohol Use: No Hx Substance Use: No Preferred Language: Mohawk Communication Ability: Effective Visual Impairment: No Limitations Hearing Ability: Hard of Hearing Card Lacer Jacquard Required: No Beliefs That Will Affect Care: None marital status: Current Living Situation: Spouse Current Living Situation Comment: with [facility] current occupational status: retired How many Children do You have: 2 Feels Safe at Home: Yes Safety Concerns: Feels Safe At This Time Diet: regular caffeine: Yes during the past year weight has: remained stable Assistive Devices: Cane and Walker Review of Systems Constitutional: no fever Eyes: no worsening vision Ear, Nose, Mouth, Throat: no problem reported Respiratory: no cough and no dyspnea Cardiovascular: no chest pain Gastrointestinal: no abdominal pain, no nausea, no vomiting and no diarrhea/loose stools Genitourinary: no dysuria, no urinary frequency or no urinary hesitancy Integumentary: no rash Physical Exam Constitutional: + frail appearing; not in distress Eyes: PERRL, conjunctivae normal, anicteric sclerae ENMT: Mouth: + dry oral mucous membranes Neck: trachea midline, no thyromegaly Respiratory: normal respiratory effort, lungs clear to auscultation Cardiovascular: RRR, no murmur, no edema Gastrointestinal (Abdomen): normal bowel sounds, soft, nontender, no hepatosplenomegaly Skin: + turgor decreased Neurologic: awake Speech / Cognition: normal speech Results & Data Vital Signs (Past 12 Hours) Vital Signs Temp Pulse Pulse Resp BP Pulse Ox O2 Del Method 11/16/23 08:10 36.3 C L 73 16 145/82 H 95 Room Air 11/16/23 07:09 65 11/16/23 04:08 36.2 C L 78 18 131/67 92 Room Air 12/15/23 23:20 36.9 C 74 18 123/61 94 Room Air 11/15/23 21:58 76 Laboratory Results Laboratory Results WBC 8.21 K/ul (4.8-10.8) 11/16/23 05:48 RBC 3.75 M/uL (4.70-6.10) L 11/16/23 05:48 Hgb 10.5 g/dl (14.0-18.0) L 11/16/23 05:48 Hct 33.5 % (42.0-52.0) L 11/16/23 05:48 MCV 89.3 fL (80.0-100.0) 11/16/23 05:48 MCH 28.0 pg (25.0-34.0) 11/16/23 05:48 MCHC 31.3 g/dL (32.0-36.0) L 11/16/23 05:48 RDW Std Deviation 52.6 fL (36.4-46.3) H 11/16/23 05:48 RDW Coeff of Blanca 15.9 % (11.5-14.5) H 11/16/23 05:48 Plt Count 196 K/uL (130-400) 11/16/23 05:48 MPV 9.1 fL (9.4-12.4) L 11/16/23 05:48 Immature Gran % (Auto) 1.6 % 11/16/23 05:48 Neut % (Auto) 80.1 % 11/16/23 05:48 Lymph % (Auto) 4.9 % 11/16/23 05:48 [place] % (Auto) 10.0 % 11/16/23 05:48 Eos % (Auto) 2.7 % 11/16/23 05:48 Baso % (Auto) 0.7 % 11/16/23 05:48 Neut # (Auto) 6.58 K/uL (1.40-6.50) H 11/16/23 05:48 Lymph # (Auto) 0.40 K/uL (1.20-3.40) L 11/16/23 05:48 [place] # (Auto) 0.82 K/uL (0.11-0.59) H 11/16/23 05:48 Eos # (Auto) 0.22 K/uL (0.00-0.50) 11/16/23 05:48 Baso # (Auto) 0.06 K/uL (0.00-0.20) 11/16/23 05:48 Immature Gran # (Auto) 0.13 K/uL (0.01-0.20) 11/16/23 05:48 Echinocytes 1+ 11/15/23 11:55 Sodium 142 mmol/L (136-145) 11/16/23 05:48 Potassium 3.4 mmol/L (3.5-5.1) L 11/16/23 05:48 Chloride 113 mmol/L (98-107) H 11/16/23 05:48 Carbon Dioxide 21 mmol/L (21-32) 11/16/23 05:48 Anion Gap 8 (3-11) 11/16/23 05:48 BUN 35 mg/dl (6-23) H 11/16/23 05:48 Creatinine 3.24 mg/dl (0.6-1.4) H D 11/16/23 05:48 Est Cr Clr Drug Dosing 16.7 ml/min 11/16/23 05:48 Est GFR ( Amer) 19.1 ml/min 11/16/23 05:48 Est GFR (Non-Af Amer) 16.5 ml/min 11/16/23 05:48 BUN/Creatinine Ratio 10.8 (10-20) 11/16/23 05:48 Glucose 74 mg/dl (70-99(Fasting)) 11/16/23 05:48 POC Glucose 86 mg/dl (70-99) 11/15/23 20:24 Calcium 8.1 mg/dl (8.6-10.3) L 11/16/23 05:48 Magnesium 1.9 mg/dl (1.7-2.4) 11/16/23 05:48 Total Bilirubin 0.4 mg/dl (0.2-1.0) 11/16/23 05:48 AST 14 U/L (13-39) 11/16/23 05:48 ALT 11 U/L (7-52) 11/16/23 05:48 Alkaline Phosphatase 30 U/L (34-104) L 11/16/23 05:48 Total Protein 5.1 gm/dl (6.0-8.3) L 11/16/23 05:48 Albumin 2.8 gm/dl (3.4-5.0) L 11/16/23 05:48 Globulin 2.3 gm/dl (2.5-4.0) L 11/16/23 05:48 Albumin/Globulin Ratio 1.2 (0.9-2) 11/16/23 05:48 Lipase 68 U/L (11-82) 11/15/23 11:55 Urine Color Yellow 11/15/23 14:28 Urine Appearance Cloudy (Clear) A 11/15/23 14:28 Urine pH 5.5 (4.5-7.5) 11/15/23 14:28 Ur Specific [place] 1.020 (1.000-1.030) 11/15/23 14:28 Urine Protein 2+ (Negative) H 11/15/23 14:28 Urine Glucose (UA) Negative (Negative) 11/15/23 14:28 Urine Ketones Negative (Negative) 11/15/23 14:28 Urine Blood 3+ (Negative) H 11/15/23 14:28 Urine Nitrite Negative (Negative) 11/15/23 14:28 Urine Bilirubin Negative (Negative) 11/15/23 14:28 Urine Urobilinogen Negative (Negative) 11/15/23 14:28 Ur Leukocyte Esterase 1+ (Negative) H 11/15/23 14:28 Urine WBC (Auto) >30 /hpf (0-5) H 11/15/23 14:28 Urine RBC (Auto) 10-30 /hpf (0-4) H 11/15/23 14:28 U Hyaline Cast (Auto) 5-10 /lpf (0-5) H 11/15/23 14:28 U Epithel Cells (Auto) 5-10 /lpf (0-5) H 11/15/23 14:28 Urine Bacteria (Auto) Negative (Negative) 11/15/23 14:28 Urine Yeast Not Reportable 11/15/23 14:28 SARS-CoV-2, RNA, NAAT NEGATIVE (NEGATIVE) 11/15/23 13:30 Impressions Renal Ultrasound 11/15/23 11:49 ULTRASOUND KIDNEYS AND BLADDER CLINICAL HISTORY: Acute renal insufficiency. COMPARISON STUDY: Abdominal CT dated 10/23/2023. TECHNIQUE: Real-time, grayscale, and color flow sonography of the kidneys and bladder is performed. Images are reviewed in the transverse and longitudinal planes. FINDINGS: Kidneys: The kidneys demonstrated cortical atrophy. Echotexture there is increased indicating medical renal disease. The right kidney measures 9.8 x 5.1 x 4.9 cm and the left kidney measures 10.3 x 5.5 x 4.9 cm. There is no hydronephrosis. No shadowing renal calculi are identified. Bilateral renal cysts are similar to previous and measure up to 7.6 cm. There is no sonographic evidence of solid renal mass lesion. No perinephric fluid is identified. Bladder: The prostate gland is enlarged and heterogeneous noting median lobe hypertrophy. The bladder wall is thickened/trabeculated indicating chronic outlet obstruction. Only the left ureteral jet was seen. IMPRESSION: 1. The kidneys are atrophic and echogenic indicative of medical renal disease. 2. No hydronephrosis. 3. Prostatomegaly with evidence of chronic bladder outlet obstruction. ACT 112: Negative or not required by law. Electronically signed by: Jony Sandhu M.D. 11/15/2023 1:41 PM Liver Ultrasound 11/15/23 12:39 ABDOMINAL ULTRASOUND, RIGHT UPPER QUADRANT HISTORY: RUQ abd pain, + taylor's sign. COMPARISON: Abdomen and pelvis CT 10/21/2023. FINDINGS: Pancreas: Obscured by overlying bowel gas. Liver: The liver is echogenic consistent with fatty change. Gallbladder: There are small stones seen at the neck of the gallbladder. No gallbladder wall thickening. Negative sonographic Taylor sign. CBD: 3 mm. Right kidney: No hydronephrosis. IMPRESSION: 1. Cholelithiasis. No gallbladder wall thickening. 2. Mild hepatic steatosis. ACT 112: Negative or not required by law. Electronically signed by: Alfredo Caldwell M.D. 11/15/2023 2:11 PM Chest X-Ray 11/15/23 12:42 SINGLE VIEW CHEST CLINICAL HISTORY: Fall. Dyspnea. Right-sided chest wall pain. FINDINGS: An AP, portable, upright chest radiograph is compared to study dated 10/29/2023. Correlation is made with chest CT dated 07/12/2023. The examination is degraded by portable technique and apical lordotic positioning. A right PICC line has been removed. The heart is enlarged noting atherosclerotic calcification of the thoracic aorta. The pulmonary vasculature is not congested. Chronic interstitial thickening similar to previous. There is bibasilar scarring/atelectasis. No airspace consolidation or large pleural effusion is identified. No pneumothorax is seen. The skeletal structures are osteopenic. There are chronic/healed left-sided rib fractures. IMPRESSION: Cardiomegaly with no acute cardiopulmonary abnormality. ACT 112: Negative or not required by law. Electronically signed by: Jony Sandhu M.D. 11/15/2023 2:03 PM Abdomen/Pelvis CT 11/15/23 16:[address] WITHOUT CONTRAST CT DOSE: 1259.51 mGy.cm HISTORY: LLOYD, US-R ureteral jet no visual ?obstruction/ston TECHNIQUE: Multiaxial CT images of the abdomen and pelvis were performed without contrast. A dose lowering technique was utilized adhering to the principles of ALARA. COMPARISON STUDY: Abdomen and pelvis CT 10/23/2023. FINDINGS: There is mild chronic interstitial thickening again noted at the lung bases. No pneumoperitoneum. No pneumatosis. Chronic insufficiency fracture within the left sacrum again noted. No acute fractures. Small left and moderate right fat-containing inguinal hernias, unchanged. Cholelithiasis. No gallbladder wall thickening. The unenhanced liver, pancreas, spleen, and adrenal glands are within normal limits. Normal caliber abdominal aorta with moderate calcified plaque. No retroperitoneal lymphadenopathy. Right-sided nephrolithiasis. No ureteral stones. No hydronephrosis. There is a punctate stone within the bladder. Bilateral renal hypodense lesions are again noted. These are incompletely characters on this noncontrast study but favor cysts. No pelvic free fluid. Bladder wall thickening. The punctate stone within the bladder. The prostate gland is enlarged. Evidence for prior TURP procedure. Colonic diverticulosis. No evidence for acute diverticulitis. There is mild pericolonic fat stranding seen throughout the colon with thickening of the proximal colon most pronounced within the cecum. Findings suggest a nonspecific pancolitis. This favors an infectious or inflammatory process. Normal appendix. The fat stranding adjacent to the bladder is also progressed. There is suggestion of a small urachal diverticulum. There is also vasogenic stranding around the prostate, unchanged. Mild presacral edema has progressed. No dilated loops of bowel to suggest an obstruction. IMPRESSION: 1. There is mild pericolonic fat stranding seen throughout the colon with thickening of the proximal colon most pronounced within the cecum. Findings suggest a nonspecific pancolitis. This favors an infectious or inflammatory process. 2. Bladder wall thickening with adjacent edema/fat stranding. This is also fat stranding surrounding the enlarged prostate gland. Findings suggest a cystitis/prostatitis. This has slightly progressed. 3. Right-sided nephrolithiasis. No hydronephrosis. 4. Punctate bladder calculi again noted. 5. Cholelithiasis. 6. Additional findings as described above. ACT 112: Negative or not required by law. Electronically signed by: Alfredo Caldwell M.D. 11/15/2023 5:29 PM PG Care Time/CCT Total # of Minutes Spent Total Time Spent with Patient: Total time spent is greater than 50% in coordination of care (as documented) at patient's floor/unit and/or counseling patient: Coding Level of Care Code 40305 IN/OBS CONSULT LVL 5,80M Diagnoses LLOYD (acute kidney injury) N17.9 Chronic kidney disease with active medical management without dialysis, stage 3 (moderate) N18.30 Dehydration E86.0 Pseudomonas urinary tract infection N39.0; B96.5
[2023-11-16] MEDS: PIPERACILLIN/TAZOBACTAM 4.5 GM in DEXTROSE 5% MINI-B 100 ML IV SCH (12:00)
[2023-11-16 12:11] LABS: Appearance Urine Cloudy (Clear); Bilirubin Urine Negative (Negative); Blood Urine 2+ (Negative); Color Urine Yellow; Glucose Urine UA Negative (Negative); Ketones Urine Trace (Negative); Leukocyte Esterase Urine 2+ (Negative); Nitrite Urine Negative (Negative); Protein Urine 1+ (Negative); Specific Gravity Urine 1.015 (1.000-1.030); Urobilinogen Urine Negative (Negative); WBC Urine Automated >30 /hpf (0-5); pH Urine 5.5 (4.5-7.5)
[2023-11-16 12:29] LABS: Bacteria Urine Automated 1+ (Negative)
--- NOTE | 2023-11-16 13:37 | Hospitalist Progress Note ---
Date of Service November 16, 2023 Assessment & Plan (1) Acute kidney injury superimposed on CKD: Plan: -Was sent to the ED from [facility] nursing unit after he was noted to have a Cr of 4.91 this am -Baseline appears closer to 1.6 Activity Specialist on board Most likely secondary to dehydration as with IV fluids, creatinine trending down. Today creatinine is down to 3.2 Will continue p.o. fluid intake and monitor BMP closely Avoid nephrotoxins No signs of obstruction on the retroperitoneal ultrasound Per nephrology, continue Zosyn for treatment of prostatitis (2) Prostatitis: Plan: -Diagnosed last admission -Has been on Zosyn via PICC; ID recommends continued treatment with an end date of 11/19 Continue Zosyn Urine culture pending (3) Hematuria: Plan: -Patient has been experiencing hematuria since last admission -Hgb stable -Not on anticoagulation, hemodynamically stable -Will follow urine culture results (4) RUQ pain: Plan: -Patient with RUQ pain on palpation with possible + Taylor's signs -No abd pain at rest, no nausea/vomiting, LFT's are WNL -Right upper quadrant ultrasound was negative. -LFTs unremarkable (5) Fall: Plan: -Patient fell forward, off his toilet last night when leaning forward to inspect possible blood on the floor -Denies CP, palpitations, SOB, neurologic symptoms prior to or after his fall -Did not hit his head or lost consciousness, no acute pain from his fall -Chest x-ray negative (6) Bladder outlet obstruction: Plan: -Continue flomax (7) Hypertension: Plan: -Stable -Conitnue amlodipine Admission and Anticipated Discharge Date Admission Date: November 15, 2023 Subjective Patient feels well. Denies chest pain or shortness of breath. Denies dizziness or lightheadedness. Review of Systems Review of Systems: All systems reviewed & are unremarkable except as noted in Subjective Physical Exam Physical Exam: General: Awake, conversant Heart: S1, S2/regular rate and rhythm, no murmur rubs or gallops Lungs: Clear to auscultation bilaterally. Normal effort Abdomen: Soft/nontender/nondistended. No hepatosplenomegaly Extremities: No clubbing/cyanosis. No edema Behavior: Appropriate, cooperative Results & Data Results & Data Vital Signs (Past 12 Hours) Vital Signs Temp Pulse Pulse Resp BP Pulse Ox O2 Del Method 11/16/23 11:51 Room Air 11/16/23 11:37 37.0 C 71 16 163/80 H 96 Room Air 11/16/23 08:10 36.3 C L 73 16 145/82 H 95 Room Air 11/16/23 07:09 65 11/16/23 04:08 36.2 C L 78 18 131/67 92 Room Air Laboratory Results Abnormal lab results 11/15/23 11/16/23 11/16/23 Range/Units 14:28 05:48 Unknown RBC 3.75 L (4.70-6.10) M/uL Hgb 10.5 L (14.0-18.0) g/dl Hct 33.5 L (42.0-52.0) % MCHC 31.3 L (32.0-36.0) g/dL RDW Std Deviation 52.6 H (36.4-46.3) fL RDW Coeff of Blanca 15.9 H (11.5-14.5) % MPV 9.1 L (9.4-12.4) fL Neut # (Auto) 6.58 H (1.40-6.50) K/uL Lymph # (Auto) 0.40 L (1.20-3.40) K/uL [place] # (Auto) 0.82 H (0.11-0.59) K/uL Potassium 3.4 L (3.5-5.1) mmol/L Chloride 113 H (98-107) mmol/L BUN 35 H (6-23) mg/dl Creatinine 3.24 H D (0.6-1.4) mg/dl Calcium 8.1 L (8.6-10.3) mg/dl Alkaline Phosphatase 30 L (34-104) U/L Total Protein 5.1 L (6.0-8.3) gm/dl Albumin 2.8 L (3.4-5.0) gm/dl Globulin 2.3 L (2.5-4.0) gm/dl Urine Appearance Cloudy A Cloudy A (Clear) Urine Protein 2+ H 1+ H (Negative) Urine Ketones Trace H (Negative) Urine Blood 3+ H 2+ H (Negative) Ur Leukocyte Esterase 1+ H 2+ H (Negative) Urine WBC (Auto) >30 H >30 H (0-5) /hpf Urine RBC (Auto) 10-30 H 10-30 H (0-4) /hpf U Hyaline Cast (Auto) 5-10 H (0-5) /lpf U Epithel Cells (Auto) 5-10 H 5-10 H (0-5) /lpf Urine Bacteria (Auto) 1+ H (Negative) Urine Yeast Budding A (None Prsent) Diagnostic Findings Renal Ultrasound 11/15/23 11:49 ULTRASOUND KIDNEYS AND BLADDER CLINICAL HISTORY: Acute renal insufficiency. COMPARISON STUDY: Abdominal CT dated 10/23/2023. TECHNIQUE: Real-time, grayscale, and color flow sonography of the kidneys and bladder is performed. Images are reviewed in the transverse and longitudinal planes. FINDINGS: Kidneys: The kidneys demonstrated cortical atrophy. Echotexture there is increased indicating medical renal disease. The right kidney measures 9.8 x 5.1 x 4.9 cm and the left kidney measures 10.3 x 5.5 x 4.9 cm. There is no hydronephrosis. No shadowing renal calculi are identified. Bilateral renal cysts are similar to previous and measure up to 7.6 cm. There is no sonographic evidence of solid renal mass lesion. No perinephric fluid is identified. Bladder: The prostate gland is enlarged and heterogeneous noting median lobe hypertrophy. The bladder wall is thickened/trabeculated indicating chronic outlet obstruction. Only the left ureteral jet was seen. IMPRESSION: 1. The kidneys are atrophic and echogenic indicative of medical renal disease. 2. No hydronephrosis. 3. Prostatomegaly with evidence of chronic bladder outlet obstruction. ACT 112: Negative or not required by law. Electronically signed by: Jony Sandhu M.D. 11/15/2023 1:41 PM Liver Ultrasound 11/15/23 12:39 ABDOMINAL ULTRASOUND, RIGHT UPPER QUADRANT HISTORY: RUQ abd pain, + taylor's sign. COMPARISON: Abdomen and pelvis CT 10/21/2023. FINDINGS: Pancreas: Obscured by overlying bowel gas. Liver: The liver is echogenic consistent with fatty change. Gallbladder: There are small stones seen at the neck of the gallbladder. No gallbladder wall thickening. Negative sonographic Taylor sign. CBD: 3 mm. Right kidney: No hydronephrosis. IMPRESSION: 1. Cholelithiasis. No gallbladder wall thickening. 2. Mild hepatic steatosis. ACT 112: Negative or not required by law. Electronically signed by: Alfredo Caldwell M.D. 11/15/2023 2:11 PM Chest X-Ray 11/15/23 12:42 SINGLE VIEW CHEST CLINICAL HISTORY: Fall. Dyspnea. Right-sided chest wall pain. FINDINGS: An AP, portable, upright chest radiograph is compared to study dated 10/29/2023. Correlation is made with chest CT dated 07/12/2023. The examination is degraded by portable technique and apical lordotic positioning. A right PICC line has been removed. The heart is enlarged noting atherosclerotic calcification of the thoracic aorta. The pulmonary vasculature is not congested. Chronic interstitial thickening similar to previous. There is bibasilar scarring/atelectasis. No airspace consolidation or large pleural effusion is identified. No pneumothorax is seen. The skeletal structures are osteopenic. There are chronic/healed left-sided rib fractures. IMPRESSION: Cardiomegaly with no acute cardiopulmonary abnormality. ACT 112: Negative or not required by law. Electronically signed by: Jony Sandhu M.D. 11/15/2023 2:03 PM Abdomen/Pelvis CT 11/15/23 16:[address] WITHOUT CONTRAST CT DOSE: 1259.51 mGy.cm HISTORY: LLOYD, US-R ureteral jet no visual ?obstruction/ston TECHNIQUE: Multiaxial CT images of the abdomen and pelvis were performed without contrast. A dose lowering technique was utilized adhering to the principles of ALARA. COMPARISON STUDY: Abdomen and pelvis CT 10/23/2023. FINDINGS: There is mild chronic interstitial thickening again noted at the lung bases. No pneumoperitoneum. No pneumatosis. Chronic insufficiency fracture within the left sacrum again noted. No acute fractures. Small left and moderate right fat-containing inguinal hernias, unchanged. Cholelithiasis. No gallbladder wall thickening. The unenhanced liver, pancreas, spleen, and adrenal glands are within normal limits. Normal caliber abdominal aorta with moderate calcified plaque. No retroperitoneal lymphadenopathy. Right-sided nephrolithiasis. No ureteral stones. No hydronephrosis. There is a punctate stone within the bladder. Bilateral renal hypodense lesions are again noted. These are incompletely characters on this noncontrast study but favor cysts. No pelvic free fluid. Bladder wall thickening. The punctate stone within the bladder. The prostate gland is enlarged. Evidence for prior TURP procedure. Colonic diverticulosis. No evidence for acute diverticulitis. There is mild pericolonic fat stranding seen throughout the colon with thickening of the proximal colon most pronounced within the cecum. Findings suggest a nonspecific pancolitis. This favors an infectious or inflammatory process. Normal appendix. The fat stranding adjacent to the bladder is also progressed. There is suggestion of a small urachal diverticulum. There is also vasogenic stranding around the prostate, unchanged. Mild presacral edema has progressed. No dilated loops of bowel to suggest an obstruction. IMPRESSION: 1. There is mild pericolonic fat stranding seen throughout the colon with thickening of the proximal colon most pronounced within the cecum. Findings suggest a nonspecific pancolitis. This favors an infectious or inflammatory process. 2. Bladder wall thickening with adjacent edema/fat stranding. This is also fat stranding surrounding the enlarged prostate gland. Findings suggest a cystitis/prostatitis. This has slightly progressed. 3. Right-sided nephrolithiasis. No hydronephrosis. 4. Punctate bladder calculi again noted. 5. Cholelithiasis. 6. Additional findings as described above. ACT 112: Negative or not required by law. Electronically signed by: Alfredo Caldwell M.D. 11/15/2023 5:29 PM PG Care Time/CCT Total # of Minutes Spent Total Time Spent with Patient: Total time spent is greater than 50% in coordination of care (as documented) at patient's floor/unit and/or counseling patient: Coding Level of Care Code 74734 SUB INP/OBS CARE 2/35MIN Diagnoses Acute kidney injury superimposed on CKD N17.9; N18.9 Prostatitis N41.9 Hematuria R31.9 RUQ pain R10.11 Fall W19.XXXA Bladder outlet obstruction N32.0 Hypertension I10
[2023-11-17] MEDS: PIPERACILLIN/TAZOBACTAM 4.5 GM in DEXTROSE 5% MINI-B 100 ML IV SCH ×3 (00:10→20:34)
[2023-11-17 06:39] LABS: Basophils # (auto) 0.06 K/uL (0.00-0.20); Basophils % (auto) 0.9 %; Eosinophils # (auto) 0.18 K/uL (0.00-0.50); Eosinophils % (auto) 2.7 %; Hemoglobin 10.4 g/dl (14.0-18.0); Immature Granulocytes # (auto) 0.09 K/uL (0.01-0.20); Immature Granulocytes % (auto) 1.4 %; Lymphocytes # (auto) 0.39 K/uL (1.20-3.40); Lymphocytes % (auto) 5.9 %; Mean Corpuscular Hemoglobin 27.1 pg (25.0-34.0); Mean Corpuscular Hgb Conc 30.6 g/dL (32.0-36.0); Mean Corpuscular Volume 88.5 fL (80.0-100.0); Mean Platelet Volume 9.1 fL (9.4-12.4); Monocytes # (auto) 0.67 K/uL (0.11-0.59); Monocytes % (auto) 10.2 %; Neutrophils # (auto) 5.18 K/uL (1.40-6.50); Neutrophils % (auto) 78.9 %; Platelet Count 203 K/uL (130-400); RDW Coefficient of Variation 15.7 % (11.5-14.5); RDW Standard Deviation 51.2 fL (36.4-46.3); Red Blood Count 3.84 M/uL (4.70-6.10); White Blood Count 6.57 K/ul (4.8-10.8)
[2023-11-17 07:08] LABS: Albumin Globulin Ratio 1.3 (0.9-2); Albumin Level 2.9 gm/dl (3.4-5.0); BUN Creatinine Ratio 12.8 (10-20); Bilirubin,Total 0.5 mg/dl (0.2-1.0); Calcium 8.3 mg/dl (8.6-10.3); Creatinine Clr Calc Pharmacy 24.8 ml/min; Est GFR (African American) 30.9 ml/min; Est GFR (Non-African American) 26.6 ml/min; Globulin 2.3 gm/dl (2.5-4.0); Potassium 3.2 mmol/L (3.5-5.1); Total Protein 5.2 gm/dl (6.0-8.3)
[2023-11-17] MEDS ORDERED: POTASSIUM CHLORIDE CRTAB 20 MEQ TABCR PO STA (08:36)
[2023-11-17] MEDS ORDERED: amLODIPine BESYLATE 5 MG TAB PO SCH (09:00)
[2023-11-17] MEDS: TAMSULOSIN HCL 0.4 MG CAP PO SCH (09:10)
--- NOTE | 2023-11-17 09:15 | Nephrology Progress Note ---
Date of Service November 17, 2023 Assessment & Plan (1) LLOYD (acute kidney injury): Plan: * LLOYD/CKD likely due to dehydration. Imaging is negative for hydronephrosis. Patient is passing urine on his own. Urine microscopy reveals hematuria and pyuria c/w recent diagnosis of prostatitis * LLYOD has resolved. Creatinine is at/near baseline. No further Nephrology evaluation indicated at this time. Will sign off. Please call if further assistance is needed (2) Chronic kidney disease with active medical management without dialysis, stage 3 (moderate): Plan: * CKD stage G3b/A3 (moderate impairment). Baseline Cr has been 1.8-2.0 w/ EGFR 30.9 cc/min. 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 Encourage oral hydration (4) Pseudomonas urinary tract infection: Plan: * Prostatitis. Remains on IV Zosyn and Tamsulosin therapy Admission and Anticipated Discharge Date Admission Date: November 15, 2023 Subjective Mr. Naidu was evaluated in his hospital room this morning. He was breathing comfortably flat in bed on RA. Mr. Naidu reports that he is tolerating his diet and trying to remain well hydrated. Unfortunately he has been incontinent and unable to collect his urine for measurement of I&O's Review of Systems Constitutional: no fever Eyes: no worsening vision Ear, Nose, Mouth, Throat: no problem reported Respiratory: no cough and no dyspnea Cardiovascular: no chest pain Gastrointestinal: no abdominal pain, no nausea, no vomiting and no diarrhea/loose stools Genitourinary: no dysuria, no urinary frequency or no urinary hesitancy Integumentary: no rash Physical Exam Constitutional: + frail appearing; not in distress Eyes: PERRL, conjunctivae normal, anicteric sclerae ENMT: Mouth: + dry oral mucous membranes Neck: trachea midline, no thyromegaly Respiratory: normal respiratory effort, lungs clear to auscultation Cardiovascular: RRR, no murmur, no edema Gastrointestinal (Abdomen): normal bowel sounds, soft, nontender, no hepatosplenomegaly Skin: + turgor decreased Neurologic: awake Speech / Cognition: normal speech Results & Data Vital Signs (Past 12 Hours) Vital Signs Temp Pulse Pulse Resp BP Pulse Ox O2 Del Method 11/17/23 07:56 79 11/17/23 07:00 36.5 C 69 18 173/79 H 97 Room Air 11/17/23 02:00 36.5 C 71 22 160/69 H 95 Room Air 11/16/23 22:54 36.9 C 80 18 169/81 H 93 Room Air 11/16/23 21:51 78 Laboratory Results Laboratory Results - last 24 hr 11/16/23 11/17/23 Unknown 05:36 WBC 6.57 RBC 3.84 L Hgb 10.4 L Hct 34.0 L MCV 88.5 MCH 27.1 MCHC 30.6 L RDW Std Deviation 51.2 H RDW Coeff of Blanca 15.7 H Plt Count 203 MPV 9.1 L Immature Gran % (Auto) 1.4 Neut % (Auto) 78.9 Lymph % (Auto) 5.9 [place] % (Auto) 10.2 Eos % (Auto) 2.7 Baso % (Auto) 0.9 Neut # (Auto) 5.18 Lymph # (Auto) 0.39 L [place] # (Auto) 0.67 H Eos # (Auto) 0.18 Baso # (Auto) 0.06 Immature Gran # (Auto) 0.09 Sodium 142 Potassium 3.2 L Chloride 110 H Carbon Dioxide 24 Anion Gap 8 BUN 28 H Creatinine 2.18 H D Est Cr Clr Drug Dosing 24.8 Est GFR ( Amer) 30.9 Est GFR (Non-Af Amer) 26.6 BUN/Creatinine Ratio 12.8 Glucose 82 Calcium 8.3 L Total Bilirubin 0.5 AST 14 ALT 12 Alkaline Phosphatase 31 L Total Protein 5.2 L Albumin 2.9 L Globulin 2.3 L Albumin/Globulin Ratio 1.3 Urine Color Yellow Urine Appearance Cloudy A Urine pH 5.5 Ur Specific [place] 1.015 Urine Protein 1+ H Urine Glucose (UA) Negative Urine Ketones Trace H Urine Blood 2+ H Urine Nitrite Negative Urine Bilirubin Negative Urine Urobilinogen Negative Ur Leukocyte Esterase 2+ H Urine WBC (Auto) >30 H Urine RBC (Auto) 10-30 H U Hyaline Cast (Auto) 1-5 U Epithel Cells (Auto) 5-10 H Urine Bacteria (Auto) 1+ H Urine Yeast Budding A PG Care Time/CCT Total # of Minutes Spent Total Time Spent with Patient: Total time spent is greater than 50% in coordination of care (as documented) at patient's floor/unit and/or counseling patient: Coding Level of Care Code 21541 SUB INP/OBS CARE 50MIN Diagnoses LLOYD (acute kidney injury) N17.9 Chronic kidney disease with active medical management without dialysis, stage 3 (moderate) N18.30 Dehydration E86.0 Pseudomonas urinary tract infection N39.0; B96.5
--- NOTE | 2023-11-17 12:56 | Hospitalist Progress Note ---
Date of Service November 17, 2023 Assessment & Plan (1) Acute kidney injury superimposed on CKD: Plan: -Was sent to the ED from [facility] nursing unit after he was noted to have a Cr of 4.91 -Baseline appears closer to 1.6 -Patient has a known hx of blader outlet obstruction after radiation therapy for prostate cancer -Currently on Zsoyn via PICC for known Prostatitis and Pseudomonas UTI Most likely secondary to dehydration Responded to IV fluids and now getting better on oral fluids as well Creatinine down to near/at baseline Significantly improved Replete potassium (2) Prostatitis: Plan: -Diagnosed last admission -Has been on Zosyn via PICC; ID recommends continued treatment with an end date of 11/19 -Will plan on continuing Zosyn for now -Urine culture negative (3) Hematuria: Plan: -Patient has been experiencing hematuria since last admission -Hgb was stable on am CBC prior to admission, will follow repeat when resulted -Not on anticoagulation, hemodynamically stable -Urine culture negative (4) RUQ pain: Plan: -Patient with RUQ pain on palpation with possible + Taylor's signs No abdominal pain today -No abd pain at rest, no nausea/vomiting, LFT's are WNL -Right upper quadrant ultrasound was negative -LFTs unremarkable (5) Fall: Plan: -Patient fell forward, off his toilet last night when leaning forward to inspect possible blood on the floor -Denies CP, palpitations, SOB, neurologic symptoms prior to or after his fall -Did not hit his head or lost consciousness, no acute pain from his fall Chest x-ray negative (6) Bladder outlet obstruction: Plan: -Continue flomax (7) Hypertension: Plan: Blood pressure elevated Resume amlodipine Follow blood pressure reading today Admission and Anticipated Discharge Date Admission Date: November 15, 2023 Subjective Patient feels well overall. Denies chest pain or shortness of breath. Happy to know that his kidney numbers have come back to his usual baseline. Review of Systems Review of Systems: All systems reviewed & are unremarkable except as noted in Subjective Physical Exam Physical Exam: General: Awake, conversant Heart: S1, S2/regular rate and rhythm, no murmur rubs or gallops Lungs: Clear to auscultation bilaterally. Normal effort Abdomen: Soft/nontender/nondistended. No hepatosplenomegaly Extremities: No clubbing/cyanosis. No edema Behavior: Appropriate, cooperative Results & Data Results & Data Vital Signs (Past 12 Hours) Vital Signs Temp Pulse Pulse Resp BP Pulse Ox O2 Del Method 11/17/23 12:04 36.9 C 72 16 145/78 H 93 Room Air 11/17/23 08:00 Room Air 11/17/23 07:56 79 11/17/23 07:00 36.5 C 69 18 173/79 H 97 Room Air 11/17/23 02:00 36.5 C 71 22 160/69 H 95 Room Air PG Care Time/CCT Total # of Minutes Spent Total Time Spent with Patient: Total time spent is greater than 50% in coordination of care (as documented) at patient's floor/unit and/or counseling patient: Coding Level of Care Code 42373 SUB INP/OBS CARE 2/35MIN Diagnoses Acute kidney injury superimposed on CKD N17.9; N18.9 Prostatitis N41.9 Hematuria R31.9 RUQ pain R10.11 Fall W19.XXXA Bladder outlet obstruction N32.0 Hypertension I10
[2023-11-18] MEDS: PIPERACILLIN/TAZOBACTAM 4.5 GM in DEXTROSE 5% MINI-B 100 ML IV SCH ×2 (04:25→12:28)
[2023-11-18 07:29] LABS: Basophils # (auto) 0.05 K/uL (0.00-0.20); Basophils % (auto) 0.8 %; Eosinophils # (auto) 0.19 K/uL (0.00-0.50); Hemoglobin 10.6 g/dl (14.0-18.0); Immature Granulocytes # (auto) 0.09 K/uL (0.01-0.20); Immature Granulocytes % (auto) 1.4 %; Lymphocytes # (auto) 0.47 K/uL (1.20-3.40); Lymphocytes % (auto) 7.4 %; Mean Corpuscular Hemoglobin 27.6 pg (25.0-34.0); Mean Corpuscular Hgb Conc 32.1 g/dL (32.0-36.0); Mean Corpuscular Volume 85.9 fL (80.0-100.0); Mean Platelet Volume 9.2 fL (9.4-12.4); Monocytes # (auto) 0.71 K/uL (0.11-0.59); Monocytes % (auto) 11.2 %; Neutrophils # (auto) 4.83 K/uL (1.40-6.50); Neutrophils % (auto) 76.2 %; Platelet Count 211 K/uL (130-400); RDW Coefficient of Variation 15.4 % (11.5-14.5); RDW Standard Deviation 48.2 fL (36.4-46.3); Red Blood Count 3.84 M/uL (4.70-6.10); White Blood Count 6.34 K/ul (4.8-10.8)
[2023-11-18 07:47] LABS: Albumin Globulin Ratio 1.2 (0.9-2); BUN Creatinine Ratio 12.6 (10-20); Bilirubin,Total 0.5 mg/dl (0.2-1.0); Creatinine Clr Calc Pharmacy 26.1 ml/min; Est GFR (African American) 32.9 ml/min; Est GFR (Non-African American) 28.4 ml/min; Globulin 2.5 gm/dl (2.5-4.0); Potassium 3.7 mmol/L (3.5-5.1); Total Protein 5.5 gm/dl (6.0-8.3)
[2023-11-18 07:57] VITALS: RESP 15; O2SAT 95
[2023-11-18] MEDS: TAMSULOSIN HCL 0.4 MG CAP PO SCH (08:47)
[2023-11-18] MEDS ORDERED: amLODIPine BESYLATE 5 MG TAB PO SCH (09:00)
--- NOTE | 2023-11-18 10:24 | Discharge Summary ---
Date of Service November 18, 2023 Admission HPI Per Admitting Provider Koffi Wilder" is an 83-year-old male with PMH of prostate cancer S/P radiation therapy, bladder outlet obstruction, recurrent Pseudomonas UTI, and HTN who presented to the [facility] ED on 11/15 after he was noted to have a Cr of 4.91 on outpatient labs today. He remained stable in the ED. Repeat labs were significant for a cr of 4.42 (baseline appears near 1.6), BUN of 39, chloride of 110. Prior to admission the patient was given approximately 700 mL NSS before it was stopped by the admitting team. At the time of the exam the patient was sitting in bed in no acute distress with his sitting bedside, history was obtained from both. The patient was discharged to the Skilled Care section of [facility] after last admission due to his PICC line and Zosyn therapy. His states that over the past 2-3 days he has had a decreased appetite. Last night he was on the toilet and tried to lean forward to inspect what he thought was blood on the ground. He lost his balance and fell forward. He denies hitting his head or losing consciousness. He denies any pain after the fall and was able to stand with the assistance of staff at [facility]. They deny recent fever, chills, chest pain, SOB, cough, abd pain at rest, nausea, vomiting, dysuria, hematuria, difficulty stopping/starting his urine stream, diarrhea, melena, bloody BM's, and LE swelling. His notes that the patient has been experiencing hematuria since his [facility] admission. They are scheduled to follow up with Urology outpatient next week. We discussed code status, the patient has a POLST form stating DNR/DNI. The patient and his confirm these are his wishes. His would be him medical decision maker if he is unable to make decisions himself. The patient was recent admitted to [facility] from 10/22-10/31 for LLOYD on CKD, sepsis due to Pseudomonas UTI, and vasovagal episode. His urine grew Pseudomonas resistant to Cipro but otherwise sensitive; blood cultures remained negative. CT of the abd/pelvis showed findings consistent with cystitis/prostatitis. Infectious disease was consulted and recommended PICC placement with continued Zosyn with an end date of 12/19/23. The patient was thought to have had an aspiration event as he was hypoxic after an episode of vomiting and CXR showing a left basilar patchy density. He was evaluated by PHOTOGRAMMETRIC SURVEYOR who cleared him for a normal diet. He was covered for aspiration pneumonia with Zosyn. Please refer to Dr. Pena's attestation for any changes to the treatment plan Admission Exam Per Admitting Provider General: In no acute distress, stated age, well-nourished, non-toxic appearing HEENT: Normocephalic, atraumatic, no scleral icterus, pupils around round, symmetrical, and reactive to light, moist mucus membranes, trachea midline, no thyromegaly Chest/Pulm: No respiratory distress, symmetrical chest expansion, clear breath sounds throughout Cardiac: RRR, no murmurs noted Abdomen: Negative for ascites and bruising, normoactive bowel sounds, soft, tender to palpation in the RUQ with increased pain on palpation during deep inspiration, otherwise non-tender and without rebound tenderness : Negative CVA tenderness BL Musculoskeletal: Symmetrical and without signs of acute trauma, upper and lower extremities with full ROM, no atrophy, spasticity, or flaccidity Extremities: Radial, dorsalis pedis, and posterior tibial pulses are intact and symmetrical, no edema noted in the BL LE's Skin: Warm, dry, no rashes , lesions, or scars noted Neuro: Alert and oriented to person, place, month, year, and president, no focal defects, no tremors noted Psych: No acute distress, calm and cooperative during the exam Principal Diagnosis Acute kidney injury on CKD stage III Discharge Exam General: Awake, conversant Heart: S1, S2/regular rate and rhythm, no murmur rubs or gallops Lungs: Clear to auscultation bilaterally. Normal effort Abdomen: Soft/nontender/nondistended. No hepatosplenomegaly Extremities: No clubbing/cyanosis. No edema Behavior: Appropriate, cooperative Discharge Data Allergies Allergy/AdvReac Type Severity Reaction Status Date / Time No Known Allergies Allergy Verified 11/15/23 13:12 Consultations 11/15/23 11:50 ED Decision to Admit Stat 11/16/23 08:13 Consult Nephrology Routine Ordered Studies 11/15/23 11:49 US Renal Bladder [US renal/blad retro comp] Stat 11/15/23 12:39 US RUQ [US liver] Urgent 11/15/23 16:09 CT Abd and Pelvis [CT abd pelvis wo con] Stat Hospital Course (1) Acute kidney injury superimposed on CKD: -Was sent to the ED from [facility] nursing unit after he was noted to have a Cr of 4.91 -Baseline appears closer to 1.6 -Patient has a known hx of blader outlet obstruction after radiation therapy for prostate cancer -Currently on Zsoyn via PICC for known Prostatitis and Pseudomonas UTI Most likely secondary to dehydration Responded to IV fluids and now getting better on oral fluids as well Creatinine down to near/at baseline Resolved (2) Prostatitis: -Diagnosed last admission -Has been on Zosyn via PICC; ID recommends continued treatment with an end date of 11/19 -Will plan on continuing Zosyn till end date -Urine culture negative (3) Hematuria: -Patient has been experiencing hematuria since last admission -Hgb was stable on am CBC prior to admission, will follow repeat when resulted -Not on anticoagulation, hemodynamically stable -Urine culture negative (4) RUQ pain: -Patient with RUQ pain on palpation with possible + Taylor's signs No abdominal pain today -No abd pain at rest, no nausea/vomiting, LFT's are WNL -Right upper quadrant ultrasound was negative -LFTs unremarkable (5) Bladder outlet obstruction: -Continue flomax (6) Hypertension: Blood pressure elevated Increase the dose of amlodipine to 5 mg for better control of blood pressure Plan Discharge today Total Time Total Time Spent Total Time Spent (In Minutes): 35 Discharge Plan Discharge Items Patient Disposition: Transfer [facility] Reason For Visit: LLOYD Discharge Diagnosis: Acute kidney injury superimposed on CKD due to dehydration Activity: As commented below Activity Comment: Per PT/OT recommendation Non-emergency contact: Primary Care Provider Call non-emergency contact if: you have any medication questions and your symptoms worsen Follow-up/Referrals: Heriberto Guajardo [Primary Care Provider] - Diet: Heart Healthy Addtl Attending Provider Instructions: Advised to follow-up with PCP at the [facility] facility in 1 week Pending Studies at Discharge: No Stand-Alone Forms: My [facility] Skilled Items Patient informed of condition?: Yes DNR: No Discharge Level of Care: Skilled Communicable Disease: No Discharge Prognosis: Stable Lines: Mid-Line Urinary Catheter: No Medications and DC Order Prescriptions: New amlodipine [Norvasc] 5 mg Tablet 5 mg PO DAILY 30 Days Qty: 30 0RF Continued cholecalciferol (vitamin D3) 50 mcg (2,000 unit) capsule 50 mcg PO DAILY acetaminophen [Tylenol] 325 mg Tablet 650 mg PO Q4H PRN (Reason: PAIN/FEVER) ondansetron HCl 4 mg Tablet 4 mg PO Q12H PRN (Reason: NAUSEA/VOMITING) sodium chloride 0.9 % (flush) Syringe 10 ml IV Q8H Rx Instructions: 0600, 1400 & 2200 administer before and after IV drug administration as part of [facility] protocol Saccharomyces boulardii [Florastor] 250 mg Capsule 250 mg PO QAM tamsulosin 0.4 mg capsule 0.4 mg PO QPM Zosyn in dextrose (iso-osm) 4.5 gram/100 mL piggyback 4.5 g IV Q8H 21 Days Rx Instructions: 0600, 1400 & 2200 Discontinued amlodipine 2.5 mg tablet 2.5 mg PO DAILY Discharge Orders: Discharge Order (Routine); Ordered 11/18/23 Ordered By: Prabhjto Do Admission Data Admit Date/Time: 11/15/23 12:47 Attending Provider: Prabhjot Do Admit Provider: Meño Pena Primary Care Provider: Heriberto Guajardo Other Providers: Meño Pena; Jean-Claude Solorzano Other Interventions: Discharge Summary Assessment (RN) Last Done: 11/18/23 14:20 Coding Level of Care Code 60267 INP/OBS DISCH >30 MIN Diagnoses Acute kidney injury superimposed on CKD N17.9; N18.9 Prostatitis N41.9 Hematuria R31.9 RUQ pain R10.11 Bladder outlet obstruction N32.0 Hypertension I10
[2023-11-18 13:57] VITALS: BP 128/74; TEMP 98.8
[2023-11-18 14:21] VITALS: PULSE 98
== END 2023-11-18 15:06 | DRG 684 ==
LOC: ED 11:43 → EDINP 12:47 → SUATTDRO 12:47 → 2N 16:53

== ENCOUNTER 2025-04-07 09:31 | Observation (INO) ==
--- NOTE | 2025-04-07 10:00 | Emergency Department Note ---
Impression & Plan Syncope, Complicated UTI (urinary tract infection), Dementia ED Provider Note ED Provider Note NAME: Macey CHURCHILL UPANTOINETTE AGE:84 SEX: Male : 1940 ARRIVES VIA: EMS INFORMANT: Patient ED PROVIDER(s): Anna Diaz DO CHIEF COMPLAINT: Syncope HPI: This is an 84-year-old male presents emergency department after syncopal event this morning at the facility where he resides. EMS reported patient diaphoretic on arrival he did have several episodes of vomiting upon arrival in the ER. Patient states he has had episodes of syncope in the past although cannot remember how long ago or what they were from. He believes its happened 4-5 times. He denies any headaches, chest pain, shortness of breath, or abdominal pain. He denies any recent illness or change in medications to his knowledge. Of note, paperwork accompanying the patient from the facility states the patient does have a history of Alzheimer's dementia. There was no reported fall from the chair. EMS reports he had come out for breakfast and was seated when the syncopal event occurred. PAST MEDICAL HISTORY:See Below PAST SURGICAL HISTORY:See Below FAMILY HISTORY:See Below SOCIAL HISTORY:See Below HOME MEDICATIONS:See Below ALLERGIES:See Below VITALS:See Below PHYSICAL EXAMINATION: GENERAL: alert, well appearing, well nourished, no distress, non-toxic, holding an emesis bag HEAD: nc/at EYE EXAM: normal conjunctiva, PERRL and EOM's grossly intact OROPHARYNX: no exudate, no erythema, lips, buccal mucosa, and tongue normal and mucous membranes are moist NECK: supple, no nuchal rigidity, no adenopathy, non-tender LUNGS: Clear to auscultation. Normal chest wall mechanics, no w/r/r HEART: no murmurs, S1 normal and S2 normal ABDOMEN: abdomen soft, non-tender, normo-active bowel sounds, no masses, no rebound or guarding. SKIN: no rashes, petechiae, orbruising UPPER EXTREMITIES: upper extremities are grossly normal. FROM, nml pulses b/l. LOWER EXTREMITIES: No pitting edema. FROM, nml pulses b/l. NEURO EXAM: Pleasantly confused to pmhx/date/time, cranial nerves II-XII grossly intact, normal speech, no facial droop,nogross weakness of arms, no gross weakness of legs. Gross sensation intact. No ataxia. Vital Signs: reviewed and remarkable Differential Diagnosis: vasovagal event, infection, hypoglycemia, electrolyte abnormalities, toxidrome, substance abuse, dysrhythmia, ACS, as well as others were entertained. MEDICAL DECISION MAKING: This is an 84-year-old male who presents emergency department after a syncopal event when he went to have breakfast this morning. Patient had a nonfocal exam at bedside. He does have a history of dementia and is slightly confused but can answer questions and hold a conversation. He was afebrile and hemodynamically stable. Labs drawn and sent, IV established, EKG and chest x-ray performed at bedside interpreted by me and patient monitored on telemetry. IV fluids were started and he was sent for CT head. Patient reported improvement in his nausea upon recheck. He did begin to tolerate p.o. without any difficulty. Eventually urine was obtained and sent as well and was suggestive of urinary tract infection. After review of patient's urine cultures Case discussed with ED pharmacist Dino regarding prior culture results and sensitivities. After review and in consideration of his chronic kidney disease, and QTc greater than 500, we feel the safest antibiotic would be IV cefepime at this time. We discussed additional inpatient observation and management until least a preliminary culture result could help determine further antibiotic coverage and choice to hopefully be able to be converted to an oral agent at discharge. All results discussed with patient and family at bedside who verbalized understanding and were in agreement. Patient did require assistance here with ambulation to the bathroom, however states he does typically use a cane or walker. Patient denied any other new or evolving symptoms including headaches, chest pain, abdominal pain, back pain, or difficulty breathing. At this time I do not suspect pyelonephritis or bacteremia/sepsis. I do not suspect other obstructive uropathy at this time. Consultation(s): 1500: Discussed with ED pharmacistDino, regarding antibiotic choice. 1535: Discussed with PJ, [facility] hospitalist team, for additional evaluation and management. ER Treatment Provided: See below Diagnostics Interpreted By Me: -ECG: Normal sinus at 67 with a first-degree AV block, leftward axis, right bundle branch block, prolonged QTc, nonspecific ST/T wave changes -Cardiac Monitoring: An order was placed for continuous cardiac monitoring. The monitor shows a rate of 82 with normal sinus rhythm. -Laboratory studies: As stated above and show below. -Imaging studies: CT head: No [facility] Triage Nursing Note Reviewed Prior/Outside Records Reviewed - prior urine cultures reviewed, patient has grown out Pseudomonas and E. coli Past Med/Surg History Problem List (Updated 04/07/25 @ 19:07 by Anna Diaz DO) Dementia (Acute) Complicated UTI (urinary tract infection) (Acute) Memory changes Takes aricept Follows with Dr. Holloway (Neuropsychologist) Syncope (Acute) BPH loc w urin obs/LUTS (Chronic) Hypertension Medical History (Updated 04/07/25 @ 19:07 by Anna Diaz DO) Hematuria Bladder stones History of diverticulitis Chronic kidney disease (CKD), active medical management without dialysis Follows with Dr. Vega/nephrology Hypertension History of kidney stones passed on own History of prostate cancer (2021) TURP and XRT Chronic anemia HLD (hyperlipidemia) BPH (benign prostatic hyperplasia) Ataxic gait uses cane/walker Microscopic hematuria Surgical History History of open reduction and internal fixation (ORIF) procedure (1956) left tibia History of vascular access device (2022) PICC placed and removed (r/t abx for severe UTI) History of transurethral resection of prostate History of repair of rotator cuff left Hx of vasectomy History of colonoscopy History of tooth extraction Hx of bilateral cataract extraction History of total right knee replacement H/O hernia repair [place] History of prostate biopsy Family History Father Hypertension Mother Lung disease COPD Social History Smoking Status: Never smoker Tobacco Type: Cigarettes Second Hand Exposure: No; Do You Dip or Chew Tobacco: No; Hx Alcohol Use: Yes Alcohol type: beer Hx Substance Use: Yes Preferred Language: Lao Communication Ability: Effective Visual Impairment: No Limitations Hearing Ability: Hard of Hearing General Ii Farmworker Required: No Beliefs That Will Affect Care: None marital status: Current Living Situation: Spouse Current Living Situation Comment: resident at [facility] current occupational status: retired How many Children do You have: 2 Other Information That Helps Us Care for You: No Feels Safe at Home: Yes Safety Concerns: Feels Safe At This Time Diet: regular caffeine: Yes during the past year weight has: remained stable Assistive Devices: Glasses Allergies Allergies Allergy/AdvReac Type Severity Reaction Status Date / Time No Known Allergies Allergy Verified 03/03/25 14:12 Home Meds Home Medications Medication Instructions Recorded Confirmed cholecalciferol (vitamin D3) 50 50 mcg PO DAILY 05/01/23 04/07/25 mcg (2,000 unit) capsule acetaminophen 325 mg tablet 650 mg PO Q4H PRN PAIN/FEVER 11/15/23 04/07/25 (Tylenol) amlodipine 5 mg tablet 5 mg PO QAM 01/29/24 04/07/25 donepezil 10 mg tablet (Aricept) 10 mg PO QAM 09/30/24 04/07/25 vitamin [id number] B1 100 mg-1 0 ml IM MONTHLY 09/30/24 04/07/25 mg/mL intramuscular solution carbidopa 25 mg-levodopa 100 mg 1 tab PO TID 03/03/25 04/07/25 tablet tamsulosin 0.4 mg capsule 0.4 mg PO UD 04/07/25 04/07/25 Results & Data (ED) Vital Signs Vital Signs - 24 hr 04/07/25 09:40 04/07/25 10:13 04/07/25 11:06 Temperature 36.2 C L Temperature Source Temporal Artery Scan Pulse Rate 66 65 58 L Pulse Rate [Right Finger] Pulse Rate from SpO2 Sensor 57 L Pulse Rhythm Regular Respiratory Rate 20 13 Respiratory Effort / Characteristics Non-Labored Spontaneous Respiratory Depth Normal Respiratory Pattern Regular Blood Pressure 153/78 H 145/72 H Blood Pressure [Right Arm] Blood Pressure Mean 103 96 Blood Pressure Mean [Right Arm] Blood Pressure Position Sitting Pulse Oximetry 93 94 Oxygen Delivery Method Room Air Sepsis Recent Fever Within 48 Hours No Sepsis New/Unexplained Change in Mental Status No Sepsis Action Taken by Nursing No Action Required 04/07/25 11:36 04/07/25 11:40 04/07/25 13:00 Temperature Temperature Source Pulse Rate 70 Pulse Rate [Right Finger] 67 69 Pulse Rate from SpO2 Sensor 70 Pulse Rhythm Respiratory Rate 16 17 18 Respiratory Effort / Characteristics Non-Labored Spontaneous Non-Labored Respiratory Depth Normal Normal Respiratory Pattern Blood Pressure 153/76 H Blood Pressure [Right Arm] 154/77 H 126/71 Blood Pressure Mean 101 Blood Pressure Mean [Right Arm] 102 89 Blood Pressure Position Pulse Oximetry 95 96 96 Oxygen Delivery Method Room Air Room Air Sepsis Recent Fever Within 48 Hours Sepsis New/Unexplained Change in Mental Status Sepsis Action Taken by Nursing 04/07/25 14:20 04/07/25 15:00 Temperature Temperature Source Pulse Rate 74 Pulse Rate [Right Finger] 80 Pulse Rate from SpO2 Sensor Pulse Rhythm Respiratory Rate 19 Respiratory Effort / Characteristics Non-Labored Spontaneous Respiratory Depth Normal Respiratory Pattern Blood Pressure Blood Pressure [Right Arm] 140/52 L Blood Pressure Mean Blood Pressure Mean [Right Arm] 81 Blood Pressure Position Pulse Oximetry 96 Oxygen Delivery Method Room Air Sepsis Recent Fever Within 48 Hours Sepsis New/Unexplained Change in Mental Status Sepsis Action Taken by Nursing Laboratory Data 04/07/25 09:46 04/07/25 09:46 Lab Results 04/07/25 04/07/25 Range/Units 09:46 13:43 WBC 8.07 (4.8-10.8) K/ul RBC 4.87 (4.70-6.10) M/uL Hgb 14.4 (14.0-18.0) g/dl Hct 44.5 (42.0-52.0) % MCV 91.4 (80.0-100.0) fL MCH 29.6 (25.0-34.0) pg MCHC 32.4 (32.0-36.0) g/dL RDW Std Deviation 51.0 H (36.4-46.3) fL RDW Coeff of Blanca 15.1 H (11.5-14.5) % Plt Count 179 (130-400) K/uL MPV 8.9 L (9.4-12.4) fL Immature Gran % (Auto) 1.1 % Neut % (Auto) 70.7 % Lymph % (Auto) 16.4 % [place] % (Auto) 8.9 % Eos % (Auto) 2.2 % Baso % (Auto) 0.7 % Neut # (Auto) 5.70 (1.40-6.50) K/uL Lymph # (Auto) 1.32 (1.20-3.40) K/uL [place] # (Auto) 0.72 H (0.11-0.59) K/uL Eos # (Auto) 0.18 (0.00-0.50) K/uL Baso # (Auto) 0.06 (0.00-0.20) K/uL Immature Gran # (Auto) 0.09 (0.01-0.20) K/uL PT 10.6 (9.0-12.0) Seconds INR 1.0 (0.9-1.1) Sodium 143 (136-145) mmol/L Potassium 3.7 (3.5-5.1) mmol/L Chloride 113 H (98-107) mmol/L Carbon Dioxide 23 (21-32) mmol/L Anion Gap 7 (3-11) BUN 32 H (6-23) mg/dl Creatinine 1.70 H (0.6-1.4) mg/dl Est Cr Clr Drug Dosing 34.1 ml/min eGFR 38.78 BUN/Creatinine Ratio 18.8 (10-20) Glucose 156 H (70-99(Fasting)) mg/dl Calcium 8.6 (8.6-10.3) mg/dl Magnesium 2.1 (1.7-2.4) mg/dl Total Bilirubin 0.6 (0.2-1.0) mg/dl AST 18 (13-39) U/L ALT < 3 L (7-52) U/L Alkaline Phosphatase 69 (34-104) U/L Troponin I High Sens 8.6 (0-20) pg/ml Total Protein 6.8 (6.0-8.3) gm/dl Albumin 3.9 (3.4-5.0) gm/dl Globulin 2.9 (2.5-4.0) gm/dl Albumin/Globulin Ratio 1.3 (0.9-2) Lipase 62 (11-82) U/L TSH 3.520 (0.300-4.500) uIu/ml Urine Color Yellow Urine Appearance Turbid A (Clear) Urine pH 5.5 (4.5-7.5) Ur Specific [place] 1.016 (1.000-1.030) Urine Protein 2+ H (Negative) Urine Glucose (UA) Negative (Negative) Urine Ketones Negative (Negative) Urine Blood 2+ H (Negative) Urine Nitrite Positive A (Negative) Urine Bilirubin Negative (Negative) Urine Urobilinogen Negative (Negative) Ur Leukocyte Esterase 3+ H (Negative) Urine WBC (Auto) >50 H (0-5) /hpf Urine RBC (Auto) 11-20 H (0-2) /hpf U Hyaline Cast (Auto) 3-5 H (0-2) /lpf U Epithel Cells (Auto) 0-2 (0-2) /hpf Urine Bacteria (Auto) 4+ H (None Seen) Urine Mucus Present A (None Prsent) Administered Medications Sodium Chloride (Nss) 1,000 mls @ 125 mls/hr IV .Q8H MICHAEL Stop: 04/08/25 01:59 Last Admin: 04/07/25 18:24 Dose: 125 mls/hr Documented By: Infusion: 04/07/25 18:24 Dose: Infused Documented By: Admin: 04/07/25 10:35 Dose: 125 mls/hr Documented By: RENNY Discontinued Medications Cefepime HCl (Maxipime 2000mg) 2,000 mg in 20 mls @ 5 mls/min IV NOW STA; Protocol Stop: 04/07/25 15:02 Last Admin: 04/07/25 15:09 Dose: 5 mls/min Documented By: CTK Imaging Data Radiologist's Impression: Chest X-Ray 04/07/25 09:57 XR chest 1V portable CLINICAL HISTORY: syncope COMPARISON STUDY: 02/10/2024 FINDINGS: Stable mild cardiomegaly without pulmonary vascular congestion. Inspiration is shallow. There is mild stranding in the lung bases. No effusion, consolidation, or pneumothorax seen otherwise. IMPRESSION: Shallow inspiration with likely mild lung base atelectasis. ACT 112: Negative or not required by law. Electronically signed by: Mckay Bass M.D. 04/07/2025 10:[address] 04/07/25 09:57 CT SCAN OF THE BRAIN WITHOUT IV CONTRAST CLINICAL HISTORY: Syncopal episode. COMPARISON STUDY: Head CT April 27, 2022. TECHNIQUE: Unenhanced axial CT scan of the brain was performed from the vertex to the skull base. A dose lowering technique was utilized adhering to the principles of ALARA. CT DOSE: 625.8 mGy.cm FINDINGS: Brain parenchyma: No acute intracranial hemorrhage, midline shift or mass effect is present. Glynn-white matter differentiation is preserved. There are no extra- axial fluid collections. There are no findings to suggest acute dural sinus thrombosis or acute territorial infarct. White matter hypodensities are similar to prior exam and favor small vessel disease. Ventricles, sulci, cisterns: Ventricular system is stable. The basal cisterns are patent. Calvarium: There are no calvarial fractures. Sinuses and mastoids: The visualized paranasal sinuses are clear. The mastoid air cells are well pneumatized. Orbits: The bony orbits are grossly intact. IMPRESSION: 1. No acute intracranial findings. 2. No calvarial fractures. ACT 112: Negative or not required by law. Electronically signed by: Williams Rosado M.D. 04/07/2025 10:45 AM Discharge Plan Visit Data Chief Complaint: Syncope Stated Complaint: SYNCOPE ED Provider: Anna Diaz Discharge Problem: Syncope, Complicated UTI (urinary tract infection), Dementia Patient Disposition: Admitted As Inpatient Condition: Fair Discharge Instructions Interventions: ED Discharge Assessment Last Done: 04/07/25 17:58
[2025-04-07 10:13] LABS: Basophils # (auto) 0.06 K/uL (0.00-0.20); Basophils % (auto) 0.7 %; Eosinophils # (auto) 0.18 K/uL (0.00-0.50); Eosinophils % (auto) 2.2 %; Hematocrit (blood only) 44.5 % (42.0-52.0); Hemoglobin 14.4 g/dl (14.0-18.0); Immature Granulocytes # (auto) 0.09 K/uL (0.01-0.20); Immature Granulocytes % (auto) 1.1 %; Lymphocytes # (auto) 1.32 K/uL (1.20-3.40); Lymphocytes % (auto) 16.4 %; Mean Corpuscular Hemoglobin 29.6 pg (25.0-34.0); Mean Corpuscular Hgb Conc 32.4 g/dL (32.0-36.0); Mean Corpuscular Volume 91.4 fL (80.0-100.0); Mean Platelet Volume 8.9 fL (9.4-12.4); Monocytes # (auto) 0.72 K/uL (0.11-0.59); Monocytes % (auto) 8.9 %; Neutrophils % (auto) 70.7 %; Platelet Count 179 K/uL (130-400); RDW Coefficient of Variation 15.1 % (11.5-14.5); Red Blood Count 4.87 M/uL (4.70-6.10); White Blood Count 8.07 K/ul (4.8-10.8)
--- NOTE | 2025-04-07 10:25 | XRay Report ---
XR chest 1V portable CLINICAL HISTORY: syncope COMPARISON STUDY: 02/10/2024 FINDINGS: Stable mild cardiomegaly without pulmonary vascular congestion. Inspiration is shallow. The re is mild stranding in the lung bases. No effusion, consolidation, or pneumothorax seen otherwise. IMPRESSION: Shallow inspiration with likely mild lung base atelectasis. ACT 112: Negative or not required by law. Electronically signed by: Mckay Bass M.D. 04/07/2025 10:24 AM
[2025-04-07] MEDS: SODIUM CHLORIDE 0.9% 1,000 ML IV SCH (10:35)
[2025-04-07 10:38] LABS: Anion Gap 7 (3-11); BUN Creatinine Ratio 18.8 (10-20); Blood Urea Nitrogen 32 mg/dl (6-23); Calcium 8.6 mg/dl (8.6-10.3); Carbon Dioxide 23 mmol/L (21-32); Chloride 113 mmol/L (98-107); Creatinine Clr Calc Pharmacy 34.1 ml/min; Glucose 156 mg/dl (70-99(Fasting)); Potassium 3.7 mmol/L (3.5-5.1); Sodium 143 mmol/L (136-145)
[2025-04-07 10:42] LABS: Prothrombin Time 10.6 Seconds (9.0-12.0)
[2025-04-07 10:44] LABS: Troponin I High Sensitivity 8.6 pg/ml (0-20)
[2025-04-07 10:45] LABS: Alanine Aminotransferase < 3 U/L (7-52); Albumin Globulin Ratio 1.3 (0.9-2); Albumin Level 3.9 gm/dl (3.4-5.0); Alkaline Phosphatase 69 U/L (34-104); Aspartate Aminotransferase 18 U/L (13-39); Bilirubin,Total 0.6 mg/dl (0.2-1.0); Globulin 2.9 gm/dl (2.5-4.0); Lipase 62 U/L (11-82); Magnesium 2.1 mg/dl (1.7-2.4); Total Protein 6.8 gm/dl (6.0-8.3)
--- NOTE | 2025-04-07 10:47 | CT Scan Report ---
CT SCAN OF THE BRAIN WITHOUT IV CONTRAST CLINICAL HISTORY: Syncopal episode. COMPARISON STUDY: Head CT April 27, 2022. TECHNIQUE: Unenhanced axial CT scan of the brain was performed from the vertex to the skull base. A dose lowering technique was utilized adhering to the principles of ALARA. CT DOSE: 625.8 mGy.cm FINDINGS: Brain parenchyma: No acute intracranial hemorrhage, midline shift or mass effect is present. Glynn-whi te matter differentiation is preserved. There are no extra-axial fluid collections. There are no find ings to suggest acute dural sinus thrombosis or acute territorial infarct. White matter hypodensities are similar to prior exam and favor small vessel disease. Ventricles, sulci, cisterns: Ventricular system is stable. The basal cisterns are patent. Calvarium: There are no calvarial fractures. Sinuses and mastoids: The visualized paranasal sinuses are clear. The mastoid air cells are well pneu matized. Orbits: The bony orbits are grossly intact. IMPRESSION: 1. No acute intracranial findings. 2. No calvarial fractures. ACT 112: Negative or not required by law. Electronically signed by: Williams Rosado M.D. 04/07/2025 10:45 AM
[2025-04-07 14:14] LABS: Appearance Urine Turbid (Clear); Bacteria Urine Automated 4+ (None Seen); Bilirubin Urine Negative (Negative); Blood Urine 2+ (Negative); Color Urine Yellow; Epithelial Cell Urine Auto 0-2 /hpf (0-2); Glucose Urine UA Negative (Negative); Ketones Urine Negative (Negative); Leukocyte Esterase Urine 3+ (Negative); Mucus Urine Present (None Prsent); Nitrite Urine Positive (Negative); Protein Urine 2+ (Negative); Specific Gravity Urine 1.016 (1.000-1.030); Urobilinogen Urine Negative (Negative); WBC Urine Automated >50 /hpf (0-5); pH Urine 5.5 (4.5-7.5)
--- NOTE | 2025-04-07 15:06 | History & Physical Report ---
"Date of Service April 07, 2025 Assessment & Plan (1) Syncope: (2) UTI (urinary tract infection): (3) Memory changes: Plan Mr. Naidu is an 84-year-old gentleman who came in on 04/07 after he syncopized at the breakfast table. Suspected vasovagal syncope secondary to UTI. Coming in for IV antibiotics. Hopeful discharge once urine culture results. #Syncope H/o prior syncope x 5-6 episodes Full LOC x 2 minutes No head strike; no stroke or seizure-like symptoms; no postictal state Patient was reportedly diaphoretic following episode of syncope Head CT without acute findings Suspected vasovagal syncope secondary to UTI/not eating breakfast Continuous telemetry monitoring for now #UTI UA positive for bacteria on arrival Clinically, patient denies burning with urination or abdominal, flank, or lower back pain Does have h/o kidney stones; however, given no leukocytosis / flank pain, will defer A/P CT at this time Prior urine culture on 10/22/2023 grew Pseudomonas; intermediate sensitivity to ciprofloxacin (also FQs not be an option given patient's prolonged QTc) Cefepime 2000 mg IV q8h Follow current UCx #Prolonged QT interval QTc 521 on arrival; will defer ciprofloxacin AM EKG on 04/08 #Ambulatory dysfunction reports that he was planning to start PT at [facility], but has not started PT/OT evaluations appreciated Fall precautions #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 Naidu is an 84-year-old male with PMH of HTN, BPH, and recurrent UTIs. He presented on 04/07 from [facility] after experiencing a syncopal episode at the breakfast table this morning. Patient reportedly sat down for breakfast, and passed out before he got food. Witnessed by his . No head strike. Full LOC for approximately 2 minutes. After the patient came to, he was able to answer questions pretty quickly, and did not exhibit a postictal state. No prior history of seizures. No prior history of strokes, and he did not have any strokelike symptoms prior to syncope such as slurred speech, facial droop, word finding difficulty, or unilateral deficits. He does have an extensive history of prior syncope, with the last episode being in September when he was at the kidney doctor's office. Patient took all of his regular morning medicine today. The only recent change in medication was that he was started on Sinemet for Parkinson's in January 2025. Patient's medications are managed by both himself and his at home. Patient denies smoking, tobacco use, recent alcohol use. He had 1 episode of vomiting in the emergency department, but reports he does not currently feel nauseous. Patient is hypertensive at 140/52 at time admission; vitals otherwise stable. ED course: Cefepime 2000 mg IV NSS at 125 mL an hour x 1 L ROS: Patient endorses syncope, and 1 episode of vomiting. Patient denies fever, chills, night-sweats, body aches, dizziness, li ghtheadedness, VILLA, changes in vision, tinnitus, slurred speech, facial droop, unilateral deficits, chest pain, chest palpitations, SOB, cough, abdominal pain, nausea, diarrhea, burning with urination, dysuria, blood in the urine/stool, or numbness or tingling in the arms and legs. Allergies Allergy/AdvReac Type Severity Reaction Status Date / Time No Known Allergies Allergy Verified 03/03/25 14:12 Home Medications Medication Instructions Recorded Confirmed Type cholecalciferol (vitamin D3) 50 50 mcg PO DAILY 05/01/23 04/07/25 History mcg (2,000 unit) capsule acetaminophen 325 mg tablet 650 mg PO Q4H PRN PAIN/FEVER 11/15/23 04/07/25 History (Tylenol) amlodipine 5 mg tablet 5 mg PO QAM 01/29/24 04/07/25 History donepezil 10 mg tablet (Aricept) 10 mg PO QAM 09/30/24 04/07/25 History vitamin [id number] B1 100 mg-1 0 ml IM MONTHLY 09/30/24 04/07/25 History mg/mL intramuscular solution carbidopa 25 mg-levodopa 100 mg 1 tab PO TID 03/03/25 04/07/25 History tablet tamsulosin 0.4 mg capsule 0.4 mg PO UD 04/07/25 04/07/25 History cefdinir 300 mg capsule 300 mg PO BID Urinary tract 04/09/25 Rx infection #9 caps Past Med/Surg History Problem List (Updated 04/07/25 @ 19:07 by Anna Diaz DO) Dementia (Acute) Complicated UTI (urinary tract infection) (Acute) Memory changes Takes aricept Follows with Dr. Holloway (Neuropsychologist) Syncope (Acute) BPH loc w urin obs/LUTS (Chronic) Hypertension Medical History (Updated 04/07/25 @ 19:07 by Anna Diaz DO) Hematuria Bladder stones History of diverticulitis Chronic kidney disease (CKD), active medical management without dialysis Follows with Dr. Vega/nephrology Hypertension History of kidney stones passed on own History of prostate cancer (2021) TURP and XRT Chronic anemia HLD (hyperlipidemia) BPH (benign prostatic hyperplasia) Ataxic gait uses cane/walker Microscopic hematuria Surgical History History of open reduction and internal fixation (ORIF) procedure (1956) left tibia History of vascular access device (2022) PICC placed and removed (r/t abx for severe UTI) History of transurethral resection of prostate History of repair of rotator cuff left Hx of vasectomy History of colonoscopy History of tooth extraction Hx of bilateral cataract extraction History of total right knee replacement H/O hernia repair Patricia History of prostate biopsy Family History Father Hypertension Mother Lung disease COPD Social History Smoking Status: Never smoker Tobacco Type: Cigarettes Second Hand Exposure: No; Do You Dip or Chew Tobacco: No; Hx Alcohol Use: Yes Alcohol type: beer Hx Substance Use: Yes Preferred Language: Nepali Communication Ability: Effective Visual Impairment: No Limitations Hearing Ability: Hard of Hearing Textile 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 Required: No Beliefs That Will Affect Care: None marital status: Current Living Situation: Spouse Current Living Situation Comment: resident at [facility] current occupational status: retired How many Children do You have: 2 Other Information That Helps Us Care for You: No Feels Safe at Home: Yes Safety Concerns: Feels Safe At This Time Diet: regular caffeine: Yes during the past year weight has: remained stable Assistive Devices: Cane and Walker Review of Systems Review of Systems: See HPI above Physical Exam Physical Exam: General: no acute distress; pleasant affect; at bedside; non-toxic appearing; frail appearing; cooperative; SpO2 96% on RA HEENT: normocephalic, atraumatic; no scleral icterus; PERRLA w/ EOMs intact; vision and hearing grossly intact; patient demonstrates ability to smile, frown, and lift eyebrows without unilateral deficits; patient demonstrates ability to protrude and wiggle tongue bilaterally without unilateral deficits Neck: supple; no lymphadenopathy; trachea midline Skin: warm, dry without signs of tenting; no cyanosis; no rashes, bruising, lesions, or erythema noted CV: chest wall NTP; RRR; S1/S2 normal; no murmurs/rubs/gallops; pulses intact and symmetric at radial, DP, and PT Lungs: no acute respiratory distress; symmetrical chest wall expansion; clear breath sounds across all lung manzanares w/o adventitious sounds; no wheezing ABD: Soft, NTP; BS present; no rebound/guarding; no distention : Negative suprapubic tenderness MSK: no tics or fasciculations; no edema noted in the LEs b/l, nonerythematous; 5/5 instructor modeling strength bilaterally Neuro: A&Ox3; normal mood and affect; fluent speech; no focal deficits; sensation grossly intact in the LEs b/l Results & Data Results & Data Vital Signs (Past 12 Hours) Vital Signs Temp Pulse Pulse Resp BP BP Pulse Ox 04/07/25 14:20 74 04/07/25 13:00 69 18 126/71 96 04/07/25 11:40 67 17 154/77 H 96 04/07/25 11:36 70 16 153/76 H 95 04/07/25 11:06 58 L 13 145/72 H 94 04/07/25 10:13 65 04/07/25 09:40 36.2 C L 66 20 153/78 H 93 O2 Del Method 04/07/25 14:20 04/07/25 13:00 Room Air 04/07/25 11:40 Room Air 04/07/25 11:36 04/07/25 11:06 04/07/25 10:13 04/07/25 09:40 Room Air Laboratory Results Abnormal lab results 04/07/25 04/07/25 Range/Units 09:46 13:43 RDW Std Deviation 51.0 H (36.4-46.3) fL RDW Coeff of Blanca 15.1 H (11.5-14.5) % MPV 8.9 L (9.4-12.4) fL Routt # (Auto) 0.72 H (0.11-0.59) K/uL Chloride 113 H (98-107) mmol/L BUN 32 H (6-23) mg/dl Creatinine 1.70 H (0.6-1.4) mg/dl Glucose 156 H (70-99(Fasting)) mg/dl ALT < 3 L (7-52) U/L Urine Appearance Turbid A (Clear) Urine Protein 2+ H (Negative) Urine Blood 2+ H (Negative) Urine Nitrite Positive A (Negative) Ur Leukocyte Esterase 3+ H (Negative) Urine WBC (Auto) >50 H (0-5) /hpf Urine RBC (Auto) 11-20 H (0-2) /hpf U Hyaline Cast (Auto) 3-5 H (0-2) /lpf Urine Bacteria (Auto) 4+ H (None Seen) Urine Mucus Present A (None Prsent) Diagnostic Findings Chest X-Ray 04/07/25 09:57 XR chest 1V portable CLINICAL HISTORY: syncope COMPARISON STUDY: 02/10/2024 FINDINGS: Stable mild cardiomegaly without pulmonary vascular congestion. Inspiration is shallow. There is mild stranding in the lung bases. No effusion, consolidation, or pneumothorax seen otherwise. IMPRESSION: Shallow inspiration with likely mild lung base atelectasis. ACT 112: Negative or not required by law. Electronically signed by: Mckay Bass M.D. 04/07/2025 10:[address] 04/07/25 09:57 CT SCAN OF THE BRAIN WITHOUT IV CONTRAST CLINICAL HISTORY: Syncopal episode. COMPARISON STUDY: Head CT April 27, 2022. TECHNIQUE: Unenhanced axial CT scan of the brain was performed from the vertex to the skull base. A dose lowering technique was utilized adhering to the principles of ALARA. CT DOSE: 625.8 mGy.cm FINDINGS: Brain parenchyma: No acute intracranial hemorrhage, midline shift or mass effect is present. Glynn-white matter differentiation is preserved. There are no extra- axial fluid collections. There are no findings to suggest acute dural sinus thrombosis or acute territorial infarct. White matter hypodensities are similar to prior exam and favor small vessel disease. Ventricles, sulci, cisterns: Ventricular system is stable. The basal cisterns are patent. Calvarium: There are no calvarial fractures. Sinuses and mastoids: The visualized paranasal sinuses are clear. The mastoid air cells are well pneumatized. Orbits: The bony orbits are grossly intact. IMPRESSION: 1. No acute intracranial findings. 2. No calvarial fractures. ACT 112: Negative or not required by law. Electronically signed by: Williams Rosado M.D. 04/07/2025 10:45 AM ECG Additional Comments: ECG revealed sinus rhythm with first-degree AV block at 67 bpm; QTc 521 (caution use of QT prolonging agents) Code Status & VTE Plan Code Status DNR/DNI VTE Prophylaxis Plan VTE Prophylaxis will be ordered: Yes Supervising Physician Co-Signing Physician Notes Attending Attestation & Admit Note: Pt seen/examined, chart reviewed, care plan d/w ENRIQUE Mortensen. I agree w/ the sotelo components of his admission documentation. Mr. Naidu is an 84-year-old male with HTN, BPH, previous syncopal episodes, prior prostate cancer, bladder stones, kidney stones, cognitive impairment, CKD stage 3b, and recurrent UTIs. He presented from [facility] after experiencing a syncopal episode at the breakfast table this morning. Patient had walked to the dining area, sat down for breakfast, and subsequently passed out. He awoke about 2 minutes later and had no focal deficits or confusion after he regained consciousness. By report his BPs were elevated prior to transfer to [facility], but since arrival here his systolic BPs have been 150s or less. Orthostatic BPs are pending. In the ER CT head was negative. U/a was suggestive of UTI and IV abx were initiated after urine cx was sent. PMH/PSH/allergies/meds/sochx/famhx - reviewed VSS, afebrile gen - pleasant male in NAD; looks at his for assistance with answering my questions neck - no JVD mouth - MMM heart - RRR, s1 s2, no murmur lungs - CTA b/l abd - soft NT ND BS+ ext - no edema, pulses 2+ b/l neuro - strength 5/5 x 4 exts; no facial droop; CN 3-12 appear intact; speech clear w/o dysarthria labs reviewed CT head neg acute process EKG - NSR, first degree AVB, RBBB, LAFB, no ST changes u/a suggestive of UTI troponin negative A/P: 1. syncope, with previous h/o syncope 2. 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 suspected UTI 4. cognitive impairment 5. BPH 6. HTN 7. h/o kidney stones/bladder stones -- 01/2024 CT a/p without bladder stones; 2 tiny right-sided renal pelvis stones; BPH and evidence of chronic bladder outlet obstruction -place on tele -empiric abx while awaiting urine cx results -PT/OT evals -consider repeat echo; previous echo April 2023 with normal LV function and normal valve function -consider outpatient event monitor to r/o sinus pauses, ovidio-arrhythmia, etc as cause of syncope -check orthostatics as aricept, flomax, etc can contribute to such Meño Chaves MD PG Care Time/CCT Total # of Minutes Spent Total Time Spent with Patient: Total time spent is greater than 50% in coordination of care (as documented) at patient's floor/unit and/or counseling patient: C[place] [address] INT INP/OBS CARE MIN Patient Type Established Medical Decision Making High Complexity Diagnoses Syncope R55 UTI (urinary tract infection) N39.0 Urinary tract infection type: site unspecified Memory changes R41.3 (2) UTI (urinary tract infection) Urinary tract infection type: site unspecified"
[2025-04-07] MEDS: CEFEPIME 2000MG 2,000 MG/20 ML SYR IV STA (15:09)
[2025-04-07] MEDS ORDERED: ACETAMINOPHEN 325 MG TAB PO PRN (18:24)
[2025-04-07 20:01] VITALS: RESP 18
[2025-04-07] MEDS: CARBIDOPA/LEVODOPA 25/100MG TAB PO SCH (20:49)
[2025-04-07] MEDS: HEPARIN SOD 5,000 UNIT/0.5 ML VIAL SQ SCH (20:50)
--- NOTE | 2025-04-07 21:53 | Electrocardiogram Report ---
Test Reason : Blood Pressure : */* mmHG Vent. Rate : 67 BPM Atrial Rate : 67 BPM P-R Int : 214 ms QRS Dur : 164 ms QT Int : 494 ms P-R-T Axes : 2 -75 38 degrees QTcB Int : 521 ms Sinus rhythm with 1st degree A-V block Right bundle branch block Left anterior fascicular block Bifascicular block Minimal voltage criteria for LVH, may be normal variant ( R in aVL ) Abnormal ECG When compared with ECG of 10-Feb-2024 10:50, Nonspecific T wave abnormality has replaced inverted T waves in Inferior leads T wave inversion less evident in Anterior leads Confirmed by Alonzo Quiros ([id number]) on 04/07/2025 9:53:17 PM Referred By: REFERRED SELF Confirmed By: Alonzo Quiros
[2025-04-08] MEDS: CEFEPIME 2000MG 2,000 MG/20 ML SYR IV SCH (01:15)
[2025-04-08 06:42] LABS: Basophils # (auto) 0.02 K/uL (0.00-0.20); Basophils % (auto) 0.3 %; Eosinophils # (auto) 0.06 K/uL (0.00-0.50); Eosinophils % (auto) 0.8 %; Hematocrit (blood only) 41.5 % (42.0-52.0); Hemoglobin 13.4 g/dl (14.0-18.0); Immature Granulocytes # (auto) 0.03 K/uL (0.01-0.20); Immature Granulocytes % (auto) 0.4 %; Lymphocytes # (auto) 0.55 K/uL (1.20-3.40); Lymphocytes % (auto) 7.6 %; Mean Corpuscular Hemoglobin 29.2 pg (25.0-34.0); Mean Corpuscular Hgb Conc 32.3 g/dL (32.0-36.0); Mean Corpuscular Volume 90.4 fL (80.0-100.0); Mean Platelet Volume 9.1 fL (9.4-12.4); Monocytes # (auto) 0.71 K/uL (0.11-0.59); Monocytes % (auto) 9.9 %; Neutrophils # (auto) 5.83 K/uL (1.40-6.50); Platelet Count 149 K/uL (130-400); RDW Coefficient of Variation 15.1 % (11.5-14.5); RDW Standard Deviation 50.1 fL (36.4-46.3); Red Blood Count 4.59 M/uL (4.70-6.10)
[2025-04-08 07:00] LABS: BUN Creatinine Ratio 16.5 (10-20); Calcium 8.3 mg/dl (8.6-10.3); Creatinine Clr Calc Pharmacy 35.1 ml/min
[2025-04-08] MEDS: DONEPEZIL HCL 10 MG TAB PO SCH (09:17)
[2025-04-08] MEDS: TAMSULOSIN HCL 0.4 MG CAP PO SCH (09:17)
[2025-04-08] MEDS: amLODIPine BESYLATE 5 MG TAB PO SCH (09:17)
--- NOTE | 2025-04-08 11:53 | Hospitalist Progress Note ---
"Date of Service April 08, 2025 Assessment & Plan (1) Syncope: (2) UTI (urinary tract infection): (3) Memory changes: Plan Mr. Naidu is an 84-year-old gentleman who came in on 04/07 after he syncopized at the breakfast table. Suspected vasovagal syncope secondary to UTI. Coming in for IV antibiotics. Hopeful discharge once urine culture results. #Syncope H/o prior syncope x 5-6 episodes Full LOC x 2 minutes No head strike; no stroke or seizure-like symptoms; no postictal state Patient was reportedly diaphoretic following episode of syncope Head CT without acute findings Suspected vasovagal syncope secondary to UTI/not eating breakfast Continuous telemetry monitoring for now #UTI UA positive for bacteria on arrival Clinically, patient denies burning with urination or abdominal, flank, or lower back pain Does have h/o kidney stones; however, given no leukocytosis / flank pain, will defer A/P CT at this time Prior urine culture on 10/22/2023 grew Pseudomonas; intermediate sensitivity to ciprofloxacin (also FQs not be an option given patient's prolonged QTc) Cefepime 2000 mg IV q8h Follow current UCx Prelim cultures on 04/08 growing E. coli without sensitivities #Prolonged QT interval QTc 521 on arrival; will defer ciprofloxacin AM EKG on 04/08 still pending #Ambulatory dysfunction reports that he was planning to start PT at [facility], but has not started PT/OT evaluations appreciated Fall precautions #Memory changes | Vascular Parkinson's Continue Aricept; monitor QTc Continue Sinemet #HTN Continue amlodipine #BPH Continue tamsulosin Disposition: Obs -admit to [facility] telemetry VTE PPx: Heparin 5000u Sq q12h Admission and Anticipated Discharge Date Admission Date: April 07, 2025 Supervising Physician Co-Signing Physician Notes Attending Attestation - Chart reviewed, care plan d/w ENRIQUE Mortensen. I agree w/ the sotelo components of his documentation. Of note - I did not perform a bedside visit or physical exam on this date. Meño Chaves MD Subjective Mr. Naidu resting peacefully in bed this morning. He reports that he slept well, and ambulated with the help of physical therapy this morning but not the halls. No additional falls or episodes of syncope. He has been eating and drinking well this morning. He currently denies any urinary symptoms such as burning with urination, dysuria, lower back pain, or blood in his urine. ROS: Patient further denies fevers overnight, chills, night sweats, headache, chest pain, SOB, abdominal pain, suprapubic tenderness, lower back pain, or numbness or tingling in the arms or legs. Review of Systems Review of Systems: See HPI above Physical Exam Physical Exam: General: no acute distress; pleasant affect; resting peacefully in bed; non- toxic appearing; frail appearing; cooperative; SpO2 96% on RA HEENT: normocephalic, atraumatic; no scleral icterus; PERRLA; vision and hearing intact Neck: supple; no lymphadenopathy; trachea midline Skin: warm, dry without signs of tenting; no cyanosis; no rashes, bruising, lesions, or erythema noted CV: chest wall NTP; RRR; S1/S2 normal; no murmurs/rubs/gallops; pulses intact and symmetric at radial, DP, and PT Lungs: no acute respiratory distress; symmetrical chest wall expansion; clear breath sounds across all lung manzanares w/o adventitious sounds; no wheezing ABD: Soft, NTP in all 4 quadrants; BS present; no rebound/guarding; no distention : Negative suprapubic tenderness MSK: no tics or fasciculations; no edema noted in the LEs b/l, nonerythematous; 5/5 strength in the lower extremities when lifting legs from supine position bilaterally Neuro: A&Ox3; normal mood and affect; fluent speech; no focal deficits; sensation intact and symmetric in the LEs b/l Results & Data Results & Data Vital Signs (Past 12 Hours) Vital Signs Temp Pulse Pulse Resp BP BP Pulse Ox 04/08/25 11:42 36.8 C 62 18 156/76 H 96 04/08/25 07:49 36.2 C L 62 18 167/65 H 97 04/08/25 07:20 61 04/08/25 04:00 36.6 C 66 18 153/79 H 96 O2 Del Method 04/08/25 11:42 Room Air 04/08/25 07:49 Room Air 04/08/25 07:20 04/08/25 04:00 Room Air PG Care Time/CCT Total # of Minutes Spent Total Time Spent with Patient: Total time spent is greater than 50% in coordination of care (as documented) at patient's floor/unit and/or counseling patient: Coding [place] [address] SUB INP/OBS CARE 2/35MIN Patient Type Established Medical Decision Making Low Complexity Diagnoses Syncope R55 UTI (urinary tract infection) N39.0 Urinary tract infection type: site unspecified Memory changes R41.3 (2) UTI (urinary tract infection) Urinary tract infection type: site unspecified"
--- NOTE | 2025-04-09 08:31 | Discharge Summary ---
Discharge Summary Date of Service April 09, 2025 Principal Dx & Hospital Course #1 = Principal Diagnosis (1) Syncope: (2) UTI (urinary tract infection): (3) Memory changes: (4) Prolonged QT interval: Plan Mr. Naidu is an 84-year-old gentleman who came in on 04/07 after he syncopized at the breakfast table. Suspected vasovagal syncope secondary to UTI. Coming in for IV antibiotics. Hopeful discharge once urine culture results. Day of discharge 04/09: Mr. Naidu reports he is doing very well this morning. He slept well, and is eating and drinking his breakfast in bed. He is excited to hear that the preliminary urine culture has sensitivities, and is eager to return home to [facility]. No setbacks overnight. No fevers. No urinary symptoms. No recurrence of syncope. He reports no side effects from his current antibiotic, cefepime. He reports he has been ambulating with his cane without difficulty. No recent falls. He does report that he has PT set up at [facility]. ROS: Patient denies fever, chills, night sweats, rashes, dizziness/lightheadedness with movements, headaches, changes in vision, difficulty swallowing, chest pain, chest palpitations, SOB, THOMAS, cough, abdominal pain, N/V/D, changes in urinary bowel habits, or numbness or tingling in the arms or legs. #Syncope H/o prior syncope x 5-6 episodes Full LOC x 2 minutes on 04/07 No head strike; no stroke or seizure-like symptoms; no postictal state Patient was reportedly diaphoretic following episode of syncope Head CT without acute findings Orthostatic vital signs negative on 04/09 Suspected vasovagal syncope secondary to UTI/not eating breakfast Continuous telemetry monitoring for now #UTI UA positive for bacteria on arrival Clinically, patient denies burning with urination or abdominal, flank, or lower back pain Does have h/o kidney stones; however, given no leukocytosis / flank pain, will defer A/P CT at this time Prior urine culture on 10/22/2023 grew Pseudomonas; intermediate sensitivity to ciprofloxacin (also FQs not be an option given patient's prolonged QTc) Cefepime 2000 mg IV q8h Follow current UCx Prelim cultures on 04/08 growing E. coli; sensitivities on 04/09 reveal resistance to FQ's, but pansensitive to cephalosporins Cefdinir 300 mg p.o. 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 Admission HPI Per Admitting Provider Mr. Naidu is an 84-year-old male with PMH of HTN, BPH, and recurrent UTIs. He presented on 04/07 from [facility] after experiencing a syncopal episode at the breakfast table this morning. Patient reportedly sat down for breakfast, and passed out before he got food. Witnessed by his . No head strike. Full LOC for approximately 2 minutes. After the patient came to, he was able to answer questions pretty quickly, and did not exhibit a postictal state. No prior history of seizures. No prior history of strokes, and he did not have any strokelike symptoms prior to syncope such as slurred speech, facial droop, word finding difficulty, or unilateral deficits. He does have an extensive history of prior syncope, with the last episode being in September when he was at the kidney doctor's office. Patient took all of his regular morning medicine today. The only recent change in medication was that he was started on Sinemet for Parkinson's in January 2025. Patient's medications are managed by both himself and his at home. Patient denies smoking, tobacco use, recent alcohol use. He had 1 episode of vomiting in the emergency department, but reports he does not currently feel nauseous. Patient is hypertensive at 140/52 at time admission; vitals otherwise stable. ED course: Cefepime 2000 mg IV NSS at 125 mL an hour x 1 L ROS: Patient endorses syncope, and 1 episode of vomiting. Patient denies fever, chills, night-sweats, body aches, dizziness, lightheadedness, VILLA, changes in vision, tinnitus, slurred speech, facial droop, unilateral deficits, chest pain, chest palpitations, SOB, cough, abdominal pain, nausea, diarrhea, burning with urination, dysuria, blood in the urine/stool, or numbness or tingling in the arms and legs. Admission Exam Per Admitting Provider General: no acute distress; pleasant affect; at bedside; non-toxic appearing; frail appearing; cooperative; SpO2 96% on RA HEENT: normocephalic, atraumatic; no scleral icterus; PERRLA w/ EOMs intact; vision and hearing grossly intact; patient demonstrates ability to smile, frown, and lift eyebrows without unilateral deficits; patient demonstrates ability to protrude and wiggle tongue bilaterally without unilateral deficits Neck: supple; no lymphadenopathy; trachea midline Skin: warm, dry without signs of tenting; no cyanosis; no rashes, bruising, lesions, or erythema noted CV: chest wall NTP; RRR; S1/S2 normal; no murmurs/rubs/gallops; pulses intact and symmetric at radial, DP, and PT Lungs: no acute respiratory distress; symmetrical chest wall expansion; clear breath sounds across all lung manzanares w/o adventitious sounds; no wheezing ABD: Soft, NTP; BS present; no rebound/guarding; no distention : Negative suprapubic tenderness MSK: no tics or fasciculations; no edema noted in the LEs b/l, nonerythematous; 5/5 visual coordinator strength bilaterally Neuro: A&Ox3; normal mood and affect; fluent speech; no focal deficits; sensation grossly intact in the LEs b/l Discharge Exam General: no acute distress; pleasant affect; resting peacefully in bed eating breakfast; non-toxic appearing; frail appearing; cooperative; SpO2 97% on RA HEENT: normocephalic, atraumatic; no scleral icterus; PERRLA; vision and hearing intact Neck: supple; no lymphadenopathy; trachea midline Skin: warm, dry without signs of tenting; no cyanosis CV: chest wall NTP; RRR; S1/S2 normal; no murmurs/rubs/gallops; pulses intact and symmetric at radial, DP, and PT Lungs: no acute respiratory distress; symmetrical chest wall expansion; clear breath sounds across all lung manzanares w/o adventitious sounds; no wheezing ABD: Soft, NTP; BS present; no rebound/guarding; no distention MSK: no tics or fasciculations; no edema noted in the LEs b/l, nonerythematous; 5/5 strength in the lower extremities when lifting legs from supine position bilaterally; 5/5 visual coordinator strength Neuro: A&Ox3; normal mood and affect; fluent speech; no focal deficits; patient reports sensation intact and symmetric in the lower extremities bilaterally Discharge Plan Discharge Items Patient Disposition: Personal Retirement Reason For Visit: SYNCOPE, UTI Discharge Diagnosis: UTI Condition on Discharge: Fair Activity: Resume your previous activity Non-emergency contact: Primary Care Provider Call non-emergency contact if: you have any medication questions and you have a fever Follow-up/Referrals: Heriberto Guajardo [Primary Care Provider] - Diet: Regular Addtl Attending Provider Instructions: You were hospitalized at [facility] from 04/07 to 04/09 after a syncopal episode where you passed out and became diaphoretic ("sweaty"). On arrival you are found to have a urinary tract infection and you were treated with IV antibiotics. Given no recurrence of syncope, no ambulatory dysfunction, and a normal white blood cell count, it is felt that you are safe to return home to [facility] with close PCP follow-up. You are being discharged on an antibiotic called cefdinir. Please continue to take this antibiotic (1 tablet by mouth, twice daily) at [facility]. Your antibiotics were started on 04/07, and you have been provided enough tablets to complete the full 7-day course which should end on 06/13. We are also working to set you up with a 30-day outpatient event monitor to assess for cardiac arrhythmias. If you develop any new or worsening symptoms, such as fever, chills, night sweats, body aches, recurrent syncope, chest pain, shortness of breath, burning with urination, or if you have any concerns please return to the emergency department immediately. It was a pleasure taking care of you. Please reach out with any questions or concerns. Sincerely, Alfredo Mortensen PA-C Pending Studies at Discharge: No Stand-Alone Forms: My [facility] Skilled Items Patient informed of condition?: Yes DNR: Yes Discharge Level of Care: Other Communicable Disease: No Discharge Prognosis: Stable Lines: None Urinary Catheter: No Medications and DC Order Prescriptions: New cefdinir 300 mg capsule 300 mg PO BID Qty: 9 0RF Rx Instructions: Take 1 tablet by mouth twice daily Continued amlodipine 5 mg tablet 5 mg PO QAM cholecalciferol (vitamin D3) 50 mcg (2,000 unit) capsule 50 mcg PO DAILY Rx Instructions: otc unable to verify carbidopa-levodopa 25-100 mg tablet 1 tab PO TID acetaminophen [Tylenol] 325 mg Tablet 650 mg PO Q4H PRN (Reason: PAIN/FEVER) Rx Instructions: otc unable to verify donepezil [Aricept] 10 mg Tablet 10 mg PO QAM vitamin [id number] B1 100-1 mg/mL Solution 0 ml IM MONTHLY Rx Instructions: no fill history available unable to verify tamsulosin 0.4 mg capsule 0.4 mg PO UD Rx Instructions: 0.4mg po daily. last filled 12/29 90 day supply Discharge Orders: Discharge Order (Routine); Ordered 04/09/25 Ordered By: Alfredo Redman/Other Patient Handouts: Cefdinir Oral Capsule, Urinary Tract Infections in Men, What Is Event Monitoring?, Causes of Syncope Admission Data Admit Date/Time: 04/07/25 16:05 Attending Provider: Meño Chaves Admit Provider: Meño Chaves Primary Care Provider: Heriberto Guajardo Other Providers: Warren Quintanilla; Meño Chaves Other Interventions: Discharge Summary Assessment (RN) Last Done: 04/09/25 12:06 Hospital Stay Data Consultations 04/07/25 15:41 ED Decision to Admit Stat Diagnostic Imagining Performed 04/07/25 09:57 CT head/brain wo con Stat Discharge Instructions Given to Patient (Per Discharging Provider) You were hospitalized at [facility] from 04/07 to 04/09 after a syncopal episode where you passed out and became diaphoretic ("sweaty"). On arrival you are found to have a urinary tract infection and you were treated with IV antibiotics. Given no recurrence of syncope, no ambulatory dysfunction, and a normal white blood cell count, it is felt that you are safe to return home to [facility] with close PCP follow-up. You are being discharged on an antibiotic called cefdinir. Please continue to take this antibiotic (1 tablet by mouth, twice daily) at [facility]. Your antibiotics were started on 04/07, and you have been provided enough tablets to complete the full 7-day course which should end on 06/13. We are also working to set you up with a 30-day outpatient event monitor to assess for cardiac arrhythmias. If you develop any new or worsening symptoms, such as fever, chills, night sweats, body aches, recurrent syncope, chest pain, shortness of breath, burning with urination, or if you have any concerns please return to the emergency department immediately. It was a pleasure taking care of you. Please reach out with any questions or concerns. Sincerely, Alfredo Mortensen PA-C Supervising Physician Co-Signing Physician Notes Attending Attestation and Discharge Note: Chart reviewed, discharge care plan d/w ENRIQUE Mortensen. I agree w/ the sotelo components of his discharge documentation with the following additions -- * prolonged QTc - for several years the patient has had varying degrees of QTc prolongation - thus this is chronic * syncope - advise outpatient 30-day monitor - r/o sinus pauses, ovidio- arrhythmia, etc. * UTI - advise repeat urine cx at conclusion of the abx course to ensure test of cure; with his BPH he is at risk of prostatitis and if u/a continues to suggest UTI would extend his abx course Of note - I did not perform a bedside visit or physical exam on this date. 84-year-old male with HTN, BPH, previous syncopal episodes, prior prostate cancer, bladder stones, kidney stones, cognitive impairment, CKD stage 3b, and recurrent UTIs. Presented from [facility] after experiencing a syncopal episode at the breakfast table the am of admission. Patient had walked to the dining area, sat down for breakfast, and subsequently passed out. He awoke about 2 minutes later and had no focal deficits or confusion after he regained consciousness. Work-up while here - CT head, labs, troponin level, chest x-ray, telemetry - all negative Orthostatic BPs were negative EKG - NSR, first degree AVB, RBBB, LAFB, no ST changes, mildly prolonged QTc -- EKG unchanged from prior EKG Patient was treated for e.coli UTI while here with IV abx, then transitioned to PO abx at time of discharge. Cleared by PT/OT to return to prior level of living at [facility]. Cause of syncope - brewing UTI leading to hypoperfusion and subsequent syncope? Other? As noted above would advise 30-day event monitor to r/o pauses, etc as the cause of his syncope, and repeat ua and urine cx after conclusion of abx course to ensure test of cure. Meño Chaves MD Total Time Total Time Spent Total Time Spent (In Minutes): 40 Coding Level of Care Code 17192 INP/OBS DISCH >30 MIN Diagnoses Syncope R55 UTI (urinary tract infection) N39.0 Urinary tract infection type: site unspecified Memory changes R41.3 Prolonged QT interval R94.31
[2025-04-09 11:26] VITALS: BP 108/52; PULSE 65; TEMP 98.4; O2SAT 96
== END 2025-04-09 13:11 | disposition home or self-care (01) | DRG 690 ==
LOC: 2W 09:31 → ED 09:31 → 2W 17:58

== ENCOUNTER 2025-05-21 12:35 | Observation (INO) ==
--- NOTE | 2025-05-21 14:05 | History & Physical Bridge Note ---
Date of Service May 21, 2025 History & Physical Bridge Note I have examined the patient, reviewed the History & Physical and in the interval since the performance of the History & Physical I have noted the following changes of clinical significance: no changes noted. I reviewed the indications, procedure, risks and alternatives with the patient, and answered all questions. Patient understands and agrees to the procedure. Consent obtained. I also reviewed the risks and use of sedation, patient understands and consent obtained.
--- NOTE | 2025-05-21 14:07 | Pre Anesthesia Assessment ---
Date of Service May 21, 2025 Pre Sedation Assessment Vital Signs Pulse Resp BP Pulse Ox O2 Del Method 05/21/25 13:05 75 14 161/89 H 97 Room Air Cardiovascular RRR, no murmur, no edema Respiratory normal respiratory effort, lungs clear to auscultation Pre-Sedation Airway Assessment Smoking Status: Former smoker Hx Sleep Apnea: No Short, Thick Neck: No Thyromental Distance: > or= 3.5 Finger Breadths Oral Cavity: + WNL Mallampati Class: III ASA: ASA3 NPO Status Date of Last Intake of Fluids: 05/20/25 Time of Last Intake of Fluids: 20:00 Date of Last Intake of Solid Food: 05/20/25 Time of Last Intake of Solid Foods: 19:00 Procedure Planning Contraindications for Sedation: none Current Medications Reviewed: Yes Notes The planned sedation has been discussed with the patient. Informed Consent was obtained. I have identified the patient, determined the appropriateness of sedation and have assessed the patient immediately prior to the procedure. All medicine(s) and interventions are by my order.
[2025-05-21] MEDS: VANCOMYCIN HCL 1000MG/20ML VIAL ONE (14:41)
[2025-05-21] MEDS: WATER, STERILE FOR INJ 10 ML VIAL ONE (14:41)
[2025-05-21] MEDS: LIDOCAINE 1% LOCAL 20 ML VIAL ONE (14:41)
[2025-05-21] MEDS: BACITRACIN OINT 14 GM TUBE ONE (14:41)
[2025-05-21] MEDS: ceFAZolin 330 MG/ML 1 GM VIAL ONE (14:42)
[2025-05-21] MEDS: MIDAZOLAM HCL 5 MG/ML 1 ML VIAL ONE (15:42)
[2025-05-21] MEDS: fentaNYL citrate PF 100 MCG/2 ML VIAL ONE (15:42)
--- NOTE | 2025-05-21 16:02 | Electrophysiology Report ---
Date of Service May 21, 2025 Electrophysiology Procedure Electrophysiology Procedure Report Preoperative diagnosis: Bifascicular block, intermittent complete heart block Postoperative diagnosis: Same Procedure: Dual-chamber pacemaker implantation Surgeon: Kendrick Basurto MD Estimated blood loss: 20 cc Complications: None Disposition: Nurseryperson recovery Procedure details: After obtaining informed consent for the procedure, the patient was brought to the laboratory and prepped and draped in the standard sterile manner. The left prepectoral region was anesthetized with 1% lidocaine local anesthetic and left axillary venipuncture was performed by percutaneous technique and a guidewire placed through the left subclavian vein into the superior vena cava. The area was further infiltrated with 1% lidocaine local anesthetic and a 5 cm incision was made parallel to the left clavicle and 2 cm below it and carried down to the anterior pectoralis fascia. A pacemaker pocket was formed by blunt dissection anterior to the pectoralis fascia and a vancomycin-soaked sponge was placed in the pocket. A 9 Swazi Medtronic lead introducer was placed over the guidewire into the left subclavian vein, the dilator and guidewire were removed and a bipolar active fixation steroid tipped lead was advanced through the introducer into the superior vena cava. A guidewire was placed through the introducer and the introducer was stripped from the lead and guidewire. The atrial lead was t emporarily positioned in the right ventricle for backup pacing. A 7 Swazi Medtronic lead introducer was placed over the guidewire into the left subclavian vein, the dilator and guidewire were removed. A C315 His 02 septal sheath was advanced through the introducer over a guidewire and advanced into the right ventricular outflow tract. The guidewire and dilator were removed and the sheath was positioned in a mid septal location. A bipolar active fixation steroid tipped ventricular lead was advanced through the introducer and rotated to advance the screw into the septum. Multiple septal locations were used, good location could be found however thresholds were poor in some locations and fixation was inadequate and others. Ultimately this lead was removed and standard bipolar active-fixation steroid tipped atrial lead was advanced through the introducer. Using a curved stylette the atrial lead was positioned in the region of the atrial appendage and the screw extended fixing the lead in position. Pacing and sensing thresholds were evaluated in bipolar configuration and are recorded on the implant data sheet. The ventricular lead was repositioned in the ventricle and once in position pacing and sensing thresholds were evaluated in bipolar configuration and are recorded on the implant data sheet. Once the leads were in position they were attached to the anterior pectoralis f ascia using 2 sutures of 2-0 silk around each lead collar. The vancomycin soaked sponge was removed from the pocket, hemostasis was obtained, the pacemaker was attached to the leads and placed in the pocket with the leads coiled beneath it. The incision was closed with a running double subcutaneous closure of 3-0 Vicryl absorbable suture, followed by running subcuticular skin closure of 4-0 Vicryl absorbable suture. Bacitracin ointment was placed on the incision and a dressing applied. [facility] Electrophysiology codes Indication for Procedure (1) Bifascicular bundle branch block: (2) Intermittent complete heart block: Pacing Procedure 1: Pacin Insert/Replace Pacer A & V PG Moderate Sedation Codes Moderate Sedation Codes Procedure 1: Sedation/Anesthesia: 99069 Mod Sedation by the same physician;Init15 Min Child Age 5 & Up Procedure 2: Sedation/Anesthesia: 81536 Mod Sedation by the same physician; Ea [id number] Minutes
--- NOTE | 2025-05-21 16:03 | Post Anesthesia Assessment ---
Date of Service May 21, 2025 Post Sedation Assessment Vital Signs Pulse Resp BP Pulse Ox O2 Del Method 05/21/25 13:05 75 14 161/89 H 97 Room Air Recovery Score Activity: Moves 4 extremities Respiration: Deep Breath/Cough Circulation: +/-20% PreAnes Value Consciousness: Fully Awake Oxygen Saturation: > 92% On Room Air Discharge Sedation Level of Care: Fast Track Phase II Post Sedation Plan On clinical assessment, the patient appears to have tolerated the sedation without complications. Patient is recovering as anticipated. Patient will continue to be monitored by nursing and may be discharged when sedation discharge criteria are met per below protocol. Upon Completions of procedure up to 15 minutes continue every 5 minute vital signs and the P.A.R. score; then discharge to a Phase I or Fast Track to Phase II per the following guidelines: * Discharge Patient to appropriate Phase II area if PAR is 8 or greater or return to pre- procedure baseline. The post - procedure orders will be as directed. * If PAR score is less than 8 or not return to pre-procedure baseline then patient will follow Phase I monitoring till PAR is reached for Phase II. The Phase I may be done in procedure room or may call to secure a Phase I area. * If naloxone or flumazenil are used for reversal, hold in Phase I for continued monitoring from when last reversal dose was given for a minimum of 60 minutes or longer pending the nurse and/or physician discretion of patient condition before discharge to Phase II. Please call the Sedation Physician to re-evaluate and complete post-note for discharge to Phase II area. Do NOT discharge from procedure sedation or Phase 1 until post- sedation evaluation note is complete by procedure /sedation MD Sedation Discharge Instructions to be given to the patient at discharge to home.
[2025-05-21] MEDS ORDERED: ACETAMINOPHEN W/CODEINE #3 1 TAB PO PRN (16:05)
[2025-05-21] MEDS ORDERED: ACETAMINOPHEN 325 MG TAB PO PRN (16:05)
[2025-05-21] MEDS ORDERED: [UNRECOGNIZED DRUG - OTHER] IM SCH (16:15)
[2025-05-21] MEDS: CARBIDOPA/LEVODOPA 25/100MG TAB PO SCH (20:11)
[2025-05-22 02:55] VITALS: TEMP 98.1
[2025-05-22 07:38] VITALS: BP 150/82; RESP 17; O2SAT 97
--- NOTE | 2025-05-22 07:53 | XRay Report ---
EXAM: XR chest 2V PA/lateral CLINICAL HISTORY: Evaluate for pneumothorax. TECHNIQUE: An X-ray image of the chest is obtained in AP and lateral projections. COMPARISON: 04/07/2025. FINDINGS: Pulmonary Parenchyma: Interval demonstration of the left cardiac pacemaker Bilateral increased pulmonary markings suggesting senile change. No evidence of consolidation, collapse, or focal opacities. No evidence of pleural effusion or pleural thickening. No pneumothorax. Heart and Mediastinum: Heart size and shape are normal. No mediastinal widening or masses. No hilar or mediastinal lymphadenopathy. Bony Thorax: Bony thorax appears intact without fractures or deformities. Soft Tissues: Soft tissues overlying the chest wall are unremarkable. IMPRESSION: 1. Interval demonstration of the left cardiac pacemaker. 2. No acute cardiopulmonary abnormalities are identified. 3. No pneumothorax. Electronically signed by Moi Munguia 05-22-2025 07:52 AM
[2025-05-22] MEDS: CHOLECALCIFEROL 25 MCG (1000 UNITS) TAB PO SCH (08:30)
[2025-05-22] MEDS: TAMSULOSIN HCL 0.4 MG CAP PO SCH (08:30)
[2025-05-22] MEDS: amLODIPine BESYLATE 5 MG TAB PO SCH (08:31)
[2025-05-22] MEDS: DONEPEZIL HCL 10 MG TAB PO SCH (08:31)
--- NOTE | 2025-05-22 08:41 | Cardiology Progress Note ---
Date of Service May 22, 2025 Assessment & Plan (1) Status post placement of cardiac pacemaker: Plan He is doing well postop day #1. The pacemaker is working well, the chest x-ray looks good and the site looks good. He is stable for discharge. Office follow- up arrangements made for Saturday. Admission and Anticipated Discharge Date Admission Date: May 21, 2025 Subjective He is feeling well today, he denies incisional discomfort. He has been out of bed to the bathroom and reports no difficulty. Physical Exam Physical Exam: The pacemaker incision is clean and dry, some ecchymosis as expected but no bleeding or drainage of significance. Results & Data Vital Signs (Past 12 Hours) Vital Signs Temp Pulse Pulse Pulse Resp BP Pulse Ox 05/22/25 07:38 36.7 C 84 17 150/82 H 97 05/22/25 02:54 36.7 C 80 19 146/66 H 95 05/21/25 23:03 37.1 C 98 H 21 146/87 H 91 05/21/25 22:03 37.4 C 93 H 20 147/89 H 95 05/21/25 21:57 96 H 05/21/25 21:00 37.3 C 92 H 24 174/75 H 91 O2 Del Method 05/22/25 07:38 Room Air 05/22/25 02:54 Room Air 05/21/25 23:03 Room Air 05/21/25 22:03 Room Air 05/21/25 21:57 05/21/25 21:00 Room Air Laboratory Results Postop ECG: Sinus rhythm with intact AV conduction and appropriate pacemaker inhibition Telemetry: Sinus rhythm with intermittent ventricular pacing appropriately. Chest x-ray: Good lead position, no pneumothorax PG Care Time/CCT Total # of Minutes Spent Total Time Spent with Patient: Total time spent is greater than 50% in coordination of care (as documented) at patient's floor/unit and/or counseling patient: Coding Level of Care Code 67583 Post Operative Follow-Up Diagnoses Status post placement of cardiac pacemaker Z95.0
[2025-05-22 09:59] VITALS: PULSE 80
--- NOTE | 2025-05-24 14:59 | Electrocardiogram Report ---
Test Reason : Blood Pressure : */* mmHG Vent. Rate : 92 BPM Atrial Rate : 92 BPM P-R Int : 180 ms QRS Dur : 152 ms QT Int : 400 ms P-R-T Axes : -5 -83 22 degrees QTcB Int : 494 ms Normal sinus rhythm Right bundle branch block Left anterior fascicular block Bifascicular block Septal infarct , age undetermined Abnormal ECG When compared with ECG of 07-Apr-2025 09:37, No significant change Confirmed by Kendrick Basurto ([id number]) on 05/24/2025 2:59:24 PM Referred By: Kendrick Basurto Confirmed By: Kendrick Basurto
== END 2025-05-22 10:44 | disposition home or self-care (01) | DRG 244 ==
LOC: EP 12:35 → 2E 14:44 → INTOOBSV 14:44

== ENCOUNTER 2025-06-22 08:44 | Inpatient (IN) ==
[2025-06-22] MEDS: LIDOCAINE 2% JELLY 5 ML TUBE EXT ONE (09:17)
[2025-06-22 09:20] LABS: Hematocrit (blood only) 41.9 % (42.0-52.0); Hemoglobin 13.7 g/dl (14.0-18.0); Mean Corpuscular Hemoglobin 29.1 pg (25.0-34.0); Mean Corpuscular Volume 89.0 fL (80.0-100.0); Platelet Count 118 K/uL (130-400); RDW Standard Deviation 47.9 fL (36.4-46.3); Red Blood Count 4.71 M/uL (4.70-6.10); White Blood Count 13.01 K/ul (4.8-10.8)
[2025-06-22] MEDS: SODIUM CHLORIDE 0.9% 1,000 ML IV SCH (09:20)
--- NOTE | 2025-06-22 09:25 | Emergency Department Note ---
History of Present Illness General Chief complaint: Lethargic Source: patient and EMS Mode of arrival: EMS Limitations: no limitations History of Present Illness Patient is a 84-year-old male presents after EMS was called for a lift assist. Patient slid out of his bed this morning and was unable to get up. When EMS arrived patient was confused and unsteady on his feet. He did not strike his head during the fall. He is incontinent of urine. Recently patient finished antibiotics for a UTI. Patient is AAO x 3. No current complaints. Home Medications Medication Instructions Recorded Confirmed Type cholecalciferol (vitamin D3) 50 50 mcg PO DAILY 05/01/23 05/21/25 History mcg (2,000 unit) capsule acetaminophen 325 mg tablet 650 mg PO Q4H PRN PAIN/FEVER 11/15/23 05/21/25 History (Tylenol) amlodipine 5 mg tablet 5 mg PO QAM 01/29/24 05/21/25 History donepezil 10 mg tablet (Aricept) 10 mg PO QAM 09/30/24 05/21/25 History vitamin [id number] B1 100 mg-1 0 ml IM MONTHLY 09/30/24 05/21/25 History mg/mL intramuscular solution carbidopa 25 mg-levodopa 100 mg 1 tab PO TID 03/03/25 05/21/25 History tablet tamsulosin 0.4 mg capsule 0.4 mg PO UD 04/07/25 05/21/25 History Allergies Allergy/AdvReac Type Severity Reaction Status Date / Time No Known Allergies Allergy Verified 05/20/25 16:12 Past Med/Surg History Problem List (Updated 06/22/25 @ 11:41 by Miguelito Penn MD) Intermittent complete heart block Bifascicular bundle branch block Syncope Dementia (Acute) Complicated UTI (urinary tract infection) (Acute) Memory changes Takes aricept Follows with Dr. Holloway (Neuropsychologist) BPH loc w urin obs/LUTS (Chronic) Hypertension Medical History Prolonged QT interval Hematuria Bladder stones History of diverticulitis Chronic kidney disease (CKD), active medical management without dialysis Hypertension History of kidney stones History of prostate cancer (2021) Chronic anemia HLD (hyperlipidemia) BPH (benign prostatic hyperplasia) Ataxic gait Microscopic hematuria Surgical History History of open reduction and internal fixation (ORIF) procedure (1956) History of vascular access device (2022) History of transurethral resection of prostate History of repair of rotator cuff Hx of vasectomy History of colonoscopy History of tooth extraction Hx of bilateral cataract extraction History of total right knee replacement H/O hernia repair History of prostate biopsy Family History Father Hypertension Mother Lung disease Social History Smoking Status: Former smoker Tobacco Type: Cigarettes Second Hand Exposure: No; Do You Dip or Chew Tobacco: No; Hx Alcohol Use: No Hx Substance Use: No Preferred Language: Greek Communication Ability: Effective Visual Impairment: No Limitations Hearing Ability: Hard of Hearing Purchase Price Analyst Required: No Beliefs That Will Affect Care: None marital status: Current Living Situation: Personal Care Facility Current Living Situation Comment: resident at [facility] current occupational status: retired How many Children do You have: 2 Feels Safe at Home: Yes Diet: regular caffeine: Yes during the past year weight has: remained stable Assistive Devices: Cane and Walker Review of Systems Review of systems negative outside of positive findings mentioned in HPI. Physical Exam Vital Signs Vital Signs - 24 hr 06/22/25 08:50 06/22/25 09:13 06/22/25 10:24 Temperature 36.8 C Temperature Source Oral Pulse Rate 105 H 106 H 93 H Pulse Rate from SpO2 Sensor 90 Respiratory Rate 18 21 Respiratory Effort / Characteristics Non-Labored Spontaneous Respiratory Depth Normal Respiratory Pattern Regular Blood Pressure 142/80 H 125/79 Blood Pressure Mean 100 94 Pulse Oximetry 94 96 Oxygen Delivery Method Room Air Sepsis Recent Fever Within 48 Hours No Sepsis New/Unexplained Change in Mental Status No Sepsis Action Taken by Nursing No Action Required See below Constitutional WD/WN, vitals as above Eyes PERRL, conjunctivae normal, anicteric sclerae ENMT external ear and nose normal, oropharynx normal Neck trachea midline, no thyromegaly Respiratory + labored breathing Auscultation: lungs clear to auscultation bilaterally Cardiovascular Rate/Rhythm: + tachycardic Heart Sounds: normal S1 and normal S2 Gastrointestinal (Abdomen) normal bowel sounds, soft, nontender, no hepatosplenomegaly Musculoskeletal no cyanosis or clubbing, extremities motor strength 5/5 Skin no rashes, warm and dry Neurologic AAO x 3, cranial nerves II through XII intact, 5 out of 5 strength in the upper and lower extremities bilaterally, no dysmetria noted, no sensation deficits noted in the large dermatomes of the extremities and face. Course Administered Medications Discontinued Medications Sodium Chloride (Nss) 1,000 mls @ 999 mls/hr IV .Q1H1M MICHAEL Stop: 06/22/25 10:15 Last Infusion: 06/22/25 10:20 Dose: Infused Documented By: Admin: 06/22/25 09:20 Dose: 999 mls/hr Documented By: CAROL Cefepime HCl (Maxipime 2000mg) 2,000 mg in 20 mls @ 5 mls/min IV NOW STA; Protocol Stop: 06/22/25 09:04 Last Admin: 06/22/25 10:14 Dose: 5 mls/min Documented By: CAROL Ioversol (Optiray 320 100ml) 94 ml IV ONCE ONE Stop: 06/22/25 11:07 Last Admin: 06/22/25 11:07 Dose: 94 ml Documented By: JESSICA Lidocaine HCl (Lidocaine 2% Jelly 5 Ml Tube) Confirm Administered Dose 5 ml EXT .STK-MED ONE Stop: 06/22/25 09:15 Last Admin: 06/22/25 09:17 Dose: 5 ml Documented By: CAROL Medical Decision Making Differential Diagnosis Infection, sepsis, UTI, obstructive uropathy, prostatitis Medical Records Attestation: I reviewed the patient's medical records. Home Medications Current Medication List: was personally reviewed by me Laboratory Data Attestation: I reviewed the patient's lab results. 06/22/25 08:54 06/22/25 08:54 Lab Results 06/22/25 06/22/25 06/22/25 Range/Units 08:54 09:58 10:02 WBC 13.01 H (4.8-10.8) K/ul RBC 4.71 (4.70-6.10) M/uL Hgb 13.7 L (14.0-18.0) g/dl Hct 41.9 L (42.0-52.0) % MCV 89.0 (80.0-100.0) fL MCH 29.1 (25.0-34.0) pg MCHC 32.7 (32.0-36.0) g/dL RDW Std Deviation 47.9 H (36.4-46.3) fL RDW Coeff of Blanca 14.7 H (11.5-14.5) % Plt Count 118 L (130-400) K/uL MPV 9.0 L (9.4-12.4) fL Immature Gran % (Auto) 0.9 % Neut % (Auto) 91.6 % Lymph % (Auto) 1.2 % Sebastian % (Auto) 6.1 % Eos % (Auto) 0.0 % Baso % (Auto) 0.2 % Neut # (Auto) 11.90 H (1.40-6.50) K/uL Lymph # (Auto) 0.16 L (1.20-3.40) K/uL Sebastian # (Auto) 0.80 H (0.11-0.59) K/uL Eos # (Auto) 0.00 (0.00-0.50) K/uL Baso # (Auto) 0.03 (0.00-0.20) K/uL Immature Gran # (Auto) 0.12 (0.01-0.20) K/uL Sodium 141 (136-145) mmol/L Potassium 3.4 L (3.5-5.1) mmol/L Chloride 110 H (98-107) mmol/L Carbon Dioxide 23 (21-32) mmol/L Anion Gap 8 (3-11) BUN 38 H (6-23) mg/dl Creatinine 1.93 H (0.6-1.4) mg/dl Est Cr Clr Drug Dosing 27.5 ml/min eGFR 33.30 BUN/Creatinine Ratio 19.7 (10-20) Glucose 106 H (70-99(Fasting)) mg/dl Lactate 0.6 (0.4-2.0) mmol/L Calcium 8.5 L (8.6-10.3) mg/dl Magnesium 1.7 (1.7-2.4) mg/dl Total Bilirubin 1.0 (0.2-1.0) mg/dl Direct Bilirubin 0.3 H (0-0.2) mg/dl AST 15 (13-39) U/L ALT 14 (7-52) U/L Alkaline Phosphatase 62 (34-104) U/L Troponin I High Sens 18.3 (0-20) pg/ml Total Protein 6.7 (6.0-8.3) gm/dl Albumin 3.6 (3.4-5.0) gm/dl Procalcitonin 2.51 H (0-0.5) ng/ml Urine Color Yellow Urine Appearance Slightly Cloudy (Clear) Urine pH 6.5 (4.5-7.5) Ur Specific [place] 1.015 (1.000-1.030) Urine Protein 3+ H (Negative) Urine Glucose (UA) Negative (Negative) Urine Ketones Negative (Negative) Urine Blood 2+ H (Negative) Urine Nitrite Positive A (Negative) Urine Bilirubin Negative (Negative) Urine Urobilinogen Negative (Negative) Ur Leukocyte Esterase 1+ H (Negative) Urine RBC 6-10 H (0-2) /hpf Urine WBC 21-50 H (0-5) /hpf Ur Epithelial Cells 0-2 (0-2) /hpf Urine Bacteria 1+ H (None Seen) Urine Comment Imaging Data Radiologist's Impression: Chest X-Ray 06/22/25 09:02 XR chest 1V portable CLINICAL HISTORY: Sepsis COMPARISON STUDY: 05/22/2025 FINDINGS: Stable pacemaker. Stable mild cardiomegaly without pulmonary vascular congestion. No consolidation or pleural effusion. No pneumothorax. IMPRESSION: No acute findings. ACT 112: Negative or not required by law. Electronically signed by: Mckay Bass M.D. 06/22/2025 10:06 AM Abdomen/Pelvis CT 06/22/25 10:38 CT SCAN OF THE ABDOMEN AND PELVIS WITH IV CONTRAST CLINICAL HISTORY: Altered mental status. Recent urinary tract infection. COMPARISON STUDY: Renal ultrasound August 14, 2024. CT of the abdomen and pelvis February 17, 2024. TECHNIQUE: Following the IV administration of 94 cc of Optiray 320, CT scan of the abdomen and pelvis is performed from the lung bases to the proximal femora. Images are reviewed in the axial, sagittal, and coronal planes. IV contrast was administered without complication. A dose lowering technique was utilized adhering to the principles of ALARA. CT DOSE: 1231.12 mGy.cm FINDINGS: Visualized lung bases are unremarkable. Pacer leads are partially imaged. No pneumatosis, free air or portal venous gas is present. A 2.2 cm medial segment left hepatic lobe cyst is unchanged. A few additional subcentimeter lateral segment hepatic lesions are likely benign. Spleen, adrenal glands and pancreas are unremarkable. There is no biliary or] ductal dilatation. Gallstones within the gallbladder are noted. No evidence for acute cholecystitis. Water attenuation bilateral renal lesions represent cysts. There is moderate bilateral renal cortical thinning. There is no hydronephrosis. Several right renal calculi measure up to 5 mm. There are no ureteral calculi. Urothelial thickening of the right collecting system, right ureter and bladder is again noted. Postoperative findings consistent with TURP are noted. The prostate is enlarged, measuring 5.6 cm in transverse diameter. Mild stranding adjacent to the bladder is noted. This was shown on prior study. No evidence for a bowel obstruction. Extensive colonic diverticulosis without evidence for acute diverticulitis. There is no lymphadenopathy or ascites. Fat-containing bilateral inguinal hernias, right larger than left, are unchanged. IMPRESSION: 1. Right nephrolithiasis. No ureteral calculi or hydronephrosis. 2. Bladder wall thickening and urothelial thickening the right collecting system and right ureter. This is similar to prior CT but could be correlated with urinalysis to exclude an infectious process. Enlarged prostate status post TURP. 3. Extensive colonic diverticulosis. No evidence for acute diverticulitis. 4. Cholelithiasis. No evidence for acute cholecystitis. ACT 112: Negative or not required by law. Electronically signed by: Williams Rosado M.D. 06/22/2025 11:24 AM ECG Data Attestation: I personally reviewed and interpreted this ECG as follows: Indication: + altered mental status Rate (beats per minute): 106 Rhythm: + sinus tachycardia ECG [place]: + Left axis deviation ECG ST segments: + Nonspecific ST abnormalities Comparison ECG Date: from (05/21/2025) Additional Comments: Bifasicular block unchanged MDM Narrative Patient is AN 84-year-old male presents for generalized weakness and confusion after he slid out of his bed today. No head trauma reported. No focal neurologic deficits noted. Incontinent urine on arrival with foul-smelling odor noted. Stool afebrile here today however he is tachycardic recently was treated for prostatitis outpatient. Lab work was obtained which showed a leukocytosis with left shift and an elevated procalcitonin. No evidence of elevated lactate or endorgan damage from baseline concerning for sepsis. Patient was given IV cefepime in the setting of positive UA here today. Urine cultures pending. CT of the abdomen and pelvis does not show evidence of prostatic abscess or changes related to the prostate. No other concerning findings on CT stable for admission to hospitalist service. Impression & Plan Complicated UTI (urinary tract infection) Admit Discharge Plan Visit Data Chief Complaint: Lethargic ED Provider: Miguelito Penn Discharge Problem: Complicated UTI (urinary tract infection) Patient Disposition: Admitted As Inpatient Condition: Good Forms Stand Alone Forms: [facility] Prescriptions Prescriptions: No Action amlodipine 5 mg tablet 5 mg PO QAM cholecalciferol (vitamin D3) 50 mcg (2,000 unit) capsule 50 mcg PO DAILY Rx Instructions: otc unable to verify carbidopa-levodopa 25-100 mg tablet 1 tab PO TID acetaminophen [Tylenol] 325 mg Tablet 650 mg PO Q4H PRN (Reason: PAIN/FEVER) Rx Instructions: otc unable to verify donepezil [Aricept] 10 mg Tablet 10 mg PO QAM vitamin [id number] B1 100-1 mg/mL Solution 0 ml IM MONTHLY Rx Instructions: no fill history available unable to verify tamsulosin 0.4 mg capsule 0.4 mg PO UD Rx Instructions: 0.4mg po daily. last filled 12/29 90 day supply Referrals Referrals: Heriberto Guajardo [Non-Staff] -
[2025-06-22 09:38] LABS: Alanine Aminotransferase 14.0 U/L (7-52); Alkaline Phosphatase 62.0 U/L (34-104); Anion Gap 8.0 (3-11); Bilirubin,Total 1.0 mg/dl (0.2-1.0); Blood Urea Nitrogen 38.0 mg/dl (6-23); Calcium 8.5 mg/dl (8.6-10.3); Carbon Dioxide 23.0 mmol/L (21-32); Chloride 110.0 mmol/L (98-107); Creatinine Clr Calc Pharmacy 27.5 ml/min; Glucose 106.0 mg/dl (70-99(Fasting)); Magnesium 1.7 mg/dl (1.7-2.4); Potassium 3.4 mmol/L (3.5-5.1); Sodium 141.0 mmol/L (136-145); Total Protein 6.7 gm/dl (6.0-8.3)
[2025-06-22 09:50] LABS: Immature Granulocytes # (auto) 0.12 K/uL (0.01-0.20); Immature Granulocytes % (auto) 0.9 %
--- NOTE | 2025-06-22 10:07 | XRay Report ---
XR chest 1V portable CLINICAL HISTORY: Sepsis COMPARISON STUDY: 05/22/2025 FINDINGS: Stable pacemaker. Stable mild cardiomegaly without pulmonary vascular congestion. No consol idation or pleural effusion. No pneumothorax. IMPRESSION: No acute findings. ACT 112: Negative or not required by law. Electronically signed by: Mckay Bass M.D. 06/22/2025 10:06 AM
[2025-06-22 10:11] LABS: Appearance Urine Slightly Cloudy (Clear); Glucose Urine UA Negative (Negative)
[2025-06-22] MEDS: CEFEPIME 2000MG 2,000 MG/20 ML SYR IV STA (10:14)
[2025-06-22 10:29] LABS: Epithelial Cell Urine 0-2 /hpf (0-2)
[2025-06-22] MEDS: OPTIRAY 320 100ml IV ONE (11:07)
--- NOTE | 2025-06-22 11:25 | CT Scan Report ---
CT SCAN OF THE ABDOMEN AND PELVIS WITH IV CONTRAST CLINICAL HISTORY: Altered mental status. Recent urinary tract infection. COMPARISON STUDY: Renal ultrasound August 14, 2024. CT of the abdomen and pelvis February 17, 2024. TECHNIQUE: Following the IV administration of 94 cc of Optiray 320, CT scan of the abdomen and pelvi s is performed from the lung bases to the proximal femora. Images are reviewed in the axial, sagittal , and coronal planes. IV contrast was administered without complication. A dose lowering technique wa s utilized adhering to the principles of ALARA. CT DOSE: 1231.12 mGy.cm FINDINGS: Visualized lung bases are unremarkable. Pacer leads are partially imaged. No pneumatosis, f ree air or portal venous gas is present. A 2.2 cm medial segment left hepatic lobe cyst is unchanged. A few additional subcentimeter lateral segment hepatic lesions are likely benign. Spleen, adrenal gl ands and pancreas are unremarkable. There is no biliary or] ductal dilatation. Gallstones within the gallbladder are noted. No evidence for acute cholecystitis. Water attenuation bilateral renal lesions represent cysts. There is moderate bilateral renal cortical thinning. There is no hydronephrosis. Se veral right renal calculi measure up to 5 mm. There are no ureteral calculi. Urothelial thickening of the right collecting system, right ureter and bladder is again noted. Postoperative findings consist ent with TURP are noted. The prostate is enlarged, measuring 5.6 cm in transverse diameter. Mild stra nding adjacent to the bladder is noted. This was shown on prior study. No evidence for a bowel obstru ction. Extensive colonic diverticulosis without evidence for acute diverticulitis. There is no lympha denopathy or ascites. Fat-containing bilateral inguinal hernias, right larger than left, are unchange d. IMPRESSION: 1. Right nephrolithiasis. No ureteral calculi or hydronephrosis. 2. Bladder wall thickening and urothelial thickening the right collecting system and right ureter. Th is is similar to prior CT but could be correlated with urinalysis to exclude an infectious process. E nlarged prostate status post TURP. 3. Extensive colonic diverticulosis. No evidence for acute diverticulitis. 4. Cholelithiasis. No evidence for acute cholecystitis. ACT 112: Negative or not required by law. Electronically signed by: Willaims Rosado M.D. 06/22/2025 11:24 AM
--- NOTE | 2025-06-22 11:49 | History & Physical Report ---
Date of Service June 22, 2025 Assessment & Plan (1) Complicated UTI (urinary tract infection): Plan: Complicated UTI, suspected prostatitis Leukocytosis of 13. Afebrile. Tachycardic. Lactate normal. Normotensive. Recently scribed cefuroxime 21-day course at the end of May 2025. CT does not show any signs of prostate abscess Past UCx history of Pseudomonas, E. coli with fluoroquinolone resistance PCT elevated 2.51. Likely due to UTI. CXR clear. UA infected appearing on admission UCx pending Continue cefepime, follow UCx for speciation/sensitivities. Given prior exam consistent with prostatitis and complicated UTI anticipate extension of treatment to least 2 weeks, and up to 46 based on progression no signs of hydro/obstruction - CTA/P: Right nephrolithiasis. No hydro. Bladder wall thickening and urothelial thickening of the right collecting system and ureter similar to prior CT but which would be consistent with UTI. Extensive diverticulosis without diverticulitis. Cholelithiasis without cholecystitis. History of CHB s/p pacemaker placement EKG right branch block, sinus with PACs. At bedtime troponin normal Clinically without chest pain CKD stage 3b Baseline creatinine approximately 1.61.96 Admitting creatinine 1.93 on admission, EGFR 33 Trend daily, renally adjust medications as needed History of prolonged QT QTc 496 Avoid QT prolonging medications Currently hypomagnesemic. IV mag ordered to optimize total of 2.0. Monitored on M/T Ambulatory dysfunction PT/OT pending Vascular Parkinson's, dementia Continue Aricept, Sinemet Hypertension Continue amlodipine BPH Continue Flomax DVT prophylaxis: Heparin SQ due to creatinine clearance 30 Disposition: MSO CODE STATUS: DNR/DNI Diet: Heart healthy (2) Dementia: (3) BPH loc w urin obs/LUTS: (4) Hypertension: (5) Chronic kidney disease (CKD), active medical management without dialysis: History of Present Illness Primary Care Provider: Warren Quintanilla MD Mason is an 84-year-old male with a past medical history of parkinsonism with dementia, BPH with LUTS, hypertension, CHB s/p pacemaker placement presented to the ER by EMS for acute weakness, unsteadiness as a lift assist, and acute on chronic confusion. He was recently in the hospital with discharge 05/22/2025 after pacemaker placement 05/21/2025 for intermittent CHB. Mason slipped out of bed today. Had trouble standing .[place] weak all over, no focal arm or leg weakness. In the middle of the night had some chills and shakes. No cough. Intermittent wheezing, none currently. No fever last night +Urinary incontinence No dysuria. +Urinary frequency, endorses chronic incontinence. 'Weird in the last couple days,having to go every 15 minutes." No abdominal pain or back pain Per pt there was recent concern for prostatitis. He had a UTI 4-6 week ago. Had antibiotics and improved after 7 days. Had a recurrent similar infection at the end of May and was suspected to have recurrent infection due to prostatitis and was placed on 3 weeks of abx which ended a little under a week ago. Sx worsened since stopping that antibiotic. Was following with Dr. Cummings for this. Eating and drinking OK, reports she has to encourage him to eat and drink normally but no real change no chest pain, no chest pressure. No dyspnea. Medical History: Reviewed Medications: Reviewed Surgical History: Reviewed Family history: Reviewed Allergies: Reviewed. NKDA. Social History: No tobacco use, Rare ETOH use Code Status: DNR/DNI Allergies Allergy/AdvReac Type Severity Reaction Status Date / Time No Known Allergies Allergy Verified 05/20/25 16:12 Home Medications Medication Instructions Recorded Confirmed Type cholecalciferol (vitamin D3) 50 0 mcg PO DAILY 05/01/23 06/22/25 History mcg (2,000 unit) capsule acetaminophen 325 mg tablet 650 mg PO Q4H PRN PAIN/FEVER 11/15/23 06/22/25 History (Tylenol) amlodipine 5 mg tablet 5 mg PO QAM 01/29/24 06/22/25 History donepezil 10 mg tablet (Aricept) 0 mg PO QAM 09/30/24 06/22/25 History vitamin [id number] B1 100 mg-1 0 ml IM MONTHLY 09/30/24 06/22/25 History mg/mL intramuscular solution carbidopa 25 mg-levodopa 100 mg 1 tab PO TID 03/03/25 06/22/25 History tablet tamsulosin 0.4 mg capsule 0.4 mg PO DAILY 04/07/25 06/22/25 History Past Med/Surg History Problem List (Updated 06/22/25 @ 11:41 by Miguelito Penn MD) Intermittent complete heart block Bifascicular bundle branch block Syncope Dementia (Acute) Complicated UTI (urinary tract infection) (Acute) Memory changes Takes aricept Follows with Dr. Holloway (Neuropsychologist) BPH loc w urin obs/LUTS (Chronic) Hypertension Medical History Prolonged QT interval Hematuria Bladder stones History of diverticulitis Chronic kidney disease (CKD), active medical management without dialysis Hypertension History of kidney stones History of prostate cancer (2021) Chronic anemia HLD (hyperlipidemia) BPH (benign prostatic hyperplasia) Ataxic gait Microscopic hematuria Surgical History History of open reduction and internal fixation (ORIF) procedure (1956) History of vascular access device (2022) History of transurethral resection of prostate History of repair of rotator cuff Hx of vasectomy History of colonoscopy History of tooth extraction Hx of bilateral cataract extraction History of total right knee replacement H/O hernia repair History of prostate biopsy Family History Father Hypertension Mother Lung disease Social History Smoking Status: Former smoker Tobacco Type: Cigarettes Second Hand Exposure: No; Do You Dip or Chew Tobacco: No; Hx Alcohol Use: No Hx Substance Use: No Preferred Language: Upper Sorbian Communication Ability: Effective Visual Impairment: No Limitations Hearing Ability: Hard of Hearing Day Habilitation Specialist Required: No Beliefs That Will Affect Care: None marital status: Current Living Situation: Personal Care Facility Current Living Situation Comment: resident at [facility] current occupational status: retired How many Children do You have: 2 Feels Safe at Home: Yes Diet: regular caffeine: Yes during the past year weight has: remained stable Assistive Devices: Cane and Walker Physical Exam Physical Exam: General: A&Ox3. NAD. Cooperative. HEENT: Atraumatic, normocephalic. Vision/hearing grossly intact. PERLAA. Pulm: CTAB A&P. -wheezes, -rales, -rhonchi. Symmetrical chest rise. No increased work of breathing. No respiratory distress. Cardiac: RRR, -mrg. Radial pulses intact and symmetrical. Abdominal: Nontender, nondistended, soft. BS present. Results & Data Results & Data Vital Signs (Past 12 Hours) Vital Signs Temp Pulse Resp BP Pulse Ox O2 Del Method 06/22/25 10:24 93 H 21 125/79 96 06/22/25 09:13 106 H 06/22/25 08:50 36.8 C 105 H 18 142/80 H 94 Room Air PG Care Time/CCT Total # of Minutes Spent Total Time Spent with Patient: Total time spent is greater than 50% in coordination of care (as documented) at patient's floor/unit and/or counseling patient: Coding Level of Care Code 99119 INT INP/OBS CARE 3/75MIN Diagnoses Complicated UTI (urinary tract infection) N39.0 Dementia F03.90 BPH loc w urin obs/LUTS N40.1 Hypertension I10 Chronic kidney disease (CKD), active medical management without dialysis N18.9
[2025-06-22] MEDS: LACTATED RINGER'S 1,000 ML IV SCH (13:12)
[2025-06-22] MEDS: MAGNESIUM SULFATE / D5W 1 GM/100 ML BAG IV ONE (13:12)
[2025-06-22] MEDS: POTASSIUM CHLORIDE CRTAB 20 MEQ TABCR PO STA (13:18)
[2025-06-22] MEDS ORDERED: ACETAMINOPHEN 325 MG TAB PO PRN (14:56)
[2025-06-22] MEDS ORDERED: POLYETHYLENE (MIRALAX) 17 GM PACK PO PRN (14:56)
[2025-06-22] MEDS: HEPARIN SOD 5,000 UNIT/0.5 ML VIAL SQ SCH (15:37)
[2025-06-22] MEDS: CARBIDOPA/LEVODOPA 25/100MG TAB PO SCH (15:38)
[2025-06-22] MEDS: CEFEPIME 1000MG 1,000 MG/10 ML SYR IV SCH (20:32)
[2025-06-23 02:00] LABS: A calco-baum cmplx NotReported Not Detected (NotDetected); Bact fragilis Not Reported Not Detected (NotDetected); Blood Culture Id Panel See PCR Comment (NotDetected); C auris Not Reported Not Detected (NotDetected); CTX-M Resistant Gene Not Detected (NotDetected); Calbicans Not Reported Not Detected (NotDetected); Candida glabrata Not Reported Not Detected (NotDetected); Candida krusei Not Reported Not Detected (NotDetected); Cneoformans/gatti Not Reported Not Detected (NotDetected); Cparapsilosis Not Reported Not Detected (NotDetected); Ctropicalis Not Reported Not Detected (NotDetected); E cloacae compx Not Reported Not Detected (NotDetected); Efaecalis Not Reported Not Detected (NotDetected); Efaecium Not Reported Not Detected (NotDetected); Enterobacterales DETECTED (NotDetected); Enterobacterales Not Reported DETECTED (NotDetected); Escherichia coli Not Reported DETECTED (NotDetected); H influenzae Not Reported Not Detected (NotDetected); IMP Resistant Gene Not Detected (NotDetected); K aerogenes Not Reported Not Detected (NotDetected); KPC Resistant Gene Not Detected (NotDetected); Koxytoca Not Reported Not Detected (NotDetected); Kpneumoniae grp Not Reported Not Detected (NotDetected); Lmonocyt Not Reported Not Detected (NotDetected); N meningitidis Not Reported Not Detected (NotDetected); NDM Resistant Gene Not Detected (NotDetected); OXA 48 Like Resistant Gene Not Detected (NotDetected); P aeruginosa Not Reported Not Detected (NotDetected); Proteus spp Not Reported Not Detected (NotDetected); Salmonella spp Not Reported Not Detected (NotDetected); Staph lugdunensis Not Reported Not Detected (NotDetected); Staph spp. Not Reported Not Detected (NotDetected); Staphaureus Not Reported Not Detected (NotDetected); Staphepi Not Reported Not Detected (NotDetected); Stenmaltophilia Not Reported Not Detected (NotDetected); Strep agal(GrpB) Not Reported Not Detected (NotDetected); Strep pneum Not Reported Not Detected (NotDetected); Strep pyog (GrpA) Not Reported Not Detected (NotDetected); Strep spp Not Reported Not Detected (NotDetected); VIM Resistant Gene Not Detected (NotDetected); mcr-1 Colistin Resistant Gene Not Detected (NotDetected)
[2025-06-23 07:26] LABS: Hematocrit (blood only) 37.9 % (42.0-52.0); Hemoglobin 12.3 g/dl (14.0-18.0); Immature Granulocytes # (auto) 0.12 K/uL (0.01-0.20); Immature Granulocytes % (auto) 1.1 %; Mean Corpuscular Hemoglobin 29.5 pg (25.0-34.0); Mean Corpuscular Volume 90.9 fL (80.0-100.0); Platelet Count 116 K/uL (130-400); RDW Standard Deviation 49.5 fL (36.4-46.3); Red Blood Count 4.17 M/uL (4.70-6.10); White Blood Count 11.20 K/ul (4.8-10.8)
[2025-06-23 07:31] VITALS: RESP 18
[2025-06-23 07:44] LABS: Anion Gap 6.0 (3-11); Blood Urea Nitrogen 34.0 mg/dl (6-23); Calcium 8.0 mg/dl (8.6-10.3); Carbon Dioxide 24.0 mmol/L (21-32); Chloride 110.0 mmol/L (98-107); Creatinine Clr Calc Pharmacy 26.9 ml/min; Glucose 80.0 mg/dl (70-99(Fasting)); Potassium 4.0 mmol/L (3.5-5.1); Sodium 140.0 mmol/L (136-145)
[2025-06-23] MEDS: CHOLECALCIFEROL 25 MCG (1000 UNITS) TAB PO SCH (08:35)
[2025-06-23] MEDS: DONEPEZIL HCL 10 MG TAB PO SCH (08:35)
[2025-06-23] MEDS: TAMSULOSIN HCL 0.4 MG CAP PO SCH (08:35)
[2025-06-23] MEDS: MAGNESIUM OXIDE 400 MG TAB PO SCH (10:24)
--- NOTE | 2025-06-23 15:05 | Hospitalist Progress Note ---
Date of Service June 23, 2025 Assessment & Plan (1) Complicated UTI (urinary tract infection): (2) Dementia: (3) BPH loc w urin obs/LUTS: (4) Hypertension: (5) Chronic kidney disease (CKD), active medical management without dialysis: (6) Bacteremia: Plan This is an 84 year old gentleman with PMHx of BPH, HTN, dementia who presented to the ED on 06/22 after a fall. #Complicated UTI/Gram negative bacteremia CTAP: right nephrolithiasis. no ureteral calculi/hydronephrosis. bladder wall thickening & urothelial thickening of right collecting system & ureter. enlarged prostate s/p TURP. CXR negative hx of Pseudomonas UTIs & E coli w/ FQ resistance. Recently completed a 21 day course of Cefuroxime & has only been off abx for 1 week [employer]. CBC w/ downtrending of leukocytosis. Lactate WNL; procal elevated at 2.51 on admission UC + for E. Coli; BC + for gm neg bacilli, sensitivities pending s/p IV Cefepime, switched to IV Rocephin after discussion w/ pharmacist based on current culture results. Continue to tailor abx as necessary after sensitivities Will need outpatient follow up w/ urology. Bladder scan prn. s/p IVF Tylenol prn for pain or fever. #Hx of CHB/s/p pacemaker placement EKG w/ RBB, sinus w/ PACs Troponin negative at time of admission Reports no CP #CKD stage 3b Baseline Creatinine 1.6-1.96 Creatinine 1.97 Renally adjust medications when needed AM BMP #History of prolonged QT QTc 496 on admission Avoid QT prolonging agents Optimize electrolytes #Ambulatory dysfunction PT/OT pending #Vascular Parkinson's, dementia Continue Aricept, Sinemet #Hypertension Continue amlodipine #BPH Continue Flomax DVT prophylaxis: Heparin SQ due to creatinine clearance 30 CODE STATUS: DNR/DNI Updated at bedside 06/23. Admission and Anticipated Discharge Date Admission Date: June 22, 2025 Eva Cuevas was seen and examined this morning. He reports to be feeling well today & feels he could be discharged. His was present with him & states they had issues using a catheter on him. When spoke to nurse, patient had issues w/ condom catheter but was not aware of a straight catheter attempt. Physical Exam Constitutional: WD/WN, vitals as above Eyes: PERRL, conjunctivae normal, anicteric sclerae Respiratory: normal respiratory effort, lungs clear to auscultation Cardiovascular: RRR, no murmur, no edema Gastrointestinal (Abdomen): normal bowel sounds, soft, nontender, no hepatosplenomegaly Neurologic: PERRL, EOMI, accommodation nl, no face palsy, no dysarthria Psychiatric: A+Ox3, euthymic affect Results & Data Results & Data Vital Signs (Past 12 Hours) Vital Signs Temp Pulse Pulse Pulse Resp BP Pulse Ox 06/23/25 14:50 36.4 C L 83 18 126/63 94 06/23/25 11:38 36.7 C 78 18 161/77 H 94 06/23/25 07:30 36.3 C L 67 18 150/74 H 95 06/23/25 07:11 78 06/23/25 04:23 36.8 C 74 16 146/66 H 97 O2 Del Method 06/23/25 14:50 Room Air 06/23/25 11:38 Room Air 06/23/25 07:30 Room Air 06/23/25 07:11 06/23/25 04:23 Room Air PG Care Time/CCT Total # of Minutes Spent Total Time Spent with Patient: Total time spent is greater than 50% in coordination of care (as documented) at patient's floor/unit and/or counseling patient: Coding Level of Care Code 15983 SUB INP/OBS CARE 2/35MIN Diagnoses Complicated UTI (urinary tract infection) N39.0 Dementia F03.90 BPH loc w urin obs/LUTS N40.1 Hypertension I10 Chronic kidney disease (CKD), active medical management without dialysis N18.9 Bacteremia R78.81
[2025-06-23] MEDS: cefTRIAXone SODIUM 2,000 MG/50 ML BAG IV SCH (20:30)
[2025-06-24 08:09] LABS: Hematocrit (blood only) 39.0 % (42.0-52.0); Hemoglobin 12.4 g/dl (14.0-18.0); Immature Granulocytes # (auto) 0.20 K/uL (0.01-0.20); Immature Granulocytes % (auto) 2.6 %; Mean Corpuscular Hemoglobin 28.9 pg (25.0-34.0); Mean Corpuscular Volume 90.9 fL (80.0-100.0); Platelet Count 141 K/uL (130-400); RDW Standard Deviation 49.2 fL (36.4-46.3); Red Blood Count 4.29 M/uL (4.70-6.10); White Blood Count 7.68 K/ul (4.8-10.8)
[2025-06-24 08:26] LABS: Anion Gap 4.0 (3-11); Blood Urea Nitrogen 34.0 mg/dl (6-23); Calcium 8.2 mg/dl (8.6-10.3); Carbon Dioxide 28.0 mmol/L (21-32); Chloride 110.0 mmol/L (98-107); Creatinine Clr Calc Pharmacy 27.8 ml/min; Glucose 106.0 mg/dl (70-99(Fasting)); Potassium 3.9 mmol/L (3.5-5.1); Sodium 142.0 mmol/L (136-145)
[2025-06-24 11:27] VITALS: TEMP 98.1; O2SAT 95
--- NOTE | 2025-06-24 16:06 | Discharge Summary ---
Discharge Summary Date of Service June 24, 2025 Principal Dx & Hospital Course #1 = Principal Diagnosis (1) Complicated UTI (urinary tract infection): (2) Dementia: (3) BPH loc w urin obs/LUTS: (4) Hypertension: (5) Chronic kidney disease (CKD), active medical management without dialysis: (6) Bacteremia: Plan This is an 84 year old gentleman with PMHx of BPH, HTN, dementia who presented to the ED on 06/22 after a fall. #Complicated UTI/Gram negative bacteremia CTAP: right nephrolithiasis. no ureteral calculi/hydronephrosis. bladder wall thickening & urothelial thickening of right collecting system & ureter. enlarged prostate s/p TURP. CXR negative hx of Pseudomonas UTIs & E coli w/ FQ resistance. 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 CBC w/ resolution of leukocytosis. Lactate WNL; procal elevated at 2.51 on admission UC + for E. Coli; BC + for gm neg bacilli, sensitivities reviewed s/p IV Cefepime & Rocephin --> discharged on 12 days of Cefdinir to complete 2 week course. s/p IVF Tylenol prn for pain or fever. Will need outpatient follow up w/ urology. #Hx of CHB/s/p pacemaker placement EKG w/ RBB, sinus w/ PACs Troponin negative at time of admission Reports no CP #CKD stage 3b Baseline Creatinine 1.6-1.96 Creatinine 1.91 #History of prolonged QT QTc 496 on admission Avoid QT prolonging agents #Ambulatory dysfunction PT/OT - recommended home w/ home health vs outpatient therapy. Patient ambulated 250 ft. #Vascular Parkinson's, dementia Continue Aricept, Sinemet #Hypertension Continue amlodipine #BPH Continue Flomax Updated at bedside 06/24. Discharged back to [facility] living 06/24. Admission HPI Per Admitting Provider Mason is an 84-year-old male with a past medical history of parkinsonism with dementia, BPH with LUTS, hypertension, CHB s/p pacemaker placement presented to the ER by EMS for acute weakness, unsteadiness as a lift assist, and acute on chronic confusion. He was recently in the hospital with discharge 05/22/2025 after pacemaker placement 05/21/2025 for intermittent CHB. Mason slipped out of bed today. Had trouble standing .[place] weak all over, no focal arm or leg weakness. In the middle of the night had some chills and shakes. No cough. Intermittent wheezing, none currently. No fever last night +Urinary incontinence No dysuria. +Urinary frequency, endorses chronic incontinence. 'Weird in the last couple days,having to go every 15 minutes." No abdominal pain or back pain Per pt there was recent concern for prostatitis. He had a UTI 4-6 week ago. Had antibiotics and improved after 7 days. Had a recurrent similar infection at the end of May and was suspected to have recurrent infection due to prostatitis and was placed on 3 weeks of abx which ended a little under a week ago. Sx worsened since stopping that antibiotic. Was following with Dr. Cummings for this. Eating and drinking OK, reports she has to encourage him to eat and drink normally but no real change no chest pain, no chest pressure. No dyspnea. Medical History: Reviewed Medications: Reviewed Surgical History: Reviewed Family history: Reviewed Allergies: Reviewed. NKDA. Social History: No tobacco use, Rare ETOH use Code Status: DNR/DNI Discharge Exam Constitutional WD/WN, vitals as above Eyes PERRL, conjunctivae normal, anicteric sclerae Respiratory normal respiratory effort, lungs clear to auscultation Cardiovascular RRR, no murmur, no edema Gastrointestinal (Abdomen) normal bowel sounds, soft, nontender, no hepatosplenomegaly Neurologic PERRL, EOMI, accommodation nl, no face palsy, no dysarthria Psychiatric A+Ox3, euthymic affect Discharge Plan Discharge Items Patient Disposition: Home - Self-Care Reason For Visit: COMPLICATED UTI Discharge Diagnosis: UTI Condition on Discharge: Good Activity: Resume your previous activity Non-emergency contact: Primary Care Provider and Urologist Call non-emergency contact if: you have any medication questions, your symptoms worsen and you have a fever Follow-up/Referrals: Warren Quintanilla MD [Primary Care Provider] - Iban Tang MD [Physician] - Diet: Regular Addtl Attending Provider Instructions: Mr. Naidu, You were recently hospitalized following a fall and were found to have a UTI that spread into your blood stream. You were treated with IV antibiotics with improvement. You were evaluated by physical & occupational therapy who deemed you safe to return home. Please see recommendations below regarding your discharge. Please take Cefdinir twice daily for 12 additional days to complete a 14 day course. Your first dose will be tomorrow morning, 06/24. Please also take a daily probiotic while on antibiotics to help promote good bacteria into your gut. You may take your antibiotic with food to avoid GI upset. The remainder of your medications may be resumed unless stated below. Please follow up with urology outpatient. Please follow up with your PCP within 1-2 weeks of discharge. Best of luck! Mica Mcneil PA-C Pending Studies at Discharge: No Stand-Alone Forms: My [email or web address], Smoking Cessation Medications and DC Order Prescriptions: New cefdinir 300 mg capsule 300 mg PO BID Qty: 24 0RF Probiotic 15 billion cell capsule, sprinkle 1 cap PO DAILY Qty: 12 0RF Rx Instructions: do not crush/chew/cut; swallow whole OR may open and sprinkle in cold drink/food Continued amlodipine 5 mg tablet 5 mg PO QAM cholecalciferol (vitamin D3) 50 mcg (2,000 unit) capsule 0 mcg PO DAILY Patient Comments: 06/22- otc unable to verify carbidopa-levodopa 25-100 mg tablet 1 tab PO TID acetaminophen [Tylenol] 325 mg Tablet 650 mg PO Q4H PRN (Reason: PAIN/FEVER) Patient Comments: 06/22- otc unable to verify donepezil [Aricept] 10 mg Tablet 0 mg PO QAM Patient Comments: 06/22- 10mg po daily last filled 02/15/25 90 day supply #90 vitamin [id number] B1 100-1 mg/mL Solution 0 ml IM MONTHLY Patient Comments: 06/22- no fill history unable to verify tamsulosin 0.4 mg capsule 0.4 mg PO DAILY Discharge Orders: Discharge Order (Routine); Ordered 06/24/25 Ordered By: Mica Redman/Other Patient Handouts: Urinary Tract Infections in Men, UTIs Admission Data Admit Date/Time: 06/22/25 12:55 Attending Provider: Peyton Patiño Admit Provider: Jayce Mcnulty Primary Care Provider: Warren Quintanilla Other Providers: Jayce Mcnulty; Heriberto Guajardo Hospital Stay Data Consultations 06/22/25 12:53 ED Decision to Admit Stat Diagnostic Imagining Performed 06/22/25 10:38 CT Abd and Pelvis [CT abd pelvis IV con only] Stat Pending Results Patient Have Any Pending Studies at Discharge: No Discharge Instructions Given to Patient (Per Discharging Provider) Mr. Naidu, Juan Manuel were recently hospitalized following a fall and were found to have a UTI that spread into your blood stream. You were treated with IV antibiotics with improvement. You were evaluated by physical & occupational therapy who deemed you safe to return home. Please see recommendations below regarding your discharge. Please take Cefdinir twice daily for 12 additional days to complete a 14 day course. Your first dose will be tomorrow morning, 06/24. Please also take a daily probiotic while on antibiotics to help promote good bacteria into your gut. You may take your antibiotic with food to avoid GI upset. The remainder of your medications may be resumed unless stated below. Please follow up with urology outpatient. Please follow up with your PCP within 1-2 weeks of discharge. Best of luck! Mica Mcneil PA-C Total Time Total Time Spent Total Time Spent (In Minutes): 50 Total Time Includes: Examination of the Patient, Discharge Planning and Medication Reconciliation Coding Level of Care Code 79292 INP/OBS DISCH >30 MIN Diagnoses Complicated UTI (urinary tract infection) N39.0 Dementia F03.90 BPH loc w urin obs/LUTS N40.1 Hypertension I10 Chronic kidney disease (CKD), active medical management without dialysis N18.9 Bacteremia R78.81
[2025-06-24 16:12] VITALS: BP 157/80; PULSE 74
[2025-06-24] MEDS: CEFDINIR 300 MG CAP PO ONE (16:55)
--- NOTE | 2025-06-26 07:03 | Electrocardiogram Report ---
Test Reason : Blood Pressure : */* mmHG Vent. Rate : 106 BPM Atrial Rate : 106 BPM P-R Int : 186 ms QRS Dur : 150 ms QT Int : 374 ms P-R-T Axes : 14 -80 47 degrees QTcB Int : 496 ms Sinus tachycardia with Premature atrial complexes Right bundle branch block Left anterior fascicular block Bifascicular block Minimal voltage criteria for LVH, may be normal variant ( R in aVL ) Abnormal ECG When compared with ECG of 21-May-2025 17:25, Premature atrial complexes are now Present Confirmed by Kendrick Basurto ([id number]) on 06/26/2025 7:03:24 AM Referred By: Confirmed By: Kendrick Basurto
== END 2025-06-24 18:00 | disposition home or self-care (01) | DRG 690 ==
LOC: ED 08:44 → SUATTDRO 12:55 → 2N 12:55